=== PATIENT | female | born 1965 | race Caucasian/White ===

== ENCOUNTER → 2017-03-13 | Outpatient (CLI) | payer MEDICARE, OTHER ==
--- NOTE | 2017-03-13 11:08 | MR ---
EXAMINATION TYPE: MR lumbar spine wo/w con DATE OF EXAM: 03/13/2017 COMPARISON: CT 05/11/2014 HISTORY: Low back pain TECHNIQUE: Multiplanar, multisequence images of the lumbar spine were acquired utilizing 10 mL intravenous Gadav ist gadolinium contrast. Suspect there are only 4 nonrib-bearing lumbar vertebral bodies. Minimal anterolisthesis grade 1 lumb osacral junction. L1-L2: Normal disc appearance without desiccation. No herniation, protrusion or disc bulging. No ca nal stenosis is present. Foramina are patent bilaterally. L2-L3: Small posterior broad-based disc bulge causes slight anterior mass effect on the thecal sac. F acet arthropathy with hypertrophy of the ligamentum flavum encroaches upon the lateral recesses. Late ral extension of disc material encroaches mildly on the neural foramina bilaterally. L3-L4: Somewhat eccentric disc bulge towards the left causes minimal anterolateral mass effect on the thecal sac. There is some facet arthropathy with hypertrophy ligamentum flavum greater on the right. L4-S1: Normal disc appearance without desiccation. No herniation, protrusion or disc bulging. No ca nal stenosis is present. There is some facet arthropathy change. Foramina are patent bilaterally. Lumbar segments are intact. No paraspinal masses are identified. Conus medullaris has a normal appe arance. Question some dilation of the common bile duct. IMPRESSION: Mild degenerative disc disease, facet arthropathy. Correlate with plain film prior to any interventio n. Findings suggest biliary dilation possibly due to postcholecystectomy change.
== END | disposition home or self-care (01) ==
LOC: RADMRIMAIN 08:25
PROVIDERS: ATTEND Internal Medicine
DX: M51.36 Other intervertebral disc degeneration, lumbar region (principal); M46.96 Unspecified inflammatory spondylopathy, lumbar region
CPT/HCPCS: 72158; A9581

== ENCOUNTER 2017-04-07 06:09 | Observation (INO) | payer MEDICARE, OTHER ==
[2017-04-07] MEDS ORDERED: NITROGLYCERIN SL TABS 0.4 MG TAB SUBLINGUAL STA ×3 (06:26)
[2017-04-07] MEDS ORDERED: ASPIRIN 81 MG PO STA (06:26)
--- NOTE | 2017-04-07 06:30 | ED ---
General Adult HPI - General Source: patient, RN notes reviewed Mode of arrival: ambulatory Limitations: no limitations <Mendel Ennis - Last Filed: 04/07/17 06:27> <Juan Purcell - Last Filed: 04/07/17 07:40> - General Chief complaint: Chest Pain Stated complaint: Chest Pain/Back Pain/ Trouble Urinating Time Seen by Provider: 04/07/17 06:18 - History of Present Illness Initial comments: Patient is a pleasant 51-year-old female presenting to the emergency Department with chest discomfort. Onset of symptoms was a week ago. Discomfort is described as sharp. Discomfort is currently 8/10. There is radiation towards the back. Patient has been coughing for the past week or more. Cough is been dry. Patient does have some associated nausea and shortness of breath. No diaphoresis. Patient states she feels like she needs to urinate however has not been able to urinate in the past 3 hours. No fevers. Patient was at [facility] yesterday however they were unable to get blood on her and patient was given the option if she wanted to leave and decided to leave at that time. ( Mendel Ennis) - Related Data Home Medications Medication Instructions Recorded Confirmed ALPRAZolam [Xanax] 1 mg PO Q8H PRN 03/20/14 04/07/17 Hydrocodone/Acetaminophen [[place] 1 tab PO Q8HR PRN 03/20/14 04/07/17 7.5-325] Albuterol Inhaler [Ventolin Hfa 1 puff INHALATION RT-TID PRN 12/31/15 04/07/17 Inhaler] Albuterol Nebulized [Ventolin 2.5 mg INHALATION RT-TID PRN 12/31/15 04/07/17 Nebulized] Aspirin 325 mg PO DAILY 12/31/15 04/07/17 Butalb/APAP/Caff 50-325-40Mg 1 - 2 tab PO Q4H PRN 12/31/15 04/07/17 [Fioricet 50-325-40] Cyclobenzaprine [Flexeril] 5 mg PO Q8H 12/31/15 04/07/17 Levothyroxine Sodium [Synthroid] 50 mcg PO MOTUWETHFRSA 12/31/15 04/07/17 Pantoprazole [Protonix] 40 - 80 mg PO DAILY PRN 12/31/15 04/07/17 Zolpidem [Ambien] 10 mg PO HS 12/31/15 04/07/17 buPROPion XL [Wellbutrin Xl] 450 mg PO DAILY 12/31/15 04/07/17 FLUoxetine HCL [Sarafem] 60 mg PO HS 02/07/16 04/07/17 valACYclovir HCL [Valacyclovir] 500 mg PO DAILY 02/07/16 04/07/17 Allergies Allergy/AdvReac Type Severity Reaction Status Date / Time ketorolac tromethamine Allergy Unknown Verified 04/07/17 06:15 [From Toradol] prochlorperazine edisylate Allergy Unknown Verified 04/07/17 06:15 [From Compazine] prochlorperazine maleate Allergy Unknown Verified 04/07/17 06:15 [From Compazine] Sulfa (Sulfonamide Allergy Rash/Hives Verified 04/07/17 06:15 Antibiotics) Review of Systems ROS Other: All systems not noted in ROS Statement are negative. Constitutional: Denies: fever Eyes: Denies: eye pain ENT: Denies: ear pain Respiratory: Reports: cough, dyspnea Cardiovascular: Reports: chest pain Endocrine: Denies: fatigue Gastrointestinal: Denies: abdominal pain Genitourinary: Reports: urgency Musculoskeletal: Reports: back pain Skin: Denies: rash Neurological: Denies: weakness <Mendel Ennis - Last Filed: 04/07/17 06:27> ROS Other: All systems not noted in ROS Statement are negative. <Juan Purcell - Last Filed: 04/07/17 07:40> ROS Statement: Those systems with pertinent positive or pertinent negative responses have been documented in the HPI. Past Medical History Past Medical History: Asthma, Deep Vein Thrombosis (DVT) History of Any Multi-Drug Resistant Organisms: None Reported Past Surgical History: Appendectomy, Section, Hysterectomy, Orthopedic Surgery, Tonsillectomy Additional Past Surgical History / Comment(s): LEG SURGERY, KNEE SURGERY LEFT Past Psychological History: Anxiety, Depression, Panic Disorder Smoking Status: Never smoker Past Alcohol Use History: None Reported Past Drug Use History: None Reported <Mendel Ennis - Last Filed: 04/07/17 06:27> General Exam Limitations: no limitations General appearance: alert, in no apparent distress Head exam: Present: atraumatic Eye exam: Present: normal appearance, PERRL ENT exam: Present: normal oropharynx Neck exam: Present: normal inspection Respiratory exam: Present: normal lung sounds bilaterally. Absent: chest wall tenderness Cardiovascular Exam: Present: regular rate, normal rhythm Expanded Peripheral pulses: 2+: Radial (R), Radial (L), Dorsalis Pedis (R), Dorsalis Pedis (L) GI/Abdominal exam: Present: soft. Absent: tenderness Extremities exam: Present: normal inspection. Absent: pedal edema, calf tenderness Back exam: Present: normal inspection Neurological exam: Present: alert Psychiatric exam: Present: normal affect, normal mood Skin exam: Present: normal color <Mendel Ennis - Last Filed: 04/07/17 06:27> Vital Signs 04/07/17 04/07/17 04/07/17 06:10 06:55 07:05 Temperature 97 F L Pulse Rate 96 88 95 Respiratory 18 16 18 Rate Blood Pressure 120/78 113/78 121/67 O2 Sat by Pulse 100 100 95 Oximetry 04/07/17 07:15 Temperature Pulse Rate 90 Respiratory 18 Rate Blood Pressure 103/63 O2 Sat by Pulse 97 Oximetry EKG Findings - EKG Comments: EKG Findings:: Normal sinus rhythm 100. NC 140. QRS 72. QT 320. QTc 412. Normal axis. Normal QRS. Inverted T waves leads V2 through V5. <Mendel Ennis - Last Filed: 04/07/17 06:27> Medical Decision Making - Lab Data Result diagrams: 04/07/17 06:53 04/07/17 06:53 <Juan Purcell - Last Filed: 04/07/17 07:40> - Lab Data Lab Results 04/07/17 04/07/17 04/07/17 Range/Units 06:53 06:53 06:53 WBC 5.9 (3.8-10.6) k/uL RBC 4.40 (3.80-5.40) m/uL Hgb 14.0 (11.4-16.0) gm/dL Hct 42.7 (34.0-46.0) % MCV 97.1 (80.0-100.0) fL MCH 31.8 (25.0-35.0) pg MCHC 32.8 (31.0-37.0) g/dL RDW 13.3 (11.5-15.5) % Plt Count 292 (150-450) k/uL Neutrophils % 40 % Lymphocytes % 46 % Monocytes % 7 % Eosinophils % 4 % Basophils % 0 % Neutrophils # 2.4 (1.3-7.7) k/uL Lymphocytes # 2.7 (1.0-4.8) k/uL Monocytes # 0.4 (0-1.0) k/uL Eosinophils # 0.2 (0-0.7) k/uL Basophils # 0.0 (0-0.2) k/uL PT (9.0-12.0) sec INR (<1.2) APTT (22.0-30.0) sec D-Dimer (<0.60) mg/L FEU Sodium 144 (137-145) mmol/L Potassium 4.2 (3.5-5.1) mmol/L Chloride 108 H (98-107) mmol/L Carbon Dioxide 24 (22-30) mmol/L Anion Gap 12 mmol/L BUN 12 (7-17) mg/dL Creatinine 1.01 (0.52-1.04) mg/dL Est GFR (MDRD) Af Amer >60 (>60 ml/min/1.73 sqM) Est GFR (MDRD) Non-Af 58 (>60 ml/min/1.73 sqM) Glucose 63 L (74-99) mg/dL Calcium 10.1 (8.4-10.2) mg/dL Magnesium 2.0 (1.6-2.3) mg/dL Total Bilirubin 0.3 (0.2-1.3) mg/dL AST 19 (14-36) U/L ALT 21 (9-52) U/L Alkaline Phosphatase 59 (38-126) U/L Total Creatine Kinase 136 H (30-135) U/L CK-MB (CK-2) 1.3 (0.0-2.4) ng/mL CK-MB (CK-2) Rel Index 1.0 Troponin I <0.012 (0.000-0.034) ng/mL Total Protein 8.3 H (6.3-8.2) g/dL Albumin 4.9 (3.5-5.0) g/dL 10/28/17 Range/Units 06:53 WBC (3.8-10.6) k/uL RBC (3.80-5.40) m/uL Hgb (11.4-16.0) gm/dL Hct (34.0-46.0) % MCV (80.0-100.0) fL MCH (25.0-35.0) pg MCHC (31.0-37.0) g/dL RDW (11.5-15.5) % Plt Count (150-450) k/uL Neutrophils % % Lymphocytes % % Monocytes % % Eosinophils % % Basophils % % Neutrophils # (1.3-7.7) k/uL Lymphocytes # (1.0-4.8) k/uL Monocytes # (0-1.0) k/uL Eosinophils # (0-0.7) k/uL Basophils # (0-0.2) k/uL PT 10.4 (9.0-12.0) sec INR 1.0 (<1.2) APTT 23.9 (22.0-30.0) sec D-Dimer 0.34 (<0.60) mg/L FEU Sodium (137-145) mmol/L Potassium (3.5-5.1) mmol/L Chloride (98-107) mmol/L Carbon Dioxide (22-30) mmol/L Anion Gap mmol/L BUN (7-17) mg/dL Creatinine (0.52-1.04) mg/dL Est GFR (MDRD) Af Amer (>60 ml/min/1.73 sqM) Est GFR (MDRD) Non-Af (>60 ml/min/1.73 sqM) Glucose (74-99) mg/dL Calcium (8.4-10.2) mg/dL Magnesium (1.6-2.3) mg/dL Total Bilirubin (0.2-1.3) mg/dL AST (14-36) U/L ALT (9-52) U/L Alkaline Phosphatase (38-126) U/L Total Creatine Kinase (30-135) U/L CK-MB (CK-2) (0.0-2.4) ng/mL CK-MB (CK-2) Rel Index Troponin I (0.000-0.034) ng/mL Total Protein (6.3-8.2) g/dL Albumin (3.5-5.0) g/dL Critical Care Time Critical Care Time: Yes Total Critical Care Time: 31 <Juan Purcell - Last Filed: 04/07/17 07:40> Disposition <Mendel Ennis - Last Filed: 04/07/17 06:27> <Juan Purcell - Last Filed: 04/07/17 07:40> Clinical Impression: Chest pain Disposition: ADMITTED IP TO THIS HOSP Condition: Serious Instructions: Chest Pain (ED) Referrals: Genia Avalos MD [Primary Care Provider] - 1-2 days
--- NOTE | 2017-04-07 06:52 | XR ---
EXAM: XR Chest, 2 Views CLINICAL HISTORY: Reason: Chest Pain TECHNIQUE: Frontal and lateral views of the chest. COMPARISON: No relevant prior studies available. FINDINGS: Lungs: Unremarkable. No consolidation. Pleural space: Unremarkable. No pneumothorax. Heart: Unremarkable. No cardiomegaly. Mediastinum: Unremarkable. Bones/joints: Unremarkable. IMPRESSION: Normal chest x-rays.
[2017-04-07 07:03] LABS: Basophils % (A) 0 %; CH 31.6; CHCM 32.7; Eosinophils # (A) 0.2 k/uL (0-0.7); Eosinophils % (A) 4 %; HCT 42.7 % (34.0-46.0); HDW 2.61; Luc # (Auto) 0.12; Luc % (Auto) 2; Lymphocytes # (A) 2.7 k/uL (1.0-4.8); Lymphocytes % (A) 46 %; MCH 31.8 pg (25.0-35.0); MCHC 32.8 g/dL (31.0-37.0); MCV 97.1 fL (80.0-100.0); Mean Platelet Volume 8.5; Monocytes # (A) 0.4 k/uL (0-1.0); Monocytes % (A) 7 %; Neutrophils # (A) 2.4 k/uL (1.3-7.7); Neutrophils % (A) 40 %; RDW 13.3 % (11.5-15.5); WBC 5.9 k/uL (3.8-10.6)
[2017-04-07] MEDS ORDERED: MORPHINE SULFATE 10 MG/ML SYRINGE IVP STA (07:07)
[2017-04-07] MEDS ORDERED: ONDANSETRON 4 MG/2 ML VIAL IVP STA (07:09)
[2017-04-07 07:15] LABS: ALT 21 U/L (9-52); AST 19 U/L (14-36); Alkaline Phosphatase 59 U/L (38-126); Anion Gap 12 mmol/L; Blood Urea Nitrogen 12 mg/dL (7-17); Calcium 10.1 mg/dL (8.4-10.2); Carbon Dioxide 24 mmol/L (22-30); Chloride 108 mmol/L (98-107); Glucose 63 mg/dL (74-99); Non-African American GFR(MDRD) 58 (>60 ml/min/1.73 sqM); Sodium 144 mmol/L (137-145); Total Bilirubin 0.3 mg/dL (0.2-1.3); Total Protein 8.3 g/dL (6.3-8.2)
[2017-04-07 07:17] LABS: Potassium 4.2 mmol/L (3.5-5.1)
[2017-04-07 07:22] LABS: Partial Thromboplastin Time 23.9 sec (22.0-30.0); Prothrombin Time 10.4 sec (9.0-12.0)
[2017-04-07 07:23] LABS: Creatine Kinase 136 U/L (30-135)
[2017-04-07 07:36] LABS: Creatine Kinase MB 1.3 ng/mL (0.0-2.4); Troponin I <0.012 ng/mL (0.000-0.034)
[2017-04-07] MEDS ORDERED: NITROGLYCERIN SL TABS 0.4 MG TAB SUBLINGUAL PRN (07:38)
[2017-04-07] MEDS ORDERED: HEPARIN SODIUM,PORCINE 5,000 UNIT/ML 1 ML VIAL IV PRN (07:38)
[2017-04-07] MEDS ORDERED: IPRATROPIUM-ALBUTEROL 3 ML NEB INHALATION PRN (07:38)
[2017-04-07] MEDS ORDERED: MORPHINE SULFATE 4 MG/ML SYRINGE IV PRN (07:38)
[2017-04-07] MEDS ORDERED: HEPARIN SODIUM,PORCINE 5,000 UNIT/ML 1 ML VIAL IV ONE ×2 (07:38→18:46)
[2017-04-07] MEDS ORDERED: SODIUM CHLORIDE 0.9% 1,000 ML IV SCH (07:45)
[2017-04-07] MEDS: HEPARIN SODIUM,PORCINE/D5W PMX 25,000 UNIT in DEXTROSE/WATER 1 500ML.BAG IV SCH (08:18)
[2017-04-07] MEDS ORDERED: RX INFO: IV CONTRAST WAS GIVEN 1 EACH MISC MISCELLANE PRN (09:30)
[2017-04-07 10:13] LABS: Appearance,Urine Clear (Clear); Bilirubin,Urine Negative (Negative); Glucose,Urine (UA) Negative (Negative); Ketones,Urine Negative (Negative); Leukocyte Esterase,Urine Negative (Negative); Nitrite,Urine Negative (Negative); PH, Urine 5.5 (5.0-8.0); Protein,Urine Negative (Negative); Specific Gravity,Urine 1.005 (1.001-1.035); UA Billing (MACRO vs. MICRO) CHEM; Urobilinogen,Urine <2.0 mg/dL (<2.0)
[2017-04-07] MEDS ORDERED: ALBUTEROL NEBULIZED 2.5 MG/3 ML INHALATION PRN (10:28)
--- NOTE | 2017-04-07 10:31 | P.HPIM ---
History of Present Illness Chief Complaint: Chest pain This is a 51-year-old female with past medical history noted below who presented to the hospital with chest and back pain. Patient said that her symptoms started a week ago. She said that the pain is mostly in the center of her chest and to the right side. She described the pain as sharp. It is not associated with exertion. She said she's been having a lot of nonproductive cough that is making her chest discomfort worse. She rates her pain as 8 out of 10 in severity. She denies fevers or chills. No nausea or vomiting. She reports some shortness of breath. She is currently admitted to the observation unit for further evaluation. Review of Systems Review of system: 14 points review of systems were obtained and were negative except to what were mentioned in the HPI. Past Medical History Past Medical History: Asthma, Deep Vein Thrombosis (DVT) History of Any Multi-Drug Resistant Organisms: None Reported Past Surgical History: Appendectomy, Section, Hysterectomy, Orthopedic Surgery, Tonsillectomy Additional Past Surgical History / Comment(s): LEG SURGERY, KNEE SURGERY LEFT Past Psychological History: Anxiety, Depression, Panic Disorder Smoking Status: Never smoker Past Alcohol Use History: None Reported Past Drug Use History: None Reported Medications and Allergies Home Medications Medication Instructions Recorded Confirmed Type ALPRAZolam [Xanax] 1 mg PO Q8H PRN 03/20/14 04/07/17 History Hydrocodone/Acetaminophen [[place] 1 tab PO Q8HR PRN 03/20/14 04/07/17 History 7.5-325] Albuterol Inhaler [Ventolin Hfa 1 puff INHALATION RT-TID PRN 12/31/15 04/07/17 History Inhaler] Albuterol Nebulized [Ventolin 2.5 mg INHALATION RT-TID PRN 12/31/15 04/07/17 History Nebulized] Aspirin 325 mg PO DAILY 12/31/15 04/07/17 History Butalb/APAP/Caff 50-325-40Mg 1 - 2 tab PO Q4H PRN 12/31/15 04/07/17 History [Fioricet 50-325-40] Cyclobenzaprine [Flexeril] 5 mg PO Q8H 12/31/15 04/07/17 History Levothyroxine Sodium [Synthroid] 50 mcg PO MOTUWETHFRSA 12/31/15 04/07/17 History Pantoprazole [Protonix] 40 - 80 mg PO DAILY PRN 12/31/15 04/07/17 History Zolpidem [Ambien] 10 mg PO HS 12/31/15 04/07/17 History buPROPion XL [Wellbutrin Xl] 450 mg PO DAILY 12/31/15 04/07/17 History FLUoxetine HCL [Sarafem] 60 mg PO HS 02/07/16 04/07/17 History valACYclovir HCL [Valacyclovir] 500 mg PO DAILY 02/07/16 04/07/17 History Allergies Allergy/AdvReac Type Severity Reaction Status Date / Time ketorolac tromethamine Allergy Unknown Verified 04/07/17 06:15 [From Toradol] prochlorperazine edisylate Allergy Unknown Verified 04/07/17 06:15 [From Compazine] prochlorperazine maleate Allergy Unknown Verified 04/07/17 06:15 [From Compazine] Sulfa (Sulfonamide Allergy Rash/Hives Verified 04/07/17 06:15 Antibiotics) Physical Exam Vitals: Vital Signs Temp Pulse Pulse Resp BP BP Pulse Ox 04/07/17 08:43 97.7 F 78 18 104/79 100 04/07/17 08:24 97 F L 84 20 127/66 100 04/07/17 08:20 84 20 127/66 100 04/07/17 07:15 90 18 103/63 97 04/07/17 07:05 95 18 121/67 95 04/07/17 06:55 88 16 113/78 100 04/07/17 06:10 97 F L 96 18 120/78 100 Intake and Output 04/06/17 04/07/17 04/07/17 22:59 06:59 14:59 Output Total 414 Balance -414 Output: Post Void Residual 414 Other: Weight 104.326 kg 106.9 kg Patient Weight 04/08/17 06:59 Weight 106.9 kg General: The patient is awake and alert, in no distress Eye: there is normal conjunctiva bilaterally. Neck: The neck is supple, there is no JVD. Cardiovascular: Normal S1-S2, no S3-S4, no murmurs. Respiratory: Lungs clear to auscultation bilaterally Gastrointestinal: Abdomen is soft, nontender Musculoskeletal: There is no pedal edema. Neurological:. Speech is normal. Skin: Skin is warm and dry Results CBC & Chem 7: 04/07/17 06:53 04/07/17 06:53 Labs: Abnormal Lab Results - Last 24 Hours (Table) 04/07/17 04/07/17 Range/Units 06:53 06:53 Chloride 108 H (98-107) mmol/L Glucose 63 L (74-99) mg/dL Total Creatine Kinase 136 H (30-135) U/L Total Protein 8.3 H (6.3-8.2) g/dL Assessment and Plan Assessment: 1. Chest pain, with typical and atypical features. 12-lead EKG with no acute ischemic changes. First troponin is negative. Awaiting cardiology evaluation. Chest x-ray is unremarkable. 2. Major depressive disorder 3. Chronic arthritis pain 4. Orbital obesity
--- NOTE | 2017-04-07 11:17 | CT ---
EXAMINATION TYPE: CT angio chest DATE OF EXAM: 04/07/2017 10:48 AM COMPARISON: NONE HISTORY: SOB, pain CT DLP: 568.9 mGycm Automated exposure control for dose reduction was used. CONTRAST: CTA scan of the thorax is performed with IV Contrast, patient injected with 80 mL of Visipaque 320, p ulmonary embolism protocol. . FINDINGS: There is minimal dependent atelectasis in the dependent portions of the lungs. The lungs ar e otherwise clear. There is no significant retroperitoneal, internal mammary, mediastinal or hilar adenopathy. There is no evidence of pulmonary embolus. The aorta is normal in size without evidence of dissection . There is no pleural or pericardial fluid. The heart is upper limits of normal in size. Within the abdomen, the gallbladder is been removed. No other acute abnormality is seen. There is a s mall hiatal hernia. IMPRESSION: 1. THIS EXAMINATION IS NEGATIVE FOR PULMONARY EMBOLUS. 2. BORDERLINE CARDIOMEGALY. 3. SMALL HIATAL HERNIA.
[2017-04-07 13:20] LABS: Creatine Kinase 113 U/L (30-135)
[2017-04-07 13:32] LABS: Creatine Kinase MB 1.2 ng/mL (0.0-2.4); Troponin I <0.012 ng/mL (0.000-0.034)
[2017-04-07 14:09] VITALS: BMI 38.0
[2017-04-07] MEDS: METOPROLOL TARTRATE 50 MG TAB PO SCH ×2 (14:09→20:33)
[2017-04-07] MEDS: SODIUM CHLORIDE 0.9% 1,000 ML IV SCH ×2 (14:11→20:33)
[2017-04-07] MEDS: LEVOTHYROXINE 50 MCG TAB PO SCH (14:13)
[2017-04-07] MEDS: CYCLOBENZAPRINE 5 MG TAB PO SCH ×2 (14:13→20:32)
[2017-04-07] MEDS: ALPRAZolam 0.5 MG TAB PO PRN (14:16)
--- NOTE | 2017-04-07 15:41 | CONS ---
CONSULTATION Kim Jordan is a 51-year-old obese lady with a history of bronchial asthma, previous DVT, appendectomy section. Hysterectomy. She comes into the hospital with complaints of one week worth of chest discomfort. Her discomfort is sharp in nature. Sometimes a sensation of pressure located to the right of her sternum and she has been coughing for the past week and seems sometimes pain seemed to be associated with coughing. She also complained of some pressure in the chest, some radiation to the back as well. With these symptoms, she came into the hospital. Apparently, she went to [facility], but they could not get any blood drawn her and therefore she came here today. The quality of the pain seems musculoskeletal, but interestingly the EKG shows some precordial and anterior ST depression which was not there on the EKG from March 20. At the time of my evaluation, she is resting comfortably. Pain is musculoskeletal, almost reproducible. PAST MEDICAL HISTORY: 1. Remarkable for history of bronchial asthma. 2. DVT by history. 3. She status post appendectomy. 4. section. 5. Tonsillectomy. 6. Hysterectomy. MEDICATIONS: At home include albuterol inhaler, Flexeril, levothyroxine, Protonix, Wellbutrin and also Ambien. ALLERGIES: SHE IS ALLERGIC TO TORADOL, COMPAZINE, AND SULFA. PHYSICAL EXAMINATION: Blood pressure is 110/70, pulse rate is 70 per minute, regular. HEENT: Unremarkable. Fundus was not examined by me. Neck is supple. No JVD. I do not hear a carotid bruit. There is no thyromegaly. Heart exam reveals S1, S2 with somewhat distant heart sounds. Lungs reveal bilateral decent air entry. There is no significant rub, murmur or gallop. Abdomen is soft, nontender. Lower extremities reveal palpable pulses. No edema. Central nervous system is grossly within normal limits. EKG revealed a sinus mechanism with a precordial ST depression, which is a new finding. EKG from March 20 did not reveal similar changes. IMPRESSION: 1. Atypical chest pain. 2. Abnormal EKG. 3. History of bronchial asthma. 4. Underlying depression. 5. RECOMMENDATIONS: The patient's laboratory data suggested that initial troponin is negative. Her D-dimer is normal. I am recommending CT angiography to rule out any aortic dissection or any pulmonary embolism. If these studies are negative, given her EKG changes and atypical chest pain, I will consider cardiac cath. I would also discontinue heparin, check additional troponin levels and see how she does. I will perform coronary angiography if the CT angiography is negative and patient continues to have chest pain. EKG changes are of a concern. I discussed this with the patient at length, explained to her the rationale, risks, benefits, and options related to coronary angiography. She understands and wishes to proceed and this will be scheduled for tomorrow after I review the CT angiogram. Thank you very much for the consult. ROBERTA / ROSION: [id number] /
[2017-04-07] MEDS: MORPHINE SULFATE 10 MG/ML SYRINGE IV PRN ×2 (16:35→20:31)
[2017-04-07 19:38] LABS: Creatine Kinase 110 U/L (30-135)
[2017-04-07 19:52] LABS: Creatine Kinase MB 1.1 ng/mL (0.0-2.4); Troponin I <0.012 ng/mL (0.000-0.034)
[2017-04-07] MEDS: FLUoxetine HCL 20 MG CAP PO SCH (20:32)
[2017-04-07] MEDS: ZOLPIDEM 10 MG TAB PO SCH (20:32)
[2017-04-08 01:25] LABS: CH 30.8; CHCM 31.8; HCT 38.2 % (34.0-46.0); HDW 2.43; HGB 12.2 gm/dL (11.4-16.0); MCH 31.1 pg (25.0-35.0); MCV 97.3 fL (80.0-100.0); Mean Platelet Volume 8.7; RBC 3.92 m/uL (3.80-5.40); RDW 14.2 % (11.5-15.5); WBC 7.6 k/uL (3.8-10.6)
[2017-04-08] MEDS: CYCLOBENZAPRINE 5 MG TAB PO SCH ×3 (01:47→18:12)
[2017-04-08 01:59] LABS: Anion Gap 11 mmol/L; Blood Urea Nitrogen 12 mg/dL (7-17); Calcium 9.2 mg/dL (8.4-10.2); Carbon Dioxide 19 mmol/L (22-30); Chloride 109 mmol/L (98-107); Cholesterol 198 mg/dL (<200); Glucose 100 mg/dL (74-99); HDL Cholesterol 59 mg/dL (40-60); Non-African American GFR(MDRD) 53 (>60 ml/min/1.73 sqM); Potassium 4.4 mmol/L (3.5-5.1); Sodium 139 mmol/L (137-145)
[2017-04-08] MEDS ORDERED: ACETAMINOPHEN TAB 325 MG TAB PO PRN (07:01)
--- NOTE | 2017-04-08 08:42 | ECHOF ---
Referral Reason:LV FUNCTION MEASUREMENTS -------- HEIGHT: 167.6 cm WEIGHT: 106.6 kg BP: 81/55 RVIDd: 2.4 cm (< 3.3) IVSd: 1.0 cm (0.6 - 1.1) LVIDd: 4.4 cm (3.9 - 5.3) LVPWd: 1.0 cm (0.6 - 1.1) IVSs: 1.4 cm LVIDs: 2.7 cm LVPWs: 1.9 cm LA Diam: 3.2 cm (2.7 - 3.8) LAESV Index (A-L): 19.33 ml/m Ao Diam: 3.6 cm (2.0 - 3.7) AV Cusp: 2.4 cm (1.5 - 2.6) MV EXCURSION: 13.970 mm (> 18.000) MV EF SLOPE: 57 mm/s (70 - 150) EPSS: 1.0 cm MV E Pedro: 0.66 m/s MV DecT: 203 ms MV A Pedro: 0.64 m/s MV E/A Ratio: 1.04 RAP: 5.00 mmHg RVSP: 27.98 mmHg FINDINGS -------- Sinus rhythm. This was a technically good study. The left ventricular size is normal. Left ventricular wall thickness is normal. Overall left vent ricular systolic function is normal with, an EF between 60 - 65 %. The right ventricle is normal in size and function. Normal LA size by volume 22+/-6 ml/m2. The right atrium is normal in size. The aortic valve is trileaflet and appears structurally normal. The mitral valve is normal. Mild tricuspid regurgitation present. Right ventricular systolic pressure is normal at < 35 mmHg. Trace/mild (physiologic) pulmonic regurgitation. The aortic root size is normal. Normal inferior vena cava with normal inspiratory collapse consistent with estimated right atrial pre ssure of 5 mmHg. Echo free space may represent effusion or a pericardial fat pad. CONCLUSIONS -------- 1. Sinus rhythm. 2. This was a technically good study. 3. The left ventricular size is normal. 4. Left ventricular wall thickness is normal. 5. Overall left ventricular systolic function is normal with, an EF between 60 - 65 %. 6. The right ventricle is normal in size and function. 7. Normal LA size by volume 22+/-6 ml/m2. 8. The right atrium is normal in size. 9. The aortic valve is trileaflet and appears structurally normal. 10. The mitral valve is normal. 11. Mild tricuspid regurgitation present. 12. Right ventricular systolic pressure is normal at < 35 mmHg. 13. Trace/mild (physiologic) pulmonic regurgitation. 14. The aortic root size is normal. 15. Normal inferior vena cava with normal inspiratory collapse consistent with estimated right atrial pressure of 5 mmHg. OBSTETRICIAN AND GYNAECOLOGIST: Fatemeh Weeks RDCS
[2017-04-08] MEDS ORDERED: ASPIRIN 325 MG TAB PO SCH ×2 (09:00)
[2017-04-08] MEDS ORDERED: SODIUM CHLORIDE 0.9% 250 ML IV ONE (09:14)
[2017-04-08] MEDS ORDERED: BUTALB/APAP/CAFF 50-325-40MG TAB PO PRN (09:19)
[2017-04-08] MEDS ORDERED: NITROGLYCERIN SL TABS 0.4 MG TAB SUBLINGUAL PRN (09:20)
[2017-04-08] MEDS ORDERED: SODIUM CHLORIDE 0.9% 1,000 ML in EMPTY BAG 1 BAG IV ONE (09:20)
[2017-04-08] MEDS ORDERED: ALPRAZolam 0.25 MG TAB PO PRN (09:20)
[2017-04-08] MEDS ORDERED: ALPRAZolam 0.5 MG TAB PO PRN (09:20)
[2017-04-08] MEDS ORDERED: ASPIRIN 325 MG TAB PO STA (09:20)
[2017-04-08] MEDS ORDERED: ATORVASTATIN 80 MG TAB PO STA (09:20)
[2017-04-08] MEDS: buPROPion XL 150 MG TAB.ER.24H PO SCH (09:56)
[2017-04-08] MEDS: valACYclovir 500 MG TAB PO SCH (09:56)
[2017-04-08] MEDS: METOPROLOL TARTRATE 12.5 MG TAB PO SCH ×2 (09:57→20:41)
[2017-04-08] MEDS: PANTOPRAZOLE 40 MG TABLET PO SCH (09:57)
[2017-04-08] MEDS: ALPRAZolam 0.5 MG TAB PO PRN ×2 (10:04→20:39)
[2017-04-08] MEDS ORDERED: LIDOCAINE 2% INJ 20 MG/ML (20 ML MDV) ONE (10:59)
--- NOTE | 2017-04-08 11:06 | PN ---
PROGRESS NOTE Mrs Jordan is a lady with chest pain. Quality of which seemed atypical. Had abnormal EKG changes. I performed a CT angio yesterday which was negative for pulmonary embolism or for any aortic pathology. EKG changes persist. Her chest pain persists, but seems atypical. Echo revealed preserved systolic function with a echo-free space anteriorly suggestive of fat pad. Given her ongoing pain and EKG changes, I am recommending coronary angiography. Rationale, risks, benefits, options were explained to the patient and . I am recommending coronary angiography. The patient understands the risks, benefits, and options. Creatinine is 1.1. We will continue aggressive hydration. Proceed with cardiac cath today and based on findings, make further determination. If her coronary angiography is negative, then I would have to resume that her pain is purely musculoskeletal and EKG changes are incidental and nonspecific. Her previous EKG from 2013 did not reveal similar changes. The patient and her understand the rationale, risks, benefits, options and wished to proceed with cardiac catheterization. Vital signs are stable. Blood pressure is somewhat on the lower side. S1-S2 heard normally. No rub, murmur or gallop. No JVD. Lungs are clear. Abdomen and lower extremities exam is unchanged. MMODL / IJN: [id number] /
[2017-04-08] MEDS ORDERED: IV FLUID CONTINUATION 1,000 ML IV ONE (11:12)
[2017-04-08] MEDS ORDERED: diphenhydrAMINE 50 MG/ML 1 ML VIAL ONE (11:22)
[2017-04-08] MEDS ORDERED: MIDAZOLAM 2 MG/2 ML VIAL ONE (11:22)
[2017-04-08] MEDS: MIDAZOLAM 2 MG/2 ML VIAL IV ONE ×2 (11:52→12:00)
[2017-04-08] MEDS ORDERED: diphenhydrAMINE 50 MG/ML 1 ML VIAL IVP ONE (11:52)
[2017-04-08] MEDS ORDERED: fentaNYL (PF) 50 MCG/ML 2 ML AMP ONE (12:00)
[2017-04-08] MEDS ORDERED: LIDOCAINE 2% INJ 20 MG/ML SQ ONE ×2 (12:01)
[2017-04-08] MEDS ORDERED: fentaNYL (PF) 50 MCG/ML 2 ML AMP IV ONE (12:02)
[2017-04-08] MEDS ORDERED: HYDROmorphone 2 MG/ML 1 ML SYRINGE IV ONE (12:14)
[2017-04-08] MEDS ORDERED: HYDROmorphone 2 MG/ML 1 ML SYRINGE ONE (12:14)
[2017-04-08] MEDS ORDERED: IOHEXOL 350 MG/ML (PER ML) 100ML BTL INJ ONE (12:15)
[2017-04-08] MEDS: SODIUM CHLORIDE 0.9% 1,000 ML IV SCH (12:53)
--- NOTE | 2017-04-08 13:24 | CC ---
CARDIAC CATHETERIZATION REPORT DATE OF SERVICE: 04/08/2017 PROCEDURE: Left heart catheterization and coronary angiography. PERFORMED BY: Dr. Jessy Friedman. CLINICAL INFORMATION: Kim Jordan is a 51-year-old lady admitted to the hospital with chest pain and precordial ST-segment depression, raising the possibility of ischemia. She had continued pain, negative troponins, and also had some shoulder discomfort and underwent a CT angio that was negative for pulmonary embolism or for aortic pathology. Because of ongoing pain and EKG changes she was advised coronary angiography. Risks, benefits, options, rationale explained to the patient and her . PROCEDURE NOTE: Under local anesthesia and strict aseptic precautions, a 6-Irish introducer was placed in the right femoral artery. Using standard Nicko catheters I performed coronary angiography and a pigtail catheter was used to check LV pressures. LV gram was not performed. Patient's creatinine was 1.10. She was hydrated adequately before and during the procedure. Hemostasis was secured using a Perclose device. Because of some oozing, I applied a FemoStop. Excellent hemostasis was noted. The patient tolerated the procedure well without complications. CARDIAC CATHETERIZATION FINDINGS: The left end-diastolic pressure was 12 mmHg and there was no gradient across aortic valve. CORONARY ANGIOGRAPHY FINDINGS: Right coronary artery: Technically dominant vessel. No significant disease. Distally bifurcates into a larger PLV, smaller PDA both of which supply a fair amount of myocardium. No significant disease in the dominant RCA. Left main coronary artery: A long patent disease-free vessel that bifurcates into LAD and circumflex. Left anterior descending coronary artery: Good caliber vessel extends along the antral wall gives off septal and diagonal branches. Most of these branches are smaller distally but it curves over the apex supplying the inferoapical portion of left ventricle. There is no significant disease in the LAD system. Left posterior circumflex coronary artery: Nondominant vessel that gives off a single obtuse marginal, runs in the AV groove. No significant disease. Minor irregularities. Left ventriculogram this was not performed. FINAL IMPRESSION: This patient has no significant obstructive coronary artery disease. She has a right dominant system, normal filling pressures. Her chest pain is probably musculoskeletal in origin. RECOMMENDATIONS: I am recommending risk factor modification and continued medical therapy. She will be on Lipitor 20 mg daily. No other intervention necessary fine. Findings were discussed with the patient and her and I expect that she will be discharged home tomorrow morning if she remains stable. Moderate conscious sedation was provided with a combination of Versed, fentanyl and also Benadryl. Moderate conscious sedation time was about 30 minutes. ROBERTA / ROSION: [id number] /
[2017-04-08] MEDS: HYDROcodone/APAP 10-325MG 1 EACH TAB PO PRN ×2 (13:29→20:40)
--- NOTE | 2017-04-08 14:33 | P.PN ---
Subjective Patient underwent left heart catheterization today. No significant obstructive coronary artery disease reported. Patient continued to describe chest pain and back pain. She is requesting [place] 10 mg Objective - Vital Signs Vital signs: Vital Signs Temp 98.0 F 04/08/17 12:40 Pulse 75 04/08/17 12:40 Resp 16 04/08/17 12:40 BP 109/74 04/08/17 12:40 Pulse Ox 93 L 04/08/17 12:40 Intake & Output 04/07/17 04/08/17 04/08/17 18:59 06:59 18:59 Intake Total 225 200 Balance 225 200 Weight 106.9 kg Intake: IV 200 Intake, IV Titration 225 Amount Heparin Sodium,Porcine/ 225 D5w Pmx 25,000 unit In Dextrose/Water 1 500ml. bag @ 9.59 UNITS/KG/HR 20 mls/hr IV .Q24H [facility] Rx#: [id number] Other: Voiding Method Toilet Toilet Toilet # Voids 1 2 - Exam General: The patient is awake and alert, in no distress Eye: there is normal conjunctiva bilaterally. Neck: The neck is supple, there is no JVD. Cardiovascular: Normal S1-S2, no S3-S4, no murmurs. Respiratory: Lungs clear to auscultation bilaterally Gastrointestinal: Abdomen is soft, nontender Musculoskeletal: There is no pedal edema. Neurological:. Speech is normal. Skin: Skin is warm and dry - Labs CBC & Chem 7: 04/08/17 00:57 04/08/17 00:57 Labs: Abnormal Lab Results - Last 24 Hours (Table) 04/07/17 04/08/17 04/08/17 Range/Units 14:23 00:57 00:57 APTT 32.9 H 47.8 H (22.0-30.0) sec Chloride 109 H (98-107) mmol/L Carbon Dioxide 19 L (22-30) mmol/L Creatinine 1.10 H (0.52-1.04) mg/dL Glucose 100 H (74-99) mg/dL LDL Cholesterol, Calc 113 H (0-99) mg/dL 04/08/17 Range/Units 07:40 APTT 61.5 H (22.0-30.0) sec Chloride (98-107) mmol/L Carbon Dioxide (22-30) mmol/L Creatinine (0.52-1.04) mg/dL Glucose (74-99) mg/dL LDL Cholesterol, Calc (0-99) mg/dL Assessment and Plan Assessment: 1. Chest pain, with typical and atypical features. 12-lead EKG with no acute ischemic changes. troponin is negative. Chest x-ray is unremarkable. 2. Major depressive disorder 3. Chronic arthritis pain 4. Orbital obesity Patient was seen and evaluated by cardiology. Given nonspecific changes on 12- lead EKG and persistent chest pain she underwent a left heart catheterization showing no significant obstructive coronary artery disease. Plan to continue telemetry monitoring as directed by cardiology for the rest of the day. Anticipate discharge home tomorrow. May use [place] as needed for pain.
[2017-04-08] MEDS: ZOLPIDEM 10 MG TAB PO SCH (20:39)
[2017-04-08] MEDS: FLUoxetine HCL 20 MG CAP PO SCH (20:39)
[2017-04-09] MEDS: SODIUM CHLORIDE 0.9% 1,000 ML IV SCH ×2 (02:54→11:12)
[2017-04-09] MEDS: CYCLOBENZAPRINE 5 MG TAB PO SCH ×2 (02:55→11:12)
[2017-04-09] MEDS: LEVOTHYROXINE 50 MCG TAB PO SCH (06:07)
[2017-04-09] MEDS: HYDROcodone/APAP 10-325MG 1 EACH TAB PO PRN (06:11)
[2017-04-09 07:50] VITALS: BP 117/65; PULSE 84; RESP 18; TEMP 97.6
[2017-04-09] MEDS: METOPROLOL TARTRATE 12.5 MG TAB PO SCH (08:16)
[2017-04-09] MEDS: buPROPion XL 150 MG TAB.ER.24H PO SCH (08:17)
[2017-04-09] MEDS: PANTOPRAZOLE 40 MG TABLET PO SCH (08:17)
[2017-04-09] MEDS: HEPARIN SODIUM,PORCINE/D5W PMX 25,000 UNIT in DEXTROSE/WATER 1 500ML.BAG IV SCH (08:23)
[2017-04-09] MEDS: METOPROLOL TARTRATE 50 MG TAB PO SCH (08:23)
[2017-04-09] MEDS ORDERED: ASPIRIN 81 MG PO SCH (09:00)
[2017-04-09] MEDS ORDERED: ATORVASTATIN 20 MG TAB PO SCH (09:00)
[2017-04-09 09:15] LABS: Basophils % (A) 0 %; CH 31.1; CHCM 31.5; Eosinophils # (A) 0.2 k/uL (0-0.7); Eosinophils % (A) 3 %; HCT 36.4 % (34.0-46.0); HDW 2.43; HGB 11.5 gm/dL (11.4-16.0); Luc # (Auto) 0.09; Luc % (Auto) 1; Lymphocytes # (A) 2.6 k/uL (1.0-4.8); Lymphocytes % (A) 39 %; MCH 31.2 pg (25.0-35.0); MCHC 31.5 g/dL (31.0-37.0); MCV 99.2 fL (80.0-100.0); Mean Platelet Volume 9.3; Monocytes # (A) 0.5 k/uL (0-1.0); Monocytes % (A) 8 %; Neutrophils # (A) 3.3 k/uL (1.3-7.7); Neutrophils % (A) 49 %; RBC 3.67 m/uL (3.80-5.40); RDW 14.6 % (11.5-15.5); WBC 6.7 k/uL (3.8-10.6); WBC (Perox) 6.98
[2017-04-09 09:20] LABS: Anion Gap 7 mmol/L; Blood Urea Nitrogen 11 mg/dL (7-17); Calcium 8.9 mg/dL (8.4-10.2); Carbon Dioxide 23 mmol/L (22-30); Chloride 109 mmol/L (98-107); Glucose 100 mg/dL (74-99); Non-African American GFR(MDRD) >60 (>60 ml/min/1.73 sqM); Potassium 4.3 mmol/L (3.5-5.1); Sodium 139 mmol/L (137-145)
[2017-04-09] MEDS: valACYclovir 500 MG TAB PO SCH (09:33)
--- NOTE | 2017-04-09 09:34 | PN ---
PROGRESS NOTE Mrs. Jordan is a 51-year-old female who presented with symptoms of chest discomfort. She was evaluated by Dr. Lillie Friedman yesterday and underwent cardiac catheterization because of her persistent symptoms, was found to have no evidence of significant obstructive disease. She is doing well this morning. Denying any chest pain. Her breathing is stable. She denies any dizziness. She continues to be on aspirin 81 mg daily, atorvastatin 20 mg daily and metoprolol tartrate 12.5 mg twice a day. PHYSICAL EXAMINATION: Blood pressure 117/60 with the heart rate in the 80s. LUNGS: Clear. HEART: Regular rate and rhythm S1, S2. No S3. No rub. ABDOMEN: Soft, nontender. EXTREMITIES: No edema. Right groin, no hematoma. LAB DATA: Lab data revealed BUN and creatinine 12 and 1.1. Potassium 4.4. IMPRESSION: 1. Chest discomfort with no evidence of obstructive coronary artery disease. 2. History of chronic arthritis pain. RECOMMENDATION: Patient will be discharged home today and followed as an outpatient with Dr. Lillie Friedman. MMODL / ROSION: [id number] /
[2017-04-09] MEDS ORDERED: AMOXIC-POT CLAV 500-125 MG 1 EACH TAB PO SCH (10:00)
--- NOTE | 2017-04-09 11:01 | P.DS ---
Providers Date of admission: 04/07/17 07:38 Expected date of discharge: 04/09/17 Attending physician: Genia Avalos Consults: 04/07/17 07:38 Consult Physician Urgent Consulting Provider: Selvin Keith Consult Reason/Comments: cp Do you want consulting provider notified?: Yes Primary care physician: Genia Avalos [facility] Hospital Course: discharge diagnosis 1. Chest pain, with typical and atypical features. chest pain likely secondary to musculoskeletal from patient's cough. CTA was negative for PE. Troponins were negative 3 sets.12-lead EKG with no acute ischemic changes. troponin is negative. Chest x-ray is unremarkable. patient underwent heart catheterization head no significant obstructive coronary artery disease. 2. Major depressive disorder 3. Chronic arthritis pain 4. obesity 5. Acute tracheobronchitis: Continue Augmentin Hospital course This is a 51-year-old female with past medical history noted below who presented to the hospital with chest and back pain. Patient said that her symptoms started a week ago. She said that the pain is mostly in the center of her chest and to the right side. She described the pain as sharp. It is not associated with exertion. She said she's been having a lot of nonproductive cough that is making her chest discomfort worse. She rates her pain as 8 out of 10 in severity. She denies fevers or chills. No nausea or vomiting. She reports some shortness of breath. She is currently admitted to the observation unit for further evaluation. Troponins were negative 3 sets. EKG showed no acute changes. Chest x-ray was unremarkable. She had a CTA of the chest was negative for PE. Patient continued to have chest discomfort and therefore underwent heart catheterization with Dr. hali ramírez which showed no significant coronary artery disease. He recommended patient to be on Lipitor 20 mg daily. Patient was having some hypotension episodes and could not tolerate the metoprolol that was discontinued. Patient's symptoms have improved. Her chest pain is reproducible with palpation of the chest wall. Patient does admit to having a cough and just started Augmentin outpatient she took one dose for bronchitis. Augmentin will be restarted and continued home. Again cardiology is cleared her for discharge. She is medically stable for discharge. Please refer to chart for any further details. She'll follow-up with cardiology in [address] Avalos in 1 week. I performed an examination of the patient and discussed their management with the physician Bucket Pusher. I have reviewed the Physician Bucket Pusher's notes and agree with the documented findings and plan of care Patient Condition at Discharge: Stable Plan - Discharge Summary Discharge Rx Participant: No New Discharge Prescriptions: New Atorvastatin [Lipitor] 20 mg PO DAILY #30 tab buPROPion XL [Wellbutrin XL] 450 mg PO DAILY tab.er.24h Continue ALPRAZolam [Xanax] 1 mg PO TID PRN PRN Reason: Anxiety Albuterol Nebulized [Ventolin Nebulized] 2.5 mg INHALATION RT-QID PRN PRN Reason: Shortness Of Breath Albuterol Inhaler [Ventolin Hfa Inhaler] 1 puff INHALATION RT-QID PRN PRN Reason: Shortness Of Breath Levothyroxine Sodium [Synthroid] 50 mcg PO MOTUWETHFRSA valACYclovir HCL [Valacyclovir] 500 mg PO DAILY Temazepam [Restoril] 30 mg PO HS Omeprazole 20 mg PO BID HYDROcodone/APAP 10-325MG [[place] 10-325] 1 tab PO TID PRN PRN Reason: Pain FLUoxetine HCL [PROzac] 20 mg PO BID Dicyclomine [Bentyl] 10 mg PO TID PRN PRN Reason: "Stomach attack" Amoxic-Pot Clav 500-125 mg [Augmentin 500-125 mg] 1 tab PO Q12HR Fluconazole 200 mg PO DAILY Discharge Medication List ALPRAZolam [Xanax] 1 mg PO TID PRN 03/20/14 [History] Albuterol Inhaler [Ventolin Hfa Inhaler] 1 puff INHALATION RT-QID PRN 12/31/15 [ History] Albuterol Nebulized [Ventolin Nebulized] 2.5 mg INHALATION RT-QID PRN 12/31/15 [ History] Levothyroxine Sodium [Synthroid] 50 mcg PO MOTUWETHFRSA 12/31/15 [History] valACYclovir HCL [Valacyclovir] 500 mg PO DAILY 02/07/16 [History] Amoxic-Pot Clav 500-125 mg [Augmentin 500-125 mg] 1 tab PO Q12HR 04/07/17 [ History] Dicyclomine [Bentyl] 10 mg PO TID PRN 04/07/17 [History] FLUoxetine HCL [PROzac] 20 mg PO BID 04/07/17 [History] Fluconazole 200 mg PO DAILY 04/07/17 [History] HYDROcodone/APAP 10-325MG [[place] 10-325] 1 tab PO TID PRN 04/07/17 [History] Omeprazole 20 mg PO BID 04/07/17 [History] Temazepam [Restoril] 30 mg PO HS 04/07/17 [History] Atorvastatin [Lipitor] 20 mg PO DAILY #30 tab 04/09/17 [Rx] buPROPion XL [Wellbutrin XL] 450 mg PO DAILY tab.er.24h 04/09/17 [Rx] Follow up Appointment(s)/Referral(s): Jose L Friedman MD [STAFF PHYSICIAN] - 1 Week (Office to call with appointment. ) Genia Avalos MD [Primary Care Provider] - 1 Week Patient Instructions/Handouts: Chest Pain (ED) Activity/Diet/Wound Care/Special Instructions: Diet: low cholesterol Activity: as tolerated Discharge Disposition: HOME SELF-CARE
== END 2017-04-09 12:05 | disposition home or self-care (01) ==
LOC: EC 06:09 → 3OBS 07:38
PROVIDERS: ADMIT Internal Medicine; ATTEND Internal Medicine
DX: R07.89 Other chest pain (principal); J20.9 Acute bronchitis, unspecified; G89.29 Other chronic pain; M19.90 Unspecified osteoarthritis, unspecified site; E66.9 Obesity, unspecified; F32.9 Major depressive disorder, single episode, unspecified; Z68.38 Body mass index [BMI] 38.0-38.9, adult; Z79.899 Other long term (current) drug therapy; Z79.82 Long term (current) use of aspirin; Z88.5 Allergy status to narcotic agent; Z88.2 Allergy status to sulfonamides; Z88.8 Allergy status to other drugs, medicaments and biological substances; F41.0 Panic disorder [episodic paroxysmal anxiety]; J45.909 Unspecified asthma, uncomplicated; Z86.718 Personal history of other venous thrombosis and embolism; R94.31 Abnormal electrocardiogram [ECG] [EKG]; M54.9 Dorsalgia, unspecified
CPT/HCPCS: 99152; 99153; 96361 ×2; 96366; 96376 ×2; 96365; 96375; 99291; 51798; 36415; 94760 ×2; 93005; 93306; 93458; 85379; 80061; 80053; 80048 ×2; 82550; 82553; 83735; 84484; 85025 ×2; 85027; 85610; 85730 ×2; 81003; 71020; 71275; G0378 ×3; C1894; C1769 ×2; C1760; J2001; J2250; J1170; J1200; J1644 ×2; Q9967 ×2; J2270; J2405; J3010

== ENCOUNTER → 2017-10-23 | Outpatient (CLI) | payer MEDICARE, OTHER ==
--- NOTE | 2017-10-23 14:51 | MM ---
Reason for exam: clinical finding. Last mammogram was performed 1 year and 9 months ago. History: Patient is postmenopausal. Benign excisional biopsy of the left breast, August 2006. Indicated problem(s): lump or thickening in the right breast. Physical Findings: Nurse Summary: 1 x 1cm nodule in the right breast at 1 o'clock (nurse ts). MG Diagnostic Mammo w CAD REX Bilateral CC and MLO view(s) were taken. Prior study comparison: January 11, 2016, bilateral MG 3d screening mammo w/cad. November 09, 2014, bilateral MG diagnostic mammo w CAD REX. The breast tissue is heterogeneously dense. This may lower the sensitivity of mammography. There is a new left upper outer quadrant mass 10cm from nipple. The palpable abnormality appears as a focal asymmetry similar to prior exams. These results were verbally communicated with the patient and result sheet given to the patient on 10/23/17. ASSESSMENT: Incomplete: need additional imaging evaluation, BI-RAD 0 RECOMMENDATION: Ultrasound of both breasts. (right palpable, left upper outer quadrant)
--- NOTE | 2017-10-23 14:54 | USB ---
Reason for exam: additional evaluation requested from abnormal screening. History: Patient is postmenopausal. Benign excisional biopsy of the left breast, August 2006. US Breast Limited BILAT Right limited breast ultrasound including focal area of concern, retroareolar and axilla demonstrates a 0.5 x 0.3 x 0.4cm solid, probably benign lesion at 2 o'clock, 6 month follow up ultrasound, likely fat necrosis. Left limited breast ultrasound including focal area of concern, retroareolar and axilla demonstrates a 0.7 x 0.4 x 0.5cm mixed lesion at 1:30 for which a biopsy is recommended. These results were verbally communicated with the patient and result sheet given to the patient on 10/23/17. ASSESSMENT: Suspicious, BI-RAD 4 RECOMMENDATION: Ultrasound core biopsy of the left breast. Called Dr. Avalos with mammographic findings and has scheduled an appointment for the patient for 11/15/17 at 9:[address] Espino. Biopsy scheduled for 10/31/17 at 1:00. PRELIMINARY REPORT CALLED AND FAXED TO DR. ESPINO ON 10/23/17.
== END | disposition home or self-care (01) ==
LOC: RADMAMWWP 10:29
PROVIDERS: ATTEND Internal Medicine
DX: N63.10 Unspecified lump in the right breast, unspecified quadrant (principal); N63.20 Unspecified lump in the left breast, unspecified quadrant; R92.8 Other abnormal and inconclusive findings on diagnostic imaging of breast
CPT/HCPCS: 77066

== ENCOUNTER → 2017-10-31 | Day surgery (SDC) | payer MEDICARE, OTHER ==
[2017-10-31 12:21] VITALS: RESP 16; TEMP 98.2; BMI 39.9
[2017-10-31 13:44] VITALS: BP 107/77; PULSE 103
--- NOTE | 2017-10-31 13:45 | USB ---
EXAMINATION TYPE: US biopsy breast VAD LT, MG diagnostic mammo LT wo CAD DATE OF EXAM: 10/31/2017 CLINICAL HISTORY: R92.8 Prev Abnormal Mammo. TECHNIQUE: Ultrasound guided core biopsy of left 1:30 breast. COMPARISON: NONE FINDINGS: The procedure of ultrasound guided core biopsy was explained to the patient. Benefits, alternatives, and risks were discussed. An informed consent was then obtained. The patient was placed in supine positioning for imaging and for the procedure. The overlying skin was prepped and draped in usual sterile fashion. Lidocaine buffered with bicarbonate was used as anesthetic into the skin and subcutaneous tissue up to area of concern in the left 1:30 breast. A kristal was made with surgical scalpel. Under ultrasound guidance, a 12-gauge vacuum assisted biopsy gun device was used to obtain 2 core samples. The lesion was no longer visible likely reflecting a cluster of cysts. Following this, a biopsy clip was left in lesion. Postprocedural mammogram demonstrates appropriate deployment of clip marker. The patient tolerated the procedure well without any immediate complication. The patient was kept in the radiology department for short stay after the procedure and then discharged home in stable condition. IMPRESSION: Successful, uncomplicated ultrasound guided core biopsy of area of concern in the left 1:30 breast, full pathology results to follow. Pathology Results: Benign BREAST, LEFT, CORE BIOPSY: FIBROCYSTIC CHANGES INCLUDING CYSTS, FIBROSIS, ADENOSIS, APOCRINE METAPLASIA AND MILD USUAL TYPE DUCTAL HYPERPLASIA. Recommendation Follow up ultrasound of the left breast in 6 months. DOT
== END | disposition home or self-care (01) ==
LOC: RADUSWWP 11:56
PROVIDERS: ATTEND Surgery
DX: N60.02 Solitary cyst of left breast (principal); N60.32 Fibrosclerosis of left breast; N60.22 Fibroadenosis of left breast; N60.82 Other benign mammary dysplasias of left breast; Z88.6 Allergy status to analgesic agent; Z88.2 Allergy status to sulfonamides; Z88.8 Allergy status to other drugs, medicaments and biological substances
CPT/HCPCS: 88305; 77065; 19083; A4648; J2001

== ENCOUNTER → 2018-02-05 | Outpatient (CLI) | payer MEDICARE, OTHER ==
--- NOTE | 2018-02-05 23:25 | MR ---
EXAMINATION TYPE: MR brain wo con DATE OF EXAM: 02/05/2018 COMPARISON: NONE HISTORY: 52-year-old female Migraine W/O aura TECHNIQUE: Multiplanar, multisequence images of the brain and brainstem were acquired without IV con trast. Diffusion weighted imaging is performed. FINDINGS: No evidence for acute infarction, hemorrhage, mass, mass effect, midline shift, herniation, effacemen t of basal cisterns, or extra-axial fluid collection. The ventricles and sulci are age appropriate. There is moderate bifrontal cortical atrophy. Major intracranial flow voids are intact. T2/FLAIR weighted sequences show solitary bright signal focus in the anterior right frontal lobe with in the subcortical region measuring 3 mm. A few punctate foci present in the subcortical region of th e anterior left frontal lobe. Empty sella noted. Otherwise, midline structures demonstrate normal morphology. Minimal 2 mm of cereb ellar tonsillar ectopia. Findings compatible with benign cerebellar tonsillar ectopia. Otherwise, the craniocervical junction is normal. Moderate mucosal thickening ethmoid air cells. Globes are intact. IMPRESSION: 1. Moderate bifrontal atrophy. No acute intracranial abnormality seen. 2. A few punctate foci of bright white matter change in the anterior subcortical frontal lobes with m inimal overall burden. Findings are nonspecific but can be seen in the setting of chronic migraines. 3. Mild chronic ethmoid sinus disease.
== END | disposition home or self-care (01) ==
LOC: RADMRIMAIN 11:57
PROVIDERS: ATTEND Psychiatry & Neurology Neurology
DX: G31.9 Degenerative disease of nervous system, unspecified (principal); R90.89 Other abnormal findings on diagnostic imaging of central nervous system
CPT/HCPCS: 70551

== ENCOUNTER → 2018-07-16 | Outpatient (CLI) | payer MEDICARE, OTHER ==
--- NOTE | 2018-07-16 16:38 | MR ---
EXAMINATION TYPE: MR cervical spine wo con DATE OF EXAM: 07/16/2018 COMPARISON: None HISTORY: Cervicalgia / Cerebellar ectopia CONTRAST: Performed utilizing 0 mL intravenous Gadavist gadolinium contrast. TECHNIQUE: Multiplanar multiecho imaging on a 3.0 Abi magnet is performed through the cervical spin e. FINDINGS: The craniovertebral junction is normal. Vertebral body alignment is normal. Spinal cord maintains normal signal through its visualized course. C7-T1: No focal disc herniation or significant disc bulge is evident. No spinal canal stenosis or n eural foraminal stenosis is present. C6-7: Broad-based disc bulge has mild anterior thecal sac compression. No cord contact is evident. No spinal canal stenosis present. Neural foramen are patent. Some mild left and right paracentral endpl ate spurring is present C6 mild disc space narrowing is present. C5-6: Posterior endplate spurring is present. There is narrowing of disc height. This has moderate an terior thecal sac compression. Cord contact and mild cord flattening is present. There is borderline spinal canal stenosis present. Uncovertebral joint hypertrophy is moderate bilateral foraminal narrow ing. C4-5: No focal disc herniation or significant disc bulge is evident. No spinal canal stenosis or rubi ral foraminal stenosis is present. C3-4: No focal disc herniation or significant disc bulge is evident. No spinal canal stenosis or rubi ral foraminal stenosis is present. C2-3: No focal disc herniation or significant disc bulge is evident. No spinal canal stenosis or rubi ral foraminal stenosis is present. IMPRESSIONS: 1. Posterior endplate spurring C5-6 with moderate anterior thecal sac compression and some cord pati ening. AP spinal canal stenosis is present. 2. Mild degenerative changes with disc bulging C6-7 with mild anterior thecal sac flattening. No spin al canal stenosis is present.
== END | disposition home or self-care (01) ==
LOC: RADMRIMAIN 10:33
PROVIDERS: ATTEND Psychiatry & Neurology Neurology
DX: M48.02 Spinal stenosis, cervical region (principal); M50.223 Other cervical disc displacement at C6-C7 level; M47.812 Spondylosis without myelopathy or radiculopathy, cervical region; Q04.8 Other specified congenital malformations of brain
CPT/HCPCS: 72141

== ENCOUNTER 2018-09-04 22:42 | Emergency (ER) | payer MEDICARE, OTHER ==
[2018-09-04 23:02] VITALS: RESP 20
[2018-09-04] MEDS ORDERED: SODIUM CHLORIDE 0.9% 1,000 ML IV STA ×2 (23:24)
--- NOTE | 2018-09-04 23:24 | ED ---
Syncope HPI - General Chief Complaint: Syncope Stated Complaint: Nausea, Syncope Time Seen by Provider: 09/04/18 23:22 Source: patient, family Mode of arrival: wheelchair Limitations: no limitations - History of Present Illness Initial Comments: Kim is a 53-year-old morbidly obese female who presents to the emergency department today for near-syncope. Patient reports that this evening she began to feel somewhat nauseated, she was able to ambulate to the restroom after using the restroom she reports that she attempted to stand and felt very lightheaded and she then lowered herself to the ground and laid down. She thinks that after laying down she may have passed out but she did not fall to the ground she did not strike her head. Patient reports she then felt very weak and tired she contacted her and advised him to come home from work. He came home and found her resting comfortably but decided to bring her to the emergency departm ent for further evaluation. Upon arrival patient reports she has mild epigastric discomfort, mild nausea and generalized malaise. denies any cardiac history, she denies any history of hypertension, she does have a history of hyperlipidemia, she has no history of diabetes. Does report a tree of acid reflux with occasional nausea. - Related Data Home Medications Medication Instructions Recorded Confirmed ALPRAZolam [Xanax] 1 mg PO TID PRN 03/20/14 10/31/17 Albuterol Inhaler [Ventolin Hfa 1 puff INHALATION RT-QID PRN 12/31/15 10/31/17 Inhaler] Albuterol Nebulized [Ventolin 2.5 mg INHALATION RT-QID PRN 12/31/15 10/31/17 Nebulized] Levothyroxine Sodium [Synthroid] 50 mcg PO MOTUWETHFRSA 12/31/15 10/31/17 valACYclovir HCL [Valacyclovir] 500 mg PO DAILY 02/07/16 10/31/17 Dicyclomine [Bentyl] 10 mg PO TID PRN 04/07/17 10/31/17 HYDROcodone/APAP 10-325MG [[place] 1 tab PO TID PRN 04/07/17 10/31/17 10-325] Omeprazole 20 mg PO BID 04/07/17 10/31/17 ARIPiprazole [Abilify] 10 mg PO HS 06/02/17 10/31/17 Escitalopram [Lexapro] 10 mg PO HS 06/02/17 10/31/17 rOPINIRole HCL [Requip] 0.5 mg PO HS 06/02/17 10/31/17 Baclofen 1 tab PO HS 10/24/17 10/31/17 Cetirizine HCl 1 tab PO HS 10/24/17 10/31/17 Montelukast Sodium [Singulair] 1 tab PO AC-SUPPER 10/24/17 10/31/17 SUMAtriptan [Imitrex] 20 mg EA NOSTRIL Q2HR PRN 10/31/17 10/31/17 Zolpidem [Ambien] 10 mg PO HS 10/31/17 10/31/17 acetaZOLAMIDE [Diamox] 250 mg PO Q6H PRN 10/31/17 10/31/17 Previous Rx's Medication Instructions Recorded Atorvastatin [Lipitor] 20 mg PO DAILY #30 tab 04/09/17 Allergies Allergy/AdvReac Type Severity Reaction Status Date / Time Sulfa (Sulfonamide Allergy Severe Rash/Hives Verified 09/04/18 23:02 Antibiotics) ketorolac tromethamine Allergy Tardive Verified 09/04/18 23:02 [From Toradol] Dyskinesia prochlorperazine maleate Allergy Tardive Verified 09/04/18 23:02 [From Compazine] Dyskinesia prochlorperazine edisylate AdvReac Severe Tardive Verified 09/04/18 23:02 [From Compazine] dyskinesia Review of Systems ROS Statement: Those systems with pertinent positive or pertinent negative responses have been documented in the HPI. ROS Other: All systems not noted in ROS Statement are negative. Past Medical History Past Medical History: Asthma, Deep Vein Thrombosis (DVT), Fibromyalgia, Thyroid Disorder Additional Past Medical History / Comment(s): DVT in each leg, hypothyroidism History of Any Multi-Drug Resistant Organisms: None Reported Past Surgical History: Appendectomy, Section, Cholecystectomy, Hysterectomy, Orthopedic Surgery, Tonsillectomy Additional Past Surgical History / Comment(s): Right KNEE SURGERY, left elbow surgery 2yrs ago, sinus surgery may 2017 Past Anesthesia/Blood Transfusion Reactions: No Reported Reaction Past Psychological History: Anxiety, Depression, Panic Disorder Smoking Status: Never smoker Past Alcohol Use History: None Reported Past Drug Use History: None Reported - Past Family History Mother Family Medical History: Respiratory Disorder Additional Family Medical History / Comment(s): from lung problems Father Family Medical History: Cancer Additional Family Medical History / Comment(s): from Colon CA General Exam - General Exam Comments Initial Comments: Physical Exam GENERAL: Patient is well-developed and well-nourished. Patient is nontoxic and well- hydrated and is in no distress. HENT: Normocephalic, Atraumatic. EYES: PERRL, EOMI PULMONARY: Unlabored respirations. No audible rales rhonchi or wheezing was noted. CARDIOVASCULAR: There is a regular rate and rhythm without any murmurs gallops or rubs. Warm and well perfused extremities ABDOMEN: Soft and nontender with normal bowel sounds. Pulsatile masses SKIN: Skin is clear with no lesions or rashes and otherwise unremarkable. : Deferred NEUROLOGIC: Patient is alert and oriented x3. Moving all extremities spontaneously MUSCULOSKELETAL: Normal extremities with adequate strength and full range of motion. No lower extremity swelling or edema. No calf tenderness. PSYCHIATRIC: Normal psychiatric evaluation. Limitations: no limitations Limitations: no limitations Course Vital Signs 09/04/18 22:55 Temperature 97.7 F Pulse Rate 103 H Respiratory 20 Rate Blood Pressure 123/86 O2 Sat by Pulse 98 Oximetry EKG Findings - EKG Comments: EKG Findings:: KG was obtained at 2312, rate is 99, there is P-wave before each QRS, rhythm is sinus there is a normal axis there are normal intervals, [place] 138, QRS 72, QTc 420, there are T-wave inversions in leads V2 and V3 no acute ST elevations or depressions no evidence of acute infarction. Medical Decision Making - Medical Decision Making Patient was seen and evaluated, history was obtained from the patient, and review of medical record Labs and imaging ordered EKG is nonacute As her unremarkable patient received 1 L IV fluid she is been able to ambulate to the restroom she states she still felt somewhat lightheaded and additional 1 L fluid was ordered Patient states she still having some crampy abdominal pain but no nausea vomiting or means hemodynamically stable, I advised patient we'll obtain an abdominal CT to evaluate for this discomfort however at this time she states that it's not that bad she would like to be discharged home so she could sleep. She states that her needs to go to work and that she can follow up with her primary care physician outpatient if she is not feeling better tomorrow. All questions pertaining care were answered return parameters were discussed patient remains hemodynamically stable and stable for discharge home - Lab Data Result diagrams: 09/05/18 00:35 09/05/18 00:35 Lab Results 09/05/18 09/05/18 09/05/18 Range/Units 00:00 00:35 00:35 WBC 9.3 (3.8-10.6) k/uL RBC 4.30 (3.80-5.40) m/uL Hgb 12.9 (11.4-16.0) gm/dL Hct 39.9 (34.0-46.0) % MCV 92.9 (80.0-100.0) fL MCH 30.1 (25.0-35.0) pg MCHC 32.4 (31.0-37.0) g/dL RDW 13.7 (11.5-15.5) % Plt Count 287 (150-450) k/uL Neutrophils % 75 % Lymphocytes % 19 % Monocytes % 5 % Eosinophils % 1 % Basophils % 0 % Neutrophils # 6.9 (1.3-7.7) k/uL Lymphocytes # 1.7 (1.0-4.8) k/uL Monocytes # 0.5 (0-1.0) k/uL Eosinophils # 0.1 (0-0.7) k/uL Basophils # 0.0 (0-0.2) k/uL PT 10.3 (9.0-12.0) sec INR 1.0 (<1.2) APTT 21.9 L (22.0-30.0) sec D-Dimer 0.59 (<0.60) mg/L FEU Sodium (137-145) mmol/L Potassium (3.5-5.1) mmol/L Chloride (98-107) mmol/L Carbon Dioxide (22-30) mmol/L Anion Gap mmol/L BUN (7-17) mg/dL Creatinine (0.52-1.04) mg/dL Est GFR (CKD-EPI)AfAm (>60 ml/min/1.73 sqM) Est GFR (CKD-EPI)NonAf (>60 ml/min/1.73 sqM) Glucose (74-99) mg/dL Calcium (8.4-10.2) mg/dL Magnesium (1.6-2.3) mg/dL Total Bilirubin (0.2-1.3) mg/dL AST (14-36) U/L ALT (9-52) U/L Alkaline Phosphatase (38-126) U/L Troponin I (0.000-0.034) ng/mL Total Protein (6.3-8.2) g/dL Albumin (3.5-5.0) g/dL Urine Color Yellow Urine Appearance Cloudy H (Clear) Urine pH 5.5 (5.0-8.0) Ur Specific [place] 1.014 (1.001-1.035) Urine Protein Negative (Negative) Urine Glucose (UA) Negative (Negative) Urine Ketones Negative (Negative) Urine Blood Negative (Negative) Urine Nitrite Negative (Negative) Urine Bilirubin Negative (Negative) Urine Urobilinogen <2.0 (<2.0) mg/dL Ur Leukocyte Esterase Negative (Negative) Urine RBC 1 (0-5) /hpf Urine WBC 6 H (0-5) /hpf Ur Squamous Epith Cells 3 (0-4) /hpf Urine Bacteria Occasional H (None) /hpf Hyaline Casts 2 (0-2) /lpf Urine Mucus Few H (None) /hpf 09/05/18 09/05/18 Range/Units 00:35 00:35 WBC (3.8-10.6) k/uL RBC (3.80-5.40) m/uL Hgb (11.4-16.0) gm/dL Hct (34.0-46.0) % MCV (80.0-100.0) fL MCH (25.0-35.0) pg MCHC (31.0-37.0) g/dL RDW (11.5-15.5) % Plt Count (150-450) k/uL Neutrophils % % Lymphocytes % % Monocytes % % Eosinophils % % Basophils % % Neutrophils # (1.3-7.7) k/uL Lymphocytes # (1.0-4.8) k/uL Monocytes # (0-1.0) k/uL Eosinophils # (0-0.7) k/uL Basophils # (0-0.2) k/uL PT (9.0-12.0) sec INR (<1.2) APTT (22.0-30.0) sec D-Dimer (<0.60) mg/L FEU Sodium 137 (137-145) mmol/L Potassium 4.9 (3.5-5.1) mmol/L Chloride 108 H (98-107) mmol/L Carbon Dioxide 20 L (22-30) mmol/L Anion Gap 9 mmol/L BUN 17 (7-17) mg/dL Creatinine 0.67 (0.52-1.04) mg/dL Est GFR (CKD-EPI)AfAm >90 (>60 ml/min/1.73 sqM) Est GFR (CKD-EPI)NonAf >90 (>60 ml/min/1.73 sqM) Glucose 127 H (74-99) mg/dL Calcium 9.3 (8.4-10.2) mg/dL Magnesium 1.9 (1.6-2.3) mg/dL Total Bilirubin 0.4 (0.2-1.3) mg/dL AST 18 (14-36) U/L ALT 26 (9-52) U/L Alkaline Phosphatase 66 (38-126) U/L Troponin I <0.012 (0.000-0.034) ng/mL Total Protein 7.3 (6.3-8.2) g/dL Albumin 4.2 (3.5-5.0) g/dL Urine Color Urine Appearance (Clear) Urine pH (5.0-8.0) Ur Specific [place] (1.001-1.035) Urine Protein (Negative) Urine Glucose (UA) (Negative) Urine Ketones (Negative) Urine Blood (Negative) Urine Nitrite (Negative) Urine Bilirubin (Negative) Urine Urobilinogen (<2.0) mg/dL Ur Leukocyte Esterase (Negative) Urine RBC (0-5) /hpf Urine WBC (0-5) /hpf Ur Squamous Epith Cells (0-4) /hpf Urine Bacteria (None) /hpf Hyaline Casts (0-2) /lpf Urine Mucus (None) /hpf Disposition Clinical Impression: Near syncope Disposition: HOME SELF-CARE Condition: Stable Instructions (If sedation given, give patient instructions): Near Syncope (ED) Is patient prescribed a controlled substance at d/c from ED?: No Referrals: Genia Avalos MD [Primary Care Provider] - 1-2 days
[2018-09-05 00:06] LABS: Appearance,Urine Cloudy (Clear); Bacteria,Urine Occasional /hpf; Bilirubin,Urine Negative (Negative); Blood,Urine Negative (Negative); Color,Urine Yellow; Glucose,Urine (UA) Negative (Negative); Hyaline Casts,Urine 2 /lpf (0-2); Ketones,Urine Negative (Negative); Leukocyte Esterase,Urine Negative (Negative); Mucus,Urine Few /hpf; Nitrite,Urine Negative (Negative); PH, Urine 5.5 (5.0-8.0); Protein,Urine Negative (Negative); RBC,Urine 1 /hpf (0-5); Specific Gravity,Urine 1.014 (1.001-1.035); Squamous Epithelial Cell,Urine 3 /hpf (0-4); Urobilinogen,Urine <2.0 mg/dL (<2.0); WBC,Urine 6 /hpf (0-5)
[2018-09-05 00:46] LABS: Basophils % (A) 0 %; Eosinophils # (A) 0.1 k/uL (0-0.7); Eosinophils % (A) 1 %; HCT 39.9 % (34.0-46.0); HGB 12.9 gm/dL (11.4-16.0); Lymphocytes # (A) 1.7 k/uL (1.0-4.8); Lymphocytes % (A) 19 %; MCH 30.1 pg (25.0-35.0); MCHC 32.4 g/dL (31.0-37.0); MCV 92.9 fL (80.0-100.0); Monocytes # (A) 0.5 k/uL (0-1.0); Monocytes % (A) 5 %; Neutrophils # (A) 6.9 k/uL (1.3-7.7); Neutrophils % (A) 75 %; Platelet Count 287 k/uL (150-450); RDW 13.7 % (11.5-15.5); WBC 9.3 k/uL (3.8-10.6)
[2018-09-05 00:56] LABS: ALT 26 U/L (9-52); AST 18 U/L (14-36); Albumin 4.2 g/dL (3.5-5.0); Alkaline Phosphatase 66 U/L (38-126); Anion Gap 9 mmol/L; Blood Urea Nitrogen 17 mg/dL (7-17); Calcium 9.3 mg/dL (8.4-10.2); Carbon Dioxide 20 mmol/L (22-30); Chloride 108 mmol/L (98-107); Glucose 127 mg/dL (74-99); Magnesium 1.9 mg/dL (1.6-2.3); Potassium 4.9 mmol/L (3.5-5.1); Sodium 137 mmol/L (137-145); Total Bilirubin 0.4 mg/dL (0.2-1.3); Total Protein 7.3 g/dL (6.3-8.2)
[2018-09-05 01:18] LABS: D-Dimer 0.59 mg/L FEU (<0.60); Prothrombin Time 10.3 sec (9.0-12.0)
[2018-09-05 01:19] LABS: Partial Thromboplastin Time 21.9 sec (22.0-30.0)
--- NOTE | 2018-09-05 01:31 | XR ---
EXAM: XR Chest, 2 Views CLINICAL HISTORY: ITS.REASON XR Reason: syncope TECHNIQUE: Frontal and lateral views of the chest. COMPARISON: 06/05/17 chest x-ray IMPRESSION: Unchanged heart size. No consolidation or pleural effusion.
--- NOTE | 2018-09-05 01:46 | XR ---
EXAM: XR Abdomen, 1 View CLINICAL HISTORY: ITS.REASON XR Reason: pain TECHNIQUE: Frontal supine view of the abdomen/pelvis. COMPARISON: No relevant prior studies available. FINDINGS: Gastrointestinal tract: Unremarkable. No dilation. Bones/joints: No acute fracture. No dislocation. IMPRESSION: No acute findings.
[2018-09-05] MEDS ORDERED: SODIUM CHLORIDE 0.9% 1,000 ML IV ONE (02:53)
[2018-09-05 03:31] VITALS: BP 135/87; PULSE 83; TEMP 98.7
== END 2018-09-05 03:32 | disposition home or self-care (01) ==
LOC: EC 22:42
DX: R55 Syncope and collapse (principal); R11.0 Nausea; R10.13 Epigastric pain; J45.909 Unspecified asthma, uncomplicated; E03.9 Hypothyroidism, unspecified; F41.0 Panic disorder [episodic paroxysmal anxiety]; F32.9 Major depressive disorder, single episode, unspecified; Z86.718 Personal history of other venous thrombosis and embolism; K21.9 Gastro-esophageal reflux disease without esophagitis; Z79.890 Hormone replacement therapy; Z79.899 Other long term (current) drug therapy; Z88.2 Allergy status to sulfonamides; Z88.6 Allergy status to analgesic agent; Z88.8 Allergy status to other drugs, medicaments and biological substances; Z90.49 Acquired absence of other specified parts of digestive tract; E66.01 Morbid (severe) obesity due to excess calories; Z68.41 Body mass index [BMI] 40.0-44.9, adult
CPT/HCPCS: 36415; 71046; 74018; 80053; 81001; 83735; 84484; 85025; 85379; 85610; 85730; 93005; 96360; 96361; 99284

== ENCOUNTER → 2018-09-12 | Outpatient (CLI) | payer MEDICARE, OTHER ==
[2018-09-12 10:48] VITALS: BP 124/86; PULSE 109; RESP 16
--- NOTE | 2018-09-12 11:24 | P.PAINCN ---
History of Present Illness - Reason for Consult Consult date: 09/12/18 - History of Present Illness Kim is a pleasant 53-year-old female who presents today with chief complaint of neck pain and low back pain. She reports she's had this pain for many years on and off. She reports her neck pain is over the center of her neck and into bilateral shoulders. She denies any radicular symptoms into her arms. She reports the pain is associated with stiffness, dull aching pain and sometimes sh nicolasa pains. She reports that sometimes she wakes up is unable to move her neck for a couple days secondary to the pain and it eventually eases up. As for her back pain she reports low back pain over the lumbar spine causes aching across the low back which is worse with standing or sitting for long periods of time. Also worse with bending over. She reports that the pain sometimes goes into both legs and into her thighs. She feels that her lower extremities are weak when she tries to walk for long periods time. She denies any bowel or bladder incontinence. She denies any overt falls secondary to weakness in her lower extremities. She reports at home she uses [place] 3 times a day for the past 4 years. She reports that really does not help very much. She had an MRI of her cervical spine which showed significant disc bulge with some thecal sac effacement. She has normal MRI of the lumbar spine. She did have x-rays of the lumbar spine. Past Medical History Past Medical History: Asthma, Deep Vein Thrombosis (DVT), Fibromyalgia, Thyroid Disorder Additional Past Medical History / Comment(s): DVT in each leg, hypothyroidism History of Any Multi-Drug Resistant Organisms: None Reported Past Surgical History: Appendectomy, Section, Cholecystectomy, Hysterectomy, Orthopedic Surgery, Tonsillectomy Additional Past Surgical History / Comment(s): Right KNEE SURGERY, left elbow surgery 2yrs ago, sinus surgery may 2017 Past Anesthesia/Blood Transfusion Reactions: No Reported Reaction Smoking Status: Never smoker - Past Family History Mother Family Medical History: Respiratory Disorder Additional Family Medical History / Comment(s): from lung problems Father Family Medical History: Cancer Additional Family Medical History / Comment(s): from Colon CA Medications and Allergies Home Medications Medication Instructions Recorded Confirmed Type ALPRAZolam [Xanax] 1 mg PO TID PRN 03/20/14 10/31/17 History Albuterol Inhaler [Ventolin Hfa 1 puff INHALATION RT-QID PRN 12/31/15 10/31/17 History Inhaler] Albuterol Nebulized [Ventolin 2.5 mg INHALATION RT-QID PRN 12/31/15 10/31/17 History Nebulized] Levothyroxine Sodium [Synthroid] 50 mcg PO MOTUWETHFRSA 12/31/15 10/31/17 History Dicyclomine [Bentyl] 10 mg PO TID PRN 04/07/17 10/31/17 History HYDROcodone/APAP 10-325MG [[place] 1 tab PO TID PRN 04/07/17 10/31/17 History 10-325] Omeprazole 20 mg PO BID 04/07/17 10/31/17 History Atorvastatin [Lipitor] 20 mg PO DAILY #30 tab 04/09/17 10/31/17 Rx ARIPiprazole [Abilify] 10 mg PO HS 06/02/17 10/31/17 History rOPINIRole HCL [Requip] 0.5 mg PO HS 06/02/17 10/31/17 History Cetirizine HCl 1 tab PO HS 10/24/17 10/31/17 History Montelukast Sodium [Singulair] 1 tab PO AC-SUPPER 10/24/17 10/31/17 History Zolpidem [Ambien] 10 mg PO HS 10/31/17 10/31/17 History Citalopram Hydrobromide [CeleXA] 1 tab PO DAILY 09/12/18 09/12/18 History Allergies Allergy/AdvReac Type Severity Reaction Status Date / Time Sulfa (Sulfonamide Allergy Severe Rash/Hives Verified 09/12/18 10:34 Antibiotics) ketorolac tromethamine Allergy Tardive Verified 09/12/18 10:34 [From Toradol] Dyskinesia prochlorperazine maleate Allergy Tardive Verified 09/12/18 10:34 [From Compazine] Dyskinesia prochlorperazine edisylate AdvReac Severe Tardive Verified 09/12/18 10:34 [From Compazine] dyskinesia Physical Exam Vitals: Vital Signs Pulse Resp BP Pulse Ox 09/12/18 10:39 109 H 16 124/86 100 Intake and Output 09/11/18 09/12/18 09/12/18 22:59 06:59 14:59 Other: Weight 117.934 kg General: Awake and alert oriented 3 no distress, obese Respiratory exam: No audible wheezing no accessory muscle usage Cardiovascular exam: regular rate, palpable bilateral pulses, no lower extremity edema Abdominal exam: No distention nontender to palpation, obese Cervical spine: Normal alignment, Spurling's negative, facet loading positive bilateral, limited range of motion with side bending on both sides. Limited extension of the cervical spine. Flexion is normal. 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 Biceps and triceps strength is 5 out of 5 Lumbar spine: Loss of lumbar lordosis, normal alignment, tender to palpation over bilateral paraspinal muscles, facet loading is positive bilaterally. Straight leg raise is negative bilateral. Sacroiliac joints: Nontender to palpation, TRISTAN is negative, [place] negative Neuro exam: Normal sensation in bilateral upper extremities, deep tendon reflexes are 2+ bilateral upper extremities. Normal sensation in bilateral lower extremities. Deep tendon reflexes are 1 + in lower extremities Psych exam: Cooperative, appropriate mood Assessment and Plan Assessment: #1 lumbar radiculopathy #2 lumbar degenerative disc disease #3 cervical degenerative disc disease #4 obesity Plan: After review of the patient's medical record and imaging as well as physical examination the patient discussed the following plan with the patient. Given the lack of myelopathy or physical exam findings secondary to her cervical MRI imaging as well as her consultation with Dr. Soto I am not as concerned with the cervical spine at this time. I did discuss with her that her cervical spine can become worse at any time and she needs to look out for red flag symptoms as discussed with her. At this time she reports her back pain is worse than her neck pain and is more interested in working on that. I did discuss with her that we would perform a lumbar epidural steroid injection at the L4-L5 level. I did discuss with her the risks, benefits, alternatives. I did discuss with her that the epidural steroid injection will not be a cure for her but should help with her pain and allow her to be more mobile in order for her to work on significantly losing weight. We'll schedule the patient for the epidural steroid injection at this time and see how she does after that. If there is no improvement I think he may need to get some imaging of the lumbar spine after that. Time with Patient: Greater than 30 PQRS Measure Charge Sheet Measure #130: Documentation of Current Meds in Medical Chart: Patient's medications documented in chart Measure #226: Tobacco Use: Screen & Cessation Intervention: Pt not a tobacco user Measure #111: Pneumonia Vaccination: Pneumococcal vaccine administered or previously received Measure #47: Advance Care Plan: Advance care planning discussed & documented, pt chose/unable to give Measure #412: Opioid Treatment Agreement: Documented signed opioid trtmnt agreemnt min once during opioid trtmnt Measure #408: Opioid Therapy Follow-up Evaluation: Patient had NO f/u eval minimum every 3 months during opioid therapy Measure #317: Preventitive Care & Scrn High Bld Press & F/U: Normal blood pressure, f/u not required Measure #128: Body Mass Index (BMI) Screening & Follow-up: BMI documented ABOVE normal parameters - f/u documented Measure #131: Pain Assessment & Follow-up: Pain positive & plan documented, Follow-up scheduled Measure #431: Unhealthy Alcohol Use Preventative Care & Scrn: Patient not identified as an unhealthy alcohol user PQRS Narrative: Smoking Status Never smoker Do You Want the Pneumonia No Vaccine AT THIS TIME? Blood Pressure 124/86 Pain Intensity [Bilateral 6 Lower Back] Scale Used Numeric (1 - 10) Home Medications: Ambulatory Orders ALPRAZolam [Xanax] 1 mg PO TID PRN 03/20/14 Albuterol Inhaler [Ventolin Hfa Inhaler] 1 puff INHALATION RT-QID PRN 12/31/15 Albuterol Nebulized [Ventolin Nebulized] 2.5 mg INHALATION RT-QID PRN 12/31/15 Levothyroxine Sodium [Synthroid] 50 mcg PO MOTUWETHFRSA 12/31/15 Dicyclomine [Bentyl] 10 mg PO TID PRN 04/07/17 HYDROcodone/APAP 10-325MG [[place] 10-325] 1 tab PO TID PRN 04/07/17 Omeprazole 20 mg PO BID 04/07/17 Atorvastatin [Lipitor] 20 mg PO DAILY #30 tab 04/09/17 ARIPiprazole [Abilify] 10 mg PO HS 06/02/17 rOPINIRole HCL [Requip] 0.5 mg PO HS 06/02/17 Cetirizine HCl 1 tab PO HS 10/24/17 Montelukast Sodium [Singulair] 1 tab PO AC-SUPPER 10/24/17 Zolpidem [Ambien] 10 mg PO HS 10/31/17 Citalopram Hydrobromide [CeleXA] 1 tab PO DAILY 09/12/18
== END | disposition home or self-care (01) ==
LOC: PNWHC3 10:25
PROVIDERS: ATTEND Hospitalist
DX: M47.26 Other spondylosis with radiculopathy, lumbar region (principal); M47.812 Spondylosis without myelopathy or radiculopathy, cervical region; E66.9 Obesity, unspecified; J45.909 Unspecified asthma, uncomplicated; M79.7 Fibromyalgia; E03.9 Hypothyroidism, unspecified; Z90.89 Acquired absence of other organs; Z90.49 Acquired absence of other specified parts of digestive tract; Z90.710 Acquired absence of both cervix and uterus; Z98.890 Other specified postprocedural states; Z79.51 Long term (current) use of inhaled steroids; Z88.1 Allergy status to other antibiotic agents; Z79.891 Long term (current) use of opiate analgesic; Z88.6 Allergy status to analgesic agent; Z88.8 Allergy status to other drugs, medicaments and biological substances; Z68.41 Body mass index [BMI] 40.0-44.9, adult
CPT/HCPCS: 99211

== ENCOUNTER 2018-09-24 06:05 | Day surgery (SDC) | payer MEDICARE, OTHER ==
[2018-09-19 11:23] VITALS: BMI 41.9
[2018-09-24] MEDS ORDERED: LACTATED RINGERS 1,000 ML IV SCH (06:33)
[2018-09-24] MEDS ORDERED: LIDOCAINE 1% 20 ML VIAL (10MG/ML) FOR IV START INTRADERMA ONE (06:39)
[2018-09-24 06:45] VITALS: RESP 16; TEMP 97.8
--- NOTE | 2018-09-24 07:15 | P.PCN ---
Date of Procedure: 09/24/18 Procedure(s) Performed: PREOPERATIVE DIAGNOSIS: 1- Lumbar Degenerative Disc Diseases 2-Lumbar radiculopathy POSTOPERATIVE DIAGNOSIS: 1-Lumber Degenerative Disc Diseases 2-Lumbar radiculopathy PROCEDURE 1. Lumbar epidural steroid injection under fluoroscopic guidance at the L4-5 level. 2. Lumbar epidurogram. ANESTHESIA: Local with 1% lidocaine 3 ml and , moderate sedation with intravenous Versed 4 mg ,and fentanyle 100 Mcg EBL: Minimal PROCEDURE INDICATION: The patient with low back pain and radiculitis symptoms unresponsive to conservative treatment. Fluoroscopy was used to optimize visualization of the needle placement and to maximize safety. PROCEDURE DESCRIPTION / TECHNIQUE: The patient was seen and identified in the preoperative area. Risks, benefits, complications including but not limited to infections ,bleeding ,allergic reaction to the medications ,nerve damage and not complete pain releife , and alternatives were discussed with the patient. The patient agreed to proceed with the procedure and signed the consent. IV was started, and vital signs were stable. Patient was taken to the OR and time out was completed. The patient was placed in the prone position on procedure table and a pillow was placed under the abdomen to reduce lumbar lordosis. The lumbosacral area was prepped and draped in the usual sterile fashion.ere closely monitored during the procedure. Conscious sedation was used during the procedure to decrease patients anxiety. Vital signs was monitered during the entire procedure. Using anterior-posterior fluoroscopy, the L4-5 interlaminar space was identified and the skin over this site was marked and then infiltrated with 1% lidocaine subcutaneously. Subsequently, a 20-gauge Tuohy epidural needle was inserted and advanced toward the epidural space using the ``Loss of resistance technique and guided by AP and lateral fluoroscopy. The correct needle position in the epidural space was verified with the injection of 2 mL of the water soluble contrast dye Isovue 200 contrast and observing an excellent epidurogram with the epidural spread of the dye, after negative aspiration for blood and CSF and in the absence of paresthesias. Again after negative aspiration, a 6 ml mixture containing 80 mg of Depo-medrol , and 2 ml of preservative free Normal Saline, and 2 ml of preservative free lidocaine 1% solution was injected and a washout of epidurogram was seen. Needle was withdrawn intact, skin was cleansed, and bandages were applied. COMPLICATIONS: None DISPOSITION / PLANS: The patient was placed in a supine position and transferred to the recovery area in a stable condition for observation. There was no evidence of lower extremity motor or sensory deficit after the procedure. Patient was discharged from the recovery room after meeting discharge criteria. Home discharge instructions were given to the patient by the staff. The patient was reexamined prior to discharge. The patient will schedule a follow up in the clinic in 2-4 weeks.
[2018-09-24] MEDS ORDERED: IV FLUID CONTINUATION 1,000 ML IV ONE (07:32)
[2018-09-24 07:35] VITALS: BP 152/73; PULSE 89
--- NOTE | 2018-09-24 09:05 | FL ---
EXAMINATION TYPE: FL guided pain mgmt statistic DATE OF EXAM: 09/24/2018 HISTORY: Flouroscopy time 4 seconds of fluoroscopy provided. IMPRESSION: 1. Fluoroscopy time.
== END 2018-09-24 07:47 | disposition home or self-care (01) ==
LOC: ORPAIN 06:05
PROVIDERS: ATTEND Specialist
DX: M51.16 Intervertebral disc disorders with radiculopathy, lumbar region (principal); M47.26 Other spondylosis with radiculopathy, lumbar region; M50.30 Other cervical disc degeneration, unspecified cervical region; Z88.5 Allergy status to narcotic agent; J45.909 Unspecified asthma, uncomplicated; Z88.2 Allergy status to sulfonamides; Z88.8 Allergy status to other drugs, medicaments and biological substances
CPT/HCPCS: 62323; J2250; J1030; J3010; Q9966; 99152

== ENCOUNTER 2018-10-08 09:12 | Day surgery (SDC) | payer MEDICARE, OTHER ==
[2018-10-04 11:17] VITALS: BMI 41.9
[~2018-10-08 09:12] MED LIST: LACTATED RINGERS 1,000 ML IV SCH
[2018-10-08] MEDS ORDERED: LIDOCAINE 1% 20 ML VIAL (10MG/ML) FOR IV START INTRADERMA ONE (10:05)
[2018-10-08 10:19] VITALS: RESP 16; TEMP 98.2
--- NOTE | 2018-10-08 11:12 | P.PCN ---
Date of Procedure: 10/08/18 Procedure(s) Performed: PREOPERATIVE DIAGNOSIS: 1- Lumbar Degenerative Disc Diseases 2-Lumbar radiculopathy POSTOPERATIVE DIAGNOSIS: 1-Lumber Degenerative Disc Diseases 2-Lumbar radiculopathy PROCEDURE 1. Lumbar epidural steroid injection under fluoroscopic guidance at the L4-5 level. 2. Lumbar epidurogram. ANESTHESIA: Local with 1% lidocaine 3 ml and , moderate sedation with intravenous Versed 4 mg ,and fentanyle 100 Mcg EBL: Minimal PROCEDURE INDICATION: The patient with low back pain and radiculitis symptoms unresponsive to conservative treatment. Fluoroscopy was used to optimize visualization of the needle placement and to maximize safety. PROCEDURE DESCRIPTION / TECHNIQUE: The patient was seen and identified in the preoperative area. Risks, benefits, complications including but not limited to infections ,bleeding ,allergic reaction to the medications ,nerve damage and not complete pain releife , and alternatives were discussed with the patient. The patient agreed to proceed with the procedure and signed the consent. IV was started, and vital signs were stable. Patient was taken to the OR and time out was completed. The patient was placed in the prone position on procedure table and a pillow was placed under the abdomen to reduce lumbar lordosis. The lumbosacral area was prepped and draped in the usual sterile fashion.ere closely monitored during the procedure. Conscious sedation was used during the procedure to decrease patients anxiety. Vital signs was monitered during the entire procedure. Using anterior-posterior fluoroscopy, the L4-5 interlaminar space was identified and the skin over this site was marked and then infiltrated with 1% lidocaine subcutaneously. Subsequently, a 18 -gauge 6 inches long Tuohy epidural needle was inserted and advanced toward the epidural space using the ``Loss of resistance technique and guided by AP and lateral fluoroscopy. The correct needle position in the epidural space was verified with the injection of 2 mL of the water soluble contrast dye Isovue 200 contrast and observing an excellent epidurogram with the epidural spread of the dye, after negative aspiration for blood and CSF and in the absence of paresthesias. Again after negative aspiration, a 6 ml mixture containing 80 mg of Depo-medrol , and 2 ml of preservative free Normal Saline, and 2 ml of preservative free lidocaine 1% solution was injected and a washout of epidurogram was seen. Needle was withdrawn intact, skin was cleansed, and bandages were applied. COMPLICATIONS: None DISPOSITION / PLANS: The patient was placed in a supine position and transferred to the recovery area in a stable condition for observation. There was no evidence of lower extremity motor or sensory deficit after the procedure. Patient was discharged from the recovery room after meeting discharge criteria. Home discharge instructions were given to the patient by the staff. The patient was reexamined prior to discharge. The patient will schedule a follow up in the clinic in 2-4 weeks.
--- NOTE | 2018-10-08 11:27 | FL ---
EXAMINATION TYPE: FL guided pain mgmt statistic DATE OF EXAM: 10/08/2018 HISTORY: Flouroscopy time 4 seconds of fluoroscopy provided. IMPRESSION: 1. Fluoroscopy time.
[2018-10-08] MEDS ORDERED: IV FLUID CONTINUATION 1,000 ML IV ONE (11:28)
[2018-10-08 11:34] VITALS: BP 119/82; PULSE 96
== END 2018-10-08 11:41 | disposition home or self-care (01) ==
LOC: ORPAIN 09:12
PROVIDERS: ATTEND Specialist
DX: M51.16 Intervertebral disc disorders with radiculopathy, lumbar region (principal)
CPT/HCPCS: 62323; J2250; J1030; J3010; Q9966

== ENCOUNTER → 2018-10-24 | Outpatient (CLI) | payer MEDICARE, OTHER ==
[2018-10-24 11:23] VITALS: BP 137/84; PULSE 107; RESP 18
--- NOTE | 2018-10-24 11:59 | P.PN ---
Progress Note - Text Progress Note Date: 10/24/18 53-year-old female presents for follow-up visit after 2 lumbar epidural steroid injections at L4-L5. She has a chief complaint of neck pain as well as low back. pain. Epidural injections have helped to medicine with her low back pain. Decreasing by greater than 60%. She still has some axial low back pain mostly at L4 and L5. Her chief complaint today is her neck pain mostly radiating into her left shoulder. She denies any numbness and tingling into her bicep, tricep or into her extremities bilateral. She notes stiffness in her neck in the morning that improves slightly during the day. Denies any bowel or bladder incontinence, gait disturbances, visual impairment. In addition to above, 13-point review of systems is also negative for chest pain, shortness of breath, changes in vision, changes in hearing, new onset weakness, abdominal pain, diarrhea, extreme fatigue, malaise, fever, skin changes, homicidal or suicidal ideation, or bowel or bladder incontinence. Vital Signs: Reviewed in EMR, obese. Gen: WDWN, AAOx3, NAD HEENT: NCAT, EOMI, hearing grossly normal Pulm: resp unlabored Abd: soft, NT, ND Neck: supple, trachea midline ROM in flexion lumbar spine: Appropriate ROM in extension lumbar spine: Appropriate Lumbar paravertebral tenderness: + Facet loading: + bilateral SI joint tenderness: Negative Bilateral Aquilino's test: Negative bilateral Straight leg raise: Negative bilateral Lower extremity: Equal strength bilateral 5 out of 5 in quadriceps, hamstring, plantar flexion, dorsiflexion. Cervical spine exam: Positive facet loading on left with reproducible pain and shoulder, positive compression test. Pain with lateral rotation of the left at 30. Deep tendon reflexes symmetrical 1+, hand foundation assistant strength 5 out of 5, bicep flexion and tricep extension normal. Negative Yepez, negative Lhermitte sign. Left shoulder exam: Tenderness to palpation over chronic clavicular joint, negative for impingement, negative Neer's, negative Hill Neuro: CN II-XII grossly intact, muscle strength lower extremities PRESERVED Imaging: Reviewed in EMR Assessment: 1. Lumbar radiculopathy 2. Lumbar spondylosis without myelopathy 3. Cervical spinal stenosis C5-C6 4. Cervical spondylosis without myelopathy 5. Left subacromial bursitis Plan: 1. Explanation: Opioid and psychological risk scores were reviewed. Diagnoses, prognoses, and multiple treatment options including but not limited to physical therapy, interventional therapies, adjuvant medical therapies, narcotic medication therapies, and surgery were discussed with the patient and all questions were answered to the patient's satisfaction. 2. Opioid agreement: None required 3. Counseling: The patient was counseled extensively on BODY MASS INDEX and EXERCISE. Specifically, the patient was instructed regarding the importance of obesity, and exercise in the context of both chronic pain and overall health. 4. Procedures: Left C7-T1 epidural steroid injection 5. Consultations: None 6. Investigations: None 7. Medications: Being prescribed by her PCP. 8. Disposition: Discussed procedure in detail including the risks and benefits. Which include bleeding, infection, nerve injury. Patient understands these r isks and wishes to proceed. She is not on any blood thinners, no fish oils, no NSAIDs. We'll schedule her for next available appointment. PQRS measures: 1-Patient's medications are documented in the chart. 2-Tobacco use is negative 3-Patient has not had a pneumococcal vaccine. 4-Advanced care planning discussed, patient unable to give. 5-No opioids prescribed no contract patient. 6-Pain positive, follow-up visit or procedure scheduled 7-Patient's blood pressure measured and documented, and WNL. 8-Patient's weight was measured, and body mass index ABOVE the normal limits, and counseling was done. Patient instructed to follow up with PCP. 9-Patient WAS NOT identified as an unhealthy alcohol user.
== END ==
LOC: PNWHC3 11:03
PROVIDERS: ATTEND Anesthesiology
DX: M48.02 Spinal stenosis, cervical region (principal); M47.812 Spondylosis without myelopathy or radiculopathy, cervical region; M47.26 Other spondylosis with radiculopathy, lumbar region; M75.52 Bursitis of left shoulder
CPT/HCPCS: 99211

== ENCOUNTER 2018-11-05 06:00 | Day surgery (SDC) | payer MEDICARE, OTHER ==
[2018-10-30 10:37] VITALS: BMI 41.9
[2018-11-05 06:23] VITALS: RESP 18; TEMP 97.8
[2018-11-05] MEDS ORDERED: LIDOCAINE 1% 20 ML VIAL (10MG/ML) FOR IV START INTRADERMA ONE (06:30)
--- NOTE | 2018-11-05 07:28 | P.PCN ---
Date of Procedure: 11/05/18 Surgeon: Italo Sanderson Pathology: none sent Condition: stable Disposition: PACU Description of Procedure: PROCEDURE 1. Cervical epidural steroid injection under fluoroscopic guidance, C7-T1 Left paramedian approach. 2. Cervical epidurogram. : PREOPERATIVE DIAGNOSIS: Cervical stenosis POSTOPERATIVE DIAGNOSIS: : Same as above ANESTHESIA: Local anesthesia with 1% lidocaine and IV moderate conscious sedation with Versed and Fentanyl . EBL 0 PROCEDURE INDICATION: The patient with neck pain and radiculopathy unresponsive to conservative treatment consents for procedure. PROCEDURE DESCRIPTION / TECHNIQUE: The patient was seen and identified in the preoperative area. Risks, benefits, complications, including but not limited to infections ,bleeding , allergic reactions to the medications ,and not complete pain relief, and alternatives were discussed with the patient, the patient agreed to proceed with the procedure and signed the consent. Patient was taken to the OR and time out was completed. The patient was placed in the prone position on the procedure table. A pillow was placed under the patients chest to increase the flexion of the cervical spine . The cervical area was prepped and draped in the usual sterile fashion. Vital signs were closely monitored during the procedure. Conscious sedation was used during the procedure to decrease patients anxiety. Using anterior-posterior fluoroscopy, the C7-T1 interlaminar space was identified and the skin over this site was marked and then infiltrated with 1% lidocaine subcutaneously. Subsequently, a 20-gauge 3-1/2-inch Tuohy epidural needle was inserted and advanced toward the epidural space by means of loss of resistance to air technique and guided by AP and lateral fluoroscopy. The needle tip contacted the lamina of T1 vertebra first, then it was walked off bone and into the epidural space using the loss of to air and fluoroscopic guidance to identify the epidural space. The correct needle position in the epidural space was verified with the injection of 1 mL of the water soluble contrast dye Isovue and observing an excellent epidurogram with the epidural spread of the dye, after negative aspiration for blood and CSF and in the absence of paresthesias. Again after negative aspiration, a 5 ml mixture containing 20 mg of Decadron and 3 ml of preservative free Normal Saline solution was injected and a washout of epidurogram was seen. Needle was withdrawn intact, skin was cleansed, and bandages were applied.
[2018-11-05 07:56] VITALS: BP 110/71; PULSE 87
[2018-11-05] MEDS ORDERED: IV FLUID CONTINUATION 550 ML IV ONE (07:56)
--- NOTE | 2018-11-05 08:42 | FL ---
Fluoroscopy HISTORY: Pain 13 seconds fluoroscopy time supplied to the referring clinician. 1 intraoperative C-arm images docum ent the procedure. See dictated report from anesthesia.
== END 2018-11-05 07:59 | disposition home or self-care (01) ==
LOC: ORPAIN 06:00
PROVIDERS: ATTEND Anesthesiology
DX: M48.02 Spinal stenosis, cervical region (principal); M47.812 Spondylosis without myelopathy or radiculopathy, cervical region; E66.9 Obesity, unspecified; Z68.41 Body mass index [BMI] 40.0-44.9, adult; Z71.3 Dietary counseling and surveillance; M54.16 Radiculopathy, lumbar region; M47.816 Spondylosis without myelopathy or radiculopathy, lumbar region; M75.52 Bursitis of left shoulder
CPT/HCPCS: 62321; J2250; J1100; J3010; Q9966; 99152

== ENCOUNTER 2018-11-25 05:59 | Day surgery (SDC) | payer MEDICARE, OTHER ==
[2018-11-25] MEDS ORDERED: LACTATED RINGERS 1,000 ML IV ONE (06:27)
[2018-11-25] MEDS ORDERED: LIDOCAINE 1% 20 ML VIAL (10MG/ML) FOR IV START INTRADERMA ONE (06:27)
[2018-11-25 06:29] VITALS: RESP 16; TEMP 97.5
[2018-11-25] MEDS ORDERED: LACTATED RINGERS 1,000 ML IV SCH (07:15)
--- NOTE | 2018-11-25 07:28 | P.PCN ---
Date of Procedure: 11/25/18 Description of Procedure: Surgeon: Italo Sanderson Pathology: none sent Condition: stable Disposition: PACU Description of Procedure: PROCEDURE 1. Cervical epidural steroid injection under fluoroscopic guidance, C7-T1 Left paramedian approach. 2. Cervical epidurogram. : PREOPERATIVE DIAGNOSIS: Cervical stenosis POSTOPERATIVE DIAGNOSIS: : Same as above ANESTHESIA: Local anesthesia with 1% lidocaine and IV moderate conscious sedation with Versed and Fentanyl . EBL 0 PROCEDURE INDICATION: The patient with neck pain and radiculopathy unresponsive to conservative treatment consents for procedure. PROCEDURE DESCRIPTION / TECHNIQUE: The patient was seen and identified in the preoperative area. Risks, benefits, complications, including but not limited to infections ,bleeding , allergic reactions to the medications ,and not complete pain relief, and alternatives were discussed with the patient, the patient agreed to proceed with the procedure and signed the consent. Patient was taken to the OR and time out was completed. The patient was placed in the prone position on the procedure table. A pillow was placed under the patients chest to increase the flexion of the cervical spi ne . The cervical area was prepped and draped in the usual sterile fashion. Vital signs were closely monitored during the procedure. Conscious sedation was used during the procedure to decrease patients anxiety. Using anterior-posterior fluoroscopy, the C7-T1 interlaminar space was identified and the skin over this site was marked and then infiltrated with 1% lidocaine subcutaneously. Subsequently, a 20-gauge 3-1/2-inch Tuohy epidural needle was inserted and advanced toward the epidural space by means of loss of resistance to air technique and guided by AP and lateral fluoroscopy. The nee dle tip contacted the lamina of T1 vertebra first, then it was walked off bone and into the epidural space using the loss of to air and fluoroscopic guidance to identify the epidural space. The correct needle position in the epidural space was verified with the injection of 1 mL of the water soluble contrast dye Isovue and observing an excellent epidurogram with the epidural spread of the dye, after negative aspiration for blood and CSF and in the absence of paresthesias. Again after negative aspiration, a 4 ml mixture containing 10 mg of Decadron and 3 ml of preservative free Normal Saline solution was injected and a washout of epidurogram was seen. Needle was withdrawn intact, skin was cleansed, and bandages were applied.
[2018-11-25] MEDS ORDERED: IV FLUID CONTINUATION 850 ML IV ONE (07:31)
[2018-11-25 07:46] VITALS: BP 115/79; PULSE 92
--- NOTE | 2018-11-25 08:35 | FL ---
Fluoroscopy HISTORY: Pain 5 seconds fluoroscopy time supplied to the referring clinician. 1 intraoperative C-arm images docume nt the procedure. See dictated report from anesthesia.
== END 2018-11-25 07:59 | disposition home or self-care (01) ==
LOC: ORPAIN 05:59
PROVIDERS: ATTEND Anesthesiology
DX: M48.02 Spinal stenosis, cervical region (principal); M54.12 Radiculopathy, cervical region; Z88.6 Allergy status to analgesic agent; Z88.2 Allergy status to sulfonamides; Z88.8 Allergy status to other drugs, medicaments and biological substances; E66.01 Morbid (severe) obesity due to excess calories; Z68.41 Body mass index [BMI] 40.0-44.9, adult
CPT/HCPCS: 62321; J2250; J1100; J3010; Q9966

== ENCOUNTER 2018-12-23 06:18 | Day surgery (SDC) | payer MEDICARE, OTHER ==
[2018-12-23 06:55] VITALS: TEMP 97.8
[2018-12-23] MEDS ORDERED: LACTATED RINGERS 1,000 ML IV ONE (06:55)
[2018-12-23] MEDS ORDERED: LIDOCAINE 1% 20 ML VIAL (10MG/ML) FOR IV START INTRADERMA ONE (07:03)
[2018-12-23] MEDS ORDERED: IV FLUID CONTINUATION 1,000 ML IV ONE (08:15)
[2018-12-23] MEDS ORDERED: CYCLOBENZAPRINE 5 MG TAB PO STA (08:19)
[2018-12-23 08:23] VITALS: RESP 16
--- NOTE | 2018-12-23 08:39 | P.PCN ---
Date of Procedure: 12/23/18 Procedure(s) Performed: PREOPERATIVE DIAGNOSIS: Cervical Spondylosis with Facet Arthropathy.without myelopathy POSTOPERATIVE DIAGNOSIS: Cervical Spondylosis, Facet Arthropathy. Without myelopathy PROCEDURES: Diagnostic bilateral TON, C3, C4 medial branch blocks, with fluoroscopic guidance ANESTHESIA: Local with 1% lidocaine; IV sedation with Versed 6 mg. EBL: Minimal PROCEDURE INDICATION: The patient with neck pain secondary to cervical art hropathy unresponsive to more conservative treatments. PROCEDURE DESCRIPTION / TECHNIQUE: The patient was seen and identified in the preoperative area. Risks, benefits, complications, and alternatives were discussed with the patient, the patient agreed to proceed with the procedure and signed the consent. IV was started. Vital signs remained stable throughout the procedure. Patient was taken to the OR and time out was completed. The patient was placed in the supine position on the procedure table. A pillow was placed under the patients chest to increase the cervical interlaminar space. The cervical area was prepped and draped in the usual sterile fashion. A timeout was performed. Vital signs were closely monitored during the procedure. Conscious sedation was used during the procedure to decrease patients anxiety. Using cross-table lateral fluoroscopy, the centroid of the trapezoid of the TON, C3, C4 was identified, marked, and localized with 1% lidocaine 0.2 ml at each level for skin and subcutaneous infiltration . Subsequently, a 25 G 3.5" Quinke spinal needle was advanced guided by fluoroscopy to the centroid of the trapezoid at above-mentioned levels . Froid tip position was confirmed using lateral fluoroscopy. 0.2 mL of Isovue-200 was injected at each level, revealing no intravascular uptake. Subsequently, 0.5 mL of 0.5% bupivacaine was injected at each level, except for TON when 1 mL was injected. COMPLICATIONS: No acute complications. COMMENTS: Of note, I explained to the patient that we do not provide IV narcotics for this procedure as it would confound with the results of this block. I have given her a prescription for Valium 5 mg one tablet to take prior to the next procedure. We will see her in clinic in 2 weeks to assess the benefit of this block. The patient says that the 6 mg of Versed that she received was not sufficient for this procedure. I explained that this is the maximum that we typically use. The procedure was done in supine position as she was unable to tolerate being prone with a ramp due to the ramp causing her pain between her breasts. For prone procedures, would recommend pillow in place of the ramp. I explained that the second diagnostic block can be done supine, however for the radiofrequency ablation she would have to be prone. DISPOSITION / PLANS: The patient was placed in a supine position and transferred to the recovery area in a stable condition for observation and was discharged from the recovery room after meeting discharge criteria. Home discharge instructions given to the patient by the staff. The patient will follow up in clinic in 2 weeks.
[2018-12-23 08:45] VITALS: BP 130/80; PULSE 85
--- NOTE | 2018-12-23 10:54 | FL ---
Fluoroscopy HISTORY: Pain 1 minute 14 seconds fluoroscopy time supplied to the referring clinician. 4 intraoperative C-arm tayla ges document the procedure. See dictated report from anesthesia.
== END 2018-12-23 09:12 | disposition home or self-care (01) ==
LOC: ORPAIN 06:18
PROVIDERS: ATTEND Anesthesiology
DX: G89.29 Other chronic pain (principal); M47.812 Spondylosis without myelopathy or radiculopathy, cervical region; M48.02 Spinal stenosis, cervical region; M50.30 Other cervical disc degeneration, unspecified cervical region; M47.26 Other spondylosis with radiculopathy, lumbar region; Z79.891 Long term (current) use of opiate analgesic; Z79.890 Hormone replacement therapy; Z79.899 Other long term (current) drug therapy; Z90.710 Acquired absence of both cervix and uterus
CPT/HCPCS: 64490; 64491; J2250; Q9966; 99152; 99153

== ENCOUNTER → 2019-01-02 | Outpatient (CLI) | payer MEDICARE, OTHER ==
--- NOTE | 2019-01-02 08:15 | MM ---
Reason for exam: additional evaluation requested from prior study. Last mammogram was performed 1 year and 2 months ago. History: Patient is postmenopausal. Benign US biopsy breast VAD LT of the left breast, October 31, 2017. Benign excisional biopsy of the left breast, August 2006. Physical Findings: Nurse did not find any significant physical abnormalities on exam. MG 3D Diag Mammo W/Cad REX Bilateral CC and MLO view(s) were taken. Prior study comparison: October 31, 2017, left breast MG diagnostic mammo LT wo CAD. October 23, 2017, bilateral MG diagnostic mammo w CAD REX. The breast tissue is heterogeneously dense. This may lower the sensitivity of mammography. Benign appearing bilateral calcifications. No suspicious abnormality. These results were verbally communicated with the patient and result sheet given to the patient on 01/02/19. ASSESSMENT: Incomplete: need additional imaging evaluation, BI-RAD 0 RECOMMENDATION: Ultrasound of both breasts. (left per order, right follow up from prior upper inner quadrant)
--- NOTE | 2019-01-02 08:23 | USB ---
Reason for exam: additional evaluation requested from abnormal screening. History: Patient is postmenopausal. Benign US biopsy breast VAD LT of the left breast, October 31, 2017. Benign excisional biopsy of the left breast, August 2006. US Breast Limited BILAT Right limited breast ultrasound including focal area of concern, retroareolar and axilla demonstrates no cystic or solid lesion seen. Left complete breast ultrasound includes all four quadrants, the retroareolar region and axilla. Finding demonstrates a 0.4 x 0.3 x 0.4cm oval, cystic, mixed, complicated cyst at 3 o'clock. These results were verbally communicated with the patient and result sheet given to the patient on 01/02/19. ASSESSMENT: Benign, BI-RAD 2 RECOMMENDATION: Routine screening mammogram of both breasts in 1 year.
== END | disposition home or self-care (01) ==
LOC: RADMAMWWP 06:55
PROVIDERS: ATTEND Internal Medicine
DX: R92.8 Other abnormal and inconclusive findings on diagnostic imaging of breast (principal)
CPT/HCPCS: 77066; 76642; G0279; 77062

== ENCOUNTER → 2019-01-06 | Outpatient (CLI) | payer MEDICARE, OTHER ==
[2019-01-06 13:56] VITALS: BP 135/91; PULSE 105; RESP 16
--- NOTE | 2019-01-06 15:25 | P.PAINPG ---
Subjective Progress Note Date: 01/06/19 This is a follow-up visit for this 53 year old female with a chronic history of severe low back pain, and severe neck pain, patient diagnosed with lumbar radiculopathy lumbar spondylosis previously we have done lumbar epidural steroid injection which helped her back pain is significantly, and patient had also severe neck pain she is diagnosed with cervical spinal stenosis, cervical degenerative disc disease, and cervical spondylosis with cervical facet arthropathy, a few weeks ago we performed diagnostic medial branch blocks at TON, C3, C4 for facets C2-3 and C3-4. She reports greater than 50% relief from this procedure, and has ongoing pain relief. She would like to schedule the second diagnostic block, however is very anxious as she required a significant amount of anxiolytic for the prior procedure. For medications, she currently takes [place] 10/325 every twice a day when necessary, she is getting prescriptions from her primary care physician. Review of systems is negative for chest pain, shortness of breath, new onset weakness, numbness/tingling, abdominal pain, malaise, fever, night sweats, chills, homicidal or suicidal ideation, or bowel or bladder incontinence. Objective Physical exam: Vitals: Reviewed in EMR GENERAL: Well appearing, in no acute distress, obese PSYCH: Mood and affect is appropriate. Awake, alert, and oriented SKIN: Skin color, texture, turgor normal, no rashes or lesions HEENT: Normocephalic, atraumatic. EOM intact CV: No pedal edema RESP: Respirations are unlabored, no audible wheezing GI: Abdomen non-distended MUSCULOSKELETAL: Bilateral upper and lower extremity strength is normal and symmetric. No atrophy or tone abnormalities are noted. Neck: Tenderness to palpation over the cervical paraspinous muscles bilaterally, left greater than right. Spurling negative, Axial Loading Test negative, Yepez's sign negative. No pain with neck flexion, extension, or lateral flexion. No obvious deformity or signs of trauma. Normal cervical lordotic curve and normal cervical spine range of motion Extremities: Peripheral joint ROM is full and pain free without obvious instability or laxity in all four extremities. No edema or skin discolorations noted. Gait: Gait is normal NEUR: Bilateral upper extremity coordination and muscle stretch reflexes are physiologic and symmetric. No loss of sensation is noted. Assessment and Plan Plan: Assessment and plan= Chronic neck pain secondary to cervical spinal stenosis, cervical degenerative disc disease, cervical spondylosis with cervical facet arthropathy, patient reports almost 100% pain relief from bilateral diagnostic medial branch block at TON, C3, C4 for facets C2-3 and C3-4. We will schedule diagnostic medial branch block #2. Of note, she is very anxious about this procedure, she is been given a prescription for Valium by mouth to take prior to procedure. She has been informed that we will provide anxiolytic medication for the procedure, however will avoid the use of opioids, to avoid confounding with the benefit of the block. Chronic low back pain secondary to lumbar degenerative disc disease , lumbar spondylosis with lumbar facet arthropathy . Low back pain improved after lumbar epidural steroid injections Patient will continue to use [place] 10/325 when necessary and she is getting prescription refilled from her primary care. She was counseled on attempting to self wean this medication. Patient was also counseled on the importance of weight management and weight loss. Objective - Vital Signs Vital signs: Vital Signs Temp Pulse 105 H 01/06/19 13:50 Resp 16 01/06/19 13:50 BP 135/91 01/06/19 13:50 Pulse Ox 96 01/06/19 13:50 Intake & Output 01/05/19 01/06/19 01/06/19 18:59 06:59 18:59 Weight 117.934 kg PQRS Measure Charge Sheet Measure #130: Documentation of Current Meds in Medical Chart: Patient's medications documented in chart Measure #47: Advance Care Plan: Advance care planning discussed & documented, pt chose/unable to give Measure #412: Opioid Treatment Agreement: No documentation of signed opioid treatment agreement Measure #317: Preventitive Care & Scrn High Bld Press & F/U: Normal blood pressure, f/u not required Measure #128: Body Mass Index (BMI) Screening & Follow-up: BMI documented ABOVE normal parameters - f/u documented Measure #131: Pain Assessment & Follow-up: Pain positive & plan documented, Follow-up scheduled Measure #431: Unhealthy Alcohol Use Preventative Care & Scrn: Patient not identified as an unhealthy alcohol user PQRS Narrative: Smoking Status Never smoker Blood Pressure 135/91 Pain Intensity [Posterior Neck 0 ] Scale Used Numeric (1 - 10) Home Medications: Ambulatory Orders ALPRAZolam [Xanax] 1 mg PO TID PRN 03/20/14 Albuterol Inhaler [Ventolin Hfa Inhaler] 1 puff INHALATION RT-QID PRN 12/31/15 Albuterol Nebulized [Ventolin Nebulized] 2.5 mg INHALATION RT-QID PRN 12/31/15 Levothyroxine Sodium [Synthroid] 50 mcg PO MOTUWETHFRSA 12/31/15 Dicyclomine [Bentyl] 10 mg PO TID PRN 04/07/17 HYDROcodone/APAP 10-325MG [[place] 10-325] 1 tab PO TID PRN 04/07/17 Omeprazole 20 mg PO BID 04/07/17 ARIPiprazole [Abilify] 10 mg PO HS 06/02/17 rOPINIRole HCL [Requip] 0.5 mg PO HS 06/02/17 Zolpidem [Ambien] 10 mg PO HS 10/31/17 Citalopram Hydrobromide [CeleXA] 20 mg PO HS 09/12/18 Atorvastatin [Lipitor] 20 mg PO QAM 11/21/18 Amoxic-Pot Clav 500-125 mg [Augmentin 500-125 mg] 1 tab PO BID 12/20/18 Controlled Substance Measures - Controlled Substance Measures Is patient prescribed a controlled substance at discharge?: No
== END | disposition home or self-care (01) ==
LOC: PNWHC3 13:20
PROVIDERS: ATTEND Anesthesiology
DX: G89.29 Other chronic pain (principal); M48.02 Spinal stenosis, cervical region; M50.30 Other cervical disc degeneration, unspecified cervical region; M47.812 Spondylosis without myelopathy or radiculopathy, cervical region; M46.92 Unspecified inflammatory spondylopathy, cervical region; M51.36 Other intervertebral disc degeneration, lumbar region; M47.816 Spondylosis without myelopathy or radiculopathy, lumbar region; M46.96 Unspecified inflammatory spondylopathy, lumbar region; Z79.891 Long term (current) use of opiate analgesic; Z79.899 Other long term (current) drug therapy
CPT/HCPCS: 99211

== ENCOUNTER → 2019-01-13 | Day surgery (SDC) | payer MEDICARE, OTHER ==
[2019-01-07 15:31] VITALS: BMI 41.9
[~2019-01-13] MED LIST changes: +IV FLUID CONTINUATION 1,000 ML IV ONE; +LIDOCAINE 1% 20 ML VIAL (10MG/ML) FOR IV START INTRADERMA ONE
[2019-01-13 07:35] VITALS: RESP 18; TEMP 98.8
--- NOTE | 2019-01-13 09:03 | P.PCN ---
Date of Procedure: 01/13/19 Procedure(s) Performed: PREOPERATIVE DIAGNOSIS: Cervical Spondylosis with Facet Arthropathy.without myelopathy POSTOPERATIVE DIAGNOSIS: Cervical Spondylosis, Facet Arthropathy. Without myelopathy PROCEDURES: Diagnostic bilateral TON, C3, C4 medial branch blocks, with fluoroscopic guidance ANESTHESIA: Local with 1% lidocaine; IV sedation with Versed 4 mg. EBL: Minimal PROCEDURE INDICATION: The patient with neck pain secondary to cervical arthropathy unresponsive to more conservative treatments. PROCEDURE DESCRIPTION / TECHNIQUE: The patient was seen and identified in the preoperative area. Risks, benefits, complications, and alternatives were discussed with the patient, the patient agreed to proceed with the procedure and signed the consent. IV was started. Vital signs remained stable throughout the procedure. Patient was taken to the OR and time out was completed. The patient was placed in the supine position on the procedure table. The cervical area was prepped and draped in the usual sterile fashion. A timeout was performed. Vital signs were closely monitored during the procedure. Conscious sedation was used during the procedure to decrease patients anxiety. Using cross-table lateral fluoroscopy, the centroid of the trapezoid of the TON, C3, C4 was identified, marked, and localized with 1% lidocaine 0.2 ml at each level for skin and subcutaneous infiltration . Subsequently, a 25 G 3.5" Quinke spinal needle was advanced guided by fluoroscopy to the centroid of the trapezoid at above-mentioned levels . [place] tip position was confirmed using lateral fluoroscopy. 0.2 mL of Isovue-200 was injected at each level, revealing no intravascular uptake. Subsequently, 0.5 mL of 2% lidocaine was injected at each level, except for TON when 1 mL was injected. COMPLICATIONS: No acute complications. DISPOSITION / PLANS: The patient was placed in a supine position and transferred to the recovery area in a stable condition for observation and was discharged from the recovery room after meeting discharge criteria. Home discharge instructions given to the patient by the staff. The patient will follow up in clinic in 2 weeks.
[2019-01-13 09:12] VITALS: BP 105/71; PULSE 83
--- NOTE | 2019-01-13 09:55 | FL ---
EXAMINATION TYPE: FL guided pain mgmt statistic DATE OF EXAM: 01/13/2019 HISTORY: Flouroscopy time 12 seconds of fluoroscopy provided. IMPRESSION: 1. Fluoroscopy time.
== END ==
LOC: ORPAIN 06:52
PROVIDERS: ATTEND Anesthesiology
DX: G89.29 Other chronic pain (principal); M47.812 Spondylosis without myelopathy or radiculopathy, cervical region; M48.02 Spinal stenosis, cervical region; M51.36 Other intervertebral disc degeneration, lumbar region; M47.26 Other spondylosis with radiculopathy, lumbar region; Z71.3 Dietary counseling and surveillance; Z79.890 Hormone replacement therapy; Z79.899 Other long term (current) drug therapy
CPT/HCPCS: 64490; J2250; Q9966; 99152; 99153

== ENCOUNTER → 2019-01-28 | Outpatient (CLI) | payer MEDICARE, OTHER ==
[2019-01-28 10:45] VITALS: BP 122/86; PULSE 116; RESP 18
--- NOTE | 2019-01-29 08:45 | P.PAINPG ---
Subjective Progress Note Date: 01/28/19 This is a follow-up visit for this 53 year old female with a chronic history of severe low back pain, and severe neck pain, patient diagnosed with lumbar radiculopathy lumbar spondylosis previously we have done lumbar epidural steroid injection which helped her back pain is significantly, and patient had also severe neck pain she is diagnosed with cervical spinal stenosis, cervical degenerative disc disease, and cervical spondylosis with cervical facet arthropathy, a few weeks ago we performed diagnostic medial branch blocks at TON, C3, C4 for facets C2-3 and C3-4. On the block was done on 2 different occasions She reports greater than 50% relief from each procedure, however is very anxious as she required a significant amount of anxiolytic for the prior procedure. For medications, she currently takes [place] 10/325 every twice a day when necessary, she is getting prescriptions from her primary care physician. Review of systems is negative for chest pain, shortness of breath, new onset weakness, numbness/tingling, abdominal pain, malaise, fever, night sweats, chills, homicidal or suicidal ideation, or bowel or bladder incontinence. Objective Physical exam: Vitals: Reviewed in EMR GENERAL: Well appearing, in no acute distress, obese PSYCH: Mood and affect is appropriate. Awake, alert, and oriented SKIN: Skin color, texture, turgor normal, no rashes or lesions HEENT: Normocephalic, atraumatic. EOM intact CV: No pedal edema RESP: Respirations are unlabored, no audible wheezing GI: Abdomen non-distended MUSCULOSKELETAL: Bilateral upper and lower extremity strength is normal and symmetric. No atrophy or tone abnormalities are noted. Neck: Positive facet loading test cervical area . Extremities: Peripheral joint ROM is full and pain free without obvious instability or laxity in all four extremities. No edema or skin discolorations noted. Gait: Gait is normal NEUR: Bilateral upper extremity coordination and muscle stretch reflexes are physiologic and symmetric. No loss of sensation is noted. Assessment and plan= 1- Chronic neck pain secondary to cervical spinal stenosis, cervical degenerative disc disease, cervical spondylosis with cervical facet arthropathy, patient reports more than 50% pain relief from bilateral diagnostic medial branch block at TON, C3, C4 for facets C2-3 and C3-4. Done twice , And she will be good candidate to have radiofrequency ablation of the medial branch cervical area at the levels mentioned above. Of note, she is very anxious about this procedure, she is been given a prescription for Valium by mouth to take prior to procedure. She has been informed ,that we will provide anxiolytic medication for the procedure, however will avoid the use of opioids, to avoid confounding with the benefit of the block. 2- Chronic low back pain secondary to lumbar degenerative disc disease , lumbar spondylosis with lumbar facet arthropathy . Low back pain improved after lumbar epidural steroid injections Patient will continue to use [place] 10/325 when necessary and she is getting prescription refilled from her primary care. She was counseled on attempting to self wean this medication.Patient was also counseled on the importance of weight management and weight loss. Objective - Vital Signs Vital signs: Vital Signs Temp Pulse 116 H 01/28/19 10:38 Resp 18 01/28/19 10:38 BP 122/86 01/28/19 10:38 Pulse Ox 96 01/28/19 10:38 Intake & Output 01/28/19 01/29/19 01/29/19 18:59 06:59 18:59 Weight 117.934 kg PQRS Measure Charge Sheet Measure #130: Documentation of Current Meds in Medical Chart: Patient's medications documented in chart Measure #226: Tobacco Use: Screen & Cessation Intervention: Pt not a tobacco user Measure #111: Pneumonia Vaccination: Pneumococcal vaccine NOT administered or previously given Measure #47: Advance Care Plan: Advance care planning discussed & documented, pt chose/unable to give Measure #412: Opioid Treatment Agreement: No documentation of signed opioid treatment agreement Measure #408: Opioid Therapy Follow-up Evaluation: Patient had NO f/u eval minimum every 3 months during opioid therapy Measure #317: Preventitive Care & Scrn High Bld Press & F/U: Normal blood pressure, f/u not required Measure #128: Body Mass Index (BMI) Screening & Follow-up: BMI documented ABOVE normal parameters - f/u documented Measure #131: Pain Assessment & Follow-up: Pain positive & plan documented Measure #431: Unhealthy Alcohol Use Preventative Care & Scrn: Patient not identified as an unhealthy alcohol user PQRS Narrative: Smoking Status Never smoker Blood Pressure 122/86 Pain Intensity [Neck] 3 Scale Used Numeric (1 - 10) Home Medications: Ambulatory Orders ALPRAZolam [Xanax] 1 mg PO TID PRN 03/20/14 Albuterol Inhaler [Ventolin Hfa Inhaler] 1 puff INHALATION QID PRN 12/31/15 Albuterol Nebulized [Ventolin Nebulized] 2.5 mg INHALATION QID PRN 12/31/15 Levothyroxine Sodium [Synthroid] 50 mcg PO MOTUWETHFRSA 12/31/15 Dicyclomine [Bentyl] 10 mg PO TID PRN 04/07/17 HYDROcodone/APAP 10-325MG [[place] 10-325] 1 tab PO TID PRN 04/07/17 Omeprazole 20 mg PO BID 04/07/17 ARIPiprazole [Abilify] 10 mg PO HS 06/02/17 rOPINIRole HCL [Requip] 0.5 mg PO HS 06/02/17 Zolpidem [Ambien] 10 mg PO HS 10/31/17 Citalopram Hydrobromide [CeleXA] 20 mg PO HS 09/12/18 Atorvastatin [Lipitor] 20 mg PO QAM 11/21/18 Controlled Substance Measures - Controlled Substance Measures Is patient prescribed a controlled substance at discharge?: No
== END | disposition home or self-care (01) ==
LOC: PNWHC3 10:27
PROVIDERS: ATTEND Specialist
DX: G89.29 Other chronic pain (principal); M48.02 Spinal stenosis, cervical region; M50.30 Other cervical disc degeneration, unspecified cervical region; M51.36 Other intervertebral disc degeneration, lumbar region; M47.812 Spondylosis without myelopathy or radiculopathy, cervical region; M47.816 Spondylosis without myelopathy or radiculopathy, lumbar region; M46.92 Unspecified inflammatory spondylopathy, cervical region; M46.96 Unspecified inflammatory spondylopathy, lumbar region; Z79.899 Other long term (current) drug therapy
CPT/HCPCS: 99211

== ENCOUNTER 2019-02-03 07:49 | Day surgery (SDC) | payer MEDICARE, OTHER ==
[2019-01-28 15:30] VITALS: BMI 41.9
[~2019-02-03 07:49] MED LIST changes: -IV FLUID CONTINUATION 1,000 ML IV ONE; -LIDOCAINE 1% 20 ML VIAL (10MG/ML) FOR IV START INTRADERMA ONE
[2019-02-03 08:19] VITALS: RESP 16; TEMP 97.8
[2019-02-03] MEDS ORDERED: LIDOCAINE 1% 20 ML VIAL (10MG/ML) FOR IV START INTRADERMA ONE (08:23)
[2019-02-03] MEDS ORDERED: IV FLUID CONTINUATION 700 ML IV ONE (09:13)
--- NOTE | 2019-02-03 09:20 | P.PCN ---
Date of Procedure: 02/03/19 Procedure(s) Performed: PREOPERATIVE DIAGNOSIS: Cervical spondylosis with Facet Arthropathy without myelopathy. POSTOPERATIVE DIAGNOSIS: Cervical spondylosis with Facet Arthropathy without myelopathy. PROCEDURES: Radiofrequency thermocoagulation,Right C2-3, C3-4, Facet Joint with Fluroscopy [place](fluoroscopy was available in etiology department ) ANESTHESIA: Local with Ropivacaine 0.5 % , moderate sedation with fentanyl 100 micrograms and Versed.4 mg EBL: Minimal PROCEDURE INDICATION: The patient with neck pain secondary to cervical arthropathy who had more than 50% relief of her pain with previous diagnostic cervical medial branch block. PROCEDURE DESCRIPTION / TECHNIQUE: The patient was seen and identified in the preoperative area. Risks, benefits, complications, and alternatives were discussed with the patient, the patient agreed to proceed with the procedure and signed the consent. IV was started. Vital signs remained stable throughout the procedure. Patient was taken to the OR and time out was completed. The patient was placed in the prone position on the procedure table. A pillow was placed under the patients chest to increase the cervical interlaminar space. The cervical area was prepped and draped in the usual sterile fashion. Critical pause was taken. Vital signs were closely monitored during the procedure. Conscious sedation was used during the procedure to decrease patients anxiety. Using cross-table lateral fluoroscopy, the centroid of the trapezoid of C2 , C3, were identified, marked, and localized with 1% lidocaine. Subsequently, a 20 [id number] radiofrequency cannula with a 10-mm active tip was advanced guided by fluoroscopy to the centroid of the trapezoid of Right C2 , C3, and another needle placed at the center of the facet joint between the C2 and C3 vertebral ,Needle tip position was confirmed at the centroid of the trapezoids of C2 , C3, with anteroposterior fluoroscopy. Each site then underwent sensory testing at 50 Hz and 0 to 1 volt and motor testing at 2 Hz and 0 to 3 volt with local stimulation, but no radicular symptoms down the arm. Thereafter each sites underwent radiofrequency thermocoagulation at 80 degrees celsius for 90 seconds after injecting 0.5 ml of PF Ropivacaine 0.5 %. After thermocoagulation, 1 ml of the block solution containing Depo-Medrol 40 mg and 2 mL of preservative-free normal saline was injected at the each levels after negative aspiration of CSF and blood and with no paresthesias. Cannulas were retracted while injecting lidocaine 1% until the needle is out. Skin was cleansed and bandages were applied. COMPLICATIONS: No acute complications. DISPOSITION / PLANS: The patient was placed in a supine position and transferred to the recovery area in a stable condition for observation and was discharged from the recovery room after meeting discharge criteria. Home discharge instructions given to the patient by the staff. The patient was reexamined prior to discharge. The patient will schedule a follow up in the clinic in 2-4 weeks.
[2019-02-03 09:28] VITALS: BP 108/75; PULSE 90
--- NOTE | 2019-02-03 10:02 | FL ---
EXAMINATION TYPE: FL guided pain mgmt statistic DATE OF EXAM: 02/03/2019 HISTORY: Flouroscopy time 27 seconds of fluoroscopy provided. IMPRESSION: 1. Fluoroscopy time.
== END 2019-02-03 09:45 | disposition home or self-care (01) ==
LOC: ORPAIN 07:49
PROVIDERS: ATTEND Specialist
DX: M47.812 Spondylosis without myelopathy or radiculopathy, cervical region (principal); Z88.2 Allergy status to sulfonamides; Z88.6 Allergy status to analgesic agent; Z88.8 Allergy status to other drugs, medicaments and biological substances; Z90.710 Acquired absence of both cervix and uterus
CPT/HCPCS: 64633; 64634; J2250; J1030; J2405; J3010; 99152; 99153

== ENCOUNTER 2019-02-17 07:15 | Day surgery (SDC) | payer MEDICARE, OTHER ==
[2019-02-12 14:04] VITALS: BMI 41.9
[2019-02-17 08:00] VITALS: RESP 16; TEMP 97
[2019-02-17] MEDS ORDERED: LIDOCAINE 1% 20 ML VIAL (10MG/ML) FOR IV START INTRADERMA ONE (08:02)
--- NOTE | 2019-02-17 09:07 | P.PCN ---
Date of Procedure: 02/17/19 Procedure(s) Performed: PREOPERATIVE DIAGNOSIS: Cervical spondylosis with Facet Arthropathy without myelopathy. POSTOPERATIVE DIAGNOSIS: Cervical spondylosis with Facet Arthropathy without myelopathy. PROCEDURES: Radiofrequency thermocoagulation, Left C2-3, C3-4, Facet Joint with Fluroscopy [place]idence(fluoroscopy was available in etiology department ) ANESTHESIA: Local with Ropivacaine 0.5 % , moderate sedation with fentanyl 150 micrograms and Versed 2 mg EBL: Minimal PROCEDURE INDICATION: The patient with neck pain secondary to cervical arthropathy who had more than 50% relief of her pain with previous diagnostic cervical medial branch block. PROCEDURE DESCRIPTION / TECHNIQUE: The patient was seen and identified in the preoperative area. Risks, benefits, complications, and alternatives were discussed with the patient, the patient agreed to proceed with the procedure and signed the consent. IV was started. Vital signs remained stable throughout the procedure. Patient was taken to the OR and time out was completed. The patient was placed in the prone position on the procedure table. A pillow was placed under the patients chest to increase the cervical interlaminar space. The cervical area was prepped and draped in the usual sterile fashion. Critical pause was taken. Vital signs were closely monitored during the procedure. Conscious sedation was used during the procedure to decrease patients anxiety. Using cross-table lateral fluoroscopy, the centroid of the trapezoid of C2 , C3, were identified, marked, and localized with 1% lidocaine. Subsequently, a 20 [id number] radiofrequency cannula with a 10-mm active tip was advanced guided by fluoroscopy to the centroid of the trapezoid of Left C2 , C3, and another needle placed at the center of the facet joint between the C2 and C3 vertebral ,Needle tip position was confirmed at the centroid of the trapezoids of C2 , C3, with anteroposterior fluoroscopy. Each site then underwent sensory testing at 50 Hz and 0 to 1 volt and motor testing at 2 Hz and 0 to 3 volt with local stimulation, but no radicular symptoms down the arm. Thereafter each sites underwent radiofrequency thermocoagulation at 80 degrees celsius for 90 seconds after injecting 0.5 ml of PF Ropivacaine 0.5 %. After thermocoagulation, 1 ml of the block solution containing Depo-Medrol 40 mg and 2 mL of preservative-free normal saline was injected at the each levels after negative aspiration of CSF and blood and with no paresthesias. Cannulas were retracted while injecting lidocaine 1% until the needle is out. Skin was cleansed and bandages were applied. COMPLICATIONS: No acute complications. DISPOSITION / PLANS: The patient was placed in a supine position and transferred to the recovery area in a stable condition for observation and was discharged from the recovery room after meeting discharge criteria. Home discharge instructions given to the patient by the staff. The patient was reexamined prior to discharge. The patient will schedule a follow up in the clinic in 2-4 weeks.
[2019-02-17] MEDS ORDERED: LACTATED RINGERS 1,000 ML IV ONE (09:16)
[2019-02-17 09:39] VITALS: BP 111/76; PULSE 87
--- NOTE | 2019-02-17 09:40 | FL ---
EXAMINATION TYPE: FL guided pain mgmt statistic DATE OF EXAM: 02/17/2019 HISTORY: Flouroscopy time 6 seconds of fluoroscopy provided. IMPRESSION: 1. Fluoroscopy time.
== END 2019-02-17 09:48 | disposition home or self-care (01) ==
LOC: ORPAIN 07:15
PROVIDERS: ATTEND Specialist
DX: M47.812 Spondylosis without myelopathy or radiculopathy, cervical region (principal); Z88.6 Allergy status to analgesic agent; Z88.2 Allergy status to sulfonamides
CPT/HCPCS: 64633; 64634; J2250; J1200; J1030; J3010; 99152

== ENCOUNTER → 2019-03-05 | Outpatient (CLI) | payer MEDICARE, OTHER ==
[2019-03-05 12:14] VITALS: BP 123/78; PULSE 94; RESP 18
--- NOTE | 2019-03-07 12:23 | P.PAINPG ---
Subjective Progress Note Date: 03/05/19 This is a follow-up visit for this 53 year old female with a chronic history of severe low back pain, and severe neck pain, patient diagnosed with lumbar radiculopathy lumbar spondylosis previously we have done lumbar epidural steroid injection which helped her back pain is significantly, and patient had also severe neck pain she is diagnosed with cervical spinal stenosis, cervical degenerative disc disease, and cervical spondylosis with cervical facet arthropathy, a few weeks ago we performed radiofrequency ablation at bilateral TON, C3, C4 for facets C2-3 and C3-4. She returns today for follow-up. She reports excellent relief of her neck pain following radiofrequency ablation. Today her primary complaint is right low back pain radiating to right posterior thigh, which has been present for about 1 week. The patient states this occurred acutely, when she was walking and performing a twisting motion. Pain is worse with walking, better with laying down. She denies new onset numbness, weakness, tingling. For medications, she currently takes [place] 10/325 every twice to 3 times a day when necessary, she is getting prescriptions from her primary care physician. Review of systems is negative for chest pain, shortness of breath, new onset weakness, numbness/tingling, abdominal pain, malaise, fever, night sweats, chills, homicidal or suicidal ideation, or bowel or bladder incontinence. Objective Physical exam: Vitals: Reviewed in EMR GENERAL: Well appearing, in no acute distress, obese PSYCH: Mood and affect is appropriate. Awake, alert, and oriented SKIN: Skin color, texture, turgor normal, no rashes or lesions HEENT: Normocephalic, atraumatic. EOM intact CV: No pedal edema RESP: Respirations are unlabored, no audible wheezing GI: Abdomen non-distended MUSCULOSKELETAL: Bilateral upper and lower extremity strength is normal and symmetric. No atrophy or tone abnormalities are noted. Lumbar spine: Tenderness to palpation of right paraspinal musculature. SI joint: Tenderness to palpation over right PSIS, Arlet's test positive on right, Gaenslen's test positive on right, sacral thrust positive on right Extremities: Peripheral joint ROM is full and pain free without obvious instability or laxity in all four extremities. No edema or skin discolorations noted. Gait: Gait is slow NEUR: Bilateral lower extremity coordination and muscle stretch reflexes are physiologic and symmetric. No loss of sensation is noted. Assessment and plan= 1- Chronic neck pain secondary to cervical spinal stenosis, cervical degenerative disc disease, cervical spondylosis with cervical facet arthropathy, patient reports more than 50% pain relief from bilateral diagnostic medial branch block at TON, C3, C4 for facets C2-3 and C3-4. Done twice , And she will be good candidate to have radiofrequency ablation of the medial branch cervical area at the levels mentioned above. Of note, she is very anxious about this procedure, she is been given a prescription for Valium by mouth to take prior to procedure. She has been informed ,that we will provide anxiolytic medication for the procedure, however will avoid the use of opioids, to avoid confounding with the benefit of the block. 2- Chronic low back pain secondary to lumbar degenerative disc disease , lumbar spondylosis with lumbar facet arthropathy, right sacroiliitis . Current episode of back pain is likely due to right sacroiliitis. We will schedule the patient for a right SI joint injection under fluoroscopy In the past, she has undergone epidural steroid injections with good benefit injections Patient will continue to use [place] 10/325 when necessary and she is getting prescription refilled from her primary care. She was counseled on attempting to self wean this medication. Patient was also counseled on the importance of weight management and weight loss as well as exercise as it pertains to chronic pain states. PQRS Measure Charge Sheet Measure #130: Documentation of Current Meds in Medical Chart: Patient's medications documented in chart Measure #226: Tobacco Use: Screen & Cessation Intervention: Pt not a tobacco user Measure #111: Pneumonia Vaccination: Pneumococcal vaccine NOT administered or previously given Measure #47: Advance Care Plan: Advance care planning discussed & documented, pt chose/unable to give Measure #412: Opioid Treatment Agreement: No documentation of signed opioid treatment agreement Measure #317: Preventitive Care & Scrn High Bld Press & F/U: Normal blood pressure, f/u not required Measure #128: Body Mass Index (BMI) Screening & Follow-up: BMI documented ABOVE normal parameters - f/u documented Measure #131: Pain Assessment & Follow-up: Pain positive & plan documented, Follow-up scheduled Measure #431: Unhealthy Alcohol Use Preventative Care & Scrn: Patient not identified as an unhealthy alcohol user PQRS Narrative: Smoking Status Never smoker Pain Intensity [Neck] 1 Scale Used Numeric (1 - 10) Hx Alcohol Use (MH) No Home Medications: Ambulatory Orders ALPRAZolam [Xanax] 1 mg PO TID PRN 03/20/14 Albuterol Inhaler [Ventolin Hfa Inhaler] 1 puff INHALATION QID PRN 12/31/15 Albuterol Nebulized [Ventolin Nebulized] 2.5 mg INHALATION QID PRN 12/31/15 Levothyroxine Sodium [Synthroid] 50 mcg PO MOTUWETHFRSA 12/31/15 Dicyclomine [Bentyl] 10 mg PO TID PRN 04/07/17 HYDROcodone/APAP 10-325MG [[place] 10-325] 1 tab PO TID PRN 04/07/17 Omeprazole 20 mg PO BID 04/07/17 ARIPiprazole [Abilify] 10 mg PO DAILY 06/02/17 rOPINIRole HCL [Requip] 0.5 mg PO HS 06/02/17 Zolpidem [Ambien] 10 mg PO HS 10/31/17 Citalopram Hydrobromide [CeleXA] 20 mg PO HS 09/12/18 Atorvastatin [Lipitor] 20 mg PO QAM 11/21/18 Controlled Substance Measures - Controlled Substance Measures Is patient prescribed a controlled substance at discharge?: No
== END | disposition home or self-care (01) ==
LOC: PNWHC3 11:52
PROVIDERS: ATTEND Anesthesiology
DX: G89.29 Other chronic pain (principal); M47.26 Other spondylosis with radiculopathy, lumbar region; M51.16 Intervertebral disc disorders with radiculopathy, lumbar region; M46.96 Unspecified inflammatory spondylopathy, lumbar region; M48.02 Spinal stenosis, cervical region; M50.30 Other cervical disc degeneration, unspecified cervical region; M47.812 Spondylosis without myelopathy or radiculopathy, cervical region; M46.92 Unspecified inflammatory spondylopathy, cervical region; M46.1 Sacroiliitis, not elsewhere classified; Z98.890 Other specified postprocedural states; Z79.891 Long term (current) use of opiate analgesic; Z79.899 Other long term (current) drug therapy
CPT/HCPCS: 99211

== ENCOUNTER 2019-03-17 07:05 | Day surgery (SDC) | payer MEDICARE, OTHER ==
[2019-03-12 15:09] VITALS: BMI 42.7
[2019-03-17 07:29] VITALS: TEMP 97.8
[2019-03-17] MEDS ORDERED: LIDOCAINE 1% 20 ML VIAL (10MG/ML) FOR IV START SQ ONE (07:36)
--- NOTE | 2019-03-17 07:50 | P.PCN ---
Date of Procedure: 03/17/19 Surgeon: Italo Sanderson Pathology: none sent Condition: stable Disposition: PACU Description of Procedure: Preoperative diagnoses= sacroiliac joint dysfunction and sacroiliitis on the r ight side Postoperative diagnoses= same as preoperative diagnosis. Procedure= Right sacroiliac joint steroid injection under fluoroscopic guidance. Anesthesia= local anesthesia with lidocaine 1% and IV moderate conscious sedation with fentanyl and Versed Estimated blood loss=minimal. Procedure indication= the patient had a history of severe chronic low back pain, diagnosed with sacroiliitis and lumbar sacral facet arthropathy unresponsive to conservative treatment. Procedure description= the patient was seen and identified in the preoperative holding area, risks and benefits and alternative of the procedure and possible complications discussed with the patient, patient signed the consent. an IV was started, and vital signs were monitored and were stable throughout the procedure, patient was placed in the prone position or table and the lumbosacral area was prepped and draped with a sterile fashion, vital signs were closely monitored during the procedure.The sacroiliac joint was identified on the AP view of fluoroscopy then the C-arm was tilted to the contralateral oblique position to superimpose the anterior and posterior joint lines on each other and to have a unified joint line with the target point at the inferior one third of this line. I used 22-gauge 3-1/2 inch Quincke spinal needle for this procedure and after getting into the sacroiliac joint I injected 40 mg of Kenalog +2 MLS of Ropivacaine 0.5%. Patient tolerated the procedure well without any complication, The patient returned to supine position after the back was cleaned and a Band- Aid applied, the patient transported to recovery room in stable condition and he was monitored for 30 minutes before he was discharged home and then patient was reexamined before going home and patient was discharged in stable condition and patient will follow up with the pain clinic in a few weeks
[2019-03-17] MEDS ORDERED: IV FLUID CONTINUATION 1,000 ML IV ONE (07:52)
[2019-03-17 07:59] VITALS: RESP 18
[2019-03-17 08:19] VITALS: BP 138/79; PULSE 90
--- NOTE | 2019-03-17 08:53 | FL ---
Fluoroscopy HISTORY: Pain 6 seconds fluoroscopy time supplied to the referring clinician. 1 intraoperative C-arm images docume nt the procedure. See dictated report from anesthesia.
== END 2019-03-17 08:32 | disposition home or self-care (01) ==
LOC: ORPAIN 07:05
PROVIDERS: ATTEND Anesthesiology
DX: M46.1 Sacroiliitis, not elsewhere classified (principal); M53.3 Sacrococcygeal disorders, not elsewhere classified; M47.26 Other spondylosis with radiculopathy, lumbar region; M51.16 Intervertebral disc disorders with radiculopathy, lumbar region; M48.02 Spinal stenosis, cervical region; M50.30 Other cervical disc degeneration, unspecified cervical region; M47.812 Spondylosis without myelopathy or radiculopathy, cervical region; E03.9 Hypothyroidism, unspecified; E66.9 Obesity, unspecified; Z68.41 Body mass index [BMI] 40.0-44.9, adult; Z88.2 Allergy status to sulfonamides; Z88.6 Allergy status to analgesic agent; Z88.8 Allergy status to other drugs, medicaments and biological substances; Z79.890 Hormone replacement therapy; Z79.891 Long term (current) use of opiate analgesic; Z79.899 Other long term (current) drug therapy
CPT/HCPCS: G0260; J2250; J3301; J3010; 27096

== ENCOUNTER 2019-03-31 07:12 | Day surgery (SDC) | payer MEDICARE, OTHER ==
[2019-03-27 12:13] VITALS: BMI 43.5
[2019-03-31] MEDS ORDERED: LACTATED RINGERS 1,000 ML IV ONE (07:45)
[2019-03-31] MEDS ORDERED: LIDOCAINE 1% 20 ML VIAL (10MG/ML) FOR IV START INTRADERMA ONE (07:46)
[2019-03-31 07:53] VITALS: TEMP 97.3
[2019-03-31] MEDS ORDERED: IV FLUID CONTINUATION 1,000 ML IV ONE (09:00)
--- NOTE | 2019-03-31 09:05 | P.PCN ---
Date of Procedure: 03/31/19 Description of Procedure: Date of Procedure: 03/31/19 Surgeon: Bryan Manzano Condition: stable Disposition: PACU Description of Procedure: Preoperative diagnoses: sacroiliac joint dysfunction and sacroiliitis on the right side Postoperative diagnoses: same as preoperative diagnosis. Procedure: Right sacroiliac joint steroid injection under fluoroscopic guidance. Anesthesia: local anesthesia with lidocaine 1% and IV moderate conscious sedation with fentanyl and Versed Estimated blood loss: minimal. Procedure indication: the patient had a history of severe chronic low back pain, diagnosed with sacroiliitis and lumbar sacral facet arthropathy unresponsive to conservative treatment. Procedure description: the patient was seen and identified in the preoperative holding area, risks and benefits and alternative of the procedure and possible complications discussed with the patient, patient signed the consent. an IV was started, and vital signs were monitored and were stable throughout the procedure, patient was placed in the prone position or table and the lumbosacral area was prepped and draped with a sterile fashion, vital signs were closely m onitored during the procedure.The sacroiliac joint was identified on the AP view of fluoroscopy then the C-arm was tilted to the contralateral oblique position to superimpose the anterior and posterior joint lines on each other and to have a unified joint line with the target point at the inferior one third of this line. I used 25-gauge 3-1/2 inch Quincke spinal needle for this procedure and after getting into the sacroiliac joint I injected 40 mg of Kenalog +2 MLS of Ropivacaine 0.5%. Patient tolerated the procedure well without any complication, The patient returned to supine position after the back was cleaned and a Band- Aid applied, the patient transported to recovery room in stable condition and he was monitored for 30 minutes before he was discharged home and then patient was reexamined before going home and patient was discharged in stable condition and patient will follow up with the pain clinic in a few weeks
[2019-03-31 09:06] VITALS: RESP 18
[2019-03-31] MEDS ORDERED: LACTATED RINGERS 1,000 ML IV SCH (09:15)
[2019-03-31 09:18] VITALS: BP 127/84; PULSE 75
--- NOTE | 2019-03-31 16:26 | FL ---
Fluoroscopy HISTORY: Pain 9 seconds fluoroscopy time supplied to the referring clinician. 1 intraoperative C-arm images docume nt the procedure. See dictated report from anesthesia.
== END 2019-03-31 09:40 | disposition home or self-care (01) ==
LOC: ORPAIN 07:12
PROVIDERS: ATTEND Anesthesiology
DX: G89.29 Other chronic pain (principal); M53.3 Sacrococcygeal disorders, not elsewhere classified; M46.1 Sacroiliitis, not elsewhere classified; M47.26 Other spondylosis with radiculopathy, lumbar region; M51.16 Intervertebral disc disorders with radiculopathy, lumbar region; M48.02 Spinal stenosis, cervical region; M47.812 Spondylosis without myelopathy or radiculopathy, cervical region; M50.30 Other cervical disc degeneration, unspecified cervical region; Z98.890 Other specified postprocedural states; Z79.891 Long term (current) use of opiate analgesic; Z79.890 Hormone replacement therapy; Z79.899 Other long term (current) drug therapy; Z88.2 Allergy status to sulfonamides; Z88.8 Allergy status to other drugs, medicaments and biological substances
CPT/HCPCS: J2250; J3301; Q9966; G0260; 27096

== ENCOUNTER → 2019-04-28 | Outpatient (CLI) | payer MEDICARE, OTHER ==
[2019-04-28 12:31] VITALS: BP 115/81; PULSE 108; RESP 16
--- NOTE | 2019-04-28 13:18 | P.PAINPG ---
Subjective Progress Note Date: 04/28/19 This is a follow-up for 53-year-old female female after 2 SI joint injections with significant relief greater than 80%. She has had cervical RFA's in the past, complete resolution of her neck pain. She states that since her last procedure she has had excellent pain relief until about yesterday. She denies any new symptoms. Her pain is in her right low back radiating to her right hip. Activity bending, lifting, standing, walking make it worse. Lying on her left side makes it better medication he denies also make it better. She is receiving Jbphh from her PCP, she denies any side effects from this medication Objective - Vital Signs Vital signs: Vital Signs Temp Pulse 108 H 04/28/19 12:23 Resp 16 04/28/19 12:23 BP 115/81 04/28/19 12:23 Pulse Ox 95 04/28/19 12:23 - Exam Vital Signs: Reviewed in EMR GENERAL: Well appearing, in no acute distress, PSYCH: Mood and affect is appropriate. Awake, alert, and oriented SKIN: Skin color, texture, turgor normal, no rashes or lesions HEENT: Normocephalic, atraumatic. EOM intact CV: No pedal edema RESP: Respirations are unlabored, no audible wheezing GI: Abdomen non-distended MUSCULOSKELETAL: Bilateral upper and lower extremity strength is normal and symmetric. No atrophy or tone abnormalities are noted. Buttocks: Pain to palpation to the right PSIS, Arlet test is positive, Columbia's test is positive, SI joint compression is positive. Extremities: Peripheral joint ROM is full and pain free without obvious instability or laxity in all four extremities. No edema or skin discolorations noted. Gait: Gait is anantalgic NEUR: Negative clonus. No loss of sensation is noted. Cranial nerves are grossly intact. Assessment and Plan Assessment: Assessment: 1. Right SI joint dysfunction 2. Cervical spondylosis 3. Chronic opiate use 4. Obesity Plan: 1. Explanation: She has a good understanding of the RFA procedure, because she has received RFA of her neck 2. Opioid agreement: None, written by PCP 3. Counseling: Patient should stay active and try to lose weight 4. Procedures: Right SI RFA 5. Consultations: None 6. Investigations: Reviewed 7. Medications: Encouraged patient to have discussions with primary care physician 8. Disposition: For her procedure , PQRS Measure Charge Sheet Measure #226: Tobacco Use: Screen & Cessation Intervention: Pt not a tobacco user Measure #111: Pneumonia Vaccination: Pneumococcal vaccine NOT administered or previously given Measure #412: Opioid Treatment Agreement: No documentation of signed opioid treatment agreement Measure #131: Pain Assessment & Follow-up: Pain positive & plan documented, Follow-up scheduled PQRS Narrative: Smoking Status Never smoker Blood Pressure 115/81 Pain Intensity [Lower Back] 6 Scale Used Numeric (1 - 10) Hx Alcohol Use (MH) No Home Medications: Ambulatory Orders ALPRAZolam [Xanax] 1 mg PO TID PRN 03/20/14 Albuterol Inhaler [Ventolin Hfa Inhaler] 1 puff INHALATION QID PRN 12/31/15 Albuterol Nebulized [Ventolin Nebulized] 2.5 mg INHALATION QID PRN 12/31/15 Levothyroxine Sodium [Synthroid] 75 mcg PO MOTUWETHFRSA 12/31/15 Dicyclomine [Bentyl] 10 mg PO TID PRN 04/07/17 HYDROcodone/APAP 10-325MG [Jbphh 10-325] 1 tab PO TID PRN 04/07/17 Omeprazole 20 mg PO BID 04/07/17 rOPINIRole HCL [Requip] 0.5 mg PO HS 06/02/17 Zolpidem [Ambien] 10 mg PO HS 10/31/17 Citalopram Hydrobromide [CeleXA] 20 mg PO HS 09/12/18 Atorvastatin [Lipitor] 20 mg PO QAM 11/21/18 ARIPiprazole [Abilify] 2 mg PO DAILY 04/28/19 Controlled Substance Measures - Controlled Substance Measures Is patient prescribed a controlled substance at discharge?: No
== END | disposition home or self-care (01) ==
LOC: PNWHC3 12:00
PROVIDERS: ATTEND Student in an Organized Health Care Education/Training Program
DX: M53.3 Sacrococcygeal disorders, not elsewhere classified (principal); M51.36 Other intervertebral disc degeneration, lumbar region; M47.812 Spondylosis without myelopathy or radiculopathy, cervical region; F11.90 Opioid use, unspecified, uncomplicated; E66.9 Obesity, unspecified; Z79.899 Other long term (current) drug therapy; Z98.890 Other specified postprocedural states
CPT/HCPCS: 99211

== ENCOUNTER 2019-05-05 07:04 | Day surgery (SDC) | payer MEDICARE, OTHER ==
[2019-05-01 12:09] VITALS: BMI 41.9
[2019-05-05 07:47] VITALS: RESP 16; TEMP 98.4
[2019-05-05] MEDS ORDERED: LIDOCAINE 1% 20 ML VIAL (10MG/ML) FOR IV START INTRADERMA ONE (07:55)
--- NOTE | 2019-05-05 09:14 | P.PCN ---
Date of Procedure: 05/05/19 Procedure(s) Performed: PREOPERATIVE DIAGNOSIS: 1-sacroiliac joint dysfunction 2- sacroiliit. post operative Diagnosis: . 1-sacroiliac joint dysfunction 2- sacroiliit. PROCEDURES: 1-Right radiofrequency thermocoagulation/ablation of the L5 dorsal ramus. 2- Right multi-site radiofrequency thermocoagulation/ablation of the S1, S2, and S3 lateral branchs. The procedure was performed using fluoroscopic guidance during needle placement to assure proper position (fluoroscopy images available in radiology department) ANESTHESIA = moderate sedation with intravenous versed 4 mg and Fentanyle 100 mcg EBL: NONE INDICATION/MEDICAL NECESSITY: History of low back pain secondary to left right bilateral sacroiliitis and lumbosacral arthropathy unresponsive to more conservative treatments. The patient reported more than 50% relief of pain symptoms following 2 previous diagnostic blocks with Bupivacaine. PROCEDURE DESCRIPTION: The patient was seen and identified in the preoperative area. Risks, benefits, complications, and alternatives were discussed with the patient. The patient agreed to proceed with the procedure and signed the consent. Vital signs were checked before and after the procedure and they remained stable. Patient ambulated to the procedure room and time out was completed. The patient was placed in the prone position on the procedure table and a pillow was placed under the abdomen to reduce lumbar lordosis. The lumbosacral area was prepped and draped in the usual sterile fashion. Critical pause was taken. L5 Dorsal Ramus RF: Using right oblique fluoroscopy, the junction of the transverse process and the superior articular process of the right S1 vertebra, which correspond to the fluoroscopic image of the "eye of the Kevin dog" was identified. Subsequently, a 10-cm 20 -gauge radiofrequency cannula with a 10-mm active tip was advanced under fluoroscopic guidance until contact was made with periosteum. At this level, the Sensory testing of the L5 dorsal ramus was performed at 50 Hz and 0 to 1 volt with production of concordant pain starting at 0.5 volt. Motor stimulation was done at 2.5 Hz with stimulation of mulitifidus muscle contration . No radicular symptoms or paresthesias were produced during the testing. Subsequently, the L5 dorsal ramus was subjected to a radiofrequency ablation at 80 degree celsius for 90 seconds . after 0.5% Bupivacaine 1 ml injected at each level after negative aspirations . The needle was withdrawn intact. S1, S3, and S3 Lateral Branch RF: The lateral margins of the Right S1, S2, and S3 foramina not identified using AP fluoroscopy. Under fluoroscopic guidance, then six 10-cm 20 -gauge radiofrequency cannula with a 10-mm active tip were inserted at 8-10 mm medial to the medial edge of the right sacroiliac joints starting from the inferior border of the joint going superiorly, then the needle placement confirmed with AP and lateral view and after appropriate needle placement confirmed. At this level, the sensory testing of the S1 lateral branch was performed at 50 Hz and 0 to 1 volt at the three levels with production of concordant pain starting at 0.5 volt. Motor stimulation was done at 2.5 Hz. No radicular symptoms or paresthesias were produced during the testing. Subsequently, the S1, S2 , S3 lateral branch was subjected to a radiofrequency ablation at a mode of 90 seconds at 80 degrees Celsius at the all the 6 needles after negative motor and sensory testing and after injecting 0.5 ml of preservative free Bupivacaine 0.5 %. The needle was withdrawn intact after each injection. A total of 3 ML of ropivacaine mixed with 40 mg of Depo-Medrol mixed together and a half mL injected at each level before the needle was withdrawn COMPLICATIONS: The patient tolerated the procedure well without any acute complications. DISPOSTION/PLAN: The patient ambulated to the recovery area after the procedure in a stable condition for observation. Patient was reexamined prior to discharge. Patient was observed for 30 minutes in the recovery area and was discharged home, accompanied by an adult, after meeting discharged criteria. Discharge instructions were give to the patient by the staff. Patient was specifically instructed not to drive today and to rest for the rest of the day. The patient will schedule a follow up visit in the clinic in weeks or earlier if needed.
[2019-05-05] MEDS ORDERED: IV FLUID CONTINUATION 900 ML IV ONE (09:15)
[2019-05-05 09:22] VITALS: PULSE 83
[2019-05-05 09:38] VITALS: BP 111/64
--- NOTE | 2019-05-05 11:07 | FL ---
Fluoroscopy HISTORY: Pain 18 seconds fluoroscopy time supplied to the referring clinician. 6 intraoperative C-arm images docum ent the procedure. See dictated report from anesthesia.
== END 2019-05-05 09:44 | disposition home or self-care (01) ==
LOC: ORPAIN 07:04
PROVIDERS: ATTEND Specialist
DX: M46.1 Sacroiliitis, not elsewhere classified (principal); M53.3 Sacrococcygeal disorders, not elsewhere classified; M47.817 Spondylosis without myelopathy or radiculopathy, lumbosacral region; Z88.2 Allergy status to sulfonamides; Z88.6 Allergy status to analgesic agent; Z88.8 Allergy status to other drugs, medicaments and biological substances
CPT/HCPCS: 64640 ×3; 64635; J2250; J1030; J2405; J3010; 99152; 99153

== ENCOUNTER → 2019-05-22 | Outpatient (CLI) | payer MEDICARE, OTHER ==
--- NOTE | 2019-05-22 11:04 | XR ---
EXAMINATION TYPE: XR chest 2V DATE OF EXAM: 05/22/2019 COMPARISON: 09/05/2018 TECHNIQUE: PA and lateral views submitted. HISTORY: Cough FINDINGS: The lungs are clear and there is no pneumothorax, pleural effusion, or focal pneumonia. Biapical pl eural thickening. Hypertrophic and degenerative changes spine. Hyperinflation of the lungs. Heart siz e stable. IMPRESSION: 1. No acute process.
== END | disposition home or self-care (01) ==
LOC: RADXRMAIN 10:49
PROVIDERS: ATTEND Internal Medicine
DX: R05 Cough (principal)
CPT/HCPCS: 71046

== ENCOUNTER → 2019-06-12 | Outpatient (CLI) | payer MEDICARE, OTHER ==
[2019-06-12 14:28] VITALS: BP 123/84; PULSE 116; RESP 18
--- NOTE | 2019-06-13 10:10 | P.PAINPG ---
Subjective Progress Note Date: 06/12/19 This is a follow-up for 53-year-old female who recently underwent right sided sacroiliac radiofrequency ablation on 05/05/2019. She returns today for follow- up. She reports excellent relief from this procedure, however currently has right-sided back pain, above the area of SI joint ablation. Pain is described as dull, aching, rated as 7/10, she denies radiation to lower extremities. Pain has been particularly worse over the holidays as she has been doing more housework. She last did physical therapy in 2010, she does not usually do home exercises. She has had cervical RFA's in the past, with complete resolution of her neck pain. She is receiving [place] from her PCP, she denies any side effects from this medication Review of systems is negative for chest pain, new onset weakness, numbness/tingling, abdominal pain, malaise, fever, night sweats, chills, homicidal or suicidal ideation, or bowel or bladder incontinence. She had a recent episode of bronchitis, and is currently recovering from this. Objective - Exam Vital Signs: Reviewed in EMR GENERAL: Well appearing, in no acute distress, morbidly obese PSYCH: Mood and affect is appropriate. Awake, alert, and oriented SKIN: Skin color, texture, turgor normal, no rashes or lesions HEENT: Normocephalic, atraumatic. EOM intact CV: No pedal edema RESP: Respirations are unlabored, no audible wheezing GI: Abdomen non-distended MUSCULOSKELETAL: Bilateral lower extremity strength is normal and symmetric. No atrophy or tone abnormalities are noted. Lumbar spine: Tenderness to palpation of right paraspinal musculature, facet loading is positive on the right side. Buttocks: No tenderness to palpation over PSIS Extremities: Peripheral joint ROM is full and pain free without obvious instability or laxity in all four extremities. No edema or skin discolorations noted. Gait: Gait is anantalgic NEUR: Negative clonus. No loss of sensation is noted. Cranial nerves are grossly intact. Imaging: MRI lumbar spine from 03/13/2017 done at [facility] was reviewed which shows mild degenerative disc disease and facet arthropathy from L2 to S1 . Assessment and Plan Assessment: Assessment: 1. Right SI joint dysfunction 2. Lumbar spondylosis 3. Cervical spondylosis 4. Chronic opiate use 5. Obesity Plan: 1. Explanation: We discussed performing right-sided lumbar medial branch blocks and proceeding with radio frequency ablation if she obtains good benefit from this. I also discussed the importance of continued exercises and would like to send her to physical therapy. Patient reports that she does not like driving in winter time, we will plan on sending her to physical therapy in summertime for low back strengthening and stretching exercises. 2. Opioid agreement: None, written by PCP 3. Counseling: Patient should stay active and try to lose weight. She reports that she has lost approximately 10 pounds by walking and watching what she eats. 4. Procedures: We will schedule right sided needle branch block 2 at L3, L4, L5 for facets L45 and L5-S1. If good benefit from this, we'll schedule radiofrequency ablation 5. Consultations: None currently, we'll plan on physical therapy referral in summertime. 6. Investigations: MRI lumbar spine Reviewed 7. Medications: Managed by primary care physician 8. Disposition: For above-mentioned procedure PQRS Measure Charge Sheet Measure #130: Documentation of Current Meds in Medical Chart: Patient's medications documented in chart Measure #226: Tobacco Use: Screen & Cessation Intervention: Pt not a tobacco user Measure #111: Pneumonia Vaccination: Pneumococcal vaccine NOT administered or previously given Measure #47: Advance Care Plan: Advance care planning discussed & documented, pt chose/unable to give Measure #412: Opioid Treatment Agreement: No documentation of signed opioid treatment agreement Measure #408: Opioid Therapy Follow-up Evaluation: Patient had NO f/u eval minimum every 3 months during opioid therapy Measure #317: Preventitive Care & Scrn High Bld Press & F/U: Normal blood pressure, f/u not required Measure #128: Body Mass Index (BMI) Screening & Follow-up: BMI documented ABOVE normal parameters - f/u documented Measure #131: Pain Assessment & Follow-up: Pain positive & plan documented, Follow-up scheduled Measure #431: Unhealthy Alcohol Use Preventative Care & Scrn: Patient not identified as an unhealthy alcohol user PQRS Narrative: Smoking Status Never smoker Pain Intensity [Lower Back] 3 Scale Used Numeric (1 - 10) Hx Alcohol Use (MH) No Home Medications: Ambulatory Orders ALPRAZolam [Xanax] 1 mg PO TID PRN 03/20/14 Albuterol Inhaler [Ventolin Hfa Inhaler] 1 puff INHALATION QID PRN 12/31/15 Albuterol Nebulized [Ventolin Nebulized] 2.5 mg INHALATION QID PRN 12/31/15 Levothyroxine Sodium [Synthroid] 75 mcg PO MOTUWETHFRSA 12/31/15 Dicyclomine [Bentyl] 10 mg PO TID PRN 04/07/17 HYDROcodone/APAP 10-325MG [[place] 10-325] 1 tab PO TID PRN 04/07/17 Omeprazole 20 mg PO BID 04/07/17 rOPINIRole HCL [Requip] 0.5 mg PO HS 06/02/17 Zolpidem [Ambien] 10 mg PO HS 10/31/17 Citalopram Hydrobromide [CeleXA] 20 mg PO HS 09/12/18 Atorvastatin [Lipitor] 20 mg PO QAM 11/21/18 ARIPiprazole [Abilify] 2 mg PO DAILY 04/28/19 Doxycycline [Vibramycin] 100 mg PO BID 06/06/19 Controlled Substance Measures - Controlled Substance Measures Is patient prescribed a controlled substance at discharge?: No
== END | disposition home or self-care (01) ==
LOC: PNWHC3 13:33
PROVIDERS: ATTEND Anesthesiology
DX: M53.3 Sacrococcygeal disorders, not elsewhere classified (principal); M47.816 Spondylosis without myelopathy or radiculopathy, lumbar region; M47.812 Spondylosis without myelopathy or radiculopathy, cervical region; E66.9 Obesity, unspecified; Z79.891 Long term (current) use of opiate analgesic
CPT/HCPCS: 99211

== ENCOUNTER 2019-06-30 09:19 | Day surgery (SDC) | payer MEDICARE, OTHER ==
[2019-06-26 15:33] VITALS: BMI 41.9
[~2019-06-30 09:19] MED LIST changes: +IOPAMIDOL M200 10 ML VIAL ONE; +LIDOCAINE 4% (PF) 5 ML AMP ONE; +MIDAZOLAM 2 MG/2 ML VIAL ONE
[2019-06-30 10:16] VITALS: TEMP 98.1
[2019-06-30] MEDS ORDERED: LIDOCAINE 1% 20 ML VIAL (10MG/ML) FOR IV START SQ ONE (10:28)
[2019-06-30] MEDS ORDERED: IV FLUID CONTINUATION 1,000 ML IV ONE (11:33)
[2019-06-30] MEDS ORDERED: LACTATED RINGERS 1,000 ML IV ONE (11:33)
[2019-06-30 11:37] VITALS: RESP 16
--- NOTE | 2019-06-30 11:42 | P.PCN ---
Date of Procedure: 06/30/19 Procedure(s) Performed: PREOPERATIVE DIAGNOSIS : Lumbar spondylosis with Facet Arthropathy without myelopathy POSTOPERATIVE DIAGNOSIS: same PROCEDURE: First Diagnostic lumbar medial branch block with fluoroscopy at L3, L4, L5 right side which covers facets L4-5 and L5-S1 ANESTHESIA: Local anesthetic; moderate IV sedation with Versed 3 mg, sedation time 8 minutes Fluoroscopy was used for the procedure and images were saved in the radiology portion of the chart. Surgeon: Doroteo Sood MD PROCEDURE INDICATION: Lumbar back pain without radiculopathy, not responsive to conservative management. PROCEDURE DESCRIPTION: the patient was seen and identified in the preop holding area , risks and benefits and possible complications of the procedure and alternatives were discussed with the patient, and the patient agreed to proceed with the procedure and signed the consent . IV was started , vital signs were monitored during the procedure and fluoroscopy was used to maximize the benefit and accuracy of the needle placement, and sedation was given to decrease patient anxiety. Patient was taken to the procedure room and placed in prone position. The lumbar region was prepped using chlorhexidineX-2. Under strict sterile technique using AP fluoroscopy the bilateral sacral ala were identified and using ipsilateral oblique fluoroscopy ,the junction of the transverse process and the superior articulating process of the L4, L5 vertebra which corresponds to the fluoroscopy image of the eye of the Kevin dog for the medial branches were identified. Subsequently, after local infiltration of skin with lidocaine 1% 0.2 mL at each level , a 22-gauge 5 inch Quincke-type needle was placed at the junction of the base of the transverse process and the superior articular process at the appropriate level as well as the sacral ala, and the needle was advanced until the periosteum contacted, needle placement confirmed with AP and oblique fluoroscopy, 0.2 mL of Isovue 200 per level was injected which revealed no vascular uptake and after negative aspiration, 0.5 mL of [lidocaine 4%] was injected at each level and the needle subsequently removed . At the end of the procedure and the needles were removed and a bandage applied after the skin was cleaned. The patient was taken to recovery room in stable condition and monitors in the recovery room for 20-30 minutes and discharged home in stable condition after discharge criteria met and patient will follow up for repeat procedure in 2 weeks EBL: Minimal COMPLICATION: None.
[2019-06-30 11:50] VITALS: BP 121/81; PULSE 73
--- NOTE | 2019-06-30 16:15 | FL ---
Fluoroscopy HISTORY: Pain 4 seconds fluoroscopy time supplied to the referring clinician. 2 intraoperative C-arm images docume nt the procedure. See dictated report from anesthesia.
== END 2019-06-30 12:14 | disposition home or self-care (01) ==
LOC: ORPAIN 09:19
PROVIDERS: ATTEND Anesthesiology
DX: M47.816 Spondylosis without myelopathy or radiculopathy, lumbar region (principal); M53.3 Sacrococcygeal disorders, not elsewhere classified; M47.892 Other spondylosis, cervical region; E66.9 Obesity, unspecified; Z68.42 Body mass index [BMI] 45.0-49.9, adult; Z90.710 Acquired absence of both cervix and uterus; Z79.891 Long term (current) use of opiate analgesic; Z79.899 Other long term (current) drug therapy; Z79.890 Hormone replacement therapy
CPT/HCPCS: 64493; 64494; J2001; J2250; Q9966

== ENCOUNTER 2019-07-14 06:15 | Day surgery (SDC) | payer MEDICARE, OTHER ==
[2019-07-10 16:10] VITALS: BMI 45.1
[~2019-07-14 06:15] MED LIST changes: +BUPIVACAINE (PF) 0.5% 30 ML VIAL ONE; -IOPAMIDOL M200 10 ML VIAL ONE; -LIDOCAINE 4% (PF) 5 ML AMP ONE; +fentaNYL (PF) 50 MCG/ML 2 ML AMP ONE; +methylPREDNISolone ACETATE 40 MG/ML 1 ML VIAL ONE
[2019-07-14 06:45] VITALS: TEMP 96.8
[2019-07-14] MEDS ORDERED: LIDOCAINE 1% 20 ML VIAL (10MG/ML) FOR IV START INTRADERMA ONE (06:48)
--- NOTE | 2019-07-14 07:43 | P.PCN ---
Date of Procedure: 07/14/19 Procedure(s) Performed: PREOPERATIVE DIAGNOSIS : 1- Lumbar spondylosis with Facet Arthropathy without myelopathy . 2- Lumber degenerative disc disease POSTOPERATIVE DIAGNOSIS: 1- Lumbar spondylosis with Facet Arthropathy without myelopathy . 2- Lumber degenerative disc disease PROCEDURE: Diagnostic Right L3 , L4 , and L5 medial branch block under fluoroscopy guidance(fluoroscopy images available in the radiology Department ) ( To target the facet joint between L4-5 , and L5-S1 ) ANESTHESIA: moderate sedation with intravenous Versed 4 mg and Fentanyl 100 mcg. EBL: Minimal COMPLICATION: None. IV FLUIDS: 100 mL of normal saline. PROCEDURE INDICATION: Chronic low back pain secondary to Facet arthropathy unresponsive to conservative treatment. PROCEDURE DESCRIPTION: the patient was seen and identified in the preop holding area , risks and benefits and possible complications of the procedure and alternative were discussed with the patient, and the patient agreed to proceed with the procedure and signed the consent IV was started and vital signs monitored during the procedure and fluoroscopy was used to maximize the benefit and accuracy of the needle placement, and sedation was given to decrease patient anxiety, patient was taken to the procedure room and placed in prone position vital signs monitored in the back prepped with chlorhexidine X3 then under strict sterile technique using a right oblique fluoroscopy ,the junction of the transverse process and the superior articulating process of the right L3 , L4 , and L5 vertebra which corresponding to the fluoroscopy image of the eye of the Kevin dog on the block side for the medial branches and subsequently , after local infiltration of skin and subcu tissuies with Ropivacaine 0.5 % , one mL at each level ,then 22-gauge 5 inches long ,Quincke-type needles , 3 needle was used , each one of them placed at the junction of the base of the transverse process and the superior articular process at the appropriate level, and the needle was advanced until the periosteum contacted, needle placement confirmed with AP oblique and lateral view and after appropriate needle placement confirmed, and after negative aspiration for heme and CSF and there was no paresthesia 1-1/2 mL of Ropivacaine 0.5% mixed with 40 mg Depo-Medrol , then half mL injected at each level after negative aspiration the needle subsequently removed . At the end of the procedure and the needles removed and a bandage applied after the skin was cleaned the cleaning solution patient taken to recovery room in stable condition and monitors in the recovery room for 20-30 minutes and discharged home in stable condition after discharge criteria met and patient will follow up with the pain clinic in 2-4 weeks
[2019-07-14 08:07] VITALS: BP 90/62; PULSE 70; RESP 20
--- NOTE | 2019-07-14 13:56 | FL ---
EXAMINATION TYPE: FL guided pain mgmt statistic DATE OF EXAM: 07/14/2019 HISTORY: Pain 18sec fluoro time,6 images scanned
== END 2019-07-14 08:12 | disposition home or self-care (01) ==
LOC: ORPAIN 06:15
PROVIDERS: ATTEND Specialist
DX: G89.29 Other chronic pain (principal); M47.816 Spondylosis without myelopathy or radiculopathy, lumbar region; M51.36 Other intervertebral disc degeneration, lumbar region; Z88.2 Allergy status to sulfonamides
CPT/HCPCS: 64493; 64494; J2250; J1030; J3010

== ENCOUNTER → 2019-07-29 | Outpatient (CLI) | payer MEDICARE, OTHER ==
[2019-07-29 12:33] VITALS: BP 126/85; PULSE 70; RESP 16
--- NOTE | 2019-07-29 13:23 | P.PAINPG ---
Subjective Progress Note Date: 07/29/19 Can presents today for follow-up after having 2 right-sided lumbar medial branch blocks and she reports that should excellent relief during the day. She reports about 70% relief throughout most that day her pain came back after them. She denies any new radicular symptoms. She continues to have pain across her low back with a VAS of 8 out of 10 today. Fine pain with bending and walking and better with rest. She is also pain over left side of her back which began about a week ago. She finds that the pain began after bending over to poultry picker the dishes and has not resolved. She feels pain predominantly in her low back without radicular symptoms. She denies any bowel or bladder incontinence. She denies any lower extremity weakness. She is here today to explore the radiofrequency ablation the right side. The procedure is discussed in detail with the patient and she like to move forward. 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 Straight leg raise is negative. Limited range of motion due to pain with flexion, extension and side bending. Sacroiliac joints: Nontender to palpation, TRISTAN is negative, Ga[place]elon negative Neuro exam: Normal sensation in bilateral upper extremities, deep tendon reflexes are 2+ bilateral upper extremities. Normal sensation in bilateral lower extremities. Deep tendon reflexes are 2+ in lower extremities Psych exam: Cooperative, appropriate mood Assessment and Plan Assessment: #1 lumbar spondylosis without myelopathy #2 obesity. Plan: After review of the records, examination the patient. Patient is a good candidate for lumbar rate of frequency ablation in the right side since she had excellent relief from the diagnostic testing. I discussed that I would hold off on doing any testing left-sided this point see if it resolves on its own. We discussed continued daily exercises as well as daily stretching to improve her overall health. We also discussed slight dietary changes that can improve her overall health. Patient will scheduled for right-sided lumbar radiofrequency ablation with PQRS Measure Charge Sheet Measure #130: Documentation of Current Meds in Medical Chart: Patient's medications documented in chart Measure #226: Tobacco Use: Screen & Cessation Intervention: Pt not a tobacco user Measure #111: Pneumonia Vaccination: Pneumococcal vaccine administered or previously received Measure #47: Advance Care Plan: Advance care planning discussed & documented, plan or surrogate given Measure #412: Opioid Treatment Agreement: No documentation of signed opioid treatment agreement Measure #408: Opioid Therapy Follow-up Evaluation: Patient had f/u eval minimum every 3 months during opioid therapy Measure #317: Preventitive Care & Scrn High Bld Press & F/U: Normal blood pressure, f/u not required Measure #128: Body Mass Index (BMI) Screening & Follow-up: BMI documented ABOVE normal parameters - f/u documented Measure #131: Pain Assessment & Follow-up: Pain positive & plan documented PQRS Narrative: Smoking Status Never smoker Blood Pressure 126/85 Pain Intensity [Lower Back] 7 Scale Used Numeric (1 - 10) Hx Alcohol Use (MH) No Home Medications: Ambulatory Orders ALPRAZolam [Xanax] 1 mg PO TID PRN 03/20/14 Albuterol Inhaler [Ventolin Hfa Inhaler] 1 puff INHALATION QID PRN 12/31/15 Albuterol Nebulized [Ventolin Nebulized] 2.5 mg INHALATION QID PRN 12/31/15 Levothyroxine Sodium [Synthroid] 75 mcg PO MOTUWETHFRSA 12/31/15 Dicyclomine [Bentyl] 10 mg PO TID PRN 04/07/17 HYDROcodone/APAP 10-325MG [[place] 10-325] 1 tab PO TID PRN 04/07/17 Omeprazole 20 mg PO BID 04/07/17 rOPINIRole HCL [Requip] 0.5 mg PO HS 06/02/17 Zolpidem [Ambien] 10 mg PO HS 10/31/17 Citalopram Hydrobromide [CeleXA] 20 mg PO HS 09/12/18 Atorvastatin [Lipitor] 20 mg PO QAM 11/21/18 ARIPiprazole [Abilify] 2 mg PO DAILY 04/28/19 Atenolol [Tenormin] 25 mg PO DAILY 06/26/19 Controlled Substance Measures - Controlled Substance Measures Is patient prescribed a controlled substance at discharge?: No
== END | disposition home or self-care (01) ==
LOC: PNWHC3 12:18
PROVIDERS: ATTEND Hospitalist
DX: M47.816 Spondylosis without myelopathy or radiculopathy, lumbar region (principal); E66.9 Obesity, unspecified; Z68.41 Body mass index [BMI] 40.0-44.9, adult; Z79.899 Other long term (current) drug therapy
CPT/HCPCS: 99211

== ENCOUNTER 2019-08-07 05:59 | Day surgery (SDC) | payer MEDICARE, OTHER ==
[2019-08-06 08:57] VITALS: BMI 45.8
[~2019-08-07 05:59] MED LIST changes: -BUPIVACAINE (PF) 0.5% 30 ML VIAL ONE; -MIDAZOLAM 2 MG/2 ML VIAL ONE; -fentaNYL (PF) 50 MCG/ML 2 ML AMP ONE; -methylPREDNISolone ACETATE 40 MG/ML 1 ML VIAL ONE
[2019-08-07 06:23] VITALS: RESP 16; TEMP 97.6
[2019-08-07] MEDS ORDERED: LIDOCAINE 1% 20 ML VIAL (10MG/ML) FOR IV START INTRADERMA ONE (06:32)
[2019-08-07] MEDS ORDERED: methylPREDNISolone ACETATE 40 MG/ML 1 ML VIAL ONE (07:05)
[2019-08-07] MEDS ORDERED: MIDAZOLAM 2 MG/2 ML VIAL ONE (07:05)
[2019-08-07] MEDS ORDERED: fentaNYL (PF) 50 MCG/ML 2 ML AMP ONE (07:05)
[2019-08-07] MEDS ORDERED: ROPIVACAINE 5MG/ML 20ML VIAL ONE (07:05)
--- NOTE | 2019-08-07 07:32 | P.PCN ---
Date of Procedure: 08/07/19 Procedure(s) Performed: PREOPERATIVE DIAGNOSIS: 1-Lumbar Spondylosis with Facet Arthropathy without myelopathy. POSTOPERATIVE DIAGNOSIS: 1- Lumbar Spondylosis with Facet Arthropathy without myelopath. PROCEDURES : Right Radiofrequency thermocoagulation, L3 , L4 , and L5 medial branch, with fluoroscopic guidance (fluoroscopy images available in the radiology department) ( to denervate the Right facet joint at L4-5 ,and L5-S1 levels ) ANESTHESIA: Moderate sedation with intravenous versed 3 mg and fentaneyl 100 mcg, and local infiltration with Ropivacaine 0.5 % . EBL: Minimal PROCEDURE INDICATION: The patient with low back pain secondary to lumbar facet arthropathy who had more than 50% relief of her pain with previous diagnostic lumbar medial branch block with bupivacaine. PROCEDURE DESCRIPTION / TECHNIQUE: The patient was seen and identified in the preoperative area. Risks, benefits, complications, including but not limited to risk of infection ,bleeding , allergic reactions to the medications and no complete pain releife , and alternatives were discussed with the patient, the patient agreed to proceed with the procedure and signed the consent. IV was started. Vital signs remained stable throughout the procedure. Patient was taken to the OR and time out was completed. The patient was placed in the prone position on the procedure table. The lumber area was prepped and draped in the usual sterile fashion. . Vital signs were closely monitored during the procedure .IV sedation was used during the procedure to decrease patients anxiety. Using AP and then oblique fluoroscopy, the ``eye of the Kevin dog corresponding to the connection between the superior and transverse articular processes of right L3, L4, and L5 were identified, marked, and localized with 1% lidocaine. Subsequently, a 18 [id number] radiofrequency cannula with a 10- mm active tip was advanced guided by fluoroscopy to each of the``eyes of the Kevin dog at right L3, L4, and L5. Each site then underwent sensory testing at 50 Hz and 0 to 1 volt and motor testing at 2.5 Hz and 0 to 3 volt with local stimulation, but no radicular symptoms down the legs. Thereafter the right L3, L4 , and L5 sites underwent radiofrequency thermocoagulation at 80 degrees celsius for 90 seconds after injecting 0.5 ml of PF Ropivacaine 1ml, then after the thermocoagulation done , 1 ml of the block solution containing Depo-Medrol 40 mg and 3 ml of Ropivacaine 0.5% was injected at the right L3 , L4 , and L5 , levels after negative aspiration of CSF and blood and with no paresthesias. Cannulas were retracted while injecting lidocaine 1% until the needle is out. At the end of the procedure, the skin was cleansed and bandages were applied. COMPLICATIONS: No acute complications. DISPOSITION / PLANS: The patient was placed in a supine position and transfer red to the recovery area in a stable condition for observation and was discharged from the recovery room after meeting discharge criteria. Home discharge instructions given to the patient by the staff. The patient was reexamined prior to discharge. The patient will schedule a follow up in the clinic in 2-4 weeks.
[2019-08-07] MEDS ORDERED: IV FLUID CONTINUATION 1,000 ML IV ONE (07:36)
[2019-08-07 08:06] VITALS: BP 110/77; PULSE 71
--- NOTE | 2019-08-07 08:20 | FL ---
Fluoroscopy HISTORY: Pain 11 seconds fluoroscopy time supplied to the referring clinician. 3 intraoperative C-arm images docum ent the procedure. See dictated report from anesthesia.
== END 2019-08-07 08:21 | disposition home or self-care (01) ==
LOC: ORPAIN 05:59
PROVIDERS: ATTEND Specialist
DX: M47.816 Spondylosis without myelopathy or radiculopathy, lumbar region (principal); M51.36 Other intervertebral disc degeneration, lumbar region; I10 Essential (primary) hypertension; Z88.5 Allergy status to narcotic agent; Z88.2 Allergy status to sulfonamides; Z88.8 Allergy status to other drugs, medicaments and biological substances; Z90.710 Acquired absence of both cervix and uterus
CPT/HCPCS: 64635; 64636; J2250; J1030; J3010; J2795; 99152; 99153

== ENCOUNTER → 2019-08-20 | Outpatient (CLI) | payer MEDICARE, OTHER ==
[2019-08-20 14:13] VITALS: BP 112/70; PULSE 77; RESP 18
--- NOTE | 2019-08-20 15:08 | P.PAINPG ---
Subjective Progress Note Date: 08/20/19 This is a follow-up visit for this 54 years old female with a chronic and severe low back pain secondary to lumbar spondylosis and lumbar facet arthropathy and sacroiliac joint dysfunction, most recently we have done a right sided RFA of the medial branch lumbar area, she reported that her low back pain improved significantly on the right side, but currently she is complaining of severe low back pain on the left side, she had no pain on the right side,, the pain on the left side interfere with her activity, she had no motor or sensory deficits, and also she had some right foot pain after she twisted her right ankle, she denies any motor or sensory deficit she denies any fever or night sweats and there is no change in the bowel movement or urination Objective - Vital Signs Vital signs: Vital Signs Temp Pulse 77 08/20/19 14:00 Resp 18 08/20/19 14:00 BP 112/70 08/20/19 14:00 Pulse Ox 96 08/20/19 14:00 Intake & Output 08/19/19 08/20/19 08/20/19 18:59 06:59 18:59 Weight 122.47 kg - Exam Physical Examinations : -Constitutiona : Cooperative , not in acute distress . -HEENT : nech : supple , no Lymphadenopathy , normal thyroid size . : eyes : no ptosis , no icterus, no photophobia . - neurologic : Cranial nerve II to XII intact , no focal neurological deffecit . -psychatric : alert , oriented X 3 , appropriate affect , intact judgment and insight . -Lymphatic : no Lymphadenopathy . - musculoskeltal : Lumber spine moter stegnth lower extremities ,thigh and legs 5/5 Right side , 5/5 Left side deep tendon reflexes : normal Knee Jerk , normal ankle Jerk lumber facet Loading Test =negative Right , positive Left Range of motion of the lumbar spine Flexion 30 degrees, extension 10 degrees strait leg raising test = positive at 60 degree Fabere test= positive Right , and positive LT . tenderness over the Sacroiliac joint on the Right , and Left sides Right foot , full range of motion at the ankle joint, minimal pain at the dorsum of the foot, no discoloration, no swelling . Assessment and Plan Plan: Assessment and plan=1-lumbar spondylosis with lumbar facet arthropathy. 2-sacroiliitis/sacroiliac joint dysfunction. 3-right ankle sprain Pain improved on her right side after the RFA of the right-sided medial branch lumbar area, currently patient complaining of severe low back pain on the left side, patient will be good candidate diagnostic medial branch block at left-sided L3, L4, L5 x2 and if it is positive proceed with RFA. Patient could benefit from Mobic 15 mg 1 tablet by mouth daily Time with Patient: Less than 30 PQRS Measure Charge Sheet Measure #130: Documentation of Current Meds in Medical Chart: Patient's medications documented in chart Measure #226: Tobacco Use: Screen & Cessation Intervention: Pt not a tobacco user Measure #111: Pneumonia Vaccination: Pneumococcal vaccine NOT administered or previously given Measure #47: Advance Care Plan: Advance care planning discussed & documented, pt chose/unable to give Measure #412: Opioid Treatment Agreement: No documentation of signed opioid treatment agreement Measure #408: Opioid Therapy Follow-up Evaluation: Patient had NO f/u eval minimum every 3 months during opioid therapy Measure #317: Preventitive Care & Scrn High Bld Press & F/U: Normal blood pressure, f/u not required Measure #128: Body Mass Index (BMI) Screening & Follow-up: BMI documented ABOVE normal parameters - f/u documented Measure #131: Pain Assessment & Follow-up: Pain positive & plan documented, Follow-up scheduled Measure #431: Unhealthy Alcohol Use Preventative Care & Scrn: Patient not identified as an unhealthy alcohol user PQRS Narrative: Smoking Status Never smoker Blood Pressure 112/70 Pain Intensity [Left Lower 4 Back] Scale Used Numeric (1 - 10) Hx Alcohol Use (MH) No Home Medications: Ambulatory Orders ALPRAZolam [Xanax] 1 mg PO TID PRN 03/20/14 Albuterol Inhaler [Ventolin Hfa Inhaler] 1 puff INHALATION QID PRN 12/31/15 Albuterol Nebulized [Ventolin Nebulized] 2.5 mg INHALATION QID PRN 12/31/15 Levothyroxine Sodium [Synthroid] 75 mcg PO MOTUWETHFRSA 12/31/15 Dicyclomine [Bentyl] 10 mg PO TID PRN 04/07/17 HYDROcodone/APAP 10-325MG [[place] 10-325] 1 tab PO TID PRN 04/07/17 Omeprazole 20 mg PO BID 04/07/17 rOPINIRole HCL [Requip] 0.5 mg PO HS 06/02/17 Zolpidem [Ambien] 10 mg PO HS 10/31/17 Citalopram Hydrobromide [CeleXA] 20 mg PO HS 09/12/18 Atorvastatin [Lipitor] 20 mg PO QAM 11/21/18 ARIPiprazole [Abilify] 2 mg PO DAILY 04/28/19 Atenolol [Tenormin] 25 mg PO DAILY 06/26/19 Controlled Substance Measures - Controlled Substance Measures Is patient prescribed a controlled substance at discharge?: No
== END | disposition home or self-care (01) ==
LOC: PNWHC3 13:20
PROVIDERS: ATTEND Specialist
DX: G89.29 Other chronic pain (principal); M47.816 Spondylosis without myelopathy or radiculopathy, lumbar region; M46.1 Sacroiliitis, not elsewhere classified; S93.401A Sprain of unspecified ligament of right ankle, initial encounter; Z98.890 Other specified postprocedural states; Z79.899 Other long term (current) drug therapy
CPT/HCPCS: 99211

== ENCOUNTER 2019-08-25 06:11 | Day surgery (SDC) | payer MEDICARE, OTHER ==
[2019-08-21 15:31] VITALS: BMI 43.5
[~2019-08-25 06:11] MED LIST changes: +LIDOCAINE 1% (10MG/ML) FOR IV START INTRADERMA PRN
[2019-08-25 06:44] VITALS: TEMP 97.6
[2019-08-25] MEDS ORDERED: fentaNYL (PF) 50 MCG/ML 2 ML AMP ONE (07:13)
[2019-08-25] MEDS ORDERED: MIDAZOLAM 2 MG/2 ML VIAL ONE (07:13)
[2019-08-25] MEDS ORDERED: TRIAMCINOLONE ACETONIDE 40 MG/ML 1 ML VIAL ONE (07:13)
[2019-08-25] MEDS ORDERED: BUPIVACAINE (PF) 0.5% 30 ML VIAL ONE (07:13)
--- NOTE | 2019-08-25 07:32 | P.PCN ---
Date of Procedure: 08/25/19 Surgeon: Italo Sanderson Description of Procedure: PREOPERATIVE DIAGNOSIS : 1- Lumbar spondylosis with Facet Arthropathy without myelopathy . 2- Lumber degenerative disc disease3-morbid obesity POSTOPERATIVE DIAGNOSIS: 1- Lumbar spondylosis with Facet Arthropathy without myelopathy . 2- Lumber degenerative disc disease3-morbid obesity PROCEDURE: Diagnostic left L3 -4 , L4 -5 , and L5-S1 medial branch block under fluoroscopy ANESTHESIA: Local with 1% lidocaine; IV moderate conscious sedation with Versed 2 mg and fentanyl 100 g . EBL: Negligible COMPLICATION: None. PROCEDURE INDICATION: Chronic low back pain secondary to Facet arthropathy unresponsive to conservative treatment. PROCEDURE DESCRIPTION: the patient was seen and identified in the preop holding area , risks and benefits and possible complications of the procedure and alternatives were discussed with the patient, and the patient agreed to proceed with the procedure and signed the consent. IV was started and vital signs monitored during the procedure and fluoroscopy was used to maximize the benefit and accuracy of the needle placement, sedation was given to decrease patient anxiety, patient was taken to the procedure room and placed in prone position vital signs monitored. The patient was brought into the procedure room and placed in prone position. Skin was prepped with Chloraprep and draped in a sterile manner. Lidocaine 1% was used to numb the skin up at the target points that were chosen as follows: at the L5-S1 level which corresponds to the dorsal ramus of L5 the target points were at the superior medial aspect of the sacral ala on the left side of the spine on the AP view of fluoroscopy, and for the L3 and L4 medial branches the target points were the connection between the transverse process and the superior to go process of L4 and L5 respectively on the left oblique views of fluoroscopy. I used 22-gauge 5 inch Quincke spinal needles for this procedure and after contacting bone at the target points mentioned above I injected 1 mL of a mixture of Kenalog 40 mg +5 MLS of Marcaine 0.5% PF . Patient tolerated procedure well. At the end of the procedure the needles removed and a bandage applied after the skin was cleaned the cleaning solution. patient was then taken to the recovery room in stable condition and monitored in the recovery room for 20-30 minutes and discharged home in stable condition after discharge criteria met .
[2019-08-25] MEDS ORDERED: IV FLUID CONTINUATION 1,000 ML IV ONE (07:36)
[2019-08-25] MEDS ORDERED: diphenhydrAMINE 50 MG/ML 1 ML VIAL IVP ONE (07:49)
[2019-08-25 07:51] VITALS: PULSE 75; RESP 14
[2019-08-25 07:53] VITALS: BP 119/75
--- NOTE | 2019-08-25 08:11 | FL ---
EXAMINATION TYPE: FL guided pain mgmt statistic DATE OF EXAM: 08/25/2019 HISTORY: Fluoroscopy time 6 seconds of fluoroscopy provided. IMPRESSION: 1. Fluoroscopy time.
== END 2019-08-25 08:06 ==
LOC: ORPAIN 06:11
PROVIDERS: ATTEND Anesthesiology
DX: G89.29 Other chronic pain (principal); M47.816 Spondylosis without myelopathy or radiculopathy, lumbar region; M51.36 Other intervertebral disc degeneration, lumbar region; I10 Essential (primary) hypertension; E66.01 Morbid (severe) obesity due to excess calories; Z88.2 Allergy status to sulfonamides; Z88.6 Allergy status to analgesic agent; Z68.42 Body mass index [BMI] 45.0-49.9, adult
CPT/HCPCS: 64493; 64494; 64495; J2250; J1200; J3301; J3010; 99152

== ENCOUNTER → 2019-11-07 | Outpatient (CLI) | payer MEDICARE, OTHER | END | disposition home or self-care (01) | LOC: LABWHC1 09:51 | PROVIDERS: ATTEND Internal Medicine | DX: Z11.59 Encounter for screening for other viral diseases (principal) ==

== ENCOUNTER → 2019-11-11 | Day surgery (SDC) | payer MEDICARE, OTHER ==
[2019-11-10 13:13] VITALS: BMI 43.5
[~2019-11-11] MED LIST changes: +ACETAMINOPHEN TAB 325 MG TAB PO ONE; +BUPIVACAINE (PF) 0.5% 30 ML VIAL ONE; +IV FLUID CONTINUATION 1,000 ML IV ONE; -LIDOCAINE 1% (10MG/ML) FOR IV START INTRADERMA PRN; +MIDAZOLAM 2 MG/2 ML VIAL ONE
[2019-11-11 06:39] VITALS: TEMP 97.4
--- NOTE | 2019-11-11 07:13 | P.PCN ---
Date of Procedure: 11/11/19 Description of Procedure: Procedure: Left L3-4, L4-5, L5-S1 Diagnosis: Lumbar spondylosis without myelopathy Anesthesia: Local and 4mg versed Imaging: Fluoroscopy was used, images where saved to the medical record The patient was seen and examined in the [facility]. Procedure risks and benefits were fully reviewed with the patient. The patient understands this is a diagnostic if local only is used, as will be the case today. The goal of the procedure is to inject medication onto the medial branch or small nerves that innervate the facet joints. In this way, we can hopefully identify which of these joints, if any, may be contributing to their pain. Informed consent for procedure was obtained. The patient was taken into the office fluoroscopy procedure room and placed prone on the table. A pillow was placed under the abdomen to reduce lumbar lordosis. Vital signs were closely monitored during the procedure. The skin over the area was prepped with Betadine X 3 and draped in usual sterile manner. Sterile technique was observed throughout procedure. Under biplanar fluoroscopic guidance, the target injection area of the L4, L5, Sacral Ala were targeted. A 25 gauge 5 inch spinal needle was then placed at the most medial and superior aspect of the transverse process near the "eye of the Kevin dog". Aspiration for blood was negative. 1 cc of 0.5% Ropivacaine was injected into the targeted areas separately. Fabius were withdrawn intact. No complications were noted during the procedure. The patient tolerated the procedure well. The patient was placed in supine position and transferred to the recovery area for observation and remained stable until discharged home. Home discharge instructions were given to the patient by the staff. The patient will schedule a follow up as directed.
[2019-11-11 07:21] VITALS: RESP 16
[2019-11-11 07:29] VITALS: BP 123/89; PULSE 79
--- NOTE | 2019-11-11 08:51 | FL ---
EXAMINATION TYPE: FL guided pain mgmt statistic DATE OF EXAM: 11/11/2019 HISTORY: Fluoroscopy time 16 seconds of fluoroscopy provided. IMPRESSION: 1. Fluoroscopy time.
== END ==
LOC: ORPAIN 06:11
PROVIDERS: ATTEND Hospitalist
DX: M47.896 Other spondylosis, lumbar region (principal); Z90.710 Acquired absence of both cervix and uterus; Z88.2 Allergy status to sulfonamides; Z88.8 Allergy status to other drugs, medicaments and biological substances; Z88.6 Allergy status to analgesic agent
CPT/HCPCS: 64493; 64494; 64495; J2250; 99152

== ENCOUNTER → 2019-11-26 | Outpatient (CLI) | payer MEDICARE, OTHER ==
[2019-11-26 10:16] VITALS: BP 155/91; PULSE 80; RESP 20; TEMP 97.8
--- NOTE | 2019-11-26 10:38 | P.PAINPG ---
Subjective Progress Note Date: 11/26/19 This is a follow-up visit for this 54 year old female with a chronic and severe low back pain secondary to lumbar spondylosis and lumbar facet arthropathy and sacroiliac joint dysfunction, most recently we have done a left sided lumbar medial branch blocks 2. She reports excellent relief from this procedure, lasting 2 days, pain went from 9/10-0/10. She would like to proceed with radiofrequency ablation of the left side. In the past, she has undergone right sided RFA of the medial branch lumbar area, she reported that her low back pain improved significantly on the right side. She denies any motor or sensory deficit she denies any fever or night sweats and there is no change in the bowel movement or urination She is obtaining Odem from her primary care physician, we prescribe her meloxicam, medications helped significantly with pain, she denies side effects. Review of systems is negative for chest pain, shortness of breath, new onset weakness, numbness/tingling, abdominal pain, malaise, fever, night sweats, chills, homicidal or suicidal ideation, or bowel or bladder incontinence. Objective Physical exam: Vitals: Reviewed in EMR GENERAL: Well appearing, in no acute distress, obese PSYCH: Mood and affect is appropriate. Awake, alert, and oriented SKIN: Skin color, texture, turgor normal, no rashes or lesions HEENT: Normocephalic, atraumatic. EOM intact CV: No pedal edema RESP: Respirations are unlabored, no audible wheezing GI: Abdomen non-distended MUSCULOSKELETAL: Bilateral lower extremity strength is normal and symmetric. No atrophy or tone abnormalities are noted. Lumbar spine: Tenderness to palpation over the lumbar spine and paraspinous muscles on the left side. Extremities: Peripheral joint ROM is full and pain free without obvious instability or laxity in all four extremities. No edema or skin discolorations noted. Gait: Gait is normal NEUR: Bilateral lower extremity coordination and muscle stretch reflexes are physiologic and symmetric. Negative clonus bilaterally. No loss of sensation is noted. Assessment and Plan Plan: Assessment and plan=1-lumbar spondylosis with lumbar facet arthropathy. 2-sacroiliitis/sacroiliac joint dysfunction. 3-right ankle sprain Pain improved on her right side after the RFA of the right-sided medial branch lumbar area, she underwent diagnostic medial branch block at left-sided L3, L4, L5 x2 with excellent benefit, we will schedule lumbar RFA on the left side at L3, L4, L5 for facets L 45 and L5-S1. Refilled Mobic 15 mg 1 tablet by mouth daily with 2 refills Time with Patient: Less than 30 PQRS Measure Charge Sheet Measure #130: Documentation of Current Meds in Medical Chart: Patient's medications documented in chart Measure #226: Tobacco Use: Screen & Cessation Intervention: Pt not a tobacco user Measure #111: Pneumonia Vaccination: Pneumococcal vaccine NOT administered or previously given Measure #47: Advance Care Plan: Advance care planning discussed & documented, pt chose/unable to give Measure #412: Opioid Treatment Agreement: No documentation of signed opioid treatment agreement Measure #408: Opioid Therapy Follow-up Evaluation: Patient had NO f/u eval minimum every 3 months during opioid therapy Measure #317: Preventitive Care & Scrn High Bld Press & F/U: Patient pre- hypertensive or hypertensive, follow-up with primary care physician Measure #128: Body Mass Index (BMI) Screening & Follow-up: BMI documented ABOVE normal parameters - f/u documented Measure #131: Pain Assessment & Follow-up: Pain positive & plan documented, Follow-up scheduled Measure #431: Unhealthy Alcohol Use Preventative Care & Scrn: Patient not identified as an unhealthy alcohol user PQRS Measure Charge Sheet PQRS Narrative: Smoking Status Never smoker Pain Intensity [Back] 8 Scale Used Numeric (1 - 10) Hx Alcohol Use (MH) No Home Medications: Ambulatory Orders ALPRAZolam [Xanax] 1 mg PO TID PRN 03/20/14 Albuterol Inhaler (Mhu) [Ventolin Hfa Inhaler (Mhu)] 1 puff INHALATION QID PRN 12/31/15 Albuterol Nebulized [Ventolin Nebulized] 2.5 mg INHALATION QID PRN 12/31/15 Levothyroxine Sodium [Synthroid] 75 mcg PO MOTUWETHFRSA 12/31/15 Dicyclomine [Bentyl] 10 mg PO TID PRN 04/07/17 HYDROcodone/APAP 10-325MG [[place] 10-325] 1 tab PO TID PRN 04/07/17 Omeprazole 20 mg PO BID 04/07/17 rOPINIRole HCL [Requip] 0.5 mg PO HS 06/02/17 Zolpidem [Ambien] 10 mg PO HS 10/31/17 Citalopram Hydrobromide [CeleXA] 20 mg PO HS 09/12/18 Atorvastatin [Lipitor] 20 mg PO QAM 11/21/18 ARIPiprazole [Abilify] 2 mg PO DAILY 04/28/19 Atenolol [Tenormin] 25 mg PO DAILY 06/26/19 Meloxicam [Mobic] 15 mg PO DAILY #30 tab 11/26/19 Controlled Substance Measures - Controlled Substance Measures Is patient prescribed a controlled substance at discharge?: No
== END | disposition home or self-care (01) ==
LOC: PNWHC3 09:48
PROVIDERS: ATTEND Anesthesiology
DX: M47.816 Spondylosis without myelopathy or radiculopathy, lumbar region (principal); M46.96 Unspecified inflammatory spondylopathy, lumbar region; M46.1 Sacroiliitis, not elsewhere classified; S93.401A Sprain of unspecified ligament of right ankle, initial encounter; Z79.891 Long term (current) use of opiate analgesic; Z79.899 Other long term (current) drug therapy; Z79.890 Hormone replacement therapy
CPT/HCPCS: 99211

== ENCOUNTER 2019-12-04 10:35 | Day surgery (SDC) | payer MEDICARE, OTHER ==
[2019-12-03 09:44] VITALS: BMI 44.2
[~2019-12-04 10:35] MED LIST changes: -ACETAMINOPHEN TAB 325 MG TAB PO ONE; -BUPIVACAINE (PF) 0.5% 30 ML VIAL ONE; -IV FLUID CONTINUATION 1,000 ML IV ONE; -MIDAZOLAM 2 MG/2 ML VIAL ONE
[2019-12-04 11:14] VITALS: TEMP 96.8
[2019-12-04] MEDS ORDERED: MIDAZOLAM 2 MG/2 ML VIAL ONE (11:59)
[2019-12-04] MEDS ORDERED: ROPIVACAINE 5MG/ML 20ML VIAL ONE (11:59)
[2019-12-04] MEDS ORDERED: methylPREDNISolone ACETATE 40 MG/ML 1 ML VIAL ONE (11:59)
[2019-12-04] MEDS ORDERED: fentaNYL (PF) 50 MCG/ML 2 ML AMP ONE (11:59)
[2019-12-04] MEDS ORDERED: IV FLUID CONTINUATION 1,000 ML IV ONE (12:31)
[2019-12-04 12:45] VITALS: BP 120/87; PULSE 73; RESP 20
--- NOTE | 2019-12-04 13:08 | FL ---
EXAMINATION TYPE: FL guided pain mgmt statistic DATE OF EXAM: 12/04/2019 HISTORY: Fluoroscopy time 23 seconds of fluoroscopy provided. IMPRESSION: 1. Fluoroscopy time.
--- NOTE | 2019-12-04 13:16 | P.PCN ---
Date of Procedure: 12/04/19 Procedure(s) Performed: PREOPERATIVE DIAGNOSIS: 1-Lumbar Spondylosis with Facet Arthropathy without myelopathy. POSTOPERATIVE DIAGNOSIS: 1- Lumbar Spondylosis with Facet Arthropathy without myelopath. PROCEDURES : Radiofrequency thermocoagulation, Left L3 , L4 , and L5 medial branch, with fluoroscopic guidance (fluoroscopy images available in the radiology department) ( to denervate the Right facet joint at Left L4-5 ,and L5-S1 levels ) ANESTHESIA: Moderate sedation with intravenous versed 4 mg and fentaneyl 100 mcg, and local infiltration with Ropivacaine 0.5 % . EBL: Minimal PROCEDURE INDICATION: The patient with low back pain secondary to lumbar facet arthropathy who had more than 50% relief of her pain with previous diagnostic lumbar medial branch block with bupivacaine. PROCEDURE DESCRIPTION / TECHNIQUE: The patient was seen and identified in the preoperative area. Risks, benefits, complications, including but not limited to risk of infection ,bleeding , allergic reactions to the medications and no complete pain releife , and alternatives were discussed with the patient, the patient agreed to proceed with the procedure and signed the consent. IV was started. Vital signs remained stable throughout the procedure. Patient was taken to the OR and time out was completed. The patient was placed in the prone position on the procedure table. The lumber area was prepped and draped in the usual sterile fashion. . Vital signs were closely monitored during the procedure .IV sedation was used during the procedure to decrease patients anxiety. Using AP and then oblique fluoroscopy, the ``eye of the Kevin dog corresponding to the connection between the superior and transverse articular processes of Left L3, L4, and L5 were identified, marked, and localized with 1% lidocaine. Subsequently, a 18 [id number] VENOM radiofrequency cannula with a 10-mm active tip was advanced guided by fluoroscopy to each of the``eyes of the Kevin dog at Left L3, L4, and L5. Each site then underwent sensory testing at 50 Hz and 0 to 1 volt and motor testing at 2.5 Hz and 0 to 3 volt with local stimulation, but no radicular symptoms down the legs. Thereafter the Left L3, L4 , and L5 sites underwent radiofrequency thermocoagulation at 80 degrees celsius for 90 seconds after injecting 0.5 ml of PF Ropivacaine 1ml, then after the thermocoagulation done , 1 ml of the block solution containing Depo-Medrol 40 mg and 3 ml of Ropivacaine 0.5% was injected at the Left L3 , L4 , and L5 , levels after negative aspiration of CSF and blood and with no paresthesias. Cannulas were retracted while injecting lidocaine 1% until the needle is out. At the end of the procedure, the skin was cleansed and bandages were applied. COMPLICATIONS: No acute complications. DISPOSITION / PLANS: The patient was placed in a supine position and transferred to the recovery area in a stable condition for observation and was discharged from the recovery room after meeting discharge criteria. Home discharge instructions given to the patient by the staff. The patient was reexamined prior to discharge. The patient will schedule a follow up in the clinic in 2-4 weeks.
== END 2019-12-04 12:57 | disposition home or self-care (01) ==
LOC: ORPAIN 10:35
PROVIDERS: ATTEND Specialist
DX: M47.816 Spondylosis without myelopathy or radiculopathy, lumbar region (principal); I10 Essential (primary) hypertension; J45.909 Unspecified asthma, uncomplicated; E03.9 Hypothyroidism, unspecified; Z86.718 Personal history of other venous thrombosis and embolism; Z88.6 Allergy status to analgesic agent; Z88.2 Allergy status to sulfonamides; Z88.8 Allergy status to other drugs, medicaments and biological substances
CPT/HCPCS: 64635; 64636; J2250; J1030; J3010; J2795; 99152

== ENCOUNTER 2019-12-08 08:48 | Emergency (ER) | payer MEDICARE, OTHER ==
[2019-12-08] MEDS ORDERED: ACETAMINOPHEN TAB 500 MG TAB PO STA (09:08)
[2019-12-08] MEDS ORDERED: SODIUM CHLORIDE 0.9% 1,000 ML IV STA (09:08)
--- NOTE | 2019-12-08 09:10 | ED ---
General Adult HPI - General Chief complaint: Chest Pain Stated complaint: Chest pain Time Seen by Provider: 12/08/19 08:59 Source: patient Mode of arrival: ambulatory Limitations: no limitations - History of Present Illness Initial comments: Dictation was produced using freshbag dictation software. please excuse any grammatical, word or spelling errors. This patient was cared for during a federal and state declared state of emergency secondary to Covid 19 Chief Complaint: 54-year-old female presents with cough and not feeling right History of Present Illness: This 54-year-old female she has past medical history of lower extremity DVT, asthma, dyslipidemia hypertension. Over the last several days patient has been having feelings of cough and not feeling right. Patient states that she denies any fever. She denies any constitutional symptoms. She reports that her cough is productive of sputum. She reports that her sputum is white and clear. Sore throat. Denies any recent travel. No lower extremity symptoms. No exposure to anyone with Covid 19 or URI-type symptoms. The ROS documented in this emergency department record has been reviewed and confirmed by me. Those systems with pertinent positive or negative responses have been documented in the HPI. All other systems are other negative and/or noncontributory. PHYSICAL EXAM: General Impression: Alert and oriented x3, not in acute distress HEENT: Normocephalic atraumatic, extra-ocular movements intact, pupils equal and reactive to light bilaterally, mucous membranes moist. Cardiovascular: Heart regular rate and rhythm Chest: Able to complete full sentences, no retractions, no tachypnea, lungs clear to auscultation bilaterally Abdomen: abdomen soft, non-tender, non-distended, no organomegaly Musculoskeletal: Pulses present and equal in all extremities, no peripheral edema, no asymmetrical leg swelling Motor: no focal deficits noted Neurological: CN II-XII grossly intact, no focal motor or sensory deficits noted Skin: Intact with no visualized rashes Psych: Normal affect and mood ED course: 54-year-old female presents with cough, generalized weakness vital signs upon arrival are within acceptable limits. Patient also has some mild atypical chest pain. Laboratory evaluation obtained. CBC, metabolic panel is unremarkable. There is slight elevation in BUn concerning for mild dehydration. Chest x-ray is nonacute. At this point there is concern that patient is having viral URI. Patient given intravenous fluids, Zofran and Benadryl and Tylenol for headache cocktail. She is observed in emergency department for couple hours here patient reevaluated and feels well. Patient was concerned that she would having aspiration pneumonia because last week she thinks she aspirated some cauliflower. Reassurance provided. Patient advised to follow-up with her PCP. EKG interpretation: Ventricular rate 77, normal sinus rhythm, GA interval 1:30, QRS 72, QTc 445. No GA prolongation, no QTC prolongation, no ST or T-wave changes noted. EKG compared to 09/04/2018 showing no changes. Overall, this EKG is unremarkable - Related Data Home Medications Medication Instructions Recorded Confirmed ALPRAZolam [Xanax] 1 mg PO TID PRN 03/20/14 12/04/19 Albuterol Inhaler (Mhu) [Ventolin 1 puff INHALATION QID PRN 12/31/15 12/03/19 Hfa Inhaler (Mhu)] Albuterol Nebulized [Ventolin 2.5 mg INHALATION QID PRN 12/31/15 12/03/19 Nebulized] Levothyroxine Sodium [Synthroid] 75 mcg PO MOTUWETHFRSA 12/31/15 12/03/19 Dicyclomine [Bentyl] 10 mg PO TID PRN 04/07/17 12/04/19 HYDROcodone/APAP 10-325MG [[place] 1 tab PO TID PRN 04/07/17 12/04/19 10-325] Omeprazole 20 mg PO BID 04/07/17 12/03/19 rOPINIRole HCL [Requip] 0.5 mg PO HS 06/02/17 12/03/19 Zolpidem [Ambien] 10 mg PO HS 10/31/17 12/03/19 Citalopram Hydrobromide [CeleXA] 20 mg PO HS 09/12/18 12/03/19 Atorvastatin [Lipitor] 20 mg PO QA 11/21/18 12/03/19 ARIPiprazole [Abilify] 2 mg PO DAILY 04/28/19 12/03/19 Atenolol [Tenormin] 25 mg PO DAILY 06/26/19 12/03/19 Meloxicam [Mobic] 15 mg PO DAILY PRN 12/03/19 12/03/19 Allergies Allergy/AdvReac Type Severity Reaction Status Date / Time Sulfa (Sulfonamide Allergy Severe Rash/Hives Verified 12/08/19 08:56 Antibiotics) ketorolac tromethamine Allergy Tardive Verified 12/08/19 08:56 [From Toradol] Dyskinesia prochlorperazine maleate Allergy Tardive Verified 12/08/19 08:56 [From Compazine] Dyskinesia prochlorperazine edisylate AdvReac Severe Tardive Verified 12/08/19 08:56 [From Compazine] dyskinesia Review of Systems ROS Statement: Those systems with pertinent positive or pertinent negative responses have been documented in the HPI. ROS Other: All systems not noted in ROS Statement are negative. Past Medical History Past Medical History: Asthma, Deep Vein Thrombosis (DVT), Fibromyalgia, GERD/Reflux, Hyperlipidemia, Hypertension, Musculoskeletal Disorder, Osteoarthritis (OA), Thyroid Disorder Additional Past Medical History / Comment(s): hx DVT in each leg. Lumbar DDD, chronic back pain. Planning sleep study. Recent bronchitis, resolved now. recent sprained rt foot History of Any Multi-Drug Resistant Organisms: None Reported Past Surgical History: Appendectomy, Section, Cholecystectomy, Hysterectomy, Orthopedic Surgery, Tonsillectomy Additional Past Surgical History / Comment(s): Rt KNEE arthroscopy, lt elbow surgery for torn tendon, sinus surgery, PAIN CLINIC PROCEDURE. back procedures Past Anesthesia/Blood Transfusion Reactions: No Reported Reaction Past Psychological History: Anxiety, Depression, Panic Disorder Smoking Status: Never smoker - Past Family History Father Family Medical History: Cancer Additional Family Medical History / Comment(s): Colon CA. General Exam Limitations: no limitations Course Vital Signs 12/08/19 12/08/19 08:53 10:00 Temperature 98.2 F Pulse Rate 82 77 Respiratory 18 20 Rate Blood Pressure 131/94 122/73 O2 Sat by Pulse 99 96 Oximetry Medical Decision Making - Lab Data Result diagrams: 12/08/19 09:15 12/08/19 09:15 Lab Results 12/08/19 12/08/19 Range/Units 09:15 09:15 WBC 10.1 (3.8-10.6) k/uL RBC 4.53 (3.80-5.40) m/uL Hgb 13.9 (11.4-16.0) gm/dL Hct 43.4 (34.0-46.0) % MCV 96.0 (80.0-100.0) fL MCH 30.7 (25.0-35.0) pg MCHC 32.0 (31.0-37.0) g/dL RDW 13.4 (11.5-15.5) % Plt Count 287 (150-450) k/uL Neutrophils % 60 % Lymphocytes % 32 % Monocytes % 5 % Eosinophils % 1 % Basophils % 0 % Neutrophils # 6.0 (1.3-7.7) k/uL Lymphocytes # 3.2 (1.0-4.8) k/uL Monocytes # 0.5 (0-1.0) k/uL Eosinophils # 0.1 (0-0.7) k/uL Basophils # 0.0 (0-0.2) k/uL Sodium 139 (137-145) mmol/L Potassium 4.7 (3.5-5.1) mmol/L Chloride 105 (98-107) mmol/L Carbon Dioxide 22 (22-30) mmol/L Anion Gap 12 mmol/L BUN 19 H (7-17) mg/dL Creatinine 0.96 (0.52-1.04) mg/dL Est GFR (CKD-EPI)AfAm 78 (>60 ml/min/1.73 sqM) Est GFR (CKD-EPI)NonAf 68 (>60 ml/min/1.73 sqM) Glucose 97 (74-99) mg/dL Calcium 9.4 (8.4-10.2) mg/dL Magnesium 2.0 (1.6-2.3) mg/dL Disposition Clinical Impression: Cough Disposition: HOME SELF-CARE Instructions (If sedation given, give patient instructions): Chest Pain (ED) Is patient prescribed a controlled substance at d/c from ED?: No Referrals: Genia Avalos MD [Primary Care Provider] - 1-2 days Time of Disposition: 11:21
--- NOTE | 2019-12-08 10:00 | XR ---
EXAMINATION TYPE: XR chest 2V DATE OF EXAM: 12/08/2019 COMPARISON: 05/22/2019 TECHNIQUE: PA and lateral views submitted. HISTORY: Cough FINDINGS: The lungs are clear and there is no pneumothorax, pleural effusion, or focal pneumonia. Heart size is stable. No overt failure. Biapical pleural thickening. Hypertrophic and degenerative change of the spine. Surgical clips in the gallbladder fossa. IMPRESSION: 1. No acute process.
[2019-12-08 10:05] LABS: Basophils % (A) 0 %; Eosinophils # (A) 0.1 k/uL (0-0.7); Eosinophils % (A) 1 %; HCT 43.4 % (34.0-46.0); HGB 13.9 gm/dL (11.4-16.0); Lymphocytes # (A) 3.2 k/uL (1.0-4.8); Lymphocytes % (A) 32 %; MCH 30.7 pg (25.0-35.0); Mean Platelet Volume 9.2; Monocytes # (A) 0.5 k/uL (0-1.0); Monocytes % (A) 5 %; Neutrophils % (A) 60 %; Platelet Count 287 k/uL (150-450); RBC 4.53 m/uL (3.80-5.40); RDW 13.4 % (11.5-15.5); WBC 10.1 k/uL (3.8-10.6)
[2019-12-08 10:08] LABS: Calcium 9.4 mg/dL (8.4-10.2); Potassium 4.7 mmol/L (3.5-5.1)
[2019-12-08] MEDS ORDERED: diphenhydrAMINE 50 MG/ML 1 ML VIAL IVP STA (10:19)
[2019-12-08] MEDS ORDERED: ONDANSETRON 4 MG/2 ML VIAL IVP STA (10:19)
[2019-12-08 11:37] VITALS: BP 145/78; PULSE 78; RESP 16; TEMP 97.9
== END 2019-12-08 11:35 | disposition home or self-care (01) ==
LOC: EC 08:48
DX: R05 Cough (principal); R53.1 Weakness; R07.89 Other chest pain; R79.89 Other specified abnormal findings of blood chemistry; R51 Headache; E78.5 Hyperlipidemia, unspecified; J45.909 Unspecified asthma, uncomplicated; E07.9 Disorder of thyroid, unspecified; K21.9 Gastro-esophageal reflux disease without esophagitis; F41.9 Anxiety disorder, unspecified; F32.9 Major depressive disorder, single episode, unspecified; F41.0 Panic disorder [episodic paroxysmal anxiety]; I10 Essential (primary) hypertension; M19.90 Unspecified osteoarthritis, unspecified site; Z79.51 Long term (current) use of inhaled steroids; Z79.899 Other long term (current) drug therapy; Z88.2 Allergy status to sulfonamides; Z88.6 Allergy status to analgesic agent; Z88.8 Allergy status to other drugs, medicaments and biological substances; Z90.49 Acquired absence of other specified parts of digestive tract; Z86.718 Personal history of other venous thrombosis and embolism
CPT/HCPCS: 36415; 93005; 80048; 83735; 85025; 71046; 99285; 96374; 96375; 96361 ×2; J1200; J2405

== ENCOUNTER → 2019-12-30 | Outpatient (CLI) | payer MEDICARE, OTHER ==
--- NOTE | 2019-12-30 16:42 | XR ---
EXAMINATION TYPE: XR chest 2V DATE OF EXAM: 12/30/2019 COMPARISON: Chest radiograph 12/08/2019 HISTORY: Cough and shortness of breath. History of asthma. COVID19 negative. TECHNIQUE: Frontal and lateral views of the chest are obtained. FINDINGS: There is no focal air space opacity, pleural effusion, or pneumothorax seen. The cardiac silhouette size is within normal limits. The osseous structures are intact. IMPRESSION: No acute cardiopulmonary process.
== END | disposition home or self-care (01) ==
LOC: RADXRMAIN 09:05
PROVIDERS: ATTEND Internal Medicine
DX: R05 Cough (principal)
CPT/HCPCS: 71046

== ENCOUNTER 2020-01-01 15:04 | Inpatient (IN) | payer MEDICARE, OTHER ==
[2020-01-01] MEDS ORDERED: LORazepam 2 MG/ML INJ IV STA ×2 (16:15→19:31)
[2020-01-01 16:22] LABS: Basophils % (A) 1 %; Eosinophils % (A) 0 %; HCT 40.2 % (34.0-46.0); Lymphocytes # (A) 1.1 k/uL (1.0-4.8); Lymphocytes % (A) 13 %; MCH 31.2 pg (25.0-35.0); MCHC 32.3 g/dL (31.0-37.0); MCV 96.8 fL (80.0-100.0); Mean Platelet Volume 8.7; Monocytes # (A) 0.3 k/uL (0-1.0); Monocytes % (A) 4 %; Neutrophils # (A) 6.8 k/uL (1.3-7.7); Neutrophils % (A) 82 %; Platelet Count 300 k/uL (150-450); RBC 4.15 m/uL (3.80-5.40); RDW 13.5 % (11.5-15.5); WBC 8.3 k/uL (3.8-10.6)
[2020-01-01 16:38] LABS: ALT 18 U/L (4-34); AST 20 U/L (14-36); African American GFR (CKD) >90 (>60 ml/min/1.73 sqM); Albumin 4.5 g/dL (3.5-5.0); Alkaline Phosphatase 74 U/L (38-126); Anion Gap 12 mmol/L; Blood Urea Nitrogen 11 mg/dL (7-17); Calcium 9.4 mg/dL (8.4-10.2); Carbon Dioxide 19 mmol/L (22-30); Chloride 108 mmol/L (98-107); Creatine Kinase 68 U/L (30-135); Glucose 142 mg/dL (74-99); Non-African American GFR(CKD) >90 (>60 ml/min/1.73 sqM); Potassium 4.3 mmol/L (3.5-5.1); Sodium 139 mmol/L (137-145); Total Bilirubin 0.3 mg/dL (0.2-1.3); Total Protein 7.6 g/dL (6.3-8.2)
--- NOTE | 2020-01-01 16:40 | XR ---
EXAMINATION TYPE: XR chest 2V DATE OF EXAM: 01/01/2020 COMPARISON: Chest x-ray 2 days ago. HISTORY: Cough and shortness of breath. TECHNIQUE: Frontal and lateral views of the chest are obtained. FINDINGS: There is chronic parenchymal change without suspicious new focal air space opacity, pleura l effusion, or pneumothorax seen. The cardiac silhouette size remains within normal limits. The os seous structures are intact. Cholecystectomy clips noted . IMPRESSION: Chronic changes without new acute pulmonary process.
[2020-01-01 16:51] LABS: INR 0.9 (<1.2); Partial Thromboplastin Time 21.4 sec (22.0-30.0); Prothrombin Time 9.8 sec (9.0-12.0)
[2020-01-01 17:02] LABS: D-Dimer 0.81 mg/L FEU (<0.60)
--- NOTE | 2020-01-01 17:55 | ED ---
SOB HPI - General Chief Complaint: Shortness of Breath Stated Complaint: Cough,SOB Time Seen by Provider: 01/01/20 15:23 Source: patient, RN notes reviewed Mode of arrival: ambulatory Limitations: no limitations - History of Present Illness Initial Comments: This is a 54-year-old female who states she's been feeling sick for about 3 weeks cough shortness of breath dyspnea on exertion today she was found have a temperature 100.1. No overt phlegm production no overt chest pain. She was seen by her private medical doctor 3 days ago and diagnosed with pneumonia. She is on steroids and antibiotics. She states she is acting better but in fact getting worse. MD Complaint: shortness of breath - Related Data Home Medications Medication Instructions Recorded Confirmed ALPRAZolam [Xanax] 1 mg PO Q8H PRN 03/20/14 01/01/20 Dicyclomine [Bentyl] 10 mg PO Q8H PRN 04/07/17 01/01/20 HYDROcodone/APAP 10-325MG [[place] 1 tab PO Q8H PRN 04/07/17 01/01/20 10-325] Omeprazole 20 mg PO BID 04/07/17 01/01/20 rOPINIRole HCL [Requip] 0.5 mg PO HS 06/02/17 01/01/20 Zolpidem [Ambien] 10 mg PO HS 10/31/17 01/01/20 Citalopram Hydrobromide [CeleXA] 20 mg PO DAILY 09/12/18 01/01/20 Atorvastatin [Lipitor] 20 mg PO QAM 11/21/18 01/01/20 ARIPiprazole [Abilify] 2 mg PO DAILY 04/28/19 01/01/20 atenoloL [Tenormin] 25 mg PO DAILY 06/26/19 01/01/20 Meloxicam [Mobic] 15 mg PO DAILY PRN 12/03/19 01/01/20 Albuterol Sulfate [Ventolin HFA] 1 - 2 puff INHALATION RT-Q6H PRN 01/01/20 01/01/20 Cetirizine HCl [Zyrtec] 10 mg PO HS 01/01/20 01/01/20 Levofloxacin [Levaquin] 500 mg PO DAILY 01/01/20 01/01/20 Levothyroxine Sodium [Synthroid] 75 mcg PO DAILY 01/01/20 01/01/20 OLANZapine [ZyPREXA] 2.5 mg PO HS 01/01/20 01/01/20 predniSONE See Taper PO DAILY 01/01/20 01/01/20 valACYclovir [Valtrex] 500 mg PO DAILY 01/01/20 01/01/20 Allergies Allergy/AdvReac Type Severity Reaction Status Date / Time Sulfa (Sulfonamide Allergy Severe Rash/Hives Verified 01/01/20 16:34 Antibiotics) ketorolac tromethamine Allergy Tardive Verified 01/01/20 16:34 [From Toradol] Dyskinesia prochlorperazine maleate Allergy Tardive Verified 01/01/20 16:34 [From Compazine] Dyskinesia prochlorperazine edisylate AdvReac Severe Tardive Verified 01/01/20 16:34 [From Compazine] dyskinesia Review of Systems ROS Statement: Those systems with pertinent positive or pertinent negative responses have been documented in the HPI. ROS Other: All systems not noted in ROS Statement are negative. Past Medical History Past Medical History: Asthma, Deep Vein Thrombosis (DVT), Fibromyalgia, GERD/Reflux, Hyperlipidemia, Hypertension, Musculoskeletal Disorder, Osteoarthritis (OA), Thyroid Disorder Additional Past Medical History / Comment(s): hx DVT in each leg. Lumbar DDD, chronic back pain. History of Any Multi-Drug Resistant Organisms: MRSA Date of last positivie culture/infection: 2008 MDRO Source:: abd Past Surgical History: Section, Cholecystectomy, Hysterectomy, Orthopedic Surgery Additional Past Surgical History / Comment(s): Rt KNEE arthroscopy, lt elbow surgery for torn tendon, sinus surgery, PAIN CLINIC PROCEDURE. back procedures Past Anesthesia/Blood Transfusion Reactions: No Reported Reaction Past Psychological History: Anxiety, Depression, Panic Disorder Smoking Status: Never smoker Past Alcohol Use History: None Reported Past Drug Use History: None Reported - Past Family History Father Family Medical History: Cancer Additional Family Medical History / Comment(s): Colon CA. General Exam - General Exam Comments Initial Comments: This is a well-developed well-nourished awake alert oriented 3 female Limitations: no limitations General appearance: alert, in no apparent distress Head exam: Present: atraumatic, normocephalic, normal inspection Eye exam: Present: normal appearance, PERRL, EOMI. Absent: scleral icterus, conjunctival injection, periorbital swelling ENT exam: Present: normal exam, mucous membranes moist Neck exam: Present: normal inspection. Absent: tenderness, meningismus, lymphadenopathy Respiratory exam: Present: decreased breath sounds. Absent: respiratory distress, wheezes, rales, rhonchi, stridor Cardiovascular Exam: Present: regular rate, normal rhythm, normal heart sounds. Absent: systolic murmur, diastolic murmur, rubs, gallop, clicks GI/Abdominal exam: Present: soft, normal bowel sounds. Absent: distended, tenderness, guarding, rebound, rigid Extremities exam: Present: normal inspection, full ROM, normal capillary refill. Absent: tenderness, pedal edema, joint swelling, calf tenderness Back exam: Present: normal inspection Neurological exam: Present: alert, oriented X3, CN II-XII intact Psychiatric exam: Present: normal affect, normal mood Skin exam: Present: warm, dry, intact, normal color. Absent: rash Course Vital Signs 01/01/20 01/01/20 01/01/20 15:13 15:51 15:57 Temperature 98.7 F 100.1 F H Pulse Rate 85 63 Respiratory 18 20 20 Rate Blood Pressure 128/81 127/88 O2 Sat by Pulse 96 94 L Oximetry 01/01/20 17:27 Temperature Pulse Rate 70 Respiratory 18 Rate Blood Pressure 133/90 O2 Sat by Pulse 94 L Oximetry Medical Decision Making - Medical Decision Making I did discuss [employer] the patient and family as well as Dr. Hobson. Patient be admitted place an IV antibiotics IV steroids into [facility]. The presentation consistent with bronchitis and bronchospasm. Also failed outpatient treatment - Lab Data Result diagrams: 01/01/20 15:53 01/01/20 15:53 Lab Results 01/01/20 01/01/20 01/01/20 Range/Units 15:53 15:53 15:53 WBC 8.3 (3.8-10.6) k/uL RBC 4.15 (3.80-5.40) m/uL Hgb 13.0 (11.4-16.0) gm/dL Hct 40.2 (34.0-46.0) % MCV 96.8 (80.0-100.0) fL MCH 31.2 (25.0-35.0) pg MCHC 32.3 (31.0-37.0) g/dL RDW 13.5 (11.5-15.5) % Plt Count 300 (150-450) k/uL Neutrophils % 82 % Lymphocytes % 13 % Monocytes % 4 % Eosinophils % 0 % Basophils % 1 % Neutrophils # 6.8 (1.3-7.7) k/uL Lymphocytes # 1.1 (1.0-4.8) k/uL Monocytes # 0.3 (0-1.0) k/uL Eosinophils # 0.0 (0-0.7) k/uL Basophils # 0.0 (0-0.2) k/uL PT 9.8 (9.0-12.0) sec INR 0.9 (<1.2) APTT 21.4 L (22.0-30.0) sec D-Dimer 0.81 H (<0.60) mg/L FEU Sodium 139 (137-145) mmol/L Potassium 4.3 (3.5-5.1) mmol/L Chloride 108 H (98-107) mmol/L Carbon Dioxide 19 L (22-30) mmol/L Anion Gap 12 mmol/L BUN 11 (7-17) mg/dL Creatinine 0.70 (0.52-1.04) mg/dL Est GFR (CKD-EPI)AfAm >90 (>60 ml/min/1.73 sqM) Est GFR (CKD-EPI)NonAf >90 (>60 ml/min/1.73 sqM) Glucose 142 H (74-99) mg/dL Plasma Lactic Acid Caleb (0.7-2.0) mmol/L Calcium 9.4 (8.4-10.2) mg/dL Magnesium 2.0 (1.6-2.3) mg/dL Total Bilirubin 0.3 (0.2-1.3) mg/dL AST 20 (14-36) U/L ALT 18 (4-34) U/L Alkaline Phosphatase 74 (38-126) U/L Creatine Kinase 68 (30-135) U/L Troponin I (0.000-0.034) ng/mL Total Protein 7.6 (6.3-8.2) g/dL Albumin 4.5 (3.5-5.0) g/dL 01/01/20 01/01/20 Range/Units 15:53 15:53 WBC (3.8-10.6) k/uL RBC (3.80-5.40) m/uL Hgb (11.4-16.0) gm/dL Hct (34.0-46.0) % MCV (80.0-100.0) fL MCH (25.0-35.0) pg MCHC (31.0-37.0) g/dL RDW (11.5-15.5) % Plt Count (150-450) k/uL Neutrophils % % Lymphocytes % % Monocytes % % Eosinophils % % Basophils % % Neutrophils # (1.3-7.7) k/uL Lymphocytes # (1.0-4.8) k/uL Monocytes # (0-1.0) k/uL Eosinophils # (0-0.7) k/uL Basophils # (0-0.2) k/uL PT (9.0-12.0) sec INR (<1.2) APTT (22.0-30.0) sec D-Dimer (<0.60) mg/L FEU Sodium (137-145) mmol/L Potassium (3.5-5.1) mmol/L Chloride (98-107) mmol/L Carbon Dioxide (22-30) mmol/L Anion Gap mmol/L BUN (7-17) mg/dL Creatinine (0.52-1.04) mg/dL Est GFR (CKD-EPI)AfAm (>60 ml/min/1.73 sqM) Est GFR (CKD-EPI)NonAf (>60 ml/min/1.73 sqM) Glucose (74-99) mg/dL Plasma Lactic Acid Caleb 2.0 (0.7-2.0) mmol/L Calcium (8.4-10.2) mg/dL Magnesium (1.6-2.3) mg/dL Total Bilirubin (0.2-1.3) mg/dL AST (14-36) U/L ALT (4-34) U/L Alkaline Phosphatase (38-126) U/L Creatine Kinase (30-135) U/L Troponin I <0.012 (0.000-0.034) ng/mL Total Protein (6.3-8.2) g/dL Albumin (3.5-5.0) g/dL - EKG Data -: EKG Interpreted by Me EKG shows normal: sinus rhythm EKG Comments: Sinus rhythm with a AK interval 136 QRS duration 72 QT since QTC 380/438 minimal voltage criteria for LVH nonspecific ST-T wave configuration. - Radiology Data Radiology results: report reviewed (I did review the imaging and report no evidence of PE no evidence of focal infiltrate.), image reviewed Disposition Clinical Impression: Asthmatic bronchitis, Febrile illness, acute, Bronchospasm, acute, Failure of outpatient treatment Disposition: ADMITTED IP TO THIS HOSP Condition: Fair Referrals: Genia Avalos MD [Primary Care Provider] - 1-2 days
--- NOTE | 2020-01-01 20:40 | CT ---
EXAMINATION TYPE: CT angio chest contrast and with 3-D renderings DATE OF EXAM: 01/01/2020 7:42 PM COMPARISON: 04/07/2017 HISTORY: Cough x 3 weeks. Elevated d-dimer. CT DLP: 769.1 mGycm Automated exposure control for dose reduction was used. CONTRAST: CTA scan of the thorax is performed with IV Contrast, patient injected with 68ml mL of Isov ue 370, pulmonary embolism protocol. Three-D reconstructions. FINDINGS: LUNGS: The lungs are grossly clear, there is no concerning parenchymal mass or nodule identified. The re is no pleural effusion or pneumothorax seen.The tracheobronchial tree is patent. MEDIASTINUM: There is only moderate enhancement of the pulmonary artery and its branches, but there i s no CT evidence for pulmonary embolism. The aorta is unremarkable. There is no cardiomegaly, but the re is a small pericardial effusion. Mild coronary calcifications are appreciated. No adenopathy. OTHER: No additional significant abnormality is seen. IMPRESSION: NO ACUTE PROCESS.
[2020-01-01] MEDS ORDERED: NALOXONE 0.4 MG/ML 1 ML VIAL IV PRN (21:14)
[2020-01-01] MEDS ORDERED: ACETAMINOPHEN TAB 325 MG TAB PO PRN (21:14)
[2020-01-01] MEDS ORDERED: ALPRAZolam 0.25 MG TAB PO PRN (21:14)
[2020-01-01] MEDS ORDERED: cefTRIAXone IN SWFI 1,000 MG/10 ML SYRINGE IVP STA (21:17)
[2020-01-01] MEDS ORDERED: methylPREDNISolone SOD SUCCI 125 MG/2 ML VIAL IV STA (21:17)
[2020-01-01] MEDS ORDERED: MELOXICAM 7.5 MG TAB PO PRN (21:19)
[2020-01-01] MEDS ORDERED: HYDROcodone/APAP 10-325MG 1 EACH TAB PO PRN (21:19)
[2020-01-01] MEDS ORDERED: ALPRAZolam 1 MG TAB PO PRN (21:19)
[2020-01-01] MEDS ORDERED: IPRATROPIUM-ALBUTEROL 3 ML NEB INHALATION SCH (22:00)
[2020-01-01] MEDS: SODIUM CHLORIDE 0.9% 1,000 ML IV SCH (22:17)
[2020-01-01] MEDS: HYDROmorphone 0.5 MG/0.5 ML SYRINGE IVP PRN (22:22)
[2020-01-02] MEDS ORDERED: IPRATROPIUM-ALBUTEROL 3 ML NEB INHALATION SCH
[2020-01-02] MEDS ORDERED: ZOLPIDEM 10 MG TAB PO SCH (01:00)
[2020-01-02] MEDS: DICYCLOMINE 10 MG CAP PO PRN ×2 (02:48→09:03)
[2020-01-02] MEDS: ALBUTEROL HFA INHALER INHALATION SCH ×2 (08:58→12:09)
[2020-01-02] MEDS: TIOTROPIUM 18 MCG/PUFF INHALER INHALATION SCH (08:58)
[2020-01-02] MEDS ORDERED: cefTRIAXone IN SWFI 1,000 MG/10 ML SYRINGE IVP SCH (09:00)
[2020-01-02] MEDS: LEVOTHYROXINE 75 MCG TAB PO SCH (09:00)
[2020-01-02] MEDS: ARIPiprazole 2 MG TAB PO SCH (09:00)
[2020-01-02] MEDS: CITALOPRAM HYDROBROMIDE 20 MG TAB PO SCH (09:01)
[2020-01-02] MEDS: atenoloL 25 MG TAB PO SCH (09:01)
[2020-01-02] MEDS: ATORVASTATIN 20 MG TAB PO SCH (09:02)
[2020-01-02] MEDS: PANTOPRAZOLE 40 MG TABLET PO SCH ×2 (09:03→20:46)
[2020-01-02] MEDS: valACYclovir 500 MG TAB PO SCH (09:04)
[2020-01-02] MEDS: HYDROmorphone 0.5 MG/0.5 ML SYRINGE IVP PRN ×3 (10:20→20:58)
[2020-01-02] MEDS: SODIUM CHLORIDE 0.9% 1,000 ML IV SCH (10:22)
[2020-01-02] MEDS: ONDANSETRON 4 MG/2 ML VIAL IVP PRN ×2 (11:18→17:47)
--- NOTE | 2020-01-02 11:36 | US ---
EXAMINATION TYPE: US abdomen complete DATE OF EXAM: 01/02/2020 COMPARISON: NONE CLINICAL HISTORY: nausea. EXAM MEASUREMENTS: Liver Length: 17.9 cm Gallbladder Wall: Surgically absent CBD: 0.6 cm Spleen: 9.9 cm Right Kidney: 10.9 x 5.6 x 5.5 cm Left Kidney: 10.9 x 5.5 x 6.1 cm Technically difficult study due to patient body habitus and extensive midline bowel gas. Pancreas: Obscured by bowel gas Liver: limited visualization due to extensive bowel gas, visualized portions wnl Gallbladder: Surgically absent CBD: wnl Spleen: wnl Right Kidney: No hydronephrosis or masses seen Left Kidney: No hydronephrosis or masses seen Upper IVC: wnl Abd Aorta: limited visualization IMPRESSION: 1. Limited exam demonstrates no definite acute process.
--- NOTE | 2020-01-02 12:55 | P.HPIM ---
History of Present Illness H&P Date: 01/02/20 Kim Jordan is a 54-year-old female who presented to [facility] emergency room with a chief complaint of cough, shortness of breath and nausea she was evaluated in the emergency room chest x-ray did not reveal any acute infiltrate d-dimer was slightly elevated she underwent computed tomography scan angiogram of the chest that was negative for pulmonary embolism patient had evidence of acute bronchitis without any evidence of pneumonia, she was very uncomfortable was cough and shortness of breath, and was admitted to the hospital for further treatment, she was started on IV Rocephin in the emergency room, ultrasound of the abdomen was ordered due to nausea. Past medical history is significant for hypertension, hyperlipidemia, hypothyroidism, depression with bipolar disorder, anxiety disorder, morbid obesity, fibromyalgia and restless leg syndrome. On review of systems patient is alert and oriented 3 there is no fever or chills no headache or dizziness no chest pain she has shortness of breath with any activity she has cough and she has nausea no vomiting no abdominal pain no diarrhea no blood in the stools no burning with urination no frequency or urgency and no hematuria. There is no weakness or numbness in any of her extremities no change in her vision speech or gait. Past Medical History Past Medical History: Asthma, Deep Vein Thrombosis (DVT), Fibromyalgia, GERD/Reflux, Hyperlipidemia, Hypertension, Musculoskeletal Disorder, Osteoarthritis (OA), Thyroid Disorder Additional Past Medical History / Comment(s): hx DVT in each leg. Lumbar DDD, chronic back pain. History of Any Multi-Drug Resistant Organisms: MRSA Date of last positivie culture/infection: 2008 MDRO Source:: abd Past Surgical History: Section, Cholecystectomy, Hysterectomy, Orthopedic Surgery Additional Past Surgical History / Comment(s): Rt KNEE arthroscopy, lt elbow surgery for torn tendon, sinus surgery, PAIN CLINIC PROCEDURE. back procedures Past Anesthesia/Blood Transfusion Reactions: No Reported Reaction Past Psychological History: Anxiety, Depression, Panic Disorder Smoking Status: Never smoker Past Alcohol Use History: None Reported Past Drug Use History: None Reported - Past Family History Father Family Medical History: Cancer Additional Family Medical History / Comment(s): Colon CA. Medications and Allergies Home Medications Medication Instructions Recorded Confirmed Type ALPRAZolam [Xanax] 1 mg PO Q8H PRN 03/20/14 01/01/20 History Dicyclomine [Bentyl] 10 mg PO Q8H PRN 04/07/17 01/01/20 History HYDROcodone/APAP 10-325MG [[place] 1 tab PO Q8H PRN 04/07/17 01/01/20 History 10-325] Omeprazole 20 mg PO BID 04/07/17 01/01/20 History rOPINIRole HCL [Requip] 0.5 mg PO HS 06/02/17 01/01/20 History Zolpidem [Ambien] 10 mg PO HS 10/31/17 01/01/20 History Citalopram Hydrobromide [CeleXA] 20 mg PO DAILY 09/12/18 01/01/20 History Atorvastatin [Lipitor] 20 mg PO QAM 11/21/18 01/01/20 History ARIPiprazole [Abilify] 2 mg PO DAILY 04/28/19 01/01/20 History atenoloL [Tenormin] 25 mg PO DAILY 06/26/19 01/01/20 History Meloxicam [Mobic] 15 mg PO DAILY PRN 12/03/19 01/01/20 History Albuterol Sulfate [Ventolin HFA] 1 - 2 puff INHALATION RT-Q6H PRN 01/01/20 01/01/20 History Cetirizine HCl [Zyrtec] 10 mg PO HS 01/01/20 01/01/20 History Levofloxacin [Levaquin] 500 mg PO DAILY 01/01/20 01/01/20 History Levothyroxine Sodium [Synthroid] 75 mcg PO DAILY 01/01/20 01/01/20 History OLANZapine [ZyPREXA] 2.5 mg PO HS 01/01/20 01/01/20 History predniSONE See Taper PO DAILY 01/01/20 01/01/20 History valACYclovir [Valtrex] 500 mg PO DAILY 01/01/20 01/01/20 History Allergies Allergy/AdvReac Type Severity Reaction Status Date / Time Sulfa (Sulfonamide Allergy Severe Rash/Hives Verified 01/01/20 16:34 Antibiotics) ketorolac tromethamine Allergy Tardive Verified 01/01/20 16:34 [From Toradol] Dyskinesia prochlorperazine maleate Allergy Tardive Verified 01/01/20 16:34 [From Compazine] Dyskinesia prochlorperazine edisylate AdvReac Severe Tardive Verified 01/01/20 16:34 [From Compazine] dyskinesia Physical Exam Vitals: Vital Signs Temp Pulse Pulse Resp BP BP Pulse Ox 01/02/20 09:21 97.8 F 79 16 127/71 92 L 01/02/20 09:06 97.2 F L 81 20 151/79 96 01/02/20 06:47 80 16 151/105 98 01/02/20 01:09 97.7 F 01/02/20 00:40 68 18 124/68 97 01/01/20 22:33 70 18 140/90 99 01/01/20 17:27 70 18 133/90 94 L 01/01/20 15:57 100.1 F H 63 20 127/88 94 L 01/01/20 15:51 20 01/01/20 15:13 98.7 F 85 18 128/81 96 Intake and Output 01/01/20 01/02/20 01/02/20 22:59 06:59 14:59 Other: Weight 124.738 kg In general patient is alert and oriented 3 in no apparent distress HEENT head normocephalic and atraumatic Neck is supple no JVD no goiter no lymphadenopathy no carotid bruit Chest exam reveals a few scattered crackles bilaterally no wheezing Cardiac exam reveals regular heart sounds S1 and S2 no gallops no murmurs Abdomen is soft nontender no organomegaly with normal bowel sounds Extremity exam reveals no edema no cyanosis or clubbing Neurological examination reveals no gross focal deficit Results CBC & Chem 7: 01/01/20 15:53 01/01/20 15:53 Labs: Abnormal Lab Results - Last 24 Hours (Table) 01/01/20 01/01/20 Range/Units 15:53 15:53 APTT 21.4 L (22.0-30.0) sec D-Dimer 0.81 H (<0.60) mg/L FEU Chloride 108 H (98-107) mmol/L Carbon Dioxide 19 L (22-30) mmol/L Glucose 142 H (74-99) mg/dL Assessment and Plan Plan: 1. Acute bronchitis no evidence of pneumonia on chest x-ray and computed tomography scan of the chest, continue with IV Rocephin at this time, Covid 19 testing is still pending. 2. Shortness of breath, likely related to acute bronchitis and morbid obesity, no history of smoking no history of COPD in the past, will check echocardiogram 3. Underlying history of depression, bipolar disorder, and anxiety disorder 4. Underlying history of hypertension home medication resume 5. Underlying history of hyperlipidemia maintained on Lipitor 6. Underlying history of hypothyroidism maintained on levothyroxine resumed. Will follow during this admission for medical management if stable possible discharge to home tomorrow
[2020-01-02] MEDS ORDERED: LORATADINE 10 MG TAB PO SCH (21:00)
[2020-01-02] MEDS ORDERED: ZOLPIDEM 5 MG TAB PO SCH (21:00)
[2020-01-02] MEDS ORDERED: OLANZapine 2.5 MG TAB PO SCH (21:00)
[2020-01-02] MEDS ORDERED: ALPRAZolam 0.5 MG TAB PO PRN (21:25)
[2020-01-03] MEDS: SODIUM CHLORIDE 0.9% 1,000 ML IV SCH ×2 (02:04→09:33)
[2020-01-03] MEDS: HYDROmorphone 0.5 MG/0.5 ML SYRINGE IVP PRN ×3 (05:09→13:01)
[2020-01-03] MEDS: ONDANSETRON 4 MG/2 ML VIAL IVP PRN ×2 (06:18→13:32)
[2020-01-03] MEDS: LEVOTHYROXINE 75 MCG TAB PO SCH (06:18)
[2020-01-03 06:40] LABS: Basophils % (A) 0 %; Eosinophils # (A) 0.1 k/uL (0-0.7); Eosinophils % (A) 1 %; HCT 37.6 % (34.0-46.0); HGB 12.7 gm/dL (11.4-16.0); Lymphocytes # (A) 4.9 k/uL (1.0-4.8); Lymphocytes % (A) 43 %; MCH 32.8 pg (25.0-35.0); MCHC 33.9 g/dL (31.0-37.0); MCV 96.9 fL (80.0-100.0); Monocytes # (A) 0.9 k/uL (0-1.0); Monocytes % (A) 8 %; Neutrophils # (A) 5.3 k/uL (1.3-7.7); Neutrophils % (A) 47 %; Platelet Count 267 k/uL (150-450); RBC 3.88 m/uL (3.80-5.40); RDW 13.4 % (11.5-15.5); WBC 11.4 k/uL (3.8-10.6)
[2020-01-03 06:59] LABS: ALT 16 U/L (4-34); African American GFR (CKD) >90 (>60 ml/min/1.73 sqM); Anion Gap 8 mmol/L; Blood Urea Nitrogen 18 mg/dL (7-17); Calcium 8.2 mg/dL (8.4-10.2); Carbon Dioxide 19 mmol/L (22-30); Chloride 111 mmol/L (98-107); Glucose 120 mg/dL (74-99); Non-African American GFR(CKD) 81 (>60 ml/min/1.73 sqM); Sodium 138 mmol/L (137-145)
[2020-01-03 07:04] LABS: AST 28 U/L (14-36); Albumin 3.6 g/dL (3.5-5.0); Alkaline Phosphatase 48 U/L (38-126); Potassium 4.7 mmol/L (3.5-5.1); Total Bilirubin 0.6 mg/dL (0.2-1.3); Total Protein 6.6 g/dL (6.3-8.2)
[2020-01-03] MEDS: ARIPiprazole 2 MG TAB PO SCH (09:21)
[2020-01-03] MEDS: ATORVASTATIN 20 MG TAB PO SCH (09:21)
[2020-01-03] MEDS: atenoloL 25 MG TAB PO SCH (09:22)
[2020-01-03] MEDS: CITALOPRAM HYDROBROMIDE 20 MG TAB PO SCH (09:22)
[2020-01-03] MEDS: valACYclovir 500 MG TAB PO SCH (09:22)
[2020-01-03] MEDS: PANTOPRAZOLE 40 MG TABLET PO SCH (09:22)
[2020-01-03 12:13] VITALS: RESP 20
[2020-01-03 12:14] VITALS: BP 118/63; PULSE 64
[2020-01-03] MEDS: TIOTROPIUM 18 MCG/PUFF INHALER INHALATION SCH (13:14)
--- NOTE | 2020-01-03 14:05 | P.DS ---
Providers Date of admission: 01/01/20 21:17 Expected date of discharge: 01/03/20 Attending physician: Genia Avalos Primary care physician: Genia Avalos [facility] Course: Diagnosis on discharge: 1. Acute bronchitis no evidence of pneumonia on chest x-ray and computed tomography scan of the chest, continue with IV Rocephin at this time, Covid 19 testing is negative. 2. Shortness of breath, likely related to acute bronchitis and morbid obesity, no history of smoking no history of COPD in the past, will check echocardiogram 3. Underlying history of depression, bipolar disorder, and anxiety disorder 4. Underlying history of hypertension home medication resume 5. Underlying history of hyperlipidemia maintained on Lipitor 6. Underlying history of hypothyroidism maintained on levothyroxine resumed. Hospital course: Kim Jordan is a 54-year-old female who presented to [facility] emergency room with a chief complaint of cough, shortness of breath and nausea she was evaluated in the emergency room chest x-ray did not reveal any acute infiltrate d-dimer was slightly elevated she underwent computed tomography scan angiogram of the chest that was negative for pulmonary embolism patient had evidence of acute bronchitis without any evidence of pneumonia, she was very uncomfortable was cough and shortness of breath, and was admitted to the hospital for further treatment, she was started on IV Rocephin in the emergency room, ultrasound of the abdomen was ordered due to nausea. Past medical history is significant for hypertension, hyperlipidemia, hypothyroidism, depression with bipolar disorder, anxiety disorder, morbid obesity, fibromyalgia and restless leg syndrome. On review of systems patient is alert and oriented 3 there is no fever or chills no headache or dizziness no chest pain she has shortness of breath with any activity she has cough and she has nausea no vomiting no abdominal pain no diarrhea no blood in the stools no burning with urination no frequency or urgency and no hematuria. There is no weakness or numbness in any of her extremities no change in her vision speech or gait. On 01/03/2020 patient was seen and examined on the medical floor she is alert and oriented 3 in no apparent distress she is complaining of occasional cough and occasional headache otherwise no complaints there is no fever or chills no headache or dizziness no chest pain no shortness of breath no cough no nausea or vomiting no abdominal pain no diarrhea no burning was urination no frequency or urgency and no hematuria. Results of blood test and x-ray reviewed with patient Covid 19 testing is negative diagnosis is acute bronchitis, patient does not need to be hospitalized for that she will be discharged home today she was given a course of Ceftin 500 mg twice a day for 10 days she would be followed in our office in the next few days. Patient Condition at Discharge: Fair Plan - Discharge Summary Discharge Rx Participant: No New Discharge Prescriptions: New Cefuroxime Axetil [Ceftin] 500 mg PO BID 10 Days #20 tab Continue ALPRAZolam [Xanax] 1 mg PO Q8H PRN PRN Reason: Anxiety Omeprazole 20 mg PO BID HYDROcodone/APAP 10-325MG [[place] 10-325] 1 tab PO Q8H PRN PRN Reason: Pain Dicyclomine [Bentyl] 10 mg PO Q8H PRN PRN Reason: "Stomach attack" rOPINIRole HCL [Requip] 0.5 mg PO HS Zolpidem [Ambien] 10 mg PO HS Citalopram Hydrobromide [CeleXA] 20 mg PO DAILY Atorvastatin [Lipitor] 20 mg PO QAM ARIPiprazole [Abilify] 2 mg PO DAILY atenoloL [Tenormin] 25 mg PO DAILY Meloxicam [Mobic] 15 mg PO DAILY PRN PRN Reason: Pain Levothyroxine Sodium [Synthroid] 75 mcg PO DAILY Cetirizine HCl [Zyrtec] 10 mg PO HS Albuterol Sulfate [Ventolin HFA] 1 - 2 puff INHALATION RT-Q6H PRN PRN Reason: Shortness Of Breath valACYclovir [Valtrex] 500 mg PO DAILY predniSONE See Taper PO DAILY OLANZapine [ZyPREXA] 2.5 mg PO HS Discontinued Levofloxacin [Levaquin] 500 mg PO DAILY Discharge Medication List ALPRAZolam [Xanax] 1 mg PO Q8H PRN 03/20/14 [History] Dicyclomine [Bentyl] 10 mg PO Q8H PRN 04/07/17 [History] HYDROcodone/APAP 10-325MG [[place] 10-325] 1 tab PO Q8H PRN 04/07/17 [History] Omeprazole 20 mg PO BID 04/07/17 [History] rOPINIRole HCL [Requip] 0.5 mg PO HS 06/02/17 [History] Zolpidem [Ambien] 10 mg PO HS 10/31/17 [History] Citalopram Hydrobromide [CeleXA] 20 mg PO DAILY 09/12/18 [History] Atorvastatin [Lipitor] 20 mg PO QAM 11/21/18 [History] ARIPiprazole [Abilify] 2 mg PO DAILY 04/28/19 [History] atenoloL [Tenormin] 25 mg PO DAILY 06/26/19 [History] Meloxicam [Mobic] 15 mg PO DAILY PRN 12/03/19 [History] Albuterol Sulfate [Ventolin HFA] 1 - 2 puff INHALATION RT-Q6H PRN 01/01/20 [History] Cetirizine HCl [Zyrtec] 10 mg PO HS 01/01/20 [History] Levothyroxine Sodium [Synthroid] 75 mcg PO DAILY 01/01/20 [History] OLANZapine [ZyPREXA] 2.5 mg PO HS 01/01/20 [History] predniSONE See Taper PO DAILY 01/01/20 [History] valACYclovir [Valtrex] 500 mg PO DAILY 01/01/20 [History] Cefuroxime Axetil [Ceftin] 500 mg PO BID 10 Days #20 tab 01/03/20 [Rx] Follow up Appointment(s)/Referral(s): Genia Avalos MD [Primary Care Provider] - 1-2 days
[2020-01-03 14:11] VITALS: TEMP 97.5
== END 2020-01-03 14:16 | disposition home or self-care (01) | DRG 202 ==
LOC: EC 15:04 → 4SSUR 21:17 → 6PED 01-02 12:48
PROVIDERS: ADMIT Internal Medicine; ATTEND Internal Medicine
DX: J20.9 Acute bronchitis, unspecified (principal); Z68.42 Body mass index [BMI] 45.0-49.9, adult; Z20.828 Contact with and (suspected) exposure to other viral communicable diseases; E66.01 Morbid (severe) obesity due to excess calories; F31.9 Bipolar disorder, unspecified; I10 Essential (primary) hypertension; E78.5 Hyperlipidemia, unspecified; F41.0 Panic disorder [episodic paroxysmal anxiety]; E03.9 Hypothyroidism, unspecified; M79.7 Fibromyalgia; J45.909 Unspecified asthma, uncomplicated; M19.90 Unspecified osteoarthritis, unspecified site; K21.9 Gastro-esophageal reflux disease without esophagitis; M51.36 Other intervertebral disc degeneration, lumbar region; G89.29 Other chronic pain; G25.81 Restless legs syndrome; R11.0 Nausea; Z79.899 Other long term (current) drug therapy; Z79.1 Long term (current) use of non-steroidal anti-inflammatories (NSAID); Z79.890 Hormone replacement therapy; Z86.718 Personal history of other venous thrombosis and embolism; Z86.14 Personal history of Methicillin resistant Staphylococcus aureus infection; Z90.710 Acquired absence of both cervix and uterus; Z90.49 Acquired absence of other specified parts of digestive tract; Z98.890 Other specified postprocedural states; Z88.2 Allergy status to sulfonamides; Z88.8 Allergy status to other drugs, medicaments and biological substances; Z80.0 Family history of malignant neoplasm of digestive organs
CPT/HCPCS: 36415; 71046; 71275; 76700; 80053; 82550; 83605; 83735; 84484; 85025; 85379; 85610; 85730; 93005; 94640; 96361; 96374; 96375; 96376; 99285

== ENCOUNTER 2020-04-22 16:50 | Emergency (ER) | payer MEDICARE, OTHER ==
[2020-04-22 16:56] VITALS: TEMP 98.9
[2020-04-22] MEDS ORDERED: LORazepam 1 MG TAB PO STA (17:45)
--- NOTE | 2020-04-22 17:53 | ED ---
Fever HPI - General Chief Complaint: Fever Stated Complaint: Sore throat, Fever Time Seen by Provider: 04/22/20 17:24 Source: patient, RN notes reviewed Mode of arrival: ambulatory Limitations: no limitations - History of Present Illness Initial Comments: this is a 54-year-old female presents emergency Department with chief complaint of cough congestion shortness of breath. Patient states that she presents sick for last couple days states he woke up some nasal congestion, sinus pressure and sore throat. Patient states it mainly as sinus pressure and a cough. She has no resting shortness of breath. Patient saw passenger flagman today stated that she would receive a phone call for coronavirus and flu testing. Patient states that she has not given any other medications was advised to continue treatments. Patient has no chest pain no neck pain or neck stiffness no severe headache no body aches. - Related Data Home Medications Medication Instructions Recorded Confirmed ALPRAZolam [Xanax] 1 mg PO Q8H PRN 03/20/14 01/01/20 Dicyclomine [Bentyl] 10 mg PO Q8H PRN 04/07/17 01/01/20 HYDROcodone/APAP 10-325MG [[place] 1 tab PO Q8H PRN 04/07/17 01/01/20 10-325] Omeprazole 20 mg PO BID 04/07/17 01/01/20 rOPINIRole HCL [Requip] 0.5 mg PO HS 06/02/17 01/01/20 Zolpidem [Ambien] 10 mg PO HS 10/31/17 01/01/20 Citalopram Hydrobromide [CeleXA] 20 mg PO DAILY 09/12/18 01/01/20 Atorvastatin [Lipitor] 20 mg PO QAM 11/21/18 01/01/20 ARIPiprazole [Abilify] 2 mg PO DAILY 04/28/19 01/01/20 atenoloL [Tenormin] 25 mg PO DAILY 06/26/19 01/01/20 Meloxicam [Mobic] 15 mg PO DAILY PRN 12/03/19 01/01/20 Albuterol Sulfate [Ventolin HFA] 1 - 2 puff INHALATION RT-Q6H PRN 01/01/20 01/01/20 Cetirizine HCl [Zyrtec] 10 mg PO HS 01/01/20 01/01/20 Levothyroxine Sodium [Synthroid] 75 mcg PO DAILY 01/01/20 01/01/20 OLANZapine [ZyPREXA] 2.5 mg PO HS 01/01/20 01/01/20 predniSONE See Taper PO DAILY 01/01/20 01/01/20 valACYclovir [Valtrex] 500 mg PO DAILY 01/01/20 01/01/20 Previous Rx's Medication Instructions Recorded Cefuroxime Axetil [Ceftin] 500 mg PO BID 10 Days #20 tab 01/03/20 Allergies Allergy/AdvReac Type Severity Reaction Status Date / Time Sulfa (Sulfonamide Allergy Severe Rash/Hives Verified 04/22/20 16:56 Antibiotics) ketorolac tromethamine Allergy Tardive Verified 04/22/20 16:56 [From Toradol] Dyskinesia prochlorperazine maleate Allergy Tardive Verified 04/22/20 16:56 [From Compazine] Dyskinesia prochlorperazine edisylate AdvReac Severe Tardive Verified 04/22/20 16:56 [From Compazine] dyskinesia Review of Systems ROS Statement: Those systems with pertinent positive or pertinent negative responses have been documented in the HPI. ROS Other: All systems not noted in ROS Statement are negative. Past Medical History Past Medical History: Asthma, Deep Vein Thrombosis (DVT), Fibromyalgia, GERD/Reflux, Hyperlipidemia, Hypertension, Musculoskeletal Disorder, Osteoarth ritis (OA), Thyroid Disorder Additional Past Medical History / Comment(s): hx DVT in each leg. Lumbar DDD, chronic back pain. History of Any Multi-Drug Resistant Organisms: MRSA Date of last positivie culture/infection: 2008 MDRO Source:: abd Past Surgical History: Section, Cholecystectomy, Hysterectomy, Orthopedic Surgery Additional Past Surgical History / Comment(s): Rt KNEE arthroscopy, lt elbow surgery for torn tendon, sinus surgery, PAIN CLINIC PROCEDURE. back procedures Past Anesthesia/Blood Transfusion Reactions: No Reported Reaction Past Psychological History: Anxiety, Depression, Panic Disorder Smoking Status: Never smoker Past Alcohol Use History: None Reported Past Drug Use History: None Reported - Past Family History Father Family Medical History: Cancer Additional Family Medical History / Comment(s): Colon CA. General Exam Limitations: no limitations General appearance: alert, in no apparent distress Head exam: Present: atraumatic, normocephalic, normal inspection Eye exam: Present: normal appearance, PERRL, EOMI. Absent: scleral icterus, conjunctival injection, periorbital swelling ENT exam: Present: normal exam, mucous membranes moist Neck exam: Present: normal inspection. Absent: tenderness, meningismus, lymphadenopathy Respiratory exam: Present: normal lung sounds bilaterally. Absent: respiratory distress, wheezes, rales, rhonchi, stridor Cardiovascular Exam: Present: normal rhythm, tachycardia (heart rate was 107 on triage 94 on exam patient was very anxious), normal heart sounds. Absent: systolic murmur, diastolic murmur, rubs, gallop, clicks Neurological exam: Present: alert, oriented X3 Psychiatric exam: Present: anxious Skin exam: Present: warm, dry, intact, normal color. Absent: rash Course Vital Signs 04/22/20 16:53 Temperature 98.9 F Pulse Rate 107 H Respiratory 18 Rate Blood Pressure 112/87 O2 Sat by Pulse 100 Oximetry Medical Decision Making - Medical Decision Making 54-year-old female presented for cough and cold like symptoms. Chest x-ray unremarkable. Patient is a pending coronavirus testing. Patient vitals are stable. Patient we discharged in stable condition return parameters were discussed. Disposition Clinical Impression: URI (upper respiratory infection) Disposition: HOME SELF-CARE Condition: Stable Instructions (If sedation given, give patient instructions): Upper Respiratory Infection (ED) Additional Instructions: Please return to the Emergency Department if symptoms worsen or any other con cerns. Is patient prescribed a controlled substance at d/c from ED?: No Referrals: Genia Avalos MD [Primary Care Provider] - 1-2 days Time of Disposition: 18:25
--- NOTE | 2020-04-22 18:15 | XR ---
EXAMINATION TYPE: XR chest 2V DATE OF EXAM: 04/22/2020 COMPARISON: 01/01/2020 HISTORY: Cough TECHNIQUE: FINDINGS: Heart and mediastinum are normal. Lungs are clear. Diaphragm is normal. Bony thorax appears normal. IMPRESSION: Normal chest. No change.
[2020-04-22] MEDS ORDERED: dexAMETHasone 4 MG TAB PO STA (18:24)
[2020-04-22 18:52] VITALS: BP 114/77; PULSE 92; RESP 16
== END 2020-04-22 18:47 | disposition home or self-care (01) ==
LOC: EC 16:50
DX: J06.9 Acute upper respiratory infection, unspecified (principal); R00.0 Tachycardia, unspecified; F41.9 Anxiety disorder, unspecified; F32.9 Major depressive disorder, single episode, unspecified; F41.0 Panic disorder [episodic paroxysmal anxiety]; J45.909 Unspecified asthma, uncomplicated; K21.9 Gastro-esophageal reflux disease without esophagitis; E78.5 Hyperlipidemia, unspecified; I10 Essential (primary) hypertension; M19.90 Unspecified osteoarthritis, unspecified site; E07.9 Disorder of thyroid, unspecified; Z79.52 Long term (current) use of systemic steroids; Z79.899 Other long term (current) drug therapy; Z79.890 Hormone replacement therapy; Z88.2 Allergy status to sulfonamides; Z88.6 Allergy status to analgesic agent; Z88.8 Allergy status to other drugs, medicaments and biological substances; Z20.828 Contact with and (suspected) exposure to other viral communicable diseases; Z86.14 Personal history of Methicillin resistant Staphylococcus aureus infection
CPT/HCPCS: 87502; 71046; 99283; U0003; J8540

== ENCOUNTER → 2020-05-26 | Outpatient (CLI) | payer MEDICARE, OTHER ==
--- NOTE | 2020-05-27 11:08 | MM ---
Reason for exam: screening (asymptomatic). Last mammogram was performed 1 year and 5 months ago. History: Patient is postmenopausal. Benign US biopsy breast VAD LT of the left breast, October 31, 2017. Benign excisional biopsy of the left breast, August 2006. Physical Findings: A clinical breast exam by your physician is recommended on an annual basis and results should be correlated with mammographic findings. MG 3D Screening Mammo W/Cad Bilateral CC and MLO view(s) were taken. Prior study comparison: January 02, 2019, bilateral MG 3d diag mammo w/cad REX. October 31, 2017, left breast MG diagnostic mammo LT wo CAD. There are scattered fibroglandular densities. Previous mammotome biopsy in the left breast. No significant changes when compared with prior studies. ASSESSMENT: Benign, BI-RAD 2 RECOMMENDATION: Routine screening mammogram of both breasts in 1 year.
== END | disposition home or self-care (01) ==
LOC: RADMAMWWP 13:12
PROVIDERS: ATTEND Internal Medicine
DX: Z12.31 Encounter for screening mammogram for malignant neoplasm of breast (principal)
CPT/HCPCS: 77063; 77067

== ENCOUNTER 2020-05-29 00:40 | Emergency (ER) | payer MEDICARE, OTHER ==
[2020-05-29 00:46] VITALS: PULSE 100; TEMP 98.4
[2020-05-29] MEDS ORDERED: MORPHINE SULFATE 4 MG/ML SYRINGE IV STA (01:14)
--- NOTE | 2020-05-29 01:14 | ED ---
Abdominal Pain HPI - General Chief Complaint: Abdominal Pain Stated Complaint: Side Pain Time Seen by Provider: 05/29/20 00:53 Source: patient, family Mode of arrival: ambulatory Limitations: no limitations - History of Present Illness MD Complaint: flank pain Onset/Timin -: week(s) Location: L flank Radiation: LLQ Severity: severe Quality: sharp Consistency: constant Improves With: nothing Worsens With: nothing Associated Symptoms: dysuria - Related Data Home Medications Medication Instructions Recorded Confirmed ALPRAZolam [Xanax] 1 mg PO Q8H PRN 03/20/14 04/22/20 Dicyclomine [Bentyl] 10 mg PO Q8H PRN 04/07/17 04/22/20 HYDROcodone/APAP 10-325MG [[place] 1 tab PO Q8H PRN 04/07/17 04/22/20 10-325] Omeprazole 20 mg PO BID 04/07/17 04/22/20 rOPINIRole HCL [Requip] 0.5 mg PO HS 06/02/17 04/22/20 Zolpidem [Ambien] 10 mg PO HS 10/31/17 04/22/20 Citalopram Hydrobromide [CeleXA] 20 mg PO DAILY 09/12/18 04/22/20 Atorvastatin [Lipitor] 20 mg PO DAILY 11/21/18 04/22/20 ARIPiprazole [Abilify] 2 mg PO DAILY 04/28/19 04/22/20 atenoloL [Tenormin] 25 mg PO DAILY 06/26/19 04/22/20 Albuterol Sulfate [Ventolin HFA] 1 - 2 puff INHALATION RT-Q6H PRN 01/01/20 04/22/20 Cetirizine HCl [Zyrtec] 10 mg PO HS 01/01/20 04/22/20 Levothyroxine Sodium [Synthroid] 75 mcg PO DAILY 01/01/20 04/22/20 valACYclovir [Valtrex] 500 mg PO DAILY 01/01/20 04/22/20 EPINEPHrine (Auto Inject) [Epipen] 0.3 mg IM ONCE PRN 04/22/20 04/22/20 Fluticasone Nasal [place] [Flonase 2 spray EA NOSTRIL HS 04/22/20 04/22/20 Nasal [place]] Montelukast [Singulair] 10 mg PO HS 04/22/20 04/22/20 Omalizumab [Xolair] 150 mg SQ Q30D 04/22/20 04/22/20 Previous Rx's Medication Instructions Recorded Methocarbamol [Robaxin-750] 750 mg PO TID PRN #30 tablet 05/29/20 Allergies Allergy/AdvReac Type Severity Reaction Status Date / Time Sulfa (Sulfonamide Allergy Severe Rash/Hives Verified 05/29/20 00:46 Antibiotics) ketorolac tromethamine Allergy Tardive Verified 05/29/20 00:46 [From Toradol] Dyskinesia prochlorperazine maleate Allergy Tardive Verified 05/29/20 00:46 [From Compazine] Dyskinesia prochlorperazine edisylate AdvReac Severe [place]ardive Verified 05/29/20 00:46 [From Compazine] dyskinesia Review of Systems ROS Statement: Those systems with pertinent positive or pertinent negative responses have been documented in the HPI. ROS Other: All systems not noted in ROS Statement are negative. Constitutional: Denies: fever, chills Respiratory: Denies: cough, dyspnea Cardiovascular: Denies: chest pain, palpitations, edema Gastrointestinal: Reports: as per HPI, abdominal pain, nausea. Denies: vomiting, diarrhea, constipation Genitourinary: Reports: dysuria. Denies: frequency, hematuria Musculoskeletal: Denies: back pain Skin: Denies: rash Neurological: Denies: headache Past Medical History Past Medical History: Asthma, Deep Vein Thrombosis (DVT), Fibromyalgia, GERD/Reflux, Hyperlipidemia, Hypertension, Musculoskeletal Disorder, Osteoarthritis (OA), Thyroid Disorder Additional Past Medical History / Comment(s): hx DVT in each leg. Lumbar DDD, chronic back pain. History of Any Multi-Drug Resistant Organisms: MRSA Date of last positivie culture/infection: 2008 MDRO Source:: abd Past Surgical History: Section, Cholecystectomy, Hysterectomy, Orthopedic Surgery Additional Past Surgical History / Comment(s): Rt KNEE arthroscopy, lt elbow surgery for torn tendon, sinus surgery, PAIN CLINIC PROCEDURE. back procedures Past Anesthesia/Blood Transfusion Reactions: No Reported Reaction Past Psychological History: Anxiety, Depression, Panic Disorder Smoking Status: Never smoker Past Alcohol Use History: None Reported Past Drug Use History: None Reported - Past Family History Father Family Medical History: Cancer Additional Family Medical History / Comment(s): Colon CA. General Exam Limitations: no limitations General appearance: alert, in no apparent distress Head exam: Present: atraumatic, normocephalic Eye exam: Present: normal appearance. Absent: scleral icterus, conjunctival injection ENT exam: Present: normal oropharynx Neck exam: Present: normal inspection Respiratory exam: Present: normal lung sounds bilaterally. Absent: respiratory distress, wheezes, rales, rhonchi, stridor Cardiovascular Exam: Present: regular rate, normal rhythm, normal heart sounds. Absent: systolic murmur, diastolic murmur, rubs, gallop GI/Abdominal exam: Present: soft. Absent: distended, tenderness, guarding, rebound, rigid, mass, pulsatile mass Extremities exam: Present: normal inspection, normal capillary refill. Absent: pedal edema, calf tenderness Back exam: Present: normal inspection. Absent: CVA tenderness (R), CVA tenderness (L) Neurological exam: Present: alert Skin exam: Present: warm, dry, intact, normal color. Absent: rash Course Vital Signs 05/29/20 00:41 Temperature 98.4 F Pulse Rate 100 Respiratory 20 Rate Blood Pressure 128/92 O2 Sat by Pulse 100 Oximetry Medical Decision Making - Lab Data Result diagrams: 05/29/20 01:17 05/29/20 01:17 Lab Results 05/29/20 05/29/20 05/29/20 Range/Units 01:08 01:08 01:17 WBC 7.8 (3.8-10.6) k/uL RBC 4.35 (3.80-5.40) m/uL Hgb 13.7 (11.4-16.0) gm/dL Hct 40.6 (34.0-46.0) % MCV 93.4 (80.0-100.0) fL MCH 31.5 (25.0-35.0) pg MCHC 33.8 (31.0-37.0) g/dL RDW 13.8 (11.5-15.5) % Plt Count 145 L (150-450) k/uL MPV 11.0 Neutrophils % 46 % Lymphocytes % 44 % Monocytes % 6 % Eosinophils % 2 % Basophils % 0 % Neutrophils # 3.5 (1.3-7.7) k/uL Lymphocytes # 3.4 (1.0-4.8) k/uL Monocytes # 0.5 (0-1.0) k/uL Eosinophils # 0.2 (0-0.7) k/uL Basophils # 0.0 (0-0.2) k/uL Sodium (137-145) mmol/L Potassium (3.5-5.1) mmol/L Chloride (98-107) mmol/L Carbon Dioxide (22-30) mmol/L Anion Gap mmol/L BUN (7-17) mg/dL Creatinine (0.52-1.04) mg/dL Est GFR (CKD-EPI)AfAm (>60 ml/min/1.73 sqM) Est GFR (CKD-EPI)NonAf (>60 ml/min/1.73 sqM) Glucose (74-99) mg/dL Calcium (8.4-10.2) mg/dL Total Bilirubin (0.2-1.3) mg/dL AST (14-36) U/L ALT (4-34) U/L Alkaline Phosphatase (38-126) U/L Total Protein (6.3-8.2) g/dL Albumin (3.5-5.0) g/dL Amylase (30-110) U/L Lipase (23-300) U/L Urine Color Light Yellow Urine Appearance Clear (Clear) Urine pH 6.0 (5.0-8.0) Ur Specific [place] 1.006 (1.001-1.035) Urine Protein Negative (Negative) Urine Glucose (UA) Negative (Negative) Urine Ketones Negative (Negative) Urine Blood Negative (Negative) Urine Nitrite Negative (Negative) Urine Bilirubin Negative (Negative) Urine Urobilinogen <2.0 (<2.0) mg/dL Ur Leukocyte Esterase Negative (Negative) Urine HCG, Qual Not Detected (Not Detectd) 05/29/20 Range/Units 01:17 WBC (3.8-10.6) k/uL RBC (3.80-5.40) m/uL Hgb (11.4-16.0) gm/dL Hct (34.0-46.0) % MCV (80.0-100.0) fL MCH (25.0-35.0) pg MCHC (31.0-37.0) g/dL RDW (11.5-15.5) % Plt Count (150-450) k/uL MPV Neutrophils % % Lymphocytes % % Monocytes % % Eosinophils % % Basophils % % Neutrophils # (1.3-7.7) k/uL Lymphocytes # (1.0-4.8) k/uL Monocytes # (0-1.0) k/uL Eosinophils # (0-0.7) k/uL Basophils # (0-0.2) k/uL Sodium 140 (137-145) mmol/L Potassium 4.4 (3.5-5.1) mmol/L Chloride 110 H (98-107) mmol/L Carbon Dioxide 24 (22-30) mmol/L Anion Gap 6 mmol/L BUN 13 (7-17) mg/dL Creatinine 0.71 (0.52-1.04) mg/dL Est GFR (CKD-EPI)AfAm >90 (>60 ml/min/1.73 sqM) Est GFR (CKD-EPI)NonAf >90 (>60 ml/min/1.73 sqM) Glucose 126 H (74-99) mg/dL Calcium 8.8 (8.4-10.2) mg/dL Total Bilirubin 0.6 (0.2-1.3) mg/dL AST 29 (14-36) U/L ALT 18 (4-34) U/L Alkaline Phosphatase 69 (38-126) U/L Total Protein 7.5 (6.3-8.2) g/dL Albumin 4.3 (3.5-5.0) g/dL Amylase <30 L (30-110) U/L Lipase 95 (23-300) U/L Urine Color Urine Appearance (Clear) Urine pH (5.0-8.0) Ur Specific [place] (1.001-1.035) Urine Protein (Negative) Urine Glucose (UA) (Negative) Urine Ketones (Negative) Urine Blood (Negative) Urine Nitrite (Negative) Urine Bilirubin (Negative) Urine Urobilinogen (<2.0) mg/dL Ur Leukocyte Esterase (Negative) Urine HCG, Qual (Not Detectd) Disposition Clinical Impression: Flank pain Disposition: HOME SELF-CARE Condition: Good Instructions (If sedation given, give patient instructions): Flank Pain (ED) Prescriptions: Methocarbamol [Robaxin-750] 750 mg PO TID PRN #30 tablet PRN Reason: pain Is patient prescribed a controlled substance at d/c from ED?: No Referrals: Genia Avalos MD [Primary Care Provider] - 1-2 days
[2020-05-29 01:24] LABS: Appearance,Urine Clear (Clear); Bilirubin,Urine Negative (Negative); Blood,Urine Negative (Negative); Color,Urine Light Yellow; Glucose,Urine (UA) Negative (Negative); Ketones,Urine Negative (Negative); Leukocyte Esterase,Urine Negative (Negative); Nitrite,Urine Negative (Negative); Protein,Urine Negative (Negative); Specific Gravity,Urine 1.006 (1.001-1.035); Urobilinogen,Urine <2.0 mg/dL (<2.0)
[2020-05-29 01:34] LABS: Basophils % (A) 0 %; Eosinophils # (A) 0.2 k/uL (0-0.7); Eosinophils % (A) 2 %; HCT 40.6 % (34.0-46.0); HGB 13.7 gm/dL (11.4-16.0); Lymphocytes # (A) 3.4 k/uL (1.0-4.8); Lymphocytes % (A) 44 %; MCH 31.5 pg (25.0-35.0); MCHC 33.8 g/dL (31.0-37.0); MCV 93.4 fL (80.0-100.0); Monocytes # (A) 0.5 k/uL (0-1.0); Monocytes % (A) 6 %; Neutrophils # (A) 3.5 k/uL (1.3-7.7); Neutrophils % (A) 46 %; Platelet Count 145 k/uL (150-450); RBC 4.35 m/uL (3.80-5.40); RDW 13.8 % (11.5-15.5); WBC 7.8 k/uL (3.8-10.6)
[2020-05-29] MEDS ORDERED: diphenhydrAMINE 50 MG/ML 1 ML VIAL IVP STA (01:35)
[2020-05-29 01:36] LABS: ALT 18 U/L (4-34); AST 29 U/L (14-36); African American GFR (CKD) >90 (>60 ml/min/1.73 sqM); Albumin 4.3 g/dL (3.5-5.0); Alkaline Phosphatase 69 U/L (38-126); Amylase <30 U/L (30-110); Anion Gap 6 mmol/L; Blood Urea Nitrogen 13 mg/dL (7-17); Calcium 8.8 mg/dL (8.4-10.2); Carbon Dioxide 24 mmol/L (22-30); Chloride 110 mmol/L (98-107); Glucose 126 mg/dL (74-99); Lipase 95 U/L (23-300); Non-African American GFR(CKD) >90 (>60 ml/min/1.73 sqM); Sodium 140 mmol/L (137-145); Total Bilirubin 0.6 mg/dL (0.2-1.3); Total Protein 7.5 g/dL (6.3-8.2)
--- NOTE | 2020-05-29 01:50 | CT ---
EXAM: CT Abdomen and Pelvis Without Intravenous Contrast CLINICAL HISTORY: L flank pain TECHNIQUE: Axial computed tomography images of the abdomen and pelvis without intravenous contrast. CTDI is 25.77 mGy and DLP is 1500.40 mGy-cm. This CT exam was performed using one or more of the following dose reduction techniques: automated exposure control, adjustment of the mA and/or kV according to patient size, and/or use of iterative reconstruction technique. COMPARISON: No relevant prior studies available. FINDINGS: Lung bases: No significant abnormality. Heart: Small pericardial effusion. ABDOMEN: Liver: Lobulated hepatic contour. Subcentimeter focus of hypoattenuation in the liver is too small to characterize. Gallbladder and bile ducts: The gallbladder is surgically absent. Pancreas: No significant abnormality. Spleen: Mild splenomegaly. Adrenals: No significant abnormality. Kidneys and ureters: A 2 mm nonobstructing calculus is present in a lower pole calyx of the right kidney. Punctate nonobstructing calculi are present in upper pole calyces of bilateral kidneys. No calcified ureteral calculi or hydronephrosis. Stomach and bowel: No significant abnormality. Bowel is nondilated. PELVIS: Appendix: Not identified. Bladder: No significant abnormality. No calcified stones. Reproductive: The uterus is absent. ABDOMEN and PELVIS: Intraperitoneal space: No significant abnormality. No free air. Bones/joints: No acute fracture or malalignment. Soft tissues: Tiny fat-containing periumbilical hernia. Vasculature: No significant abnormality. No abdominal aortic aneurysm. Lymph nodes: No significant abnormality. IMPRESSION: 1. No acute CT findings in the abdomen or pelvis. 2. Tiny nonobstructing bilateral renal calculi. No obstructing ureteral calculi or hydronephrosis. 3. Cholecystectomy and hysterectomy.
[2020-05-29 02:09] LABS: Potassium 4.4 mmol/L (3.5-5.1)
[2020-05-29] MEDS ORDERED: HYDROmorphone 0.5 MG/0.5 ML SYRINGE IVP STA (02:37)
[2020-05-29 03:56] VITALS: BP 140/103; RESP 17
== END 2020-05-29 03:46 | disposition home or self-care (01) ==
LOC: EC 00:40
DX: R10.32 Left lower quadrant pain (principal); R11.0 Nausea; J45.909 Unspecified asthma, uncomplicated; M79.7 Fibromyalgia; K21.9 Gastro-esophageal reflux disease without esophagitis; E78.5 Hyperlipidemia, unspecified; I10 Essential (primary) hypertension; M19.90 Unspecified osteoarthritis, unspecified site; E07.9 Disorder of thyroid, unspecified; F41.9 Anxiety disorder, unspecified; F32.9 Major depressive disorder, single episode, unspecified; G89.29 Other chronic pain; M54.9 Dorsalgia, unspecified; Z79.51 Long term (current) use of inhaled steroids; Z79.890 Hormone replacement therapy; Z79.899 Other long term (current) drug therapy; Z88.6 Allergy status to analgesic agent; Z88.2 Allergy status to sulfonamides; Z88.8 Allergy status to other drugs, medicaments and biological substances; Z90.49 Acquired absence of other specified parts of digestive tract; Z98.890 Other specified postprocedural states; Z90.710 Acquired absence of both cervix and uterus
CPT/HCPCS: 36415; 80053; 82150; 83690; 85025; 81003; 81025; 74176; 99284; 96374; 96375 ×2; J2270; J1200; J1170

== ENCOUNTER → 2020-06-23 | Outpatient (CLI) | payer MEDICARE, OTHER ==
--- NOTE | 2020-06-23 16:45 | MR ---
EXAMINATION TYPE: MR lumbar spine wo con DATE OF EXAM: 06/23/2020 COMPARISON: None HISTORY: Lower back pain TECHNIQUE: Multiplanar, multisequence images of the lumbar spine were acquired. L1-L2: Normal disc appearance without desiccation. No herniation, protrusion or disc bulging. No ca nal stenosis is present. Foramina are patent bilaterally. L2-L3: Normal disc appearance without desiccation. No herniation, protrusion or disc bulging. No ca nal stenosis is present. Foramina are patent bilaterally. L3-L4: Minimal posterior broad-based disc bulge. Facet arthropathy with hypertrophy of the ligamentum flavum causes posterior lateral mass effect on the thecal sac. L4-L5: Loss of disc height signal is present, there is no significant foraminal encroachment. Facet a rthropathy changes are present. L5-S1: Normal disc appearance without desiccation. No herniation, protrusion or disc bulging. No ca nal stenosis is present. Foramina are patent bilaterally. There is facet arthropathy change. Lumbar segments are intact. No paraspinal masses are identified. Conus medullaris has a normal appe arance. Minimal anterolisthesis L4-5, suspect a transitional vertebral body at L5. No evident spinal stenosis. IMPRESSION: Mild degenerative disc disease, facet arthropathy. Transitional vertebral body, correlate with plain film prior to any intervention.
== END | disposition home or self-care (01) ==
LOC: RADMRIMAIN 14:42
PROVIDERS: ATTEND Internal Medicine
DX: M51.36 Other intervertebral disc degeneration, lumbar region (principal); M47.816 Spondylosis without myelopathy or radiculopathy, lumbar region
CPT/HCPCS: 72148

== ENCOUNTER 2020-06-24 15:54 | Emergency (ER) | payer MEDICARE, OTHER ==
[2020-06-24 16:08] VITALS: TEMP 98.9
[2020-06-24] MEDS ORDERED: ONDANSETRON 4 MG/2 ML VIAL IVP STA (16:41)
[2020-06-24] MEDS ORDERED: SODIUM CHLORIDE 0.9% 1,000 ML IV STA (16:41)
--- NOTE | 2020-06-24 16:43 | ED ---
General Adult HPI - General Chief complaint: Dizziness Stated complaint: Dizziness Time Seen by Provider: 06/24/20 16:29 Source: patient, family Mode of arrival: ambulatory - History of Present Illness Initial comments: Dictation was produced using [employer] dictation software. please excuse any grammatical, word or spelling errors. This patient was cared for during a federal and state declared state of emergency secondary to Covid 19 Chief Complaint: 54-year-old female past medical history of thyroid disease, fibromyalgia presents to emergency Department chief complaint dizziness. History of Present Illness: 54-year-old female she presents today with dizz iness. Patient states that last time she had symptoms like this she was diagnosed with UTI sepsis. Patient states that she's been having some urinary frequency but no dysuria. Denies any fever or any other constitutional symptoms. She states that her symptoms are worse whenever she stands up berta ckly. She denies a sensation of the room spinning. No history of strokes. Denies abdominal pain. She does have some nausea but no vomiting. She reports feeling anxious about her symptoms. The ROS documented in this emergency department record has been reviewed and confirmed by me. Those systems with pertinent positive or negative responses have been documented in the HPI. All other systems are other negative and/or noncontributory. PHYSICAL EXAM: General Impression: Alert and oriented x3, not in acute distress HEENT: Normocephalic atraumatic, extra-ocular movements intact, pupils equal and reactive to light bilaterally, mucous membranes moist. Cardiovascular: Heart regular rate and rhythm Chest: Able to complete full sentences, no retractions, no tachypnea Abdomen: abdomen soft, non-tender, non-distended, no organomegaly Musculoskeletal: Pulses present and equal in all extremities, no peripheral edema Motor: no focal deficits noted Neurological: CN II-XII grossly intact, no focal motor or sensory deficits noted, no nystagmus, no extremity ataxia Skin: Intact with no visualized rashes Psych: Normal affect and mood ED course: 54-year-old female chief complaint of dizziness. Vital signs upon arrival are within acceptable limits. Patient does not describe her symptoms as vertiginous. Furthermore she does not have physical exam findings to suggest central or peripheral vertigo. Vertebrobasilar insufficiency or central cause of dizziness is unlikely. EKG interpretation: Ventricular rate 81, normal sinus rhythm,. 140, QRS 72, QTc 448. No [place] prolongation, no QTC prolongation, no ST or T-wave changes noted. EKG compared to 01/01/2020 showing no changes. Overall, this EKG is unremarkable Patient began complaining of headache. Toe. Laboratory evaluation obtained showing no acute processes. Patient observed in emergency department for proximal forearms stable medical condition. Patient agreeable for discharge. She is advised follow-up with her primary care physician. - Related Data Home Medications Medication Instructions Recorded Confirmed ALPRAZolam [Xanax] 1 mg PO Q8H PRN 03/20/14 06/24/20 Dicyclomine [Bentyl] 10 mg PO Q8H PRN 04/07/17 06/24/20 HYDROcodone/APAP 10-325MG [[place] 1 tab PO Q8H PRN 04/07/17 06/24/20 10-325] Omeprazole 20 mg PO BID 04/07/17 06/24/20 rOPINIRole HCL [Requip] 0.5 mg PO HS 06/02/17 06/24/20 Zolpidem [Ambien] 10 mg PO HS PRN 10/31/17 06/24/20 Citalopram Hydrobromide [CeleXA] 20 mg PO DAILY 09/12/18 06/24/20 Atorvastatin [Lipitor] 20 mg PO DAILY 11/21/18 06/24/20 ARIPiprazole [Abilify] 2 mg PO DAILY 04/28/19 06/24/20 atenoloL [Tenormin] 25 mg PO DAILY 06/26/19 06/24/20 Albuterol Sulfate [Ventolin HFA] 1 - 2 puff INHALATION RT-Q6H PRN 01/01/20 06/24/20 Cetirizine HCl [Zyrtec] 10 mg PO DAILY 01/01/20 06/24/20 Levothyroxine Sodium [Synthroid] 75 mcg PO DAILY 01/01/20 06/24/20 EPINEPHrine (Auto Inject) [Epipen] 0.3 mg IM ONCE PRN 04/22/20 06/24/20 Fluticasone Nasal [place] [Flonase 2 spray EA NOSTRIL HS PRN 04/22/20 06/24/20 Nasal [place]] Montelukast [Singulair] 10 mg PO DAILY 04/22/20 06/24/20 Omalizumab [Xolair] 150 mg SQ Q30D 04/22/20 06/24/20 Budesonide [Pulmicort] 0.5 mg INHALATION RT-BID PRN 06/24/20 06/24/20 Methocarbamol [Robaxin-750] 750 mg PO TID PRN 06/24/20 06/24/20 Ondansetron [Zofran] 4 mg PO BID PRN 06/24/20 06/24/20 valACYclovir HCL 1,000 mg PO TID PRN 06/24/20 06/24/20 Allergies Allergy/AdvReac Type Severity Reaction Status Date / Time Sulfa (Sulfonamide Allergy Severe Rash/Hives Verified 06/24/20 17:28 Antibiotics) ketorolac tromethamine Allergy Tardive Verified 06/24/20 17:28 [From Toradol] Dyskinesia prochlorperazine maleate Allergy Tardive Verified 06/24/20 17:28 [From Compazine] Dyskinesia prochlorperazine edisylate AdvReac Severe Tardive Verified 06/24/20 17:28 [From Compazine] dyskinesia Review of Systems ROS Statement: Those systems with pertinent positive or pertinent negative responses have been documented in the HPI. ROS Other: All systems not noted in ROS Statement are negative. Past Medical History Past Medical History: Asthma, Deep Vein Thrombosis (DVT), Fibromyalgia, GERD/Reflux, Hyperlipidemia, Hypertension, Musculoskeletal Disorder, Osteoarthritis (OA), Thyroid Disorder Additional Past Medical History / Comment(s): hx DVT in each leg. Lumbar DDD, chronic back pain. History of Any Multi-Drug Resistant Organisms: MRSA Date of last positivie culture/infection: 2008 MDRO Source:: abd Past Surgical History: Section, Cholecystectomy, Hysterectomy, Orth opedic Surgery Additional Past Surgical History / Comment(s): Rt KNEE arthroscopy, lt elbow surgery for torn tendon, sinus surgery, PAIN CLINIC PROCEDURE. back procedures Past Anesthesia/Blood Transfusion Reactions: No Reported Reaction Past Psychological History: Anxiety, Depression, Panic Disorder Smoking Status: Never smoker Past Alcohol Use History: None Reported Past Drug Use History: None Reported - Past Family History Father Family Medical History: Cancer Additional Family Medical History / Comment(s): Colon CA. Course Vital Signs 06/24/20 06/24/20 06/24/20 16:02 18:37 19:43 Temperature 98.9 F Pulse Rate 81 74 73 Respiratory 18 20 18 Rate Blood Pressure 122/84 132/74 122/78 O2 Sat by Pulse 97 99 97 Oximetry Medical Decision Making - Lab Data Result diagrams: 06/24/20 17:16 06/24/20 17:16 Lab Results 06/24/20 06/24/20 06/24/20 Range/Units 17:16 17:16 17:16 WBC 7.2 (3.8-10.6) k/uL RBC 4.18 (3.80-5.40) m/uL Hgb 13.4 (11.4-16.0) gm/dL Hct 39.2 (34.0-46.0) % MCV 93.8 (80.0-100.0) fL MCH 32.0 (25.0-35.0) pg MCHC 34.1 (31.0-37.0) g/dL RDW 13.3 (11.5-15.5) % Plt Count 264 (150-450) k/uL MPV 8.7 Neutrophils % 53 % Lymphocytes % 35 % Monocytes % 7 % Eosinophils % 2 % Basophils % 1 % Neutrophils # 3.9 (1.3-7.7) k/uL Lymphocytes # 2.5 (1.0-4.8) k/uL Monocytes # 0.5 (0-1.0) k/uL Eosinophils # 0.1 (0-0.7) k/uL Basophils # 0.0 (0-0.2) k/uL Sodium 140 (137-145) mmol/L Potassium 4.8 (3.5-5.1) mmol/L Chloride 110 H (98-107) mmol/L Carbon Dioxide 23 (22-30) mmol/L Anion Gap 7 mmol/L BUN 15 (7-17) mg/dL Creatinine 0.83 (0.52-1.04) mg/dL Est GFR (CKD-EPI)AfAm >90 (>60 ml/min/1.73 sqM) Est GFR (CKD-EPI)NonAf 81 (>60 ml/min/1.73 sqM) Glucose 108 H (74-99) mg/dL Calcium 9.5 (8.4-10.2) mg/dL Magnesium 2.1 (1.6-2.3) mg/dL Urine Color Colorless Urine Appearance Clear (Clear) Urine pH 6.5 (5.0-8.0) Ur Specific [place] 1.007 (1.001-1.035) Urine Protein Negative (Negative) Urine Glucose (UA) Negative (Negative) Urine Ketones Negative (Negative) Urine Blood Negative (Negative) Urine Nitrite Negative (Negative) Urine Bilirubin Negative (Negative) Urine Urobilinogen <2.0 (<2.0) mg/dL Ur Leukocyte Esterase Negative (Negative) Disposition Clinical Impression: Dizziness Disposition: HOME SELF-CARE Condition: Good Instructions (If sedation given, give patient instructions): Dizziness (ED) Is patient prescribed a controlled substance at d/c from ED?: No Referrals: Genia Avalos MD [Primary Care Provider] - 1-2 days Time of Disposition: 20:15
[2020-06-24 17:37] LABS: Basophils % (A) 1 %; Eosinophils # (A) 0.1 k/uL (0-0.7); Eosinophils % (A) 2 %; HCT 39.2 % (34.0-46.0); HGB 13.4 gm/dL (11.4-16.0); Lymphocytes # (A) 2.5 k/uL (1.0-4.8); Lymphocytes % (A) 35 %; MCHC 34.1 g/dL (31.0-37.0); MCV 93.8 fL (80.0-100.0); Mean Platelet Volume 8.7; Monocytes # (A) 0.5 k/uL (0-1.0); Monocytes % (A) 7 %; Neutrophils # (A) 3.9 k/uL (1.3-7.7); Neutrophils % (A) 53 %; Platelet Count 264 k/uL (150-450); RBC 4.18 m/uL (3.80-5.40); RDW 13.3 % (11.5-15.5); WBC 7.2 k/uL (3.8-10.6)
[2020-06-24 17:39] LABS: Appearance,Urine Clear (Clear); Bilirubin,Urine Negative (Negative); Blood,Urine Negative (Negative); Color,Urine Colorless; Glucose,Urine (UA) Negative (Negative); Ketones,Urine Negative (Negative); Leukocyte Esterase,Urine Negative (Negative); Nitrite,Urine Negative (Negative); PH, Urine 6.5 (5.0-8.0); Protein,Urine Negative (Negative); Specific Gravity,Urine 1.007 (1.001-1.035); Urobilinogen,Urine <2.0 mg/dL (<2.0)
[2020-06-24 17:55] LABS: African American GFR (CKD) >90 (>60 ml/min/1.73 sqM); Anion Gap 7 mmol/L; Blood Urea Nitrogen 15 mg/dL (7-17); Calcium 9.5 mg/dL (8.4-10.2); Carbon Dioxide 23 mmol/L (22-30); Chloride 110 mmol/L (98-107); Glucose 108 mg/dL (74-99); Magnesium 2.1 mg/dL (1.6-2.3); Non-African American GFR(CKD) 81 (>60 ml/min/1.73 sqM); Potassium 4.8 mmol/L (3.5-5.1); Sodium 140 mmol/L (137-145)
[2020-06-24] MEDS ORDERED: diphenhydrAMINE 50 MG/ML 1 ML VIAL IVP STA (18:18)
[2020-06-24] MEDS ORDERED: ACETAMINOPHEN TAB 500 MG TAB PO STA (18:18)
[2020-06-24] MEDS ORDERED: LORazepam 2 MG/ML INJ IV STA (18:18)
[2020-06-24] MEDS ORDERED: KETOROLAC 15 MG/ML 1 ML VIAL IVP STA (19:10)
[2020-06-24 19:44] VITALS: BP 122/78; PULSE 73; RESP 18
== END 2020-06-24 20:40 | disposition home or self-care (01) ==
LOC: EC 15:54
DX: R42 Dizziness and giddiness (principal); R35.0 Frequency of micturition; R51.9 Headache, unspecified; F41.9 Anxiety disorder, unspecified; F32.9 Major depressive disorder, single episode, unspecified; F41.0 Panic disorder [episodic paroxysmal anxiety]; J45.909 Unspecified asthma, uncomplicated; K21.9 Gastro-esophageal reflux disease without esophagitis; E78.5 Hyperlipidemia, unspecified; I10 Essential (primary) hypertension; M19.90 Unspecified osteoarthritis, unspecified site; E07.9 Disorder of thyroid, unspecified; Z79.01 Long term (current) use of anticoagulants; Z79.890 Hormone replacement therapy; Z79.899 Other long term (current) drug therapy; Z88.2 Allergy status to sulfonamides; Z88.6 Allergy status to analgesic agent; Z88.8 Allergy status to other drugs, medicaments and biological substances; Z86.14 Personal history of Methicillin resistant Staphylococcus aureus infection; Z86.718 Personal history of other venous thrombosis and embolism; Z90.49 Acquired absence of other specified parts of digestive tract; Z90.710 Acquired absence of both cervix and uterus
CPT/HCPCS: 36415; 93005; 80048; 83735; 85025; 81003; 99284; 96374; 96375 ×3; 96361; J2060; J1200; J2405; J1885

== ENCOUNTER → 2020-08-24 | Outpatient (CLI) | payer MEDICARE, OTHER ==
--- NOTE | 2020-08-24 14:15 | P.HPBAR ---
Bariatric H&P - History & Physicial H&P Date: 08/24/20 History & Physicial: Visit/CC: Patient initial contact: Initial weight: Initial weight in pounds: Height: 5 ft 6 in Initial BMI: Last weight: Current weight: 128.82 kg Current weight in pounds: Current BMI: [place] body weight (based on NIH guidelines): Excess body weight loss: The patient is a 55 year-old F who presents for Bariatric Assessment. Patient seen in the bariatric center today as a new evaluation for weight loss surgery. Patient has been investigating weight loss surgery's for many years she states. She is interested in sleeve gastrectomy at this time. Patient with history of hypercholesterolemia asthma hypertension GERD chronic back pain and hypothyroidism. No history of DVT or dysphagia. Has had some mild epigastric burning pain recently over the last 2-3 weeks. Takes antacids daily. Had an EGD done many years ago which was normal. No tobacco use. History of previous appendectomy laparoscopic cholecystectomy and hysterectomy. No known hernias. Has not been to a seminar. Patient is ALLERGIC to Toradol and says it makes her jittery. Review of Systems The patient denies any acute changes in vision or hearing, no dysphagia or odynophagia, no chest pain or shortness of breath, no dysuria or hematuria, no headache, no runny nose, no rectal bleeding or melena, no unexplained weight loss Past Medical History Past Medical History: Asthma, Deep Vein Thrombosis (DVT), Fibromyalgia, GERD/Reflux, Hyperlipidemia, Hypertension, Musculoskeletal Disorder, Osteoarthritis (OA), Thyroid Disorder Additional Past Medical History / Comment(s): hx DVT in each leg. Lumbar DDD, chronic back pain. History of Any Multi-Drug Resistant Organisms: MRSA Year Discovered:: 2008 MDRO Source:: abd Past Surgical History: Section, Cholecystectomy, Hysterectomy, Orthopedic Surgery Additional Past Surgical History / Comment(s): Rt KNEE arthroscopy, lt elbow surgery for torn tendon, sinus surgery, PAIN CLINIC PROCEDURE. back procedures Past Anesthesia/Blood Transfusion Reactions: No Reported Reaction Past Psychological History: Anxiety, Depression, Panic Disorder Smoking Status: Never smoker Past Alcohol Use History: None Reported Past Drug Use History: None Reported - Past Family History Father Family Medical History: Cancer Additional Family Medical History / Comment(s): Colon CA. Surgical - Exam Physical exam: General: Well-developed, well-nourished HEENT: Normocephalic, sclerae nonicteric Abdomen: Nontender, nondistended Extremities: No edema Neuro: Alert and oriented Bariatric Assessment & Plan (1) Morbid obesity Narrative/Plan: 55-year-old female with BMI of 45 interested in weight loss surgery. Risks benefits and technical aspects of weight loss surgery including sleeve gastrectomy and gastric bypass discussed in detail. Patient remains interested in sleeve gastrectomy at this time. Advise patient come to an upcoming bariatric seminar. We'll plan preoperative EGD and labs. Obtain appropriate preoperative clearance and psychiatric evaluation. Patient will follow up with us back in the bariatric clinic after upper endoscopy performed. Status: Acute Bariatric Checklist Checklist: Plan: Checklist: EGD: 1. Hiatal hernia: 2. H. Pylori: HgbA1c: Vitamin D: Smoking: Never smoker Primary care physician referral: Dr. Avalos Psychiatry clearance: Cardiology clearance: Sleep study: Diet journal: VTE risk score: VTE risk level: Rehab needs at discharge:
[2020-08-24 14:43] LABS: HCT 42.8 % (34.0-46.0); HGB 14.3 gm/dL (11.4-16.0); MCH 31.7 pg (25.0-35.0); MCHC 33.5 g/dL (31.0-37.0); MCV 94.8 fL (80.0-100.0); Mean Platelet Volume 8.3; Platelet Count 291 k/uL (150-450); RBC 4.51 m/uL (3.80-5.40); RDW 13.6 % (11.5-15.5); WBC 10.8 k/uL (3.8-10.6)
[2020-08-24 14:55] VITALS: BP 127/92; PULSE 84; TEMP 98.4; BMI 45.8
[2020-08-25 04:26] LABS: Hemoglobin A1C 5.7 % (4.0-6.0)
[2020-08-25 06:50] LABS: ALT 16 U/L (8-44); AST 17 U/L (13-35); African American GFR (CKD) 65.9 (60.0-200.0); Albumin/Globulin Ratio 1.96 (1.60-3.17); Alkaline Phosphatase 90 U/L (41-126); BUN/Creat Ratio 20.91 Ratio (12.00-20.00); Calcium 9.4 mg/dL (8.7-10.3); Carbon Dioxide 19.1 mmol/L (21.6-31.8); Chloride 107 mmol/L (96-109); Globulin 2.4 g/dL (1.6-3.3); Glucose 107 mg/dL (70-110); Iron 46 ug/dL (50-170); Non-African American GFR(CKD) 56.9 (60.0-200.0); Potassium 4.4 mmol/L (3.5-5.5); Sodium 139 mmol/L (135-145); Total Bilirubin 0.3 mg/dL (0.3-1.2); Total Protein 7.1 g/dL (6.2-8.2)
[2020-08-25 09:29] LABS: Folate, Serum >24.0 ng/mL
== END ==
LOC: BARWHC3 11:49
PROVIDERS: ATTEND Surgery
DX: E66.01 Morbid (severe) obesity due to excess calories (principal); Z68.42 Body mass index [BMI] 45.0-49.9, adult; I10 Essential (primary) hypertension; J45.909 Unspecified asthma, uncomplicated; K21.9 Gastro-esophageal reflux disease without esophagitis; E78.00 Pure hypercholesterolemia, unspecified; M54.9 Dorsalgia, unspecified; G89.29 Other chronic pain
CPT/HCPCS: 84425; 80053; 82607; 82746; 83540; 85027; 82306; 83036; 93005; G0463; 99211

== ENCOUNTER 2020-09-14 07:55 | Day surgery (SDC) | payer MEDICARE, OTHER ==
[2020-09-09 15:09] VITALS: BMI 45.8
[~2020-09-14 07:55] MED LIST changes: -LACTATED RINGERS 1,000 ML IV SCH; +LIDOCAINE 1% (10MG/ML) FOR IV START INTRADERMA PRN
[2020-09-14 08:20] VITALS: RESP 16; TEMP 96.8
[2020-09-14] MEDS: LACTATED RINGERS 1,000 ML IV SCH ×2 (08:25→09:17)
[2020-09-14] MEDS ORDERED: MIDAZOLAM 2 MG/2 ML VIAL IVP ONE (08:48)
[2020-09-14] MEDS ORDERED: LIDOCAINE 1% INJ 10MG/ML (20 ML MDV) ONE (09:20)
[2020-09-14] MEDS ORDERED: KETAMINE 10 MG/ML 20 ML VIAL ONE (09:20)
[2020-09-14] MEDS ORDERED: PROPOFOL 10 MG/ML 20 ML VIAL IV ONE (09:20)
[2020-09-14] MEDS ORDERED: MIDAZOLAM 2 MG/2 ML VIAL ONE (09:20)
--- NOTE | 2020-09-14 09:24 | P.GSHP ---
History of Present Illness H&P Date: 09/14/20 Chief Complaint: GERD, presurgical Patient here today for upper endoscopy. Patient is being evaluated for sleep gastrectomy. Patient with complaints of reflux. No dysphagia. Past Medical History Past Medical History: Asthma, Deep Vein Thrombosis (DVT), Fibromyalgia, GERD/Reflux, Hyperlipidemia, Hypertension, Musculoskeletal Disorder, Osteoarthritis (OA), Thyroid Disorder Additional Past Medical History / Comment(s): hx DVT in each leg. Lumbar DDD, chronic back pain. History of Any Multi-Drug Resistant Organisms: MRSA Date of last positivie culture/infection: 2008 MDRO Source:: abd Past Surgical History: Section, Cholecystectomy, Hysterectomy, Orthopedic Surgery Additional Past Surgical History / Comment(s): Rt KNEE arthroscopy, lt elbow surgery for torn tendon, sinus surgery, PAIN CLINIC PROCEDURE. back procedures Past Anesthesia/Blood Transfusion Reactions: No Reported Reaction Smoking Status: Never smoker - Past Family History Father Family Medical History: Cancer Additional Family Medical History / Comment(s): Colon CA. Medications and Allergies Home Medications Medication Instructions Recorded Confirmed Type ALPRAZolam [Xanax] 1 mg PO Q8H PRN 03/20/14 09/09/20 History Dicyclomine [Bentyl] 10 mg PO Q8H PRN 04/07/17 09/09/20 History HYDROcodone/APAP 10-325MG [[place] 1 tab PO Q8H PRN 04/07/17 09/09/20 History 10-325] Omeprazole 20 mg PO BID 04/07/17 09/09/20 History rOPINIRole HCL [Requip] 0.5 mg PO HS 06/02/17 09/09/20 History Zolpidem [Ambien] 10 mg PO HS PRN 10/31/17 09/09/20 History Citalopram Hydrobromide [CeleXA] 20 mg PO DAILY 09/12/18 09/09/20 History Atorvastatin [Lipitor] 20 mg PO DAILY 11/21/18 09/09/20 History ARIPiprazole [Abilify] 2 mg PO DAILY 04/28/19 09/09/20 History atenoloL [Tenormin] 25 mg PO DAILY 06/26/19 09/09/20 History Albuterol Sulfate [Ventolin HFA] 1 - 2 puff INHALATION RT-Q6H PRN 01/01/20 09/09/20 History Levothyroxine Sodium [Synthroid] 75 mcg PO DAILY 01/01/20 09/09/20 History EPINEPHrine (Auto Inject) [Epipen] 0.3 mg IM ONCE PRN 04/22/20 09/09/20 History Fluticasone Nasal [place] [Flonase 2 spray EA NOSTRIL HS PRN 04/22/20 09/09/20 History Nasal [place]] Montelukast [Singulair] 10 mg PO DAILY 04/22/20 09/09/20 History Methocarbamol [Robaxin-750] 750 mg PO TID PRN 06/24/20 09/09/20 History valACYclovir HCL 1,000 mg PO DAILY 06/24/20 09/09/20 History Ergocalciferol [Vitamin D2 (1250 50,000 unit PO ANG 08/25/20 09/09/20 History Mcg = 08035 Iu)] Iron 64 mg PO BID 08/25/20 09/09/20 History Omalizumab [Xolair] 1 dose SQ Q30M 09/09/20 09/09/20 History Allergies Allergy/AdvReac Type Severity Reaction Status Date / Time Sulfa (Sulfonamide Allergy Severe Rash/Hives Verified 09/14/20 08:14 Antibiotics) ketorolac tromethamine Allergy Tardive Verified 09/14/20 08:14 [From Toradol] Dyskinesia morphine Allergy Itching Verified 09/14/20 08:14 prochlorperazine maleate Allergy Tardive Verified 09/14/20 08:14 [From Compazine] Dyskinesia prochlorperazine edisylate AdvReac Severe Tardive Verified 09/14/20 08:14 [From Compazine] dyskinesia Surgical - Exam Vital Signs Temp Pulse Resp BP Pulse Ox 96.8 F L 83 16 114/66 97 09/14/20 08:18 09/14/20 08:18 09/14/20 08:18 09/14/20 08:18 09/14/20 08:18 Physical exam: General: Well-developed, well-nourished HEENT: Normocephalic, sclerae nonicteric Abdomen: Nontender, nondistended Extremities: No edema Neuro: Alert and oriented Assessment and Plan (1) GERD (gastroesophageal reflux disease) Narrative/Plan: Will proceed with upper endoscopy. Current Visit: Yes Status: Acute Code(s): K21.9 - GASTRO-ESOPHAGEAL REFLUX DISEASE WITHOUT ESOPHAGITIS SNOMED Code(s): 160643469
--- NOTE | 2020-09-14 09:36 | P.PCN ---
Date of Procedure: 09/14/20 Procedure(s) Performed: Preoperative Dx: GERD, presurgical Postoperative Dx: Mild gastritis Procedure: EGD with Bx Anesthesia: Sedation Endoscopist: Dr. Espino Specimens: Antrum Endoscopic Procedure: The patient was on the endoscopy table in the left decubitus position. The Olympus gastroscope was inserted into the oropharynx and passed under direct visualization to the region of the third portion of the duodenum. From that point the scope was slowly withdrawn inspecting all surfaces carefully. There were no neoplastic inflammatory or polypoid lesions throughout the duodenum. The pylorus was widely patent. The stomach was carefully inspected. There was mild gastritis present. A biopsy of the antrum took place to rule out H. pylori. Retroflexion revealed a normal hiatus. The esophagus was then carefully examined. There were no neoplastic inflammatory or polypoid lesions throughout the visualized esophagus. The patient was then taken to the recovery room in stable condition per anesthesia guidelines. Recommendations: Resume diet. Follow-up in bariatric center.
[2020-09-14 10:02] VITALS: BP 103/69; PULSE 71
== END 2020-09-14 10:11 | disposition home or self-care (01) ==
LOC: ORWHC2ENDO 07:55
PROVIDERS: ATTEND Surgery
DX: K29.70 Gastritis, unspecified, without bleeding (principal); K31.9 Disease of stomach and duodenum, unspecified; K21.9 Gastro-esophageal reflux disease without esophagitis; J45.909 Unspecified asthma, uncomplicated; M79.7 Fibromyalgia; E78.5 Hyperlipidemia, unspecified; I10 Essential (primary) hypertension; M19.90 Unspecified osteoarthritis, unspecified site; E07.9 Disorder of thyroid, unspecified; M51.36 Other intervertebral disc degeneration, lumbar region; G89.29 Other chronic pain; K08.89 Other specified disorders of teeth and supporting structures; F32.9 Major depressive disorder, single episode, unspecified; E66.01 Morbid (severe) obesity due to excess calories; Z88.2 Allergy status to sulfonamides; Z88.8 Allergy status to other drugs, medicaments and biological substances; Z88.5 Allergy status to narcotic agent; Z88.6 Allergy status to analgesic agent; Z86.718 Personal history of other venous thrombosis and embolism; Z86.14 Personal history of Methicillin resistant Staphylococcus aureus infection; Z98.890 Other specified postprocedural states; Z90.49 Acquired absence of other specified parts of digestive tract; Z90.710 Acquired absence of both cervix and uterus; Z79.891 Long term (current) use of opiate analgesic; Z79.899 Other long term (current) drug therapy; Z79.890 Hormone replacement therapy; Z68.42 Body mass index [BMI] 45.0-49.9, adult; Z80.0 Family history of malignant neoplasm of digestive organs
CPT/HCPCS: 88305; 43239; J2250; J2001; J2704

== ENCOUNTER → 2020-10-05 | Outpatient (CLI) | payer MEDICARE, OTHER ==
[2020-10-05 15:35] VITALS: BP 111/82; PULSE 97; TEMP 97.2; BMI 46.3
--- NOTE | 2020-10-05 16:09 | P.BASOAP ---
Subjective Progress Note Date: 10/05/20 Principal diagnosis: Morbid obesity Patient returns for reevaluation. Underwent upper endoscopy a few weeks ago and found have mild gastritis. No changes to her previous history and physical. Remains interested in sleeve gastrectomy. Objective - Vital Signs Vital signs: Vital Signs Temp 97.2 F L 10/05/20 15:33 Pulse 97 10/05/20 15:33 Resp BP 111/82 10/05/20 15:33 Pulse Ox Intake & Output 10/04/20 10/05/20 10/05/20 18:59 06:59 18:59 Weight 130.181 kg - Exam Abdomen: Soft, nontender, nondistended Assessment/Plan (1) Morbid obesity Narrative/Plan: Patient doing well at this time. Surgical consent form reviewed in detail. Risks of sleeve gastrectomy also discussed in detail. Patient is agreeable and would like to proceed. We'll schedule. Plan: Date: 10/05/20 Initial Weight: Initial BMI: Current Weight: 130.181 kg Current BMI: 46.3 Type of Surgery: Total Volume in Band: Previous Volume: Volume Removed: Volume Added: Band Size:
== END ==
LOC: BARWHC3 14:09
PROVIDERS: ATTEND Surgery
DX: E66.01 Morbid (severe) obesity due to excess calories (principal); Z68.42 Body mass index [BMI] 45.0-49.9, adult
CPT/HCPCS: 97803; G0463; 99211

== ENCOUNTER → 2020-10-18 | Outpatient (CLI) | payer MEDICARE, OTHER ==
[2020-10-18 09:36] VITALS: BMI 47.0
== END ==
LOC: BARWHC3 08:26
PROVIDERS: ATTEND Surgery
DX: E66.01 Morbid (severe) obesity due to excess calories (principal); Z71.3 Dietary counseling and surveillance; Z68.42 Body mass index [BMI] 45.0-49.9, adult
CPT/HCPCS: 97804

== ENCOUNTER → 2020-11-16 | Outpatient (CLI) | payer MEDICARE, OTHER ==
--- NOTE | 2020-11-16 14:53 | P.BASOAP ---
Subjective Progress Note Date: 11/16/20 Principal diagnosis: Morbid obesity Patient returns for reevaluation. She was last seen in September. We reviewed her surgical consent form at that time. No changes to her history and physical. Objective - Vital Signs Vital signs: Vital Signs Temp 98.4 F 11/16/20 14:45 Pulse 85 11/16/20 14:45 Resp BP 124/85 11/16/20 14:45 Pulse Ox Intake & Output 11/15/20 11/16/20 11/16/20 18:59 06:59 18:59 Weight 131.542 kg - Exam Abdomen: Soft, nontender, nondistended Assessment/Plan (1) Morbid obesity Narrative/Plan: Patient remains interested in sleeve gastrectomy. We reviewed her surgical consent form last visit. Today we reviewed the risk-benefit calculator in detail. All questions answered. Still waiting for medical clearance and writing from her primary care physician. We'll schedule for sleeve gastrectomy. The risks of bleeding, infection, stenosis, stricture, leak, abscess, fistula formation, peritonitis, poor weight loss, reflux, vomiting, conversion to an open procedure, aborting sleeve gastrectomy, IL, PE, DVT, and were discussed. The patient understands and wishes to proceed. Plan: Date: 11/16/20 Initial Weight: Initial BMI: Current Weight: 131.542 kg Current BMI: 46.7 Type of Surgery: Total Volume in Band: Previous Volume: Volume Removed: Volume Added: Band Size:
== END ==
CPT/HCPCS: 99211

== ENCOUNTER → 2020-11-30 | Outpatient (CLI) | payer MEDICARE, OTHER ==
[2020-11-30 08:03] LABS: Basophils % (A) 0 %; Eosinophils # (A) 0.2 k/uL (0-0.7); Eosinophils % (A) 2 %; HCT 42.2 % (34.0-46.0); Lymphocytes # (A) 3.8 k/uL (1.0-4.8); Lymphocytes % (A) 49 %; MCH 31.5 pg (25.0-35.0); MCHC 33.3 g/dL (31.0-37.0); MCV 94.5 fL (80.0-100.0); Mean Platelet Volume 8.5; Monocytes # (A) 0.5 k/uL (0-1.0); Monocytes % (A) 7 %; Neutrophils # (A) 3.1 k/uL (1.3-7.7); Neutrophils % (A) 40 %; Platelet Count 269 k/uL (150-450); RBC 4.46 m/uL (3.80-5.40); WBC 7.6 k/uL (3.8-10.6)
[2020-11-30 08:11] LABS: Albumin 4.4 g/dL (3.5-5.0); Calcium 9.4 mg/dL (8.4-10.2); Potassium 4.1 mmol/L (3.5-5.1); Total Bilirubin 0.4 mg/dL (0.2-1.3); Total Protein 7.3 g/dL (6.3-8.2)
== END | disposition home or self-care (01) ==
LOC: LABPAT 07:12
PROVIDERS: ATTEND Surgery
DX: Z01.818 Encounter for other preprocedural examination (principal)
CPT/HCPCS: 80053; 85025

== ENCOUNTER 2020-12-20 09:05 | Inpatient (IN) | payer MEDICARE, OTHER ==
[~2020-12-20 09:05] MED LIST changes: +DEXAMETHASONE SOD PHOSPHATE 4 MG/ML 1 ML VIAL IV ONE; +ENOXAPARIN 40 MG/0.4 ML SYRINGE SQ PRN; +HYDROmorphone 0.5 MG/0.5 ML SYRINGE IVP PRN; -LIDOCAINE 1% (10MG/ML) FOR IV START INTRADERMA PRN; +ONDANSETRON 4 MG/2 ML VIAL IVP ONE
--- NOTE | 2020-12-20 10:38 | P.GSHP ---
History of Present Illness H&P Date: 12/20/20 Chief Complaint: Morbid obesity 55-year-old female was first seen in August for evaluation of morbid obesity and possible surgical weight loss. Patient is interested in sleeve gastrectomy. She has history of hypercholesterolemia asthma hypertension and GERD chronic back pain. Denies DVT or dysphagia. Recent EGD showed mild gastritis. Denies tobacco use. BMI 42. Past Medical History Past Medical History: Asthma, Deep Vein Thrombosis (DVT), Fibromyalgia, GERD/Reflux, Hyperlipidemia, Hypertension, Musculoskeletal Disorder, Osteoarthritis (OA), Sleep Apnea/CPAP/BIPAP, Thyroid Disorder Additional Past Medical History / Comment(s): Hx DVT in each leg. IBS. Lumbar DDD, chronic back pain. Has not been using CPAP. History of Any Multi-Drug Resistant Organisms: MRSA Date of last positivie culture/infection: 2008 MDRO Source:: abd Past Surgical History: Section, Cholecystectomy, Hysterectomy, O rthopedic Surgery Additional Past Surgical History / Comment(s): Right knee arthroscopy, left elbow surgery for torn tendon, sinus surgery, PAIN CLINIC PROCEDURE, back procedures, varicose vein surgery. Past Anesthesia/Blood Transfusion Reactions: No Reported Reaction Past Psychological History: Anxiety, Depression, Panic Disorder Smoking Status: Never smoker Past Alcohol Use History: None Reported Past Drug Use History: None Reported - Past Family History Father Family Medical History: Cancer Additional Family Medical History / Comment(s): Colon Cancer. Brother(s) Family Medical History: Cancer Medications and Allergies Home Medications Medication Instructions Recorded Confirmed Type ALPRAZolam [Xanax] 1 mg PO Q8H PRN 03/20/14 12/16/20 History Dicyclomine [Bentyl] 10 mg PO Q8H PRN 04/07/17 12/16/20 History HYDROcodone/APAP 10-325MG [[place] 1 tab PO Q8H PRN 04/07/17 12/16/20 History 10-325] Omeprazole 20 mg PO BID 04/07/17 12/16/20 History rOPINIRole HCL [Requip] 0.5 mg PO HS 06/02/17 12/16/20 History Zolpidem [Ambien] 10 mg PO HS 10/31/17 12/16/20 History Citalopram Hydrobromide [CeleXA] 20 mg PO HS 09/12/18 12/16/20 History Atorvastatin [Lipitor] 20 mg PO QAM 11/21/18 12/16/20 History ARIPiprazole [Abilify] 2 mg PO QAM 04/28/19 12/16/20 History atenoloL [Tenormin] 25 mg PO HS 06/26/19 12/16/20 History Albuterol Sulfate [Ventolin HFA] 1 - 2 puff INHALATION RT-Q6H PRN 01/01/20 12/16/20 History Levothyroxine Sodium [Synthroid] 75 mcg PO QAM 01/01/20 12/16/20 History EPINEPHrine (Auto Inject) [Epipen] 0.3 mg IM ONCE PRN 04/22/20 12/16/20 History Fluticasone Nasal [place] [Flonase 2 spray EA NOSTRIL HS PRN 04/22/20 12/16/20 History Nasal [place]] Montelukast [Singulair] 10 mg PO HS 04/22/20 12/16/20 History Ergocalciferol [Vitamin D2 (1250 50,000 unit PO ANG 08/25/20 12/16/20 History Mcg = 84885 Iu)] Iron 64 mg PO BID 08/25/20 12/16/20 History Budesonide (Unknown Dose) 1 dose INHALATION BID 12/16/20 12/16/20 History valACYclovir HCL [Valtrex] 500 mg PO QAM 12/16/20 12/16/20 History Allergies Allergy/AdvReac Type Severity Reaction Status Date / Time Sulfa (Sulfonamide Allergy Severe Rash/Hives Verified 12/20/20 10:35 Antibiotics) ketorolac tromethamine Allergy Tardive Verified 12/20/20 10:35 [From Toradol] Dyskinesia prochlorperazine maleate Allergy Tardive Verified 12/20/20 10:35 [From Compazine] Dyskinesia prochlorperazine edisylate AdvReac Severe Tardive Verified 12/20/20 10:35 [From Compazine] dyskinesia Surgical - Exam Vital Signs Temp Pulse Resp BP Pulse Ox 97.3 F L 90 18 109/72 94 L 12/20/20 10:34 12/20/20 10:34 12/20/20 10:34 12/20/20 10:34 12/20/20 10:34 Physical exam: General: Well-developed, well-nourished HEENT: Normocephalic, sclerae nonicteric Abdomen: Nontender, nondistended Extremities: No edema Neuro: Alert and oriented Assessment and Plan (1) Morbid obesity Narrative/Plan: 55-year-old female with morbid obesity. Patient remains interested in sleeve gastrectomy. We'll proceed with laparoscopic, possible open sleeve gastrectomy at this time. The risks of bleeding, infection, stenosis, stricture, leak, abscess, fistula formation, peritonitis, poor weight loss, reflux, vomiting, conversion to an open procedure, aborting sleeve gastrectomy, HI, PE, DVT, and were discussed. The patient understands and wishes to proceed. Current Visit: No Status: Acute Code(s): E66.01 - MORBID (SEVERE) OBESITY DUE TO EXCESS CALORIES SNOMED Code(s): 648791649
[2020-12-20] MEDS ORDERED: LIDOCAINE 1% (10MG/ML) FOR IV START INTRADERMA ONE (10:52)
[2020-12-20] MEDS: LACTATED RINGERS 1,000 ML IV SCH (10:52)
[2020-12-20] MEDS ORDERED: MIDAZOLAM 2 MG/2 ML VIAL IV ONE (10:55)
[2020-12-20] MEDS ORDERED: ePHEDrine SULFATE/0.9% NACL/PF 50 MG/5 ML SYRINGE IV ONE (12:02)
[2020-12-20] MEDS ORDERED: LIDOCAINE 1% INJ 10MG/ML (20 ML MDV) ONE (12:02)
[2020-12-20] MEDS ORDERED: ATROPINE SULFATE 0.4 MG/ML 1 ML VIAL ONE (12:02)
[2020-12-20] MEDS ORDERED: ROCURONIUM 10 MG/ML (5 ML VIAL) IV ONE (12:02)
[2020-12-20] MEDS ORDERED: MIDAZOLAM 2 MG/2 ML VIAL ONE (12:02)
[2020-12-20] MEDS ORDERED: GLYCOPYRROLATE 0.2 MG/ML 2 ML VIAL ONE (12:02)
[2020-12-20] MEDS ORDERED: PHENYLEPHRINE-0.9% NACL SYG 1,000 MCG/10 ML SYRINGE ONE (12:02)
[2020-12-20] MEDS ORDERED: fentaNYL (PF) 50 MCG/ML 2 ML AMP ONE ×2 (12:02)
[2020-12-20] MEDS ORDERED: NEOSTIGMINE 1 MG/ML 10 ML VIAL ONE (12:02)
[2020-12-20] MEDS ORDERED: KETAMINE 10 MG/ML 20 ML VIAL ONE (12:02)
[2020-12-20] MEDS ORDERED: PROPOFOL 10 MG/ML 20 ML VIAL IV ONE (12:02)
[2020-12-20] MEDS ORDERED: METHYLENE BLUE 10 MG/ML (10 ML VIAL) ONE (12:02)
[2020-12-20] MEDS ORDERED: BUPIVACAINE (PF) 0.5% 30 ML VIAL SQ ONE (12:47)
[2020-12-20] MEDS ORDERED: LACTATED RINGERS 1,000 ML IV ONE ×2 (13:30→14:04)
[2020-12-20] MEDS ORDERED: NALOXONE 0.4 MG/ML 1 ML VIAL IV PRN (14:09)
[2020-12-20] MEDS ORDERED: diphenhydrAMINE 50 MG/ML 1 ML VIAL IVP PRN (14:09)
[2020-12-20] MEDS ORDERED: HYOSCYAMINE ORAL DROPS 1.875 MG/15 ML BOTTLE PO PRN (14:09)
--- NOTE | 2020-12-20 14:14 | P.OP ---
Date of Procedure: 12/20/20 Procedure(s) Performed: PREOPERATIVE DIAGNOSIS: Morbid obesity, hypertension, GERD, asthma, hypercholesterolemia, chronic back pain POSTOPERATIVE DIAGNOSIS: Same PROCEDURE: Laparoscopic sleeve gastrectomy SURGEON: Kenzie EBL: Minimal ANESTHESIA: General COMPLICATIONS: None OPERATIVE PROCEDURE: Patient was placed in the operating table in the supine position. She was placed under general anesthesia at that time. The abdomen was prepped and draped in sterile fashion after the patient was placed in litho laurie. A 5 mm optical trocar was used to enter the abdominal cavity in the left upper quadrant. Insufflation took place to 15 millimeters mercury. An additional right subxiphoid 5 mm trocar was then placed under direct visualization and then removed. 2 additional 5 mm trochars were placed in the right upper quadrant and left upper quadrant under direct visualization and a 15 mm trocar in the supraumbilical location. The liver was retracted using a medium Valorie liver retractor through the right subxiphoid trocar site. The hiatus was inspected. The patient had no visible hiatal hernia At that point I moved to the mid aspect of the greater curvature the stomach. The short gastric vasculature was divided using a LigaSure device proximally. I then switched and divided the short gastrics distally to a 3-4 cm from the pylorus. The dissection took place up to the left diaphragmatic crura at that point. The posterior short gastrics were likewise divided using the LigaSure device. Once the stomach was fully mobilized the blunt tipped 40-Burkinan bougie dilator was advanced into the stomach and advanced all the way to the prepyloric location. A black echelon 60 stapler with echelon Endopath staple line reinforcement was utilized and fired tangentially across the antrum taking care to avoid narrowing at the incisura angularis. Subsequent firings of the stapler took place. A total of 6 green echelon 60 staplers with echelon Endopath staple line reinforcement took place proximally staying on the outer edge of our dilator. Once we reached the most proximal portion of the stomach a single firing of the gold echelon [address] The oral gastric tube was reinserted. The stomach was insufflated with approximately 100 mL of methylene blue. No evidence of leak or obstruction was seen. During the course of the procedure there were a few small areas of bleeding along the staple line that were clipped using the 12 mm clipper. Tisseel fibrin glue was used along the length of the staple line. The stomach remnant was removed from the 15 mm trocar site without difficulty. The fascia at the 15 more site was closed using interrupted 0 Vicryl sutures with the laparoscopic suture passer and Melecio Marycruz technique. The insufflation was evacuated. The skin at all 5 incisions were closed using 4-0 Monocryl sutures. Skin glue was then applied. DISPOSITION: Stable to recovery room
[2020-12-20] MEDS: ONDANSETRON 4 MG/2 ML VIAL IVP PRN ×2 (14:51→21:21)
[2020-12-20] MEDS: ACETAMINOPHEN IV (For NPO) 1,000 MG in EMPTY BAG 1 BAG IVPB ONE ×2 (15:34→15:44)
[2020-12-20] MEDS: 0.9% NACL WITH KCL 20 MEQ/L 1,000 ML IV SCH ×2 (15:56→23:23)
[2020-12-20] MEDS: ALBUTEROL NEBULIZED 2.5 MG/3 ML INHALATION SCH ×2 (16:08→20:46)
[2020-12-20] MEDS: SIMETHICONE 40 MG/0.6 ML DROPS 2,000 MG/30 ML BOTTLE PO PRN ×2 (16:23→22:38)
[2020-12-20] MEDS: HYDROmorphone 1 MG/ML 1 ML SYRINGE IVP PRN ×3 (16:27→23:33)
[2020-12-20] MEDS ORDERED: ALBUTEROL HFA INHALER INHALATION PRN (17:45)
[2020-12-20] MEDS ORDERED: hydrALAZINE HCL 20 MG/ML 1 ML VIAL IVP PRN (17:48)
--- NOTE | 2020-12-20 19:03 | P.CONS ---
History of Present Illness - Reason for Consult Consult date: 12/20/20 - History of Present Illness Kim Jordan is a 55-year-old female with known history of morbid obesity who was admitted to [facility] by Dr. Espino and underwent laparoscopic sleeve gastrectomy today. Medical consultation was requested for management while hospitalized. Patient has a known history of asthma, hypertension, osteoarthritis, degenerative disc disease with chronic back pain, depression with anxiety disorder, and known history of morbid obesity. On review of systems Patient was seen and examined on the medical floor, she is alert and oriented x 3 in no distress, she denies any complaints there is no fever or chills no headache or dizziness no chest pain no shortness of breath no palpitation no cough no nausea or vomiting no abdominal pain no diarrhea no blood in the stools no burning with urination no frequency or urgency and no hematuria, there is no weakness or numbness in any of the extremities no change in vision speech or gait. Past Medical History Past Medical History: Asthma, Deep Vein Thrombosis (DVT), Fibromyalgia, GERD/Reflux, Hyperlipidemia, Hypertension, Musculoskeletal Disorder, Osteoarthritis (OA), Sleep Apnea/CPAP/BIPAP, Thyroid Disorder Additional Past Medical History / Comment(s): Hx DVT in each leg. IBS. Lumbar DDD, chronic back pain. Has not been using CPAP. History of Any Multi-Drug Resistant Organisms: MRSA Year Discovered:: 2008 MDRO Source:: abd Past Surgical History: Section, Cholecystectomy, Hysterectomy, Orthopedic Surgery Additional Past Surgical History / Comment(s): Right knee arthroscopy, left elbow surgery for torn tendon, sinus surgery, PAIN CLINIC PROCEDURE, back procedures, varicose vein surgery. Past Anesthesia/Blood Transfusion Reactions: No Reported Reaction Smoking Status: Never smoker - Past Family History Father Family Medical History: Cancer Additional Family Medical History / Comment(s): Colon Cancer. Brother(s) Family Medical History: Cancer Medications and Allergies Home Medications Medication Instructions Recorded Confirmed Type ALPRAZolam [Xanax] 1 mg PO Q8H PRN 03/20/14 12/20/20 History Dicyclomine [Bentyl] 10 mg PO Q8H PRN 04/07/17 12/20/20 History HYDROcodone/APAP 10-325MG [[place] 1 tab PO Q8H PRN 04/07/17 12/20/20 History 10-325] Omeprazole 20 mg PO BID 04/07/17 12/20/20 History rOPINIRole HCL [Requip] 0.5 mg PO HS 06/02/17 12/20/20 History Zolpidem [Ambien] 10 mg PO HS 10/31/17 12/20/20 History Citalopram Hydrobromide [CeleXA] 20 mg PO HS 09/12/18 12/20/20 History Atorvastatin [Lipitor] 20 mg PO QAM 11/21/18 12/20/20 History ARIPiprazole [Abilify] 2 mg PO QAM 04/28/19 12/20/20 History atenoloL [Tenormin] 25 mg PO HS 06/26/19 12/20/20 History Albuterol Sulfate [Ventolin HFA] 1 - 2 puff INHALATION RT-Q6H PRN 01/01/20 12/20/20 History Levothyroxine Sodium [Synthroid] 75 mcg PO QAM 01/01/20 12/20/20 History EPINEPHrine (Auto Inject) [Epipen] 0.3 mg IM ONCE PRN 04/22/20 12/20/20 History Fluticasone Nasal [place] [Flonase 2 spray EA NOSTRIL HS PRN 04/22/20 12/20/20 History Nasal [place]] Montelukast [Singulair] 10 mg PO HS 04/22/20 12/20/20 History Ergocalciferol [Vitamin D2 (1250 50,000 unit PO ANG 08/25/20 12/20/20 History Mcg = [id number] Iu)] Iron 64 mg PO BID 08/25/20 12/20/20 History Budesonide (Unknown Dose) 1 dose INHALATION BID 12/16/20 12/20/20 History valACYclovir HCL [Valtrex] 500 mg PO QAM 12/16/20 12/20/20 History Allergies Allergy/AdvReac Type Severity Reaction Status Date / Time Sulfa (Sulfonamide Allergy Severe Rash/Hives Verified 12/20/20 10:35 Antibiotics) ketorolac tromethamine Allergy Tardive Verified 12/20/20 10:35 [From Toradol] Dyskinesia prochlorperazine maleate Allergy Tardive Verified 12/20/20 10:35 [From Compazine] Dyskinesia prochlorperazine edisylate AdvReac Severe Tardive Verified 12/20/20 10:35 [From Compazine] dyskinesia Physical Exam Vitals: Vital Signs Temp Pulse Pulse Pulse Resp BP Pulse Ox 12/20/20 16:22 82 12/20/20 16:09 80 12/20/20 15:09 54 L 16 126/71 96 12/20/20 14:54 53 L 16 127/72 98 12/20/20 14:39 55 L 16 121/62 93 L 12/20/20 14:24 58 L 16 112/55 96 12/20/20 14:09 97.6 F 62 16 114/55 94 L 12/20/20 11:06 83 16 118/75 98 12/20/20 10:34 97.3 F L 90 18 109/72 94 L Intake and Output 12/20/20 12/20/20 12/20/20 06:59 14:59 22:59 Intake Total 2049 600 Output Total 10 Balance 2039 600 Intake: IV 2049 600 Output: Estimated Blood Loss 10 Other: Weight 120.1 kg 120.1 kg In general patient is alert and oriented x 3 in no distress HEENT head normocephalic and atraumatic Neck is supple no JVD no goiter no lymphadenopathy no carotid bruit Chest examination is clear to auscultation no crackles no wheezing Cardiac exam reveals regular heart sounds S1 and S2 no gallops no murmurs Abdomen is soft nontender no organomegaly with normal bowel sounds Extremity exam reveals no edema no cyanosis or clubbing Neurological examination reveals no gross focal deficits Assessment and Plan Plan: Status post laparoscopic sleeve gastrectomy Underlying history of asthma stable at this time no evidence of exacerbation Underlying history of hypertension Underlying history of hyperlipidemia Underlying history of degenerative disc disease with chronic back pain Underlying history of depression with anxiety disorder At this time patient is admitted to medical floor she was seen and examined Home medications are on hold patient is nothing by mouth at this time Will give IV medication for pain, anxiety, and hypertension Will follow during this admission
[2020-12-20] MEDS: ENOXAPARIN 40 MG/0.4 ML SYRINGE SQ SCH (23:23)
[2020-12-21] MEDS: LACTATED RINGERS 1,000 ML IV SCH ×2 (01:24→16:48)
[2020-12-21] MEDS: 0.9% NACL WITH KCL 20 MEQ/L 1,000 ML IV SCH (01:26)
[2020-12-21] MEDS: HYDROmorphone 1 MG/ML 1 ML SYRINGE IVP PRN ×6 (02:45→20:04)
[2020-12-21] MEDS: ONDANSETRON 4 MG/2 ML VIAL IVP PRN (06:01)
[2020-12-21] MEDS: ALBUTEROL NEBULIZED 2.5 MG/3 ML INHALATION SCH ×4 (07:36→19:38)
[2020-12-21] MEDS: PANTOPRAZOLE 40 MG/10 ML VIAL IV SCH (08:57)
[2020-12-21] MEDS: 1: MVI, ADULT NO.4 WITH VIT K 10 ML, THIAMINE 100 MG, FOLIC ACID 1 MG, POTASSIUM CHLORID IV SCH ×12 (09:05→20:06)
[2020-12-21 09:12] LABS: Basophils # (A) 0.01 X 10*3/uL (0.00-0.10); Basophils % (A) 0.1 %; Eosinophils # (A) 0 X 10*3/uL (0.04-0.35); Eosinophils % (A) 0 %; HGB 12.2 g/dL (12.0-15.0); Lymphocytes % (A) 26.7 %; MCH 30.7 pg (27.0-32.0); MCHC 31.3 g/dL (32.0-37.0); MCV 98.2 fL (80.0-97.0); Mean Platelet Volume 12.1 fL (9.5-12.2); Monocytes # (A) 0.85 X 10*3/uL (0.20-1.00); Monocytes % (A) 9.1 %; Neutrophils # (A) 5.98 X 10*3/uL (1.80-7.70); Neutrophils % (A) 63.9 %; Platelet Count 196 X 10*3/uL (140-440); RBC 3.97 X 10*6/uL (4.10-5.20); RDW 13.8 % (11.5-14.5); WBC 9.36 X 10*3/uL (4.50-10.00)
[2020-12-21 09:45] LABS: African American GFR (CKD) 113.8 (60.0-200.0); Anion Gap 7.9 mmol/L (4.00-12.00); Calcium 7.9 mg/dL (8.7-10.3); Carbon Dioxide 20.1 mmol/L (21.6-31.8); Magnesium 1.7 mg/dL (1.5-2.4); Non-African American GFR(CKD) 98.2 (60.0-200.0); Phosphorus 2.9 mg/dL (2.4-5.1); Potassium 5.4 mmol/L (3.5-5.5)
[2020-12-21] MEDS ORDERED: MAGNESIUM SULFATE-D5W PMX 1 GM in DEXTROSE/WATER 1 100ML.BAG IVPB ONE (11:00)
--- NOTE | 2020-12-21 11:40 | FL ---
EXAMINATION TYPE: FL UGI DATE OF EXAM: 12/21/2020 COMPARISON: NONE HISTORY: Status post gastric sleeve TECHNIQUE: A limited upper GI with attention directed to the gastroesophageal junction FINDINGS: Patient is post gastric sleeve. There is no evident obstruction to flow. No evident leak. 1.18 minutes fluoroscopy, 7 images obtained documenting the procedure IMPRESSION: No evident complication status post gastric sleeve.
[2020-12-21 11:46] VITALS: BMI 42.7
[2020-12-21] MEDS ORDERED: ACETAMINOPHEN IV (For NPO) 1,000 MG in EMPTY BAG 1 BAG IVPB SCH (12:00)
[2020-12-21] MEDS: ENOXAPARIN 40 MG/0.4 ML SYRINGE SQ SCH ×2 (12:02→23:27)
[2020-12-21] MEDS: METOCLOPRAMIDE 5 MG/ML 2 ML VIAL IVP SCH ×3 (12:02→23:27)
[2020-12-21] MEDS: LORazepam 2 MG/ML INJ IV PRN (12:09)
[2020-12-21] MEDS: SIMETHICONE 40 MG/0.6 ML DROPS 2,000 MG/30 ML BOTTLE PO PRN ×2 (12:12→17:16)
--- NOTE | 2020-12-21 12:25 | P.PN ---
<Shiela Jauregui - Last Filed: 12/21/20 12:16> Subjective Progress Note Date: 12/21/20 CHIEF COMPLAINT: Morbid obesity HISTORY OF PRESENT ILLNESS: Patient is postop day #1 status post laparoscopic sleeve gastrectomy. Patient is complaining of pain and nausea. She reports that the Zofran is not helping with the nausea. Upper GI shows no evident complications status post gastric sleeve. No evidence of obstruction or leak noted. She'll be started on a bariatric clear liquid diet. She denies any flatus or BM. She did have issues with urinary retention and Armstrong catheter had to be reinserted. Afebrile. WBC 9.36 hemoglobin 12.2 sodium 138 potassium is 5.4 creatinine 0.7 magnesium 1.7 PHYSICAL EXAM: VITAL SIGNS: Reviewed. GENERAL: Well-developed in no acute distress. HEENT: No sclera icterus. Extraocular movements grossly intact. Moist buccal mucosa. Head is atraumatic, normocephalic. ABDOMEN: Soft. Nondistended. Incision sites clean dry and intact. Abdominal binder in place. NEUROLOGIC: Alert and oriented. Cranial nerves II through XII grossly intact. ASSESSMENT: 1. Morbid obesity status post laparoscopic sleeve gastrectomy 2. Hypertension 3. GERD 4. Asthma 5. Hypercholesterolemia 6. Chronic back pain 7. Mild hypomagnesemia PLAN: -Start patient on bariatric clear liquid diet -Add Reglan for nausea -Replace magnesium -Continue IV fluids -IV Tylenol added earlier today for pain -Encourage patient to ambulate -Encourage patient to use incentive spirometer -Continue Lovenox for DVT prophylaxis and Protonix for GI prophylaxis Physician Field Service Manager note has been reviewed by physician. Signing provider agrees with the documented findings, assessment, and plan of care. Objective - Vital Signs Vital signs: Vital Signs Temp 98.9 F 12/21/20 07:09 Pulse 77 12/21/20 09:00 Resp 16 12/21/20 09:00 BP 116/75 12/21/20 07:09 Pulse Ox 95 12/21/20 11:08 Intake & Output 12/20/20 12/21/20 12/21/20 18:59 06:59 18:59 Intake Total 2650 1200 Output Total 10 1475 Balance 2640 -275 Weight 120.1 kg 120.1 kg Intake: IV 2650 Intake, IV Titration 1200 Amount 0.9% NaCl with KCl 20 Meq 1200 /l 1,000 ml @ 100 mls/hr IV .BY DURATION [facility] Rx#: [id number] Output: Urine 1475 Estimated Blood Loss 10 Other: Voiding Method Indwelling Catheter Indwelling Catheter - Labs CBC & Chem 7: 12/21/20 06:29 12/21/20 06:29 Labs: Abnormal Lab Results - Last 24 Hours (Table) 12/21/20 12/21/20 Range/Units 06:29 06:29 RBC 3.97 L (4.10-5.20) X 10*6/uL MCV 98.2 H (80.0-97.0) fL MCHC 31.3 L (32.0-37.0) g/dL Eosinophils # 0 L (0.04-0.35) X 10*3/uL Chloride 110 H (96-109) mmol/L Carbon Dioxide 20.1 L (21.6-31.8) mmol/L Calcium 7.9 L (8.7-10.3) mg/dL <Miguel Espino - Last Filed: 12/21/20 15:03> Subjective As above. Patient doing well today. Upper GI shows no evidence of leak or obstruction. Tolerating liquids so far. Objective - Vital Signs Vital signs: Vital Signs Temp 98.9 F 12/21/20 07:09 Pulse 105 H 12/21/20 14:00 Resp 20 12/21/20 14:00 BP 132/77 12/21/20 14:00 Pulse Ox 91 L 12/21/20 14:00 Intake & Output 12/20/20 12/21/20 12/21/20 18:59 06:59 18:59 Intake Total 2650 1200 Output Total 10 1475 700 Balance 2640 -275 -700 Weight 120.1 kg 120.1 kg Intake: IV 2650 Intake, IV Titration 1200 Amount 0.9% NaCl with KCl 20 Meq 1200 /l 1,000 ml @ 100 mls/hr IV .BY DURATION [facility] Rx#: [id number] Output: Urine 1475 700 Uretheral (Armstrong) 700 Estimated Blood Loss 10 Other: Voiding Method Indwelling Catheter Indwelling Catheter - Labs CBC & Chem 7: 12/21/20 06:29 12/21/20 06:29 Labs: Abnormal Lab Results - Last 24 Hours (Table) 12/21/20 12/21/20 Range/Units 06:29 06:29 RBC 3.97 L (4.10-5.20) X 10*6/uL MCV 98.2 H (80.0-97.0) fL MCHC 31.3 L (32.0-37.0) g/dL Eosinophils # 0 L (0.04-0.35) X 10*3/uL Chloride 110 H (96-109) mmol/L Carbon Dioxide 20.1 L (21.6-31.8) mmol/L Calcium 7.9 L (8.7-10.3) mg/dL Assessment and Plan (1) Morbid obesity Current Visit: No Status: Acute Code(s): E66.01 - MORBID (SEVERE) OBESITY DUE TO EXCESS CALORIES SNOMED Code(s): 096475037
[2020-12-21] MEDS: HYDROcodone/APAP 10-325MG 1 EACH TAB PO PRN ×2 (17:16→23:26)
[2020-12-22] MEDS: SIMETHICONE 40 MG/0.6 ML DROPS 2,000 MG/30 ML BOTTLE PO PRN (01:46)
[2020-12-22] MEDS: LORazepam 2 MG/ML INJ IV PRN ×2 (02:08→14:41)
[2020-12-22] MEDS: HYDROmorphone 1 MG/ML 1 ML SYRINGE IVP PRN ×6 (02:53→21:18)
[2020-12-22] MEDS: ONDANSETRON 4 MG/2 ML VIAL IVP PRN ×4 (03:00→19:43)
[2020-12-22] MEDS: 1: MVI, ADULT NO.4 WITH VIT K 10 ML, THIAMINE 100 MG, FOLIC ACID 1 MG, POTASSIUM CHLORID IV SCH ×12 (05:12→14:31)
[2020-12-22] MEDS: METOCLOPRAMIDE 5 MG/ML 2 ML VIAL IVP SCH ×4 (05:13→23:56)
[2020-12-22] MEDS: PANTOPRAZOLE 40 MG/10 ML VIAL IV SCH (07:55)
[2020-12-22] MEDS ORDERED: bisacodyL 5 MG TABLET.DR PO PRN (08:00)
[2020-12-22] MEDS: ALBUTEROL NEBULIZED 2.5 MG/3 ML INHALATION SCH ×4 (08:49→19:45)
[2020-12-22 09:46] LABS: Basophils # (A) 0.02 X 10*3/uL (0.00-0.10); Basophils % (A) 0.2 %; Eosinophils # (A) 0.07 X 10*3/uL (0.04-0.35); Eosinophils % (A) 0.8 %; HCT 37.3 % (37.2-46.3); HGB 11.9 g/dL (12.0-15.0); Lymphocytes # (A) 3.34 X 10*3/uL (0.90-5.00); MCH 31.4 pg (27.0-32.0); MCHC 31.9 g/dL (32.0-37.0); MCV 98.4 fL (80.0-97.0); Mean Platelet Volume 12.2 fL (9.5-12.2); Monocytes # (A) 1.02 X 10*3/uL (0.20-1.00); Monocytes % (A) 12.2 %; Neutrophils # (A) 3.88 X 10*3/uL (1.80-7.70); Neutrophils % (A) 46.4 %; Platelet Count 231 X 10*3/uL (140-440); RBC 3.79 X 10*6/uL (4.10-5.20); RDW 14.1 % (11.5-14.5); WBC 8.36 X 10*3/uL (4.50-10.00)
[2020-12-22] MEDS: SIMETHICONE 40 MG/0.6 ML DROPS 2,000 MG/30 ML BOTTLE PO SCH ×3 (11:07→23:57)
--- NOTE | 2020-12-22 11:24 | P.PN ---
Subjective Progress Note Date: 12/21/20 Kim Jordan is a 55-year-old female with known history of morbid obesity who was admitted to [facility] by Dr. Espino and underwent laparoscopic sleeve gastrectomy today. Medical consultation was requested for management while hospitalized. Patient has a known history of asthma, hypertension, osteoarthritis, degenerative disc disease with chronic back pain, depression with anxiety disorder, and known history of morbid obesity. On review of systems Patient was seen and examined on the medical floor, she is alert and oriented x 3 in no distress, she denies any complaints there is no fever or chills no headache or dizziness no chest pain no shortness of breath no palpitation no cough no nausea or vomiting no abdominal pain no diarrhea no blood in the stools no burning with urination no frequency or urgency and no hematuria, there is no weakness or numbness in any of the extremities no change in vision speech or gait. On 12/21/2020 patient is alert and oriented 3 currently postop day 1. Patient is currently nothing by mouth. At this time patient denies chest pain or shor tness breath. Patient denies nausea vomiting or diarrhea. Patient denies any urinary burning or frequency. Objective - Vital Signs Vital signs: Vital Signs Temp 98.9 F 12/21/20 07:09 Pulse 105 H 12/21/20 14:00 Resp 20 12/21/20 14:00 BP 132/77 12/21/20 14:00 Pulse Ox 91 L 12/21/20 14:00 Intake & Output 12/20/20 12/21/20 12/21/20 18:59 06:59 18:59 Intake Total 2650 1200 Output Total 10 1475 700 Balance 2640 -275 -700 Weight 120.1 kg 120.1 kg Intake: IV 2650 Intake, IV Titration 1200 Amount 0.9% NaCl with KCl 20 Meq 1200 /l 1,000 ml @ 100 mls/hr IV .BY DURATION [facility] Rx#: [id number] Output: Urine 1475 700 Uretheral (Armstrong) 700 Estimated Blood Loss 10 Other: Voiding Method Indwelling Catheter Indwelling Catheter - Exam In general patient is alert and oriented x 3 in no distress HEENT head normocephalic and atraumatic Neck is supple no JVD no goiter no lymphadenopathy no carotid bruit Chest examination is clear to auscultation no crackles no wheezing Cardiac exam reveals regular heart sounds S1 and S2 no gallops no murmurs Abdomen is soft nontender no organomegaly with normal bowel sounds Extremity exam reveals no edema no cyanosis or clubbing Neurological examination reveals no gross focal deficits - Labs CBC & Chem 7: 12/22/20 06:23 12/21/20 06:29 Labs: Abnormal Lab Results - Last 24 Hours (Table) 12/21/20 12/21/20 Range/Units 06:29 06:29 RBC 3.97 L (4.10-5.20) X 10*6/uL MCV 98.2 H (80.0-97.0) fL MCHC 31.3 L (32.0-37.0) g/dL Eosinophils # 0 L (0.04-0.35) X 10*3/uL Chloride 110 H (96-109) mmol/L Carbon Dioxide 20.1 L (21.6-31.8) mmol/L Calcium 7.9 L (8.7-10.3) mg/dL Assessment and Plan Plan: Status post laparoscopic sleeve gastrectomy Underlying history of asthma stable at this time no evidence of exacerbation Underlying history of hypertension Underlying history of hyperlipidemia Underlying history of degenerative disc disease with chronic back pain Underlying history of depression with anxiety disorder At this time patient is admitted to medical floor she was seen and examined Home medications are on hold patient is nothing by mouth at this time Will give IV medication for pain, anxiety, and hypertension Will follow during this admission
--- NOTE | 2020-12-22 11:26 | P.PN ---
Subjective Progress Note Date: 12/22/20 Kim Jordan is a 55-year-old female with known history of morbid obesity who was admitted to [facility] by Dr. Espino and underwent laparoscopic sleeve gastrectomy today. Medical consultation was requested for management while hospitalized. Patient has a known history of asthma, hypertension, osteoarthritis, degenerative disc disease with chronic back pain, depression with anxiety disorder, and known history of morbid obesity. On review of systems Patient was seen and examined on the medical floor, she is alert and oriented x 3 in no distress, she denies any complaints there is no fever or chills no headache or dizziness no chest pain no shortness of breath no palpitation no cough no nausea or vomiting no abdominal pain no diarrhea no blood in the stools no burning with urination no frequency or urgency and no hematuria, there is no weakness or numbness in any of the extremities no change in vision speech or gait. On 12/21/2020 patient is alert and oriented 3 currently postop day 1. Patient is currently nothing by mouth. At this time patient denies chest pain or shor tness breath. Patient denies nausea vomiting or diarrhea. Patient denies any urinary burning or frequency. On 12/22/2020 patient is alert and oriented 3. Currently postop day 2. Patient currently maintained on bariatric clear liquid diet. Patient reports some nausea throughout the night. Patient denies chest pain or shortness breath. Patient denies any urinary burning or frequency hearing patient reports mild discomfort with abdominal site Objective - Vital Signs Vital signs: Vital Signs Temp 98.5 F 12/22/20 08:00 Pulse 77 12/22/20 08:00 Resp 18 12/22/20 08:00 BP 124/80 12/22/20 08:00 Pulse Ox 95 12/22/20 08:00 Intake & Output 12/21/20 12/22/20 12/22/20 18:59 06:59 18:59 Intake Total 1400 1021.2 Output Total 700 Balance 700 1021.2 Weight 120.1 kg Intake: Intake, IV Titration 1400 1021.2 Amount 0.9% NaCl with KCl 20 Meq 1200 /l 1,000 ml @ 100 mls/hr IV .BY DURATION [facility] Rx#: [id number] ACETAMINOPHEN IV (For NPO 100 ) 1,000 mg In Empty Bag 1 bag @ 400 mls/hr IVPB Q6HR [facility] Rx#:[id number] Magnesium Sulfate-D5w Pmx 100 1 gm In Dextrose/Water 1 100ml.bag @ 100 mls/hr IVPB ONCE ONE Rx#: [id number] Mvi, Adult No.4 with Vit 1021.2 K 10 ml Thiamine 100 mg Folic Acid 1 mg Potassium Chloride 20 meq In Sodium Chloride 0.9% 1, 000 ml @ 100 mls/hr IV . BY DURATION [facility] Rx#: [id number] Output: Urine 700 Uretheral (Armstrong) 700 Other: Voiding Method Indwelling Catheter Toilet # Voids 3 - Exam In general patient is alert and oriented x 3 in no distress HEENT head normocephalic and atraumatic Neck is supple no JVD no goiter no lymphadenopathy no carotid bruit Chest examination is clear to auscultation no crackles no wheezing Cardiac exam reveals regular heart sounds S1 and S2 no gallops no murmurs Abdomen is soft nontender no organomegaly with normal bowel sounds Extremity exam reveals no edema no cyanosis or clubbing Neurological examination reveals no gross focal deficits - Labs CBC & Chem 7: 12/22/20 06:23 07 06:29 Labs: Abnormal Lab Results - Last 24 Hours (Table) 12/22/20 Range/Units 06:23 RBC 3.79 L (4.10-5.20) X 10*6/uL Hgb 11.9 L (12.0-15.0) g/dL MCV 98.4 H (80.0-97.0) fL MCHC 31.9 L (32.0-37.0) g/dL Monocytes # 1.02 H (0.20-1.00) X 10*3/uL Assessment and Plan Plan: Status post laparoscopic sleeve gastrectomy Underlying history of asthma stable at this time no evidence of exacerbation Underlying history of hypertension Underlying history of hyperlipidemia Underlying history of degenerative disc disease with chronic back pain Underlying history of depression with anxiety disorder At this time patient is admitted to medical floor she was seen and examined Home medications are on hold patient is nothing by mouth at this time Will give IV medication for pain, anxiety, and hypertension Will follow during this admission
--- NOTE | 2020-12-22 11:36 | P.PN ---
<Shiela Jauregui - Last Filed: 12/22/20 11:31> Subjective Progress Note Date: 12/22/20 CHIEF COMPLAINT: Morbid obesity HISTORY OF PRESENT ILLNESS: Patient is postop day #2 status post laparoscopic sleeve gastrectomy. Patient is still complaining of pain and nausea. Patient is nauseated and at times has some reflux after taking and her clears. She describes it as a phlegm-like substance. She's only drinking a few ounces of her bariatric clear liquids. Patient reports that she has been ambulating. Still no flatus. Denies any bowel movement. Armstrong cath removed. Patient reports urinating without difficulty. Afebrile. WBC 8.36 hemoglobin 11.9 platelets 231 CMP and magnesium pending PHYSICAL EXAM: VITAL SIGNS: Reviewed. GENERAL: Well-developed in no acute distress. HEENT: No sclera icterus. Extraocular movements grossly intact. Moist buccal mucosa. Head is atraumatic, normocephalic. ABDOMEN: Soft. Nondistended. Incision sites clean dry and intact. Abdominal binder in place. NEUROLOGIC: Alert and oriented. Cranial nerves II through XII grossly intact. ASSESSMENT: 1. Morbid obesity status post laparoscopic sleeve gastrectomy 2. Hypertension 3. GERD 4. Asthma 5. Hypercholesterolemia 6. Chronic back pain 7. Mild hypomagnesemia PLAN: -Continue bariatric clear liquid diet -Encourage patient to increase her oral intake -Continue antiemetics -Change simethicone drops to scheduled -Continue IV fluids -Encourage patient to ambulate -Encourage patient to use incentive spirometer -Continue Lovenox for DVT prophylaxis and Protonix for GI prophylaxis Physician Grinder Machine Knife Setter note has been reviewed by physician. Signing provider agrees with the documented findings, assessment, and plan of care. Objective - Vital Signs Vital signs: Vital Signs Temp 98.5 F 12/22/20 08:00 Pulse 77 12/22/20 08:00 Resp 18 12/22/20 08:00 BP 124/80 12/22/20 08:00 Pulse Ox 95 12/22/20 08:00 Intake & Output 12/21/20 12/22/20 12/22/20 18:59 06:59 18:59 Intake Total 1400 1021.2 Output Total 700 Balance 700 1021.2 Weight 120.1 kg Intake: Intake, IV Titration 1400 1021.2 Amount 0.9% NaCl with KCl 20 Meq 1200 /l 1,000 ml @ 100 mls/hr IV .BY DURATION [facility] Rx#: [id number] ACETAMINOPHEN IV (For NPO 100 ) 1,000 mg In Empty Bag 1 bag @ 400 mls/hr IVPB Q6HR [facility] Rx#:[id number] Magnesium Sulfate-D5w Pmx 100 1 gm In Dextrose/Water 1 100ml.bag @ 100 mls/hr IVPB ONCE ONE Rx#: [id number] Mvi, Adult No.4 with Vit 1021.2 K 10 ml Thiamine 100 mg Folic Acid 1 mg Potassium Chloride 20 meq In Sodium Chloride 0.9% 1, 000 ml @ 100 mls/hr IV . BY DURATION [facility] Rx#: [id number] Output: Urine 700 Uretheral (Armstrong) 700 Other: Voiding Method Indwelling Catheter Toilet # Voids 3 - Labs CBC & Chem 7: 12/22/20 06:23 12/21/20 06:29 Labs: Abnormal Lab Results - Last 24 Hours (Table) 12/22/20 Range/Units 06:23 RBC 3.79 L (4.10-5.20) X 10*6/uL Hgb 11.9 L (12.0-15.0) g/dL MCV 98.4 H (80.0-97.0) fL MCHC 31.9 L (32.0-37.0) g/dL Monocytes # 1.02 H (0.20-1.00) X 10*3/uL <Miguel Espino - Last Filed: 12/22/20 12:42> Subjective As above. Patient not taking in much liquids. Still having mild discomfort and mild nausea when she is drinking. She has had about 6 ounces so far today. Continue IV hydration. Ambulate. Hopefully discharge tomorrow if improved oral intake. Objective - Vital Signs Vital signs: Vital Signs Temp 98.5 F 12/22/20 08:00 Pulse 77 12/22/20 08:00 Resp 18 12/22/20 08:00 BP 124/80 12/22/20 08:00 Pulse Ox 95 12/22/20 08:00 Intake & Output 12/21/20 12/22/20 12/22/20 18:59 06:59 18:59 Intake Total 1400 1021.2 Output Total 700 Balance 700 1021.2 Weight 120.1 kg Intake: Intake, IV Titration 1400 1021.2 Amount 0.9% NaCl with KCl 20 Meq 1200 /l 1,000 ml @ 100 mls/hr IV .BY DURATION [facility] Rx#: [id number] ACETAMINOPHEN IV (For NPO 100 ) 1,000 mg In Empty Bag 1 bag @ 400 mls/hr IVPB Q6HR [facility] Rx#:[id number] Magnesium Sulfate-D5w Pmx 100 1 gm In Dextrose/Water 1 100ml.bag @ 100 mls/hr IVPB ONCE ONE Rx#: [id number] Mvi, Adult No.4 with Vit 1021.2 K 10 ml Thiamine 100 mg Folic Acid 1 mg Potassium Chloride 20 meq In Sodium Chloride 0.9% 1, 000 ml @ 100 mls/hr IV . BY DURATION [facility] Rx#: [id number] Output: Urine 700 Uretheral (Armstrong) 700 Other: Voiding Method Indwelling Catheter Toilet # Voids 3 - Labs CBC & Chem 7: 12/22/20 06:23 12/21/20 06:29 Labs: Abnormal Lab Results - Last 24 Hours (Table) 12/22/20 Range/Units 06:23 RBC 3.79 L (4.10-5.20) X 10*6/uL Hgb 11.9 L (12.0-15.0) g/dL MCV 98.4 H (80.0-97.0) fL MCHC 31.9 L (32.0-37.0) g/dL Monocytes # 1.02 H (0.20-1.00) X 10*3/uL Assessment and Plan (1) Morbid obesity Current Visit: No Status: Acute Code(s): E66.01 - MORBID (SEVERE) OBESITY DUE TO EXCESS CALORIES SNOMED Code(s): 326473510
[2020-12-22] MEDS: ENOXAPARIN 40 MG/0.4 ML SYRINGE SQ SCH ×2 (12:25→23:56)
[2020-12-22 13:15] LABS: African American GFR (CKD) 113.8 (60.0-200.0); Albumin 4.1 g/dL (3.80-4.90); Albumin/Globulin Ratio 1.71 (1.60-3.17); Anion Gap 11.8 mmol/L (4.00-12.00); BUN/Creat Ratio 11.43 Ratio (12.00-20.00); Carbon Dioxide 21.2 mmol/L (21.6-31.8); Globulin 2.4 g/dL (1.6-3.3); Magnesium 2.1 mg/dL (1.5-2.4); Non-African American GFR(CKD) 98.2 (60.0-200.0); Potassium 4.4 mmol/L (3.5-5.5); Total Bilirubin 0.4 mg/dL (0.3-1.2); Total Protein 6.5 g/dL (6.2-8.2)
[2020-12-22] MEDS: LACTATED RINGERS 1,000 ML IV SCH (16:05)
[2020-12-23] MEDS: 1: MVI, ADULT NO.4 WITH VIT K 10 ML, THIAMINE 100 MG, FOLIC ACID 1 MG, POTASSIUM CHLORID IV SCH ×18 (00:54→22:08)
[2020-12-23] MEDS: HYDROmorphone 1 MG/ML 1 ML SYRINGE IVP PRN ×3 (00:58→10:30)
[2020-12-23 02:28] LABS: Glucose,Whole Blood 90 mg/dL (75-99)
[2020-12-23] MEDS: METOCLOPRAMIDE 5 MG/ML 2 ML VIAL IVP SCH (06:13)
[2020-12-23] MEDS: LEVOTHYROXINE 75 MCG TAB PO SCH (06:13)
[2020-12-23] MEDS: SIMETHICONE 40 MG/0.6 ML DROPS 2,000 MG/30 ML BOTTLE PO SCH ×3 (06:14→18:06)
[2020-12-23 07:08] LABS: ALT 20 U/L (4-34); African American GFR (CKD) >90 (>60 ml/min/1.73 sqM); Albumin 3.6 g/dL (3.5-5.0); Albumin/Globulin Ratio 1.3; Anion Gap 8 mmol/L; Blood Urea Nitrogen 7 mg/dL (7-17); Calcium 8.5 mg/dL (8.4-10.2); Carbon Dioxide 23 mmol/L (22-30); Chloride 108 mmol/L (98-107); Globulin 2.8 g/dL; Glucose 80 mg/dL (74-99); Non-African American GFR(CKD) >90 (>60 ml/min/1.73 sqM); Potassium 4.7 mmol/L (3.5-5.1); Sodium 139 mmol/L (137-145); Total Bilirubin 0.7 mg/dL (0.2-1.3); Total Protein 6.4 g/dL (6.3-8.2)
[2020-12-23 07:09] LABS: AST 42 U/L (14-36); Alkaline Phosphatase 61 U/L (38-126)
[2020-12-23] MEDS: ONDANSETRON 4 MG/2 ML VIAL IVP PRN ×3 (07:17→18:05)
[2020-12-23] MEDS: PANTOPRAZOLE 40 MG/10 ML VIAL IV SCH (07:19)
[2020-12-23] MEDS: ALBUTEROL NEBULIZED 2.5 MG/3 ML INHALATION SCH ×4 (07:34→19:56)
[2020-12-23] MEDS: ENOXAPARIN 40 MG/0.4 ML SYRINGE SQ SCH (11:33)
[2020-12-23] MEDS: LORazepam 2 MG/ML INJ IV PRN (12:53)
[2020-12-23] MEDS ORDERED: ALPRAZolam 1 MG TAB PO PRN (13:04)
[2020-12-23] MEDS ORDERED: SCOPOLAMINE 1.5MG/72HR PATCH TRANSDERM SCH (13:15)
--- NOTE | 2020-12-23 13:32 | P.PN ---
<Shiela Jauregui - Last Filed: 12/23/20 13:28> Subjective Progress Note Date: 12/23/20 CHIEF COMPLAINT: Morbid obesity HISTORY OF PRESENT ILLNESS: Patient is postop day #3 status post laparoscopic sleeve gastrectomy. Early this morning patient had reported slight improvement in her nausea. Per nursing staff she did spit up some bile later in the morning. Scopolamine patch has been ordered. Patient also reporting that she does not like to take the [place] it causes a headache for her. And she is still been using the Dilaudid. She did report that her pain is decreased from yesterday. She is passing gas. She did drink about 20 ounces of her liquid diet yesterday. This morning she only had a couple ounces. Afebrile. Sodium 139 potassium 4.7 creatinine 0.54 PHYSICAL EXAM: VITAL SIGNS: Reviewed. GENERAL: Well-developed in no acute distress. HEENT: No sclera icterus. Extraocular movements grossly intact. Moist buccal mucosa. Head is atraumatic, normocephalic. ABDOMEN: Soft. Nondistended. Incision sites clean dry and intact. Abdominal binder in place. NEUROLOGIC: Alert and oriented. Cranial nerves II through XII grossly intact. ASSESSMENT: 1. Morbid obesity status post laparoscopic sleeve gastrectomy 2. Hypertension 3. GERD 4. Asthma 5. Hypercholesterolemia 6. Chronic back pain 7. Mild hypomagnesemia improved PLAN: -Continue bariatric clear liquid diet -Encourage patient to increase her oral intake -Add scopolamine patch for nausea -Resume patient's home medications including her anxiety and depression meds -Change simethicone drops to scheduled -Continue IV fluids -Encourage patient to ambulate -Encourage patient to use incentive spirometer -Continue Lovenox for DVT prophylaxis and Protonix for GI prophylaxis Physician Tube Turner note has been reviewed by physician. Signing provider agrees with the documented findings, assessment, and plan of care. Objective - Vital Signs Vital signs: Vital Signs Temp 97.8 F 12/23/20 07:14 Pulse 79 12/23/20 07:14 Resp 18 12/23/20 07:30 BP 114/71 12/23/20 07:14 Pulse Ox 93 L 12/23/20 07:14 Intake & Output 12/22/20 12/23/20 12/23/20 18:59 06:59 18:59 Intake Total 2101.2 1000 Balance 2101.2 1000 Intake: Intake, IV Titration 1021.2 1000 Amount 0.9% NaCl with KCl 20 Meq 1000 /l 1,000 ml @ 100 mls/hr IV .BY DURATION [facility] Rx#: [id number] Mvi, Adult No.4 with Vit 1021.2 K 10 ml Thiamine 100 mg Folic Acid 1 mg Potassium Chloride 20 meq In Sodium Chloride 0.9% 1, 000 ml @ 100 mls/hr IV . BY DURATION [facility] Rx#: [id number] Oral 1080 Other: Voiding Method Toilet Toilet # Voids 3 2 - Labs CBC & Chem 7: 12/22/20 06:23 12/23/20 06:22 Labs: Abnormal Lab Results - Last 24 Hours (Table) 12/23/20 Range/Units 06:22 Chloride 108 H (98-107) mmol/L AST 42 H (14-36) U/L <Miguel Espino - Last Filed: 12/23/20 14:45> Subjective As above. Patient had some vomiting today. Drinking less today than yesterday. She says she had about 40 ounces of liquids yesterday. Scopolamine patch was ordered. We'll continue IV hydration. Continue antiemetics. Resume home meds. Objective - Vital Signs Vital signs: Vital Signs Temp 98.2 F 12/23/20 14:00 Pulse 75 12/23/20 14:00 Resp 18 12/23/20 14:00 BP 120/69 12/23/20 14:00 Pulse Ox 97 12/23/20 14:00 Intake & Output 12/22/20 12/23/20 12/23/20 18:59 06:59 18:59 Intake Total 2101.2 1000 Balance 2101.2 1000 Intake: Intake, IV Titration 1021.2 1000 Amount 0.9% NaCl with KCl 20 Meq 1000 /l 1,000 ml @ 100 mls/hr IV .BY DURATION [facility] Rx#: [id number] Mvi, Adult No.4 with Vit 1021.2 K 10 ml Thiamine 100 mg Folic Acid 1 mg Potassium Chloride 20 meq In Sodium Chloride 0.9% 1, 000 ml @ 100 mls/hr IV . BY DURATION [facility] Rx#: [id number] Oral 1080 Other: Voiding Method Toilet Toilet # Voids 3 2 - Labs CBC & Chem 7: 12/22/20 06:23 12/23/20 06:22 Labs: Abnormal Lab Results - Last 24 Hours (Table) 12/23/20 Range/Units 06:22 Chloride 108 H (98-107) mmol/L AST 42 H (14-36) U/L Assessment and Plan (1) Morbid obesity Current Visit: No Status: Acute Code(s): E66.01 - MORBID (SEVERE) OBESITY DUE TO EXCESS CALORIES SNOMED Code(s): 816516386
[2020-12-23] MEDS: ARIPiprazole 2 MG TAB PO SCH (13:53)
[2020-12-23] MEDS: traMADol 50 MG TAB PO PRN ×2 (13:53→22:20)
[2020-12-23] MEDS ORDERED: traMADol 50 MG TAB PO SCH (16:00)
[2020-12-23] MEDS: LACTATED RINGERS 1,000 ML IV SCH (18:05)
--- NOTE | 2020-12-23 19:18 | P.PN ---
Subjective Progress Note Date: 12/23/20 Kim Jordan is a 55-year-old female with known history of morbid obesity who was admitted to [facility] by Dr. Espino and underwent laparoscopic sleeve gastrectomy today. Medical consultation was requested for management while hospitalized. Patient has a known history of asthma, hypertension, osteoarthritis, degenerative disc disease with chronic back pain, depression with anxiety disorder, and known history of morbid obesity. On review of systems Patient was seen and examined on the medical floor, she is alert and oriented x 3 in no distress, she denies any complaints there is no fever or chills no headache or dizziness no chest pain no shortness of breath no palpitation no cough no nausea or vomiting no abdominal pain no diarrhea no blood in the stools no burning with urination no frequency or urgency and no hematuria, there is no weakness or numbness in any of the extremities no change in vision speech or gait. On 12/21/2020 patient is alert and oriented 3 currently postop day 1. Patient is currently nothing by mouth. At this time patient denies chest pain or shor tness breath. Patient denies nausea vomiting or diarrhea. Patient denies any urinary burning or frequency. On 12/22/2020 patient is alert and oriented 3. Currently postop day 2. Patient currently maintained on bariatric clear liquid diet. Patient reports some nausea throughout the night. Patient denies chest pain or shortness breath. Patient denies any urinary burning or frequency hearing patient reports mild discomfort with abdominal site On 12/23/2020 patient was seen and examined on the medical floor she is alert and oriented 3 in no distress she is still complaining of abdominal discomfort and nausea otherwise she denies any complaint Objective - Vital Signs Vital signs: Vital Signs Temp 98.2 F 12/23/20 14:00 Pulse 75 12/23/20 14:00 Resp 18 12/23/20 14:00 BP 120/69 12/23/20 14:00 Pulse Ox 97 12/23/20 14:00 Intake & Output 12/23/20 12/23/20 12/24/20 06:59 18:59 06:59 Intake Total 1000 Balance 1000 Intake: Intake, IV Titration 1000 Amount 0.9% NaCl with KCl 20 Meq 1000 /l 1,000 ml @ 100 mls/hr IV .BY DURATION [facility] Rx#: [id number] Other: Voiding Method Toilet Toilet # Voids 2 3 - Exam In general patient is alert and oriented x 3 in no distress HEENT head normocephalic and atraumatic Neck is supple no JVD no goiter no lymphadenopathy no carotid bruit Chest examination is clear to auscultation no crackles no wheezing Cardiac exam reveals regular heart sounds S1 and S2 no gallops no murmurs Abdomen is soft nontender no organomegaly with normal bowel sounds Extremity exam reveals no edema no cyanosis or clubbing Neurological examination reveals no gross focal deficits - Labs CBC & Chem 7: 12/22/20 06:23 12/23/20 06:22 Labs: Abnormal Lab Results - Last 24 Hours (Table) 12/23/20 Range/Units 06:22 Chloride 108 H (98-107) mmol/L AST 42 H (14-36) U/L Assessment and Plan Plan: Status post laparoscopic sleeve gastrectomy Underlying history of asthma stable at this time no evidence of exacerbation Underlying history of hypertension Underlying history of hyperlipidemia Underlying history of degenerative disc disease with chronic back pain Underlying history of depression with anxiety disorder At this time patient is admitted to medical floor she was seen and examined Home medications are on hold patient is nothing by mouth at this time Will give IV medication for pain, anxiety, and hypertension Will follow during this admission
[2020-12-23] MEDS ORDERED: MONTELUKAST 10 MG TAB PO SCH (21:00)
[2020-12-23] MEDS ORDERED: CITALOPRAM HYDROBROMIDE 20 MG TAB PO SCH (21:00)
[2020-12-24] MEDS: ONDANSETRON 4 MG/2 ML VIAL IVP PRN ×2 (01:26→08:40)
[2020-12-24] MEDS: SIMETHICONE 40 MG/0.6 ML DROPS 2,000 MG/30 ML BOTTLE PO SCH ×3 (01:27→12:51)
[2020-12-24] MEDS: ENOXAPARIN 40 MG/0.4 ML SYRINGE SQ SCH ×2 (01:43→12:49)
[2020-12-24] MEDS: LEVOTHYROXINE 75 MCG TAB PO SCH (05:49)
[2020-12-24 08:27] VITALS: RESP 16
[2020-12-24] MEDS: ARIPiprazole 2 MG TAB PO SCH (08:40)
[2020-12-24] MEDS: PANTOPRAZOLE 40 MG/10 ML VIAL IV SCH (08:40)
[2020-12-24] MEDS: ALBUTEROL NEBULIZED 2.5 MG/3 ML INHALATION SCH ×3 (09:12→16:02)
[2020-12-24] MEDS: 1: MVI, ADULT NO.4 WITH VIT K 10 ML, THIAMINE 100 MG, FOLIC ACID 1 MG, POTASSIUM CHLORID IV SCH ×6 (09:22)
--- NOTE | 2020-12-24 10:40 | P.PN ---
Subjective Progress Note Date: 12/24/20 Kim Jordan is a 55-year-old female with known history of morbid obesity who was admitted to [facility] by Dr. Espino and underwent laparoscopic sleeve gastrectomy today. Medical consultation was requested for management while hospitalized. Patient has a known history of asthma, hypertension, osteoarthritis, degenerative disc disease with chronic back pain, depression with anxiety disorder, and known history of morbid obesity. On review of systems Patient was seen and examined on the medical floor, she is alert and oriented x 3 in no distress, she denies any complaints there is no fever or chills no headache or dizziness no chest pain no shortness of breath no palpitation no cough no nausea or vomiting no abdominal pain no diarrhea no blood in the stools no burning with urination no frequency or urgency and no hematuria, there is no weakness or numbness in any of the extremities no change in vision speech or gait. On 12/21/2020 patient is alert and oriented 3 currently postop day 1. Patient is currently nothing by mouth. At this time patient denies chest pain or shor tness breath. Patient denies nausea vomiting or diarrhea. Patient denies any urinary burning or frequency. On 12/22/2020 patient is alert and oriented 3. Currently postop day 2. Patient currently maintained on bariatric clear liquid diet. Patient reports some nausea throughout the night. Patient denies chest pain or shortness breath. Patient denies any urinary burning or frequency hearing patient reports mild discomfort with abdominal site On 12/23/2020 patient was seen and examined on the medical floor she is alert and oriented 3 in no distress she is still complaining of abdominal discomfort and nausea otherwise she denies any complaint On 12/24/2020 patient is alert and oriented 3. Patient reports some improvement with abdominal discomfort and nausea. Patient remains on bariatric clear liquid. Patient expressing that she would like to go home. Will discuss with surgical services. At this time patient denies chest pain or shortness breath. Patient denies nausea vomiting or diarrhea. Patient denies any urinary burning or frequency Objective - Vital Signs Vital signs: Vital Signs Temp 98.1 F 12/24/20 08:00 Pulse 85 12/24/20 08:00 Resp 16 12/24/20 08:00 BP 111/68 12/24/20 08:00 Pulse Ox 95 12/24/20 09:12 Intake & Output 12/23/20 12/24/20 12/24/20 18:59 06:59 18:59 Intake Total 1021.2 2200 Balance 1021.2 2200 Weight 120.1 kg Intake: Intake, IV Titration 1021.2 2200 Amount 0.9% NaCl with KCl 20 Meq 2200 /l 1,000 ml @ 100 mls/hr IV .BY DURATION SIVA Rx#: [id number] Mvi, Adult No.4 with Vit 1021.2 K 10 ml Thiamine 100 mg Folic Acid 1 mg Potassium Chloride 20 meq In Sodium Chloride 0.9% 1, 000 ml @ 100 mls/hr IV . BY DURATION SIVA Rx#: [id number] Other: Voiding Method Toilet # Voids 3 3 - Exam In general patient is alert and oriented x 3 in no distress HEENT head normocephalic and atraumatic Neck is supple no JVD no goiter no lymphadenopathy no carotid bruit Chest examination is clear to auscultation no crackles no wheezing Cardiac exam reveals regular heart sounds S1 and S2 no gallops no murmurs Abdomen is soft nontender no organomegaly with normal bowel sounds Extremity exam reveals no edema no cyanosis or clubbing Neurological examination reveals no gross focal deficits - Labs CBC & Chem 7: 12/22/20 06:23 12/23/20 06:22 Assessment and Plan Plan: Status post laparoscopic sleeve gastrectomy Underlying history of asthma stable at this time no evidence of exacerbation Underlying history of hypertension Underlying history of hyperlipidemia Underlying history of degenerative disc disease with chronic back pain Underlying history of depression with anxiety disorder At this time patient is admitted to medical floor she was seen and examined Hold atenolol at discharge will follow up with PCP State discharge either today or tomorrow
[2020-12-24 11:47] LABS: ALT 23 U/L (4-34); AST 43 U/L (14-36); African American GFR (CKD) >90 (>60 ml/min/1.73 sqM); Albumin 3.4 g/dL (3.5-5.0); Albumin/Globulin Ratio 1.3; Alkaline Phosphatase 57 U/L (38-126); Anion Gap 7 mmol/L; Blood Urea Nitrogen 7 mg/dL (7-17); Calcium 8.6 mg/dL (8.4-10.2); Carbon Dioxide 22 mmol/L (22-30); Chloride 110 mmol/L (98-107); Globulin 2.7 g/dL; Glucose 81 mg/dL (74-99); Non-African American GFR(CKD) >90 (>60 ml/min/1.73 sqM); Sodium 139 mmol/L (137-145); Total Bilirubin 0.8 mg/dL (0.2-1.3); Total Protein 6.1 g/dL (6.3-8.2)
[2020-12-24 12:05] LABS: Potassium 4.7 mmol/L (3.5-5.1)
[2020-12-24] MEDS: LACTATED RINGERS 1,000 ML IV SCH (14:49)
[2020-12-24 15:14] LABS: Basophils % (A) 0 %; Eosinophils # (A) 0.1 k/uL (0-0.7); Eosinophils % (A) 2 %; Lymphocytes # (A) 1.7 k/uL (1.0-4.8); Lymphocytes % (A) 28 %; MCH 32.1 pg (25.0-35.0); MCHC 34.2 g/dL (31.0-37.0); MCV 93.8 fL (80.0-100.0); Mean Platelet Volume 11.2; Monocytes # (A) 0.5 k/uL (0-1.0); Monocytes % (A) 9 %; Neutrophils # (A) 3.6 k/uL (1.3-7.7); Neutrophils % (A) 59 %; Platelet Count 208 k/uL (150-450); RBC 3.73 m/uL (3.80-5.40); RDW 13.7 % (11.5-15.5)
[2020-12-24 15:30] VITALS: BP 128/75; PULSE 57; TEMP 98.3
--- NOTE | 2020-12-24 15:33 | P.DS ---
<Shiela Jauregui - Last Filed: 12/24/20 15:31> Providers Expected date of discharge: 12/24/20 Hospital Course: discharge diagnosis 1. Morbid obesity status post laparoscopic sleeve gastrectomy 2. Hypertension 3. GERD 4. Asthma 5. Hypercholesterolemia 6. Chronic back pain 7. Mild hypomagnesemia improved Hospital course This is a 55-year-old female with a known history of morbid obesity. She is status post laparoscopic sleeve gastrectomy. Patient reports that her pain is controlled. She is tolerating diet. She has been up and ambulating. She is passing gas. She's afebrile. She is stable for discharge. Please refer to chart for any further details. Physician Commercial Housekeeper note has been reviewed by physician. Signing provider agrees with the documented findings, assessment, and plan of care. Patient Condition at Discharge: Stable Plan - Discharge Summary Discharge Rx Participant: Yes New Discharge Prescriptions: New bisacodyL [Dulcolax] 5 mg PO DAILY PRN #10 tablet. PRN Reason: Constipation Simethicone 40 mg/0.6 ml Drops [Mylicon Drops] 40 mg PO PCHS PRN #30 ml PRN Reason: Gas Ondansetron Odt [Zofran Odt] 4 mg PO Q8HR PRN #9 tab PRN Reason: Nausea Continue ALPRAZolam [Xanax] 1 mg PO Q8H PRN PRN Reason: Anxiety Omeprazole 20 mg PO BID HYDROcodone/APAP 10-325MG [[place] 10-325] 1 tab PO Q8H PRN PRN Reason: Pain Dicyclomine [Bentyl] 10 mg PO Q8H PRN PRN Reason: IBS rOPINIRole HCL [Requip] 0.5 mg PO HS Zolpidem [Ambien] 10 mg PO HS Citalopram Hydrobromide [CeleXA] 20 mg PO HS Atorvastatin [Lipitor] 20 mg PO QAM ARIPiprazole [Abilify] 2 mg PO QAM Levothyroxine Sodium [Synthroid] 75 mcg PO QAM Albuterol Sulfate [Ventolin HFA] 1 - 2 puff INHALATION RT-Q6H PRN PRN Reason: Shortness Of Breath Montelukast [Singulair] 10 mg PO HS Fluticasone Nasal [place] [Flonase Nasal [place]] 2 spray EA NOSTRIL HS PRN PRN Reason: Allergy Symptoms EPINEPHrine (Auto Inject) [Epipen] 0.3 mg IM ONCE PRN PRN Reason: Anaphylaxis Ergocalciferol [Vitamin D2 (1250 Mcg = 34324 Iu)] 50,000 unit PO ANG Budesonide (Unknown Dose) 1 dose INHALATION BID valACYclovir HCL [Valtrex] 500 mg PO QAM Discontinued atenoloL [Tenormin] 25 mg PO HS Iron 64 mg PO BID Discharge Medication List ALPRAZolam [Xanax] 1 mg PO Q8H PRN 03/20/14 [History] Dicyclomine [Bentyl] 10 mg PO Q8H PRN 04/07/17 [History] HYDROcodone/APAP 10-325MG [[place] 10-325] 1 tab PO Q8H PRN 04/07/17 [History] Omeprazole 20 mg PO BID 04/07/17 [History] rOPINIRole HCL [Requip] 0.5 mg PO HS 06/02/17 [History] Zolpidem [Ambien] 10 mg PO HS 10/31/17 [History] Citalopram Hydrobromide [CeleXA] 20 mg PO HS 09/12/18 [History] Atorvastatin [Lipitor] 20 mg PO QAM 11/21/18 [History] ARIPiprazole [Abilify] 2 mg PO QAM 04/28/19 [History] Albuterol Sulfate [Ventolin HFA] 1 - 2 puff INHALATION RT-Q6H PRN 01/01/20 [History] Levothyroxine Sodium [Synthroid] 75 mcg PO QAM 01/01/20 [History] EPINEPHrine (Auto Inject) [Epipen] 0.3 mg IM ONCE PRN 04/22/20 [History] Fluticasone Nasal [place] [Flonase Nasal [place]] 2 spray EA NOSTRIL HS PRN 04/22/20 [History] Montelukast [Singulair] 10 mg PO HS 04/22/20 [History] Ergocalciferol [Vitamin D2 (1250 Mcg = 98284 Iu)] 50,000 unit PO ANG 08/25/20 [History] Budesonide (Unknown Dose) 1 dose INHALATION BID 12/16/20 [History] valACYclovir HCL [Valtrex] 500 mg PO QAM 12/16/20 [History] Ondansetron Odt [Zofran Odt] 4 mg PO Q8HR PRN #9 tab 12/24/20 [Rx] Simethicone 40 mg/0.6 ml Drops [Mylicon Drops] 40 mg PO PCHS PRN #30 ml 12/24/20 [Rx] bisacodyL [Dulcolax] 5 mg PO DAILY PRN #10 tablet. 12/24/20 [Rx] [facility]Ref[facility] [facility] [place] [facility] Genia Avalos MD [Primary Care Provider] - 1 Week Patient Instructions/Handouts: Nutrition after Bariatric Surgery (DC), Laparoscopic Sleeve Gastrectomy (DC) Activity/Diet/Wound Care/Special Instructions: No driving while taking [place]. Patient is to continue her [place] prescription that was prescribed by her PCP No lifting over 10 pounds You may shower. No soaking or tub baths for 2 weeks Very light activity until you are reevaluated at your follow up appointment with your surgeon no straws or carbonated beverages Cut or crush all pills to the size smaller than a tic tac Discharge Disposition: HOME SELF-CARE <Miguel Espino - Last Filed: 12/24/20 16:37> Providers Date of admission: 12/20/20 09:55 Attending physician: Miguel Espino Consults: 12/20/20 14:09 Consult Physician Routine Consulting Provider: Genia Avalos Consult Reason/Comments: Medical management Do you want consulting provider notified?: Yes Primary care physician: Genia Avalos - Discharge Diagnosis(es) (1) Morbid obesity Current Visit: No Status: Acute Hospital Course: As above. Patient improved today. Tolerating better liquids. Will discharge. Follow-up next week.
== END 2020-12-24 17:00 | disposition home or self-care (01) | DRG 621 ==
LOC: 2ORMAIN 09:55 → 4SSUR 14:43
PROVIDERS: ADMIT Surgery; ATTEND Surgery
PROC: 0DB64Z3 Excision of Stomach, Percutaneous Endoscopic Approach, Vertical (ICD-10-PCS; principal; 2020-12-20 11:20)
DX: E66.01 Morbid (severe) obesity due to excess calories (principal); Z68.41 Body mass index [BMI] 40.0-44.9, adult; E07.9 Disorder of thyroid, unspecified; K29.70 Gastritis, unspecified, without bleeding; J45.909 Unspecified asthma, uncomplicated; E78.00 Pure hypercholesterolemia, unspecified; G89.29 Other chronic pain; M51.36 Other intervertebral disc degeneration, lumbar region; K21.9 Gastro-esophageal reflux disease without esophagitis; K58.9 Irritable bowel syndrome, unspecified; M79.7 Fibromyalgia; F32.9 Major depressive disorder, single episode, unspecified; F41.0 Panic disorder [episodic paroxysmal anxiety]; E78.5 Hyperlipidemia, unspecified; E83.42 Hypomagnesemia; I10 Essential (primary) hypertension; G47.30 Sleep apnea, unspecified; I83.90 Asymptomatic varicose veins of unspecified lower extremity; M19.90 Unspecified osteoarthritis, unspecified site; Z79.890 Hormone replacement therapy; Z79.899 Other long term (current) drug therapy; Z86.718 Personal history of other venous thrombosis and embolism; Z86.14 Personal history of Methicillin resistant Staphylococcus aureus infection; Z90.49 Acquired absence of other specified parts of digestive tract; Z90.710 Acquired absence of both cervix and uterus; Z87.19 Personal history of other diseases of the digestive system; Z87.42 Personal history of other diseases of the female genital tract; Z87.39 Personal history of other diseases of the musculoskeletal system and connective tissue; Z98.891 History of uterine scar from previous surgery; Z98.890 Other specified postprocedural states; Z71.3 Dietary counseling and surveillance; Z88.6 Allergy status to analgesic agent; Z88.2 Allergy status to sulfonamides; Z88.8 Allergy status to other drugs, medicaments and biological substances; Z80.0 Family history of malignant neoplasm of digestive organs
CPT/HCPCS: 74240; 80051; 80053; 82310; 82565; 83735; 84100; 84520; 85025; 88307; 94640; 94760; 94762

== ENCOUNTER → 2021-01-04 | Outpatient (CLI) | payer MEDICARE, OTHER ==
[2021-01-04 13:30] VITALS: BP 124/85; PULSE 94; RESP 16; TEMP 98.4; BMI 41.9
--- NOTE | 2021-01-04 13:51 | P.BASOAP ---
Subjective Progress Note Date: 01/04/21 Principal diagnosis: Morbid obesity Patient returns for a 2 week postop visit. Had some dysphagia with a scrambled eggs. No significant pain. She has lost 4 pounds in the last 1 week. Vitals are stable. No tachycardia. Denies fevers. Overall gradually feeling better with time. Also having some issues tolerating her protein shakes. Objective - Vital Signs Vital signs: Vital Signs Temp 98.4 F 01/04/21 13:27 Pulse 94 01/04/21 13:27 Resp 16 01/04/21 13:27 BP 124/85 01/04/21 13:27 Pulse Ox Intake & Output 01/03/21 01/04/21 01/04/21 18:59 06:59 18:59 Weight 117.934 kg - Exam Abdomen: Soft, nondistended, incisions clean and dry Assessment/Plan (1) Morbid obesity Narrative/Plan: Patient doing fairly well postoperative. We'll see dietitian today. Continue antiacid therapy. Continue gradually increasing diet. Return visit 2-3 weeks. Plan: Date: 01/04/21 Initial Weight: 128.82 kg Initial BMI: 45.8 Current Weight: 117.934 kg Current BMI: 41.9 Type of Surgery: Total Volume in Band: Previous Volume: Volume Removed: Volume Added: Band Size:
== END | disposition home or self-care (01) ==
LOC: BARWHC3 13:16
PROVIDERS: ATTEND Surgery
DX: E66.01 Morbid (severe) obesity due to excess calories (principal); Z71.3 Dietary counseling and surveillance; Z68.41 Body mass index [BMI] 40.0-44.9, adult
CPT/HCPCS: 97803; G0463; 99211

== ENCOUNTER → 2021-01-07 | Outpatient (CLI) | payer MEDICARE, OTHER ==
[2021-01-07] MEDS: SODIUM CHLORIDE 0.9% 1,000 ML IV SCH ×2 (12:10→13:20)
[2021-01-07 13:25] VITALS: BP 133/83; PULSE 88; RESP 16; TEMP 97.7
== END | disposition home or self-care (01) ==
LOC: PROCWHC3 11:40
PROVIDERS: ATTEND Surgery
DX: E86.0 Dehydration (principal)
CPT/HCPCS: 96360; 96361

== ENCOUNTER → 2021-01-07 | Outpatient (CLI) | payer MEDICARE, OTHER ==
[2021-01-07 15:40] LABS: African American GFR (CKD) >90 (>60 ml/min/1.73 sqM); Blood Urea Nitrogen 12 mg/dL (7-17); Non-African American GFR(CKD) >90 (>60 ml/min/1.73 sqM)
--- NOTE | 2021-01-10 07:48 | CT ---
EXAMINATION TYPE: CT abdomen pelvis w con DATE OF EXAM: 01/07/2021 COMPARISON: 05/29/2020 HISTORY: 55-year-old female R10.32, abdominal pain. Gastric sleeve surgery 2 weeks ago, nausea and pa in TECHNIQUE: Contiguous axial scanning of the abdomen and pelvis following administration of 100 ml Iso shannon 300 IV contrast. Delayed images through the kidneys and coronal/sagittal reconstructions perform ed. Bariatric prep. CT DLP: 2051.8 mGycm Automated exposure control for dose reduction was used. FINDINGS: The heart is upper limits of normal in size trace anterior basilar pericardial fluid. Some strandy at electasis at the left base. No pleural effusion. Overall paucity of ingested oral contrast. Small amount of contrast is noted within the lower esophag us on the first few images. Status post sleeve gastrectomy. No abnormal fluid collection or fat stranding around the sleeve. Scattered hepatic hypodensities, largest measuring 1.1 cm, too small for accurate CT characterization , likely small cysts. Portal venous system is patent. No biliary ductal dilatation. Adrenal glands, kidneys, spleen, and pancreas within normal limits. No dilated small bowel, free fluid, or free air. Scattered nonenlarged mesenteric lymph nodes are unc hanged. Largest measuring 9 mm in the right mid abdomen also unchanged from 05/29/2020 suggesting a c hronic reactive/post inflammatory etiology. Mild overall stool burden. No pericolonic inflammatory change. Minimal perivesicular fat stranding along the anterior margin of the bladder is nonspecific on axial image 76. Uterus surgically absent. Small left ovary is visualized. No abnormal fluid collection in t he pelvis or pelvic lymphadenopathy. Bones: Mild degenerative spurring at the hips. Partially lumbarized S1. Hypertrophic facet arthropath y. Grade 1 anterolisthesis L5-S1. IMPRESSION: 1. NO ABNORMAL FLUID COLLECTION OR INFLAMMATION SEEN ALONG THE PATIENT'S SLEEVE GASTRECTOMY. 2. OTHERWISE, NO ACUTE INFLAMMATORY PROCESS IDENTIFIED IN THE ABDOMEN OR PELVIS.
== END | disposition home or self-care (01) ==
LOC: RADCTMAIN 14:59
PROVIDERS: ATTEND Surgery
DX: K57.92 Diverticulitis of intestine, part unspecified, without perforation or abscess without bleeding (principal)
CPT/HCPCS: 82565; 84520; 74177; 36415; Q9967

== ENCOUNTER → 2021-01-18 | Outpatient (CLI) | payer MEDICARE, OTHER ==
[2021-01-18 13:01] VITALS: BP 125/83; PULSE 84; RESP 16; TEMP 98.3; BMI 40.8
[2021-01-18 14:25] LABS: HCT 43.8 % (34.0-46.0); HGB 14.8 gm/dL (11.4-16.0); MCH 33.1 pg (25.0-35.0); MCHC 33.9 g/dL (31.0-37.0); MCV 97.6 fL (80.0-100.0); Mean Platelet Volume 10.2; Platelet Count 189 k/uL (150-450); RBC 4.49 m/uL (3.80-5.40); RDW 13.6 % (11.5-15.5); WBC 7.2 k/uL (3.8-10.6)
--- NOTE | 2021-01-18 14:47 | P.BASOAP ---
Subjective Progress Note Date: 01/18/21 Principal diagnosis: Morbid obesity Patient returns for reevaluation. Doing well since last visit. She did start complaining of some right lower abdominal pain that began last night. It is intermittent. She is somewhat constipated. Last bowel movement Sunday. She had 1 episode of vomiting after taking magnesium citrate. Otherwise denies vomiting or nausea.Heartburn. She is due for one month labs. Objective - Vital Signs Vital signs: Vital Signs Temp 98.3 F 01/18/21 13:00 Pulse 84 01/18/21 13:00 Resp 16 01/18/21 13:00 BP 125/83 01/18/21 13:00 Pulse Ox Intake & Output 01/17/21 01/18/21 01/18/21 18:59 06:59 18:59 Weight 114.759 kg - Exam Abdomen: Soft, nontender, nondistended - Labs CBC & Chem 7: 01/18/21 13:56 Assessment/Plan (1) Morbid obesity Narrative/Plan: Patient doing well at this time. Continue bariatric liquid diet. Gradually increase activity. We'll try magnesium citrate again for constipation. Patient will contact me if right lower quadrant pain increases or persists. Check one month labs. Plan: Date: 01/18/21 Initial Weight: 128.82 kg Initial BMI: 45.8 Current Weight: 114.759 kg Current BMI: 40.8 Type of Surgery: Total Volume in Band: Previous Volume: Volume Removed: Volume Added: Band Size:
[2021-01-19 04:06] LABS: Albumin 4.7 g/dL (3.80-4.90); Albumin/Globulin Ratio 1.62 (1.60-3.17); Anion Gap 15.4 mmol/L (4.00-12.00); Calcium 9.8 mg/dL (8.7-10.3); Carbon Dioxide 18.6 mmol/L (21.6-31.8); Globulin 2.9 g/dL (1.6-3.3); Non-African American GFR(CKD) 63.8 (60.0-200.0); Potassium 4.1 mmol/L (3.5-5.5); Total Bilirubin 0.6 mg/dL (0.3-1.2); Total Protein 7.6 g/dL (6.2-8.2)
[2021-01-19 05:13] LABS: Folate, Serum 12.8 ng/mL
== END | disposition home or self-care (01) ==
LOC: BARWHC3 12:44
PROVIDERS: ATTEND Surgery
DX: E66.01 Morbid (severe) obesity due to excess calories (principal); K90.89 Other intestinal malabsorption; E55.9 Vitamin D deficiency, unspecified
CPT/HCPCS: 84425; 80053; 82607; 82746; 83540; 85027; 82306; 97803; G0463; 99211

== ENCOUNTER → 2021-02-15 | Outpatient (CLI) | payer MEDICARE, OTHER ==
[2021-02-15 14:30] VITALS: BP 112/78; PULSE 83; RESP 16; TEMP 97.5; BMI 39.4
--- NOTE | 2021-02-15 17:03 | P.BASOAP ---
Subjective Progress Note Date: 02/15/21 Principal diagnosis: Morbid obesity Patient returns for evaluation. Was last seen on 810. Says her abdominal discomforts are improved. She still has nausea but that is improving as well. She has been excising more recently. She has lost 9 pounds since her last visit. She has been taking [id number] nausea medications intermittently. Remains on antiacids. No vomiting. Objective - Vital Signs Vital signs: Vital Signs Temp 97.5 F L 02/15/21 14:28 Pulse 83 02/15/21 14:28 Resp 16 02/15/21 14:28 BP 112/78 02/15/21 14:28 Pulse Ox Intake & Output 02/14/21 02/15/21 02/15/21 18:59 06:59 18:59 Weight 110.677 kg - Exam Abdomen: Soft, nontender, nondistended Assessment/Plan (1) Morbid obesity Narrative/Plan: Patient gradually improving. Continue monitoring protein and liquid intake. Continue increasing activity. Return visit for 6 weeks. Plan: Date: 02/15/21 Initial Weight: 128.82 kg Initial BMI: 45.8 Current Weight: 110.677 kg Current BMI: 39.4 Type of Surgery: Total Volume in Band: Previous Volume: Volume Removed: Volume Added: Band Size:
== END | disposition home or self-care (01) ==
LOC: BARWHC3 13:55
PROVIDERS: ATTEND Surgery
DX: E66.01 Morbid (severe) obesity due to excess calories (principal)
CPT/HCPCS: 99211

== ENCOUNTER → 2021-03-07 | Outpatient (CLI) | payer MEDICARE, OTHER ==
--- NOTE | 2021-03-07 11:30 | MM ---
Reason for exam: clinical finding. Last mammogram was performed 9 months ago. History: Patient is postmenopausal. Benign US biopsy breast VAD LT of the left breast, October 31, 2017. Benign excisional biopsy of the left breast, August 2006. Physical Findings: Nurse Summary: 1cm nodule in the right breast at 9 o'clock (nurse dw). MG 3D Diag Mammo W/Cad RT CC and MLO view(s) were taken of the right breast. Prior study comparison: May 26, 2020, bilateral MG 3d screening mammo w/cad. January 02, 2019, bilateral MG 3d diag mammo w/cad REX. There are scattered fibroglandular densities. Tiny ill defined density with indistinct borders at palpable marker. These results were verbally communicated with the patient and result sheet given to the patient on 03/07/21. ASSESSMENT: Incomplete: need additional imaging evaluation, BI-RAD 0 RECOMMENDATION: Ultrasound of the right breast.
--- NOTE | 2021-03-07 11:32 | USB ---
Reason for exam: additional evaluation requested from abnormal screening. History: Patient is postmenopausal. Benign US biopsy breast VAD LT of the left breast, October 31, 2017. Benign excisional biopsy of the left breast, August 2006. US Breast Limited RT Technologist: Kellie Rice Right limited breast ultrasound including focal area of concern, retroareolar and axilla demonstrates a 0.9 x 0.7 x 0.4cm oval, hyperechoic, superficial lesion at 9 o'clock, palpable correlattion, probable lipoma and a 0.6cm lymph node, short axis at the axilla. These results were verbally communicated with the patient and result sheet given to the patient on 03/07/21. ASSESSMENT: Benign, BI-RAD 2 RECOMMENDATION: Return to routine screening mammogram schedule for both breasts. Manage patient on a clinical basis.
== END | disposition home or self-care (01) ==
LOC: RADMAMWWP 09:27
PROVIDERS: ATTEND Internal Medicine
DX: N63.0 Unspecified lump in unspecified breast (principal); R92.8 Other abnormal and inconclusive findings on diagnostic imaging of breast
CPT/HCPCS: 77065; 76642; G0279; 77061

== ENCOUNTER → 2021-03-22 | Outpatient (CLI) | payer MEDICARE, OTHER ==
[2021-03-22 13:04] VITALS: BP 132/84; PULSE 103; RESP 16; TEMP 98.6; BMI 37.1
--- NOTE | 2021-03-22 13:44 | P.BASOAP ---
Subjective Progress Note Date: 03/22/21 Principal diagnosis: Morbid obesity Patient returns for evaluation. She has done well from a weight loss standpoint. She has lost 14 pounds since last visit. She does have nausea with increasing frequency lately. No vomiting. Mild heartburn at times. Still on antiacids. Says she is not sleeping much because of anxiety. Says she has dizzy episodes particularly with standing. She is no longer taking any antihypertensives. She has an appointment with her primary care doctor later this month. Says she is drinking over 64 ounces of liquids daily. Protein intake appears to be low. Patient cannot quantify calories or protein content. Objective - Vital Signs Vital signs: Vital Signs Temp 98.6 F 03/22/21 13:03 Pulse 103 H 03/22/21 13:03 Resp 16 03/22/21 13:03 BP 132/84 03/22/21 13:03 Pulse Ox Intake & Output 03/21/21 03/22/21 03/22/21 18:59 06:59 18:59 Weight 104.326 kg - Exam Abdomen: Soft, nondistended, nontender Assessment/Plan (1) Morbid obesity Narrative/Plan: 55-year-old female doing well from a weight loss point of view oh sleeve gastrectomy. Unfortunately patient having psychiatric issues and nausea. Patient will see dietary today. We will help patient have an appointment with psychiatry at this point to discuss her anxiety issues. Encouraged patient to monitor her protein and caloric intake. Continue oral hydration. Return visit 6 weeks. Check three-month labs. Plan: Date: 03/22/21 Initial Weight: 128.82 kg Initial BMI: 45.8 Current Weight: 104.326 kg Current BMI: 37.1 Type of Surgery: Total Volume in Band: Previous Volume: Volume Removed: Volume Added: Band Size:
== END | disposition home or self-care (01) ==
LOC: BARWHC3 12:43
PROVIDERS: ATTEND Surgery
DX: E66.01 Morbid (severe) obesity due to excess calories (principal); Z68.37 Body mass index [BMI] 37.0-37.9, adult
CPT/HCPCS: 97803; G0463; 99211

== ENCOUNTER 2021-03-24 15:54 | Observation (INO) | payer MEDICARE, OTHER ==
[2021-03-24] MEDS ORDERED: ASPIRIN 81 MG PO STA (16:43)
[2021-03-24] MEDS ORDERED: SODIUM CHLORIDE 0.9% 500 ML 500 ML IV STA (16:43)
[2021-03-24] MEDS ORDERED: NITROGLYCERIN OINT 1 INCH/GM PACKET TOPICAL STA (16:43)
[2021-03-24] MEDS ORDERED: LORazepam 2 MG/ML INJ IV STA ×2 (16:44→18:10)
--- NOTE | 2021-03-24 16:50 | ED ---
General Adult HPI - General Stated complaint: Chest/Neck Pain Time Seen by Provider: 03/24/21 16:00 Source: patient, RN notes reviewed, old records reviewed - History of Present Illness Initial comments: This is a 55-year-old female with past medical history significant for elevated cholesterol and recent gastric bypass. Patient comes in today because on Sunday she started having near syncopal episodes in the continued and yesterday she went to her primary medical care doctor and he told her that the EKG was abnormal. Patient states this morning she woke up with chest pain short of breath has some diaphoretic episodes that she decided come to the emergency department. Patient states the pain does radiate to her back as well. Patient states she's also extremely anxious She has a brother is dying. Patient states she has had a little bit nauseated but no vomiting. Patient denies abdominal pain patient diarrhea. Patient denies any recent fever chills or cough per patient denies headache patient denies numbness weakness. - Related Data Home Medications Medication Instructions Recorded Confirmed ALPRAZolam [Xanax] 1 mg PO Q8H PRN 03/20/14 03/24/21 HYDROcodone/APAP 10-325MG [[place] 1 tab PO Q8H PRN 04/07/17 03/24/21 10-325] Omeprazole 20 mg PO BID 04/07/17 03/24/21 rOPINIRole HCL [Requip] 0.5 mg PO HS 06/02/17 03/24/21 Zolpidem [Ambien] 10 mg PO HS 10/31/17 03/24/21 Atorvastatin [Lipitor] 20 mg PO DAILY 11/21/18 03/24/21 Albuterol Sulfate [Ventolin HFA] 1 - 2 puff INHALATION RT-Q6H PRN 01/01/20 03/24/21 Levothyroxine Sodium [Synthroid] 75 mcg PO DAILY 01/01/20 03/24/21 Montelukast [Singulair] 10 mg PO HS 04/22/20 03/24/21 Budesonide (Unknown Strength) 1 vial INHALATION RT-BID PRN 03/24/21 03/24/21 Citalopram Hydrobromide [CeleXA] 40 mg PO DAILY 03/24/21 03/24/21 valACYclovir HCL 1,000 mg PO TID PRN 03/24/21 03/24/21 Allergies Allergy/AdvReac Type Severity Reaction Status Date / Time Sulfa (Sulfonamide Allergy Severe Rash/Hives Verified 03/24/21 18:02 Antibiotics) ketorolac tromethamine Allergy Tardive Verified 03/24/21 18:02 [From Toradol] Dyskinesia prochlorperazine maleate Allergy Tardive Verified 03/24/21 18:02 [From Compazine] Dyskinesia prochlorperazine edisylate AdvReac Severe Tardive Verified 03/24/21 18:02 [From Compazine] dyskinesia Review of Systems ROS Statement: Those systems with pertinent positive or pertinent negative responses have been documented in the HPI. ROS Other: All systems not noted in ROS Statement are negative. Past Medical History Past Medical History: Asthma, Deep Vein Thrombosis (DVT), Fibromyalgia, GERD/Reflux, Hyperlipidemia, Hypertension, Musculoskeletal Disorder, Osteoarthritis (OA), Sleep Apnea/CPAP/BIPAP, Thyroid Disorder Additional Past Medical History / Comment(s): Hx DVT in each leg. IBS. Lumbar DDD, chronic back pain. Has not been using CPAP. History of Any Multi-Drug Resistant Organisms: MRSA Date of last positivie culture/infection: 2008 MDRO Source:: abd Past Surgical History: Bariatric Surgery, Section, Cholecystectomy, Hysterectomy, Orthopedic Surgery Additional Past Surgical History / Comment(s): Right knee arthroscopy, left elbow surgery for torn tendon, sinus surgery, PAIN CLINIC PROCEDURE, back procedures, varicose vein surgery. sleeve gastrectomy 12-20-20 Past Anesthesia/Blood Transfusion Reactions: No Reported Reaction Past Psychological History: Anxiety, Depression, Panic Disorder Smoking Status: Never smoker Past Alcohol Use History: None Reported Past Drug Use History: None Reported - Past Family History Father Family Medical History: Cancer Additional Family Medical History / Comment(s): Colon Cancer. Brother(s) Family Medical History: Cancer General Exam - General Exam Comments Initial Comments: GENERAL: Patient is well-developed and well-nourished. Patient is nontoxic and well- hydrated and is in mild distress. ENT: Neck is soft and supple. No significant lymphadenopathy is noted. Oropharynx is clear. Moist mucous membranes. Neck has full range of motion without eliciting any pain. EYES: The sclera were anicteric and conjunctiva were pink and moist. Extraocular movements were intact and pupils were equal round and reactive to light. Eyelids were unremarkable. PULMONARY: Unlabored respirations. Good breath sounds bilaterally. No audible rales rhonchi or wheezing was noted. CARDIOVASCULAR: There is a regular rate and rhythm without any murmurs gallops or rubs. ABDOMEN: Soft and nontender with normal bowel sounds. SKIN: Skin is clear with no lesions or rashes and otherwise unremarkable. NEUROLOGIC: Patient is alert and oriented x3. Cranial nerves II through XII are grossly intact. Motor and sensory are also intact. Normal speech, volume and content. Symmetrical smile. MUSCULOSKELETAL: Normal extremities with adequate strength and full range of motion. No lower extremity swelling or edema. No calf tenderness. LYMPHATICS: No significant lymphadenopathy is noted PSYCHIATRIC: Normal psychiatric evaluation. Course Vital Signs 03/24/21 16:42 Temperature 98.2 F Pulse Rate 98 Respiratory 18 Rate Blood Pressure 123/79 O2 Sat by Pulse 98 Oximetry Medical Decision Making - Medical Decision Making EKG shows normal sinus rhythm at 94 bpm TN interval is 146 QRS 74 QT interval 368 QTC is 460. Patient's EKG shows inverted T waves in all precordial leads. There is slight ST segment depression in inferior leads. Chest x-ray shows no acute normalities. One pack and reevaluate the patient she was having a headache I ordered her some Tylenol. Patient's chest pain had resolved at this time. Patient was also very anxious. - Lab Data Result diagrams: 03/24/21 17:09 03/24/21 17:09 Lab Results 03/24/21 03/24/21 03/24/21 Range/Units 17:09 17:09 17:09 WBC 10.7 H (3.8-10.6) k/uL RBC 4.68 (3.80-5.40) m/uL Hgb 15.1 (11.4-16.0) gm/dL Hct 45.0 (34.0-46.0) % MCV 96.1 (80.0-100.0) fL MCH 32.4 (25.0-35.0) pg MCHC 33.7 (31.0-37.0) g/dL RDW 13.3 (11.5-15.5) % Plt Count 228 (150-450) k/uL MPV 9.5 Neutrophils % 52 % Lymphocytes % 38 % Monocytes % 6 % Eosinophils % 1 % Basophils % 0 % Neutrophils # 5.5 (1.3-7.7) k/uL Lymphocytes # 4.1 (1.0-4.8) k/uL Monocytes # 0.6 (0-1.0) k/uL Eosinophils # 0.1 (0-0.7) k/uL Basophils # 0.1 (0-0.2) k/uL PT 11.0 (9.0-12.0) sec INR 1.0 (<1.2) APTT 22.1 (22.0-30.0) sec Sodium 138 (137-145) mmol/L Potassium 4.6 (3.5-5.1) mmol/L Chloride 107 (98-107) mmol/L Carbon Dioxide 19 L (22-30) mmol/L Anion Gap 12 mmol/L BUN 19 H (7-17) mg/dL Creatinine 0.81 (0.52-1.04) mg/dL Est GFR (CKD-EPI)AfAm >90 (>60 ml/min/1.73 sqM) Est GFR (CKD-EPI)NonAf 83 (>60 ml/min/1.73 sqM) Glucose 116 H (74-99) mg/dL Calcium 10.2 (8.4-10.2) mg/dL Magnesium 2.2 (1.6-2.3) mg/dL Total Bilirubin 0.7 (0.2-1.3) mg/dL AST 24 (14-36) U/L ALT 19 (4-34) U/L Alkaline Phosphatase 94 (38-126) U/L Troponin I (0.000-0.034) ng/mL Total Protein 8.1 (6.3-8.2) g/dL Albumin 4.8 (3.5-5.0) g/dL Urine Color Urine Appearance (Clear) Urine pH (5.0-8.0) Ur Specific [place] (1.001-1.035) Urine Protein (Negative) Urine Glucose (UA) (Negative) Urine Ketones (Negative) Urine Blood (Negative) Urine Nitrite (Negative) Urine Bilirubin (Negative) Urine Urobilinogen (<2.0) mg/dL Ur Leukocyte Esterase (Negative) Coronavirus (PCR) (Not Detectd) 03/24/21 03/24/21 03/24/21 Range/Units 17:09 17:09 17:09 WBC (3.8-10.6) k/uL RBC (3.80-5.40) m/uL Hgb (11.4-16.0) gm/dL Hct (34.0-46.0) % MCV (80.0-100.0) fL MCH (25.0-35.0) pg MCHC (31.0-37.0) g/dL RDW (11.5-15.5) % Plt Count (150-450) k/uL MPV Neutrophils % % Lymphocytes % % Monocytes % % Eosinophils % % Basophils % % Neutrophils # (1.3-7.7) k/uL Lymphocytes # (1.0-4.8) k/uL Monocytes # (0-1.0) k/uL Eosinophils # (0-0.7) k/uL Basophils # (0-0.2) k/uL PT (9.0-12.0) sec INR (<1.2) APTT (22.0-30.0) sec Sodium (137-145) mmol/L Potassium (3.5-5.1) mmol/L Chloride (98-107) mmol/L Carbon Dioxide (22-30) mmol/L Anion Gap mmol/L BUN (7-17) mg/dL Creatinine (0.52-1.04) mg/dL Est GFR (CKD-EPI)AfAm (>60 ml/min/1.73 sqM) Est GFR (CKD-EPI)NonAf (>60 ml/min/1.73 sqM) Glucose (74-99) mg/dL Calcium (8.4-10.2) mg/dL Magnesium (1.6-2.3) mg/dL Total Bilirubin (0.2-1.3) mg/dL AST (14-36) U/L ALT (4-34) U/L Alkaline Phosphatase (38-126) U/L Troponin I <0.012 (0.000-0.034) ng/mL Total Protein (6.3-8.2) g/dL Albumin (3.5-5.0) g/dL Urine Color Yellow Urine Appearance Clear (Clear) Urine pH 6.0 (5.0-8.0) Ur Specific [place] 1.019 (1.001-1.035) Urine Protein Negative (Negative) Urine Glucose (UA) Negative (Negative) Urine Ketones Negative (Negative) Urine Blood Negative (Negative) Urine Nitrite Negative (Negative) Urine Bilirubin Negative (Negative) Urine Urobilinogen <2.0 (<2.0) mg/dL Ur Leukocyte Esterase Negative (Negative) Coronavirus (PCR) Not Detected (Not Detectd) Disposition Clinical Impression: Chest pain, Anxiety Disposition: ADMITTED IP TO THIS HOSP Referrals: Genia Avalos MD [Primary Care Provider] - 1-2 days Time of Disposition: 18:10
[2021-03-24 17:23] LABS: Basophils # (A) 0.1 k/uL (0-0.2); Basophils % (A) 0 %; Eosinophils # (A) 0.1 k/uL (0-0.7); Eosinophils % (A) 1 %; HGB 15.1 gm/dL (11.4-16.0); Lymphocytes # (A) 4.1 k/uL (1.0-4.8); Lymphocytes % (A) 38 %; MCH 32.4 pg (25.0-35.0); MCHC 33.7 g/dL (31.0-37.0); MCV 96.1 fL (80.0-100.0); Mean Platelet Volume 9.5; Monocytes # (A) 0.6 k/uL (0-1.0); Monocytes % (A) 6 %; Neutrophils # (A) 5.5 k/uL (1.3-7.7); Neutrophils % (A) 52 %; Platelet Count 228 k/uL (150-450); RBC 4.68 m/uL (3.80-5.40); RDW 13.3 % (11.5-15.5); WBC 10.7 k/uL (3.8-10.6)
[2021-03-24 17:27] LABS: Appearance,Urine Clear (Clear); Bilirubin,Urine Negative (Negative); Blood,Urine Negative (Negative); Color,Urine Yellow; Glucose,Urine (UA) Negative (Negative); Ketones,Urine Negative (Negative); Leukocyte Esterase,Urine Negative (Negative); Nitrite,Urine Negative (Negative); Protein,Urine Negative (Negative); Specific Gravity,Urine 1.019 (1.001-1.035); Urobilinogen,Urine <2.0 mg/dL (<2.0)
[2021-03-24 17:32] LABS: ALT 19 U/L (4-34); AST 24 U/L (14-36); African American GFR (CKD) >90 (>60 ml/min/1.73 sqM); Albumin 4.8 g/dL (3.5-5.0); Alkaline Phosphatase 94 U/L (38-126); Anion Gap 12 mmol/L; Blood Urea Nitrogen 19 mg/dL (7-17); Calcium 10.2 mg/dL (8.4-10.2); Carbon Dioxide 19 mmol/L (22-30); Chloride 107 mmol/L (98-107); Glucose 116 mg/dL (74-99); Magnesium 2.2 mg/dL (1.6-2.3); Non-African American GFR(CKD) 83 (>60 ml/min/1.73 sqM); Potassium 4.6 mmol/L (3.5-5.1); Sodium 138 mmol/L (137-145); Total Bilirubin 0.7 mg/dL (0.2-1.3); Total Protein 8.1 g/dL (6.3-8.2)
[2021-03-24] MEDS ORDERED: ONDANSETRON 4 MG/2 ML VIAL IVP STA (17:35)
[2021-03-24 17:43] LABS: Partial Thromboplastin Time 22.1 sec (22.0-30.0)
--- NOTE | 2021-03-24 17:50 | XR ---
EXAMINATION TYPE: XR chest 2V DATE RECEIVED ON: 03/24/2021 DATE PERFORMED: 03/24/2021 COMPARISON: 04/22/2020 HISTORY: Chest pain TECHNIQUE: Frontal and lateral views of the chest are obtained. FINDINGS: The heart size is normal. The pulmonary vasculature is normal. The lungs are clear. IMPRESSION: 1. No acute cardiopulmonary process.
[2021-03-24] MEDS ORDERED: ACETAMINOPHEN TAB 500 MG TAB PO STA (18:08)
[2021-03-24] MEDS ORDERED: NITROGLYCERIN SL TABS 0.4 MG TAB SUBLINGUAL PRN (18:10)
[2021-03-24] MEDS ORDERED: HYDROmorphone 0.5 MG/0.5 ML SYRINGE IVP STA (19:13)
[2021-03-25] MEDS: HYDROmorphone 0.5 MG/0.5 ML SYRINGE IVP PRN ×5 (00:44→18:14)
[2021-03-25] MEDS: NITROGLYCERIN OINT 1 INCH/GM PACKET TOPICAL SCH ×2 (00:45→06:08)
[2021-03-25] MEDS: ONDANSETRON 4 MG/2 ML VIAL IVP PRN ×4 (01:17→18:14)
[2021-03-25] MEDS ORDERED: ASPIRIN 325 MG TAB PO SCH (09:00)
[2021-03-25] MEDS ORDERED: valACYclovir HCL 1,000 MG TABLET PO PRN (09:07)
[2021-03-25] MEDS ORDERED: ALBUTEROL NEBULIZED 2.5 MG/3 ML INHALATION PRN (09:07)
[2021-03-25] MEDS ORDERED: BUDESONIDE INHALATION PRN (09:07)
[2021-03-25 09:55] LABS: Basophils % (A) 0 %; Eosinophils # (A) 0.1 k/uL (0-0.7); Eosinophils % (A) 2 %; HCT 39.5 % (34.0-46.0); HGB 13.1 gm/dL (11.4-16.0); Lymphocytes # (A) 1.7 k/uL (1.0-4.8); Lymphocytes % (A) 25 %; MCH 32.4 pg (25.0-35.0); MCHC 33.3 g/dL (31.0-37.0); MCV 97.3 fL (80.0-100.0); Mean Platelet Volume 9.5; Monocytes # (A) 0.4 k/uL (0-1.0); Monocytes % (A) 6 %; Neutrophils # (A) 4.2 k/uL (1.3-7.7); Neutrophils % (A) 65 %; Platelet Count 185 k/uL (150-450); RBC 4.06 m/uL (3.80-5.40); RDW 13.3 % (11.5-15.5); WBC 6.5 k/uL (3.8-10.6)
--- NOTE | 2021-03-25 10:05 | P.HPIM ---
History of Present Illness H&P Date: 03/25/21 Chief Complaint: Chest pain anxiety This is a 55-year-old female patient who presented with concerns of chest pain and abnormal EKG. Patient reports that since Sunday she's been having ongoing symptoms of intermittent chest pain and lightheadedness. Patient presented to PCP in which a 2-D echocardiogram Doppler and EKG were completed. Patient states that she woke up this morning with increasing chest pain and shortness of breath and presented to the emergency room for further evaluation. Patient does have past medical history of gastric bypass surgery approximately 4 months ago. Patient does reports she is quite anxious about her brothers state of health. Additional medical history includes asthma, DVT, fibromyalgia, GERD, hyperlipidemia, hypertension, musculoskeletal disorder, osteoarthritis, sleep apnea And thyroid disorder. Chest x-ray was completed showing no acute cardiopulmonary process Troponins negative 3. Cardiology services consulted. Patient also reports that she's had issues urinating since yesterday. Will order urinary analysis, bladder scan and catheterization if needed. Will also order d-dimer level. Patient denies nausea vomiting or diarrhea. She denies any chest pain or shortness breath at this time Review of Systems Please refer to HPI otherwise unremarkable Past Medical History Past Medical History: Asthma, Deep Vein Thrombosis (DVT), Fibromyalgia, GE RD/Reflux, Hyperlipidemia, Hypertension, Musculoskeletal Disorder, Osteoarthritis (OA), Sleep Apnea/CPAP/BIPAP, Thyroid Disorder Additional Past Medical History / Comment(s): Hx DVT in each leg. IBS. Lumbar DDD, chronic back pain. Has not been using CPAP. Hypothyroid. 2 bulging discs in back and 1 in neck. History of Any Multi-Drug Resistant Organisms: MRSA Date of last positivie culture/infection: 2008 MDRO Source:: abd Past Surgical History: Bariatric Surgery, Section, Cholecystectomy, Hysterectomy, Orthopedic Surgery Additional Past Surgical History / Comment(s): Right knee arthroscopy, left elbow surgery for torn tendon, sinus surgery, PAIN CLINIC PROCEDURE, back injections and nerves burned in back and neck, varicose vein surgery. sleeve gastrectomy 12-20-20 Past Anesthesia/Blood Transfusion Reactions: No Reported Reaction Past Psychological History: Anxiety, Depression, Panic Disorder Smoking Status: Never smoker Past Alcohol Use History: None Reported Past Drug Use History: None Reported - Past Family History Father Family Medical History: Cancer Additional Family Medical History / Comment(s): Colon Cancer. Brother(s) Family Medical History: Cancer Medications and Allergies Home Medications Medication Instructions Recorded Confirmed Type ALPRAZolam [Xanax] 1 mg PO Q8H PRN 03/20/14 03/24/21 History HYDROcodone/APAP 10-325MG [[place] 1 tab PO Q8H PRN 04/07/17 03/24/21 History 10-325] Omeprazole 20 mg PO BID 04/07/17 03/24/21 History rOPINIRole HCL [Requip] 0.5 mg PO HS 06/02/17 03/24/21 History Zolpidem [Ambien] 10 mg PO HS 10/31/17 03/24/21 History Atorvastatin [Lipitor] 20 mg PO DAILY 11/21/18 03/24/21 History Albuterol Sulfate [Ventolin HFA] 1 - 2 puff INHALATION RT-Q6H PRN 01/01/20 03/24/21 History Levothyroxine Sodium [Synthroid] 75 mcg PO DAILY 01/01/20 03/24/21 History Montelukast [Singulair] 10 mg PO HS 04/22/20 03/24/21 History Budesonide (Unknown Strength) 1 vial INHALATION RT-BID PRN 03/24/21 03/24/21 History Citalopram Hydrobromide [CeleXA] 40 mg PO DAILY 03/24/21 03/24/21 History valACYclovir HCL 1,000 mg PO TID PRN 03/24/21 03/24/21 History Allergies Allergy/AdvReac Type Severity Reaction Status Date / Time Sulfa (Sulfonamide Allergy Severe Rash/Hives Verified 03/24/21 18:02 Antibiotics) ketorolac tromethamine Allergy Tardive Verified 03/24/21 18:02 [From Toradol] Dyskinesia prochlorperazine maleate Allergy Tardive Verified 03/24/21 18:02 [From Compazine] Dyskinesia prochlorperazine edisylate AdvReac Severe Tardive Verified 03/24/21 18:02 [From Compazine] dyskinesia Physical Exam Vitals: Vital Signs Temp Pulse Pulse Resp BP BP Pulse Ox 03/25/21 07:00 98.2 F 94 18 119/68 94 L 03/25/21 04:24 84 108/72 03/25/21 02:00 95 16 03/25/21 01:09 98.1 F 95 16 96/58 90 L 03/24/21 23:40 16 03/24/21 23:27 98.1 F 94 16 116/69 93 L 03/24/21 23:12 97.5 F L 99 16 116/73 94 L 03/24/21 21:11 97.4 F L 101 H 16 111/71 94 L 03/24/21 18:48 109 H 18 112/85 93 L 03/24/21 16:42 98.2 F 98 18 123/79 98 Intake and Output 03/24/21 03/25/21 03/25/21 22:59 06:59 14:59 Intake Total 0 Balance 0 Intake: Oral 0 Other: Voiding Method Toilet # Voids 1 Weight 104.78 kg 104.78 kg Head normocephalic Neck supple Lungs clear to auscultation bilaterally no wheezing or crackles Heart regular rate and rhythm S1-S2, no rub or gallop Abdomen is soft nontender nondistended positive bowel sounds no hepatosplen omegaly Extremities no edema Neuro alert and orientated to 3 Results CBC & Chem 7: 03/25/21 09:26 03/24/21 17:09 Labs: Abnormal Lab Results - Last 24 Hours (Table) 03/24/21 03/24/21 Range/Units 17:09 17:09 WBC 10.7 H (3.8-10.6) k/uL Carbon Dioxide 19 L (22-30) mmol/L BUN 19 H (7-17) mg/dL Glucose 116 H (74-99) mg/dL Thrombosis Risk Factor Assmnt - Choose All That Apply Each Factor Represents 1 point: Age 41-60 years, Obesity (BMI >25) Each Risk Factor Represents 3 Points: History of DVT/PE Thrombosis Risk Factor Assessment Total Risk Factor Score: 5 Thrombosis Risk Factor Assessment Level: High Risk Assessment and Plan Assessment: 1. Chest pain. Troponins negative 3. Chest x-ray negative. Cardiology service is consulted 2. Generalized anxiety. Patient is maintained on Xanax. 3. Difficulty with urination. Urinary analysis ordered bladder scan ordered 4. Recent gastric bypass surgery. Patient reports that she had surgery completed approximately 4 months ago 5. History of asthma no exacerbation at this time 6. History of deep vein thrombosis. 7. History of fibromyalgia 8. History of hypothyroidism 9. Essential hypertension 10. History of hyperlipidemia maintained on statin 11. History of sleep apnea maintained with BiPAP machine 12. History of anxiety depression DVT prophylaxis Lovenox. GI prophylaxis Protonix Cardiology consult placed Urinary analysis ordered D-dimer level ordered Repeat labs ordered Time with Patient: Greater than 30 (Greater than 60% of the total time spent in counseling and coordination of care)
[2021-03-25 10:16] LABS: ALT 14 U/L (4-34); AST 22 U/L (14-36); African American GFR (CKD) >90 (>60 ml/min/1.73 sqM); Albumin/Globulin Ratio 1.4; Alkaline Phosphatase 80 U/L (38-126); Anion Gap 8 mmol/L; Blood Urea Nitrogen 19 mg/dL (7-17); Carbon Dioxide 23 mmol/L (22-30); Chloride 104 mmol/L (98-107); Globulin 2.8 g/dL; Glucose 111 mg/dL (74-99); Non-African American GFR(CKD) >90 (>60 ml/min/1.73 sqM); Potassium 4.4 mmol/L (3.5-5.1); Sodium 135 mmol/L (137-145); Total Bilirubin 0.9 mg/dL (0.2-1.3); Total Protein 6.8 g/dL (6.3-8.2)
--- NOTE | 2021-03-25 10:27 | P.CRDCN ---
History of Present Illness History of present illness: HISTORY OF PRESENTING ILLNESS This is a pleasant 55-year-old female past medical history significant for dyslipidemia, recent gastric sleeve surgery, morbid obesity, DVT osteoarthritis, musculoskeletal disorder, asthma, fibromyalgia. She follows in the office with Dr. Ortega. We have been asked to see in consultation for chest pain. Patient is seen and examined at bedside in no acute distress. Patient presents to the emergency room with episode of chest pain or shortness of breath. Patient states her chest pain chest breath woke her up out of sleep. She states it does radiate to the back in the middle of her shoulder blades. It is nonexertional. Her symptoms have resolved. She denies any associated nausea, diaphoresis, lightheadedness, dizziness, shortness of breath. She denies any palpitations, syncope or near-syncope, she denies any TIA or strokelike symptoms, she denies any symptoms of orthopnea or PND. She denies smoking or alcohol use. Denies illicit drug use. She denies history of SD, stroke, diabetes. She denies family history of CAD. DIAGNOSTICS EKG reveals sinus rhythm, heart rate 94, T wave inversions in inferior, anterior lateral leads. These are similar changes from prior EKGs in the past. EKG this morning with similar findings. Telemetry tracings indicate sinus mechanism Recent Lexiscan stress test in the office August 2020 was negative for reversible ischemia. Chest xray no acute cardiopulmonary process. Echocardiogram in 2017 revealed EF of 60-65%, mild tricuspid regurgitation Laboratory reviewed, sodium 135, potassium 4.4, BUN 19, serum creatinine 0.7, magnesium 2.2, troponin negative 3, UA negative, COVID-19 PCR negative, CBC unremarkable. Current home medications include Celexa, valacyclovir, Ambien, omeprazole, Singulair, Synthroid, when necessary [place], atorvastatin 20 mg daily, when necessary Xanax, albuterol, Requip REVIEW OF SYSTEMS At the time of my exam: CONSTITUTIONAL: Denies fever or chills. CARDIOVASCULAR: + chest pain, +shortness of breath, Denies orthopnea, PND or palpitations. RESPIRATORY: Denies cough. GASTROINTESTINAL: Denies abdominal pain, diarrhea, constipation, nausea or vomiting. MUSCULOSKELETAL: Denies myalgias. NEUROLOGIC: Denies numbness, tingling, headacbe or weakness. ENDOCRINE: Denies fatigue, weight change, polydipsia or polyurina. GENITOURINARY: Denies burning, hematuria or urgency with micturation. HEMATOLOGIC: Denies history of anemia or bleeding. PHYSICAL EXAMINATION Blood pressure 119/60, heart rate 94, afebrile, maintaining saturations on room air CONSTITUTIONAL: No apparent distress. HEENT: Head is normocephalic. Pupils are equal, round. Sclerae anicteric. Mucous membranes of the mouth are moist. No JVD. No carotid bruit. CHEST EXAMINATION: Lungs are clear to auscultation. No chest wall tenderness is noted on palpation or with deep breathing. HEART EXAMINATION: Regular rate and rhythm. S1, S2 heard. No murmurs, gallops or rub. ABDOMEN: Soft, nontender. Positive bowel sounds. EXTREMITIES: 2+ peripheral pulses, no lower extremity edema and no calf tenderness. NEUROLOGIC EXAMINATION: Patient is awake, alert and oriented x3. ASSESSMENT Chest pain, atypical, acute coronary syndrome has ruled out Morbid obesity History of anxiety Recent gastric sleeve surgery History of DVT History of asthma History of fibromyalgia History of Obstructive sleep apnea PLAN Patient's chest pain is atypical, acute coronary syndrome has ruled out. No new EKG changes. Patient with recent Lexiscan stress test in the office with Dr. Ortega on 08/27/2020 which was negative. From cardiology perspective no cardiac workup is indicated at this time. Continue patient's atorvastatin. We will follow the patient as needed. Please reach out with further questions or concerns. Patient to follow-up in the office with Dr. Ortega Nurse Practitioner note has been reviewed, I agree with a documented findings and plan of care. Patient was seen and examined. Past Medical History Past Medical History: Asthma, Deep Vein Thrombosis (DVT), Fibromyalgia, GERD/Reflux, Hyperlipidemia, Hypertension, Musculoskeletal Disorder, Osteoarthritis (OA), Sleep Apnea/CPAP/BIPAP, Thyroid Disorder Additional Past Medical History / Comment(s): Hx DVT in each leg. IBS. Lumbar DDD, chronic back pain. Has not been using CPAP. Hypothyroid. 2 bulging discs in back and 1 in neck. History of Any Multi-Drug Resistant Organisms: MRSA Date of last positivie culture/infection: 2008 MDRO Source:: abd Past Surgical History: Bariatric Surgery, Section, Cholecystectomy, Hysterectomy, Orthopedic Surgery Additional Past Surgical History / Comment(s): Right knee arthroscopy, left elbow surgery for torn tendon, sinus surgery, PAIN CLINIC PROCEDURE, back injections and nerves burned in back and neck, varicose vein surgery. sleeve gastrectomy 12-20-20 Past Anesthesia/Blood Transfusion Reactions: No Reported Reaction Past Psychological History: Anxiety, Depression, Panic Disorder Smoking Status: Never smoker Past Alcohol Use History: None Reported Past Drug Use History: None Reported - Past Family History Father Family Medical History: Cancer Additional Family Medical History / Comment(s): Colon Cancer. Brother(s) Family Medical History: Cancer Medications and Allergies Home Medications Medication Instructions Recorded Confirmed Type ALPRAZolam [Xanax] 1 mg PO Q8H PRN 03/20/14 03/24/21 History HYDROcodone/APAP 10-325MG [[place] 1 tab PO Q8H PRN 04/07/17 03/24/21 History 10-325] Omeprazole 20 mg PO BID 04/07/17 03/24/21 History rOPINIRole HCL [Requip] 0.5 mg PO HS 06/02/17 03/24/21 History Zolpidem [Ambien] 10 mg PO HS 10/31/17 03/24/21 History Atorvastatin [Lipitor] 20 mg PO DAILY 11/21/18 03/24/21 History Albuterol Sulfate [Ventolin HFA] 1 - 2 puff INHALATION RT-Q6H PRN 01/01/20 03/24/21 History Levothyroxine Sodium [Synthroid] 75 mcg PO DAILY 01/01/20 03/24/21 History Montelukast [Singulair] 10 mg PO HS 04/22/20 03/24/21 History Budesonide (Unknown Strength) 1 vial INHALATION RT-BID PRN 03/24/21 03/24/21 History Citalopram Hydrobromide [CeleXA] 40 mg PO DAILY 03/24/21 03/24/21 History valACYclovir HCL 1,000 mg PO TID PRN 03/24/21 03/24/21 History Allergies Allergy/AdvReac Type Severity Reaction Status Date / Time Sulfa (Sulfonamide Allergy Severe Rash/Hives Verified 03/24/21 18:02 Antibiotics) ketorolac tromethamine Allergy Tardive Verified 03/24/21 18:02 [From Toradol] Dyskinesia prochlorperazine maleate Allergy Tardive Verified 03/24/21 18:02 [From Compazine] Dyskinesia prochlorperazine edisylate AdvReac Severe Tardive Verified 03/24/21 18:02 [From Compazine] dyskinesia Physical Exam Vitals: Vital Signs Temp Pulse Pulse Resp BP BP Pulse Ox 03/25/21 04:24 84 108/72 03/25/21 02:00 95 16 03/25/21 01:09 98.1 F 95 16 96/58 90 L 03/24/21 23:40 16 03/24/21 23:27 98.1 F 94 16 116/69 93 L 03/24/21 23:12 97.5 F L 99 16 116/73 94 L 03/24/21 21:11 97.4 F L 101 H 16 111/71 94 L 03/24/21 18:48 109 H 18 112/85 93 L 03/24/21 16:42 98.2 F 98 18 123/79 98 Intake and Output 03/24/21 03/25/21 03/25/21 22:59 06:59 14:59 Intake Total 0 Balance 0 Intake: Oral 0 Other: Voiding Method Toilet # Voids 1 Weight 104.78 kg 104.78 kg Results 03/25/21 09:26 03/25/21 09:26 Cardiac Enzymes 03/24/21 03/24/21 03/24/21 Range/Units 17:09 17:09 20:50 AST 24 (14-36) U/L Troponin I <0.012 <0.012 (0.000-0.034) ng/mL 03/25/21 Range/Units 00:02 AST (14-36) U/L Troponin I <0.012 (0.000-0.034) ng/mL Coagulation 03/24/21 Range/Units 17:09 PT 11.0 (9.0-12.0) sec APTT 22.1 (22.0-30.0) sec CBC 03/24/21 Range/Units 17:09 WBC 10.7 H (3.8-10.6) k/uL RBC 4.68 (3.80-5.40) m/uL Hgb 15.1 (11.4-16.0) gm/dL Hct 45.0 (34.0-46.0) % Plt Count 228 (150-450) k/uL Comprehensive Metabolic Panel 03/24/21 Range/Units 17:09 Sodium 138 (137-145) mmol/L Potassium 4.6 (3.5-5.1) mmol/L Chloride 107 (98-107) mmol/L Carbon Dioxide 19 L (22-30) mmol/L BUN 19 H (7-17) mg/dL Creatinine 0.81 (0.52-1.04) mg/dL Glucose 116 H (74-99) mg/dL Calcium 10.2 (8.4-10.2) mg/dL AST 24 (14-36) U/L ALT 19 (4-34) U/L Alkaline Phosphatase 94 (38-126) U/L Total Protein 8.1 (6.3-8.2) g/dL Albumin 4.8 (3.5-5.0) g/dL Current Medications Generic Name Dose Route Start Last Admin Trade Name Freq PRN Reason Stop Dose Admin Aspirin 325 mg 03/25/21 09:00 03/25/21 07:32 Aspirin 325 Mg Tab PO 325 mg DAILY SIVA Administration Hydromorphone HCl 0.5 mg 03/25/21 00:30 03/25/21 07:31 Hydromorphone 0.5 Mg/0.5 Ml Syringe IVP 0.5 mg Q3HR PRN Administration Pain Nitroglycerin 0.4 mg 03/24/21 18:10 Nitroglycerin Sl Tabs 0.4 Mg Tab SUBLINGUAL Q5M PRN Chest Pain Nitroglycerin 1 inch 03/25/21 00:00 03/25/21 06:08 Nitroglycerin Oint 1 Inch/Gm Packet TOPICAL 1 inch Q6HR SIVA Administration Ondansetron HCl 4 mg 03/25/21 01:09 03/25/21 07:32 Ondansetron 4 Mg/2 Ml Vial IVP 4 mg Q4HR PRN Administration Nausea And Vomiting Intake and Output 03/24/21 03/25/21 03/25/21 22:59 06:59 14:59 Intake Total 0 Balance 0 Intake: Oral 0 Other: Voiding Method Toilet # Voids 1 Weight 104.78 kg 104.78 kg 03/24/21 17:09 03/24/21 17:09
[2021-03-25] MEDS: CITALOPRAM HYDROBROMIDE 20 MG TAB PO SCH (10:29)
[2021-03-25] MEDS: PANTOPRAZOLE 40 MG TABLET PO SCH (10:29)
[2021-03-25 10:43] LABS: Chol/HDL Ratio 3.56 Ratio; HDL Cholesterol 47.5 mg/dL (40.00-60.00); LDL Cholesterol,Calculated 101.1 mg/dL (0.0-131.0); VLDL Calculation 20.4 mg/dL (5.00-40.00)
[2021-03-25] MEDS: ALPRAZolam 1 MG TAB PO PRN ×2 (11:34→20:34)
[2021-03-25] MEDS: SODIUM CHLORIDE 0.9% 1,000 ML IV SCH (13:27)
[2021-03-25 14:30] LABS: Appearance,Urine Clear (Clear); Bilirubin,Urine Negative (Negative); Blood,Urine Negative (Negative); Color,Urine Yellow; Glucose,Urine (UA) Negative (Negative); Ketones,Urine Negative (Negative); Leukocyte Esterase,Urine Negative (Negative); Nitrite,Urine Negative (Negative); PH, Urine 5.5 (5.0-8.0); Protein,Urine Negative (Negative); Specific Gravity,Urine 1.025 (1.001-1.035); Urobilinogen,Urine <2.0 mg/dL (<2.0)
[2021-03-25] MEDS ORDERED: ZOLPIDEM 10 MG TAB PO SCH (21:00)
[2021-03-25] MEDS ORDERED: MONTELUKAST 10 MG TAB PO SCH (21:00)
[2021-03-26] MEDS: HYDROmorphone 0.5 MG/0.5 ML SYRINGE IVP PRN ×2 (00:29→08:24)
[2021-03-26] MEDS: ONDANSETRON 4 MG/2 ML VIAL IVP PRN ×3 (00:29→13:42)
[2021-03-26] MEDS: SODIUM CHLORIDE 0.9% 1,000 ML IV SCH (00:31)
[2021-03-26] MEDS: HYDROcodone/APAP 10-325MG 1 EACH TAB PO PRN ×2 (05:46→13:23)
[2021-03-26] MEDS ORDERED: LEVOTHYROXINE 75 MCG TAB PO SCH (06:30)
[2021-03-26] MEDS: PANTOPRAZOLE 40 MG TABLET PO SCH (08:14)
[2021-03-26] MEDS: CITALOPRAM HYDROBROMIDE 20 MG TAB PO SCH (08:14)
[2021-03-26 08:26] VITALS: RESP 16; TEMP 97.7
[2021-03-26] MEDS ORDERED: ASPIRIN 81 MG PO SCH (09:00)
[2021-03-26] MEDS ORDERED: ENOXAPARIN 40 MG/0.4 ML SYRINGE SQ SCH (09:00)
[2021-03-26] MEDS ORDERED: ATORVASTATIN 20 MG TAB PO SCH (09:00)
[2021-03-26 09:09] LABS: Basophils # (A) 0.02 X 10*3/uL (0.00-0.10); Basophils % (A) 0.4 %; Eosinophils # (A) 0.11 X 10*3/uL (0.04-0.35); Eosinophils % (A) 2.1 %; HCT 39.2 % (37.2-46.3); HGB 12.8 g/dL (12.0-15.0); Lymphocytes # (A) 2.91 X 10*3/uL (0.90-5.00); Lymphocytes % (A) 56.1 %; MCH 32.2 pg (27.0-32.0); MCHC 32.7 g/dL (32.0-37.0); MCV 98.5 fL (80.0-97.0); Mean Platelet Volume 11.8 fL (9.5-12.2); Monocytes # (A) 0.67 X 10*3/uL (0.20-1.00); Monocytes % (A) 12.9 %; Neutrophils # (A) 1.47 X 10*3/uL (1.80-7.70); Neutrophils % (A) 28.3 %; Platelet Count 192 X 10*3/uL (140-440); RBC 3.98 X 10*6/uL (4.10-5.20); RDW 13.5 % (11.5-14.5); WBC 5.19 X 10*3/uL (4.50-10.00)
[2021-03-26 10:53] LABS: African American GFR (CKD) 96.9 (60.0-200.0); Albumin/Globulin Ratio 1.74 (1.60-3.17); Anion Gap 14.4 mmol/L (4.00-12.00); BUN/Creat Ratio 13.63 Ratio (12.00-20.00); Blood Urea Nitrogen 10.9 mg/dL (9.0-27.0); Calcium 8.7 mg/dL (8.7-10.3); Carbon Dioxide 19.6 mmol/L (21.6-31.8); Globulin 2.3 g/dL (1.6-3.3); Non-African American GFR(CKD) 83.6 (60.0-200.0); Potassium 4.2 mmol/L (3.5-5.5); Total Bilirubin 0.4 mg/dL (0.30-1.20); Total Protein 6.3 g/dL (6.2-8.2)
[2021-03-26] MEDS: ALPRAZolam 1 MG TAB PO PRN (13:24)
[2021-03-26 15:09] VITALS: BP 108/65; PULSE 79
== END 2021-03-26 15:15 | disposition home or self-care (01) ==
LOC: EC 15:54 → 6NMEDSUR 18:12
PROVIDERS: ADMIT Internal Medicine; ATTEND Internal Medicine
DX: R07.89 Other chest pain (principal); F41.1 Generalized anxiety disorder; R94.31 Abnormal electrocardiogram [ECG] [EKG]; I10 Essential (primary) hypertension; E03.9 Hypothyroidism, unspecified; J45.909 Unspecified asthma, uncomplicated; M79.7 Fibromyalgia; E78.5 Hyperlipidemia, unspecified; E78.00 Pure hypercholesterolemia, unspecified; M19.90 Unspecified osteoarthritis, unspecified site; G47.33 Obstructive sleep apnea (adult) (pediatric); I07.1 Rheumatic tricuspid insufficiency; K58.9 Irritable bowel syndrome, unspecified; G89.29 Other chronic pain; M51.36 Other intervertebral disc degeneration, lumbar region; F32.9 Major depressive disorder, single episode, unspecified; F41.0 Panic disorder [episodic paroxysmal anxiety]; R51.9 Headache, unspecified; E66.01 Morbid (severe) obesity due to excess calories; Z68.37 Body mass index [BMI] 37.0-37.9, adult; Z20.822 Contact with and (suspected) exposure to COVID-19; Z79.51 Long term (current) use of inhaled steroids; Z79.890 Hormone replacement therapy; Z79.899 Other long term (current) drug therapy; Z88.2 Allergy status to sulfonamides; Z88.5 Allergy status to narcotic agent; Z88.8 Allergy status to other drugs, medicaments and biological substances; Z86.14 Personal history of Methicillin resistant Staphylococcus aureus infection; Z98.84 Bariatric surgery status; Z86.718 Personal history of other venous thrombosis and embolism; Z90.49 Acquired absence of other specified parts of digestive tract; Z90.710 Acquired absence of both cervix and uterus; Z98.891 History of uterine scar from previous surgery; Z98.890 Other specified postprocedural states; Z80.0 Family history of malignant neoplasm of digestive organs
CPT/HCPCS: 96376 ×3; 96361 ×2; 96372; 96374; 96375; 99285; 36415; 93005; 85379; 80061; 80053 ×3; 84443; 83735; 84484 ×2; 85025 ×3; 85610; 85730; 81003 ×2; 87635; 71046; G0378 ×2; J2060; J2405 ×3; J1650; J1170 ×3

== ENCOUNTER → 2021-03-24 | Outpatient (CLI) | payer MEDICARE, OTHER ==
[2021-03-24 14:56] VITALS: BP 107/67; PULSE 102; RESP 12; TEMP 98.6
--- NOTE | 2021-03-24 15:40 | P.GSHP ---
History of Present Illness H&P Date: 03/24/21 Chief Complaint: right breast nodule Kim is a 55 year old white female seen in consultation for Dr. Avalos with a complaint of a nodule in her right breast. She noted two nodule in the lateral aspect of the breast. They are not tender, they are pea size. They have not changed since she found them. She had a bilateral mammogram approximately 05-26-20 which was benign BIRADS 2. After she noted the palpable change in her breast she had a right breast mammogram and right breast ultrasound. The right breast mammogram revealed a tiny ill-defined density with indistinct Borders in a palpable marker. The ultrasound revealed a 0.9 x 0.7 cm oval hyperechoic superficial lesion at 9:00 this is felt to be a probable lipoma and is 0.6 cm lymph node this was felt to be benign BIRADS 2. The patient is due for left breast mammogram in the near future. caffeine: none nicotine: none chocolate; none BCP: 10 years, stopped 25 years ago hormones: none Family History: father: colon cancer brother: lip cancer, metastatic maternal uncle: lung cancer maternal grandmother: lung cancer Hormonal History: menarche: 14 M1, breast fed: no, age at first : 19 menopause: 51; hysterectomy at 41 for pre cancer in uterus Surgical History: hysterectomy left ovaries gallbladder appy two C-sections tonsillectomy gastric sleeve 3 months ago Medical History: light headed when stands up/ EKG abnormal as per DR. Avalos hypothyroid Social History: nicotine: none alcohol: none drugs: none - Constitutional Constitutional: Reports sweats, Denies chills, Denies fever - EENT Eyes: denies blurred vision, denies pain Ears: deny: decreased hearing, tinnitus Ears, nose, mouth and throat: Reports headache, Denies sore throat - Breasts Breasts: bilateral: as per HPI - Cardiovascular Cardiovascular: Reports chest pain, Denies shortness of breath - Respiratory Respiratory: Denies cough, Denies 7 - Gastrointestinal Gastrointestinal: Reports constipation, Denies abdominal pain, Denies diarrhea, Denies nausea, Denies vomiting - Genitourinary (Female) Genitourinary: Denies dysuria, Denies hematuria - Menstruation Menstruation: Reports post hysterectomy - Musculoskeletal Comment: hips and back hurt Musculoskeletal: Denies myalgias - Integumentary Integumentary: Denies pruritus, Denies rash - Neurological Neurological: Denies numbness, Denies weakness - Psychiatric Psychiatric: Reports anxiety, Reports depression - Endocrine Endocrine: Reports fatigue, Denies weight change - Hematologic/Lymphatic Comment: none - Allergic/Immunologic Allergic/Immunologic: Reports as per HPI Past Medical History Past Medical History: Asthma, Deep Vein Thrombosis (DVT), Fibromyalgia, GERD/Reflux, Hyperlipidemia, Hypertension, Musculoskeletal Disorder, Osteoart hritis (OA), Sleep Apnea/CPAP/BIPAP, Thyroid Disorder Additional Past Medical History / Comment(s): Hx DVT in each leg. IBS. Lumbar DDD, chronic back pain. Has not been using CPAP. History of Any Multi-Drug Resistant Organisms: MRSA Date of last positivie culture/infection: 2008 MDRO Source:: abd Past Surgical History: Bariatric Surgery, Section, Cholecystectomy, Hysterectomy, Orthopedic Surgery Additional Past Surgical History / Comment(s): Right knee arthroscopy, left elbow surgery for torn tendon, sinus surgery, PAIN CLINIC PROCEDURE, back procedures, varicose vein surgery. sleeve gastrectomy 12-20-20 Past Anesthesia/Blood Transfusion Reactions: No Reported Reaction Past Psychological History: Anxiety, Depression, Panic Disorder Smoking Status: Never smoker Past Alcohol Use History: None Reported Past Drug Use History: None Reported - Past Family History Father Family Medical History: Cancer Additional Family Medical History / Comment(s): Colon Cancer. Brother(s) Family Medical History: Cancer Medications and Allergies Home Medications Medication Instructions Recorded Confirmed Type ALPRAZolam [Xanax] 1 mg PO Q8H PRN 03/20/14 02/17/21 History Dicyclomine [Bentyl] 10 mg PO Q8H PRN 04/07/17 02/17/21 History HYDROcodone/APAP 10-325MG [[place] 1 tab PO Q8H PRN 04/07/17 02/17/21 History 10-325] Omeprazole 20 mg PO BID 04/07/17 02/17/21 History rOPINIRole HCL [Requip] 0.5 mg PO HS 06/02/17 02/17/21 History Zolpidem [Ambien] 10 mg PO HS 10/31/17 02/17/21 History Citalopram Hydrobromide [CeleXA] 20 mg PO HS 09/12/18 02/17/21 History Atorvastatin [Lipitor] 20 mg PO QAM 11/21/18 02/17/21 History ARIPiprazole [Abilify] 2 mg PO QAM 04/28/19 02/17/21 History Albuterol Sulfate [Ventolin HFA] 1 - 2 puff INHALATION RT-Q6H PRN 01/01/20 02/17/21 History Levothyroxine Sodium [Synthroid] 75 mcg PO QAM 01/01/20 02/17/21 History EPINEPHrine (Auto Inject) [Epipen] 0.3 mg IM ONCE PRN 04/22/20 02/17/21 History Fluticasone Nasal [place] [Flonase 2 spray EA NOSTRIL HS PRN 04/22/20 02/17/21 History Nasal [place]] Montelukast [Singulair] 10 mg PO HS 04/22/20 02/17/21 History Ergocalciferol [Vitamin D2 (1250 50,000 unit PO ANG 08/25/20 02/17/21 History Mcg = 55415 Iu)] Budesonide (Unknown Dose) 1 dose INHALATION BID 12/16/20 02/17/21 History valACYclovir HCL [Valtrex] 500 mg PO QAM 12/16/20 02/17/21 History Ondansetron Odt [Zofran Odt] 4 mg PO Q8HR PRN #9 tab 12/24/20 02/17/21 Rx Simethicone 40 mg/0.6 ml Drops 40 mg PO PCHS PRN #30 ml 12/24/20 02/17/21 Rx [Mylicon Drops] bisacodyL [Dulcolax] 5 mg PO DAILY PRN #10 tablet. 12/24/20 02/17/21 Rx Allergies Allergy/AdvReac Type Severity Reaction Status Date / Time Sulfa (Sulfonamide Allergy Severe Rash/Hives Verified 03/24/21 14:44 Antibiotics) ketorolac tromethamine Allergy Tardive Verified 03/24/21 14:44 [From Toradol] Dyskinesia prochlorperazine maleate Allergy Tardive Verified 03/24/21 14:44 [From Compazine] Dyskinesia prochlorperazine edisylate AdvReac Severe Tardive Verified 03/24/21 14:44 [From Compazine] dyskinesia Surgical - Exam Vital Signs Temp Pulse Resp BP Pulse Ox 98.6 F 102 H 12 107/67 95 03/24/21 14:45 03/24/21 14:45 03/24/21 14:45 03/24/21 14:45 03/24/21 14:45 BMI 37.1 - General no distress - Eyes normal ocular movement - ENT normal nares - Neck trachea midline - Respiratory normal respiratory effort, clear to auscultation - Cardiovascular Rhythm: regular Heart Sounds: normal: S1, S2 - Abdomen Abdomen: soft - Integumentary normal turgor - Neurologic no disoriented, no combative - Musculoskeletal normal gait - Psychiatric oriented to time, oriented to person, oriented to place, speech is normal, memory intact Breast Exam: BRA: 44D inspection: Bilateral grade 3 ptosis Palpation: Right breast: Multi-positional exam fibrocystic changes, at the 9 o'clock position. Is a approximately once centimeter area of nodularity which most li yusra corresponds to what was seen on ultrasound. The second area in the right breast could not be ascertained on today's exam Right axilla: No adenopathy of concern Left breast: Multi-positional exam fibrocystic changes, no dominant masses or nodules of concern Left axilla: No adenopathy of concern Results Mammogram and ultrasound results reviewed Assessment and Plan Assessment: Impression: light headed when stands up/ EKG abnormal as per DR. Avalos hypothyroid Fibrocystic breast changes Palpable nodularity 9 o'clock position right breast Plan: FNA in the office of the palpable change in the 9 o'clock position right breast Patient wishes this to be excised most likely will excise it after FNA to assure that this is not a malignancy We will contact Dr. Avalos's office secondary to the patient feeling lightheaded and he may direct her to go to his officer toward the emergency room CC: Dr. Avalos
== END | disposition home or self-care (01) ==
LOC: WWCWWP 14:40
PROVIDERS: ATTEND Surgery
DX: Z53.9 Procedure and treatment not carried out, unspecified reason (principal)

== ENCOUNTER → 2021-05-03 | Outpatient (CLI) | payer MEDICARE, OTHER ==
--- NOTE | 2021-05-03 14:13 | P.BASOAP ---
Subjective Progress Note Date: 05/03/21 Principal diagnosis: Morbid obesity patient returns for evaluation. Last seen 03/22. Still having issues with her anxiety but seems to be improved. She was recently hospitalized for chest pain. Cardiac workup was normal. The chest pain resolved after about a week. She then was having some upper abdominal pain that lasted for a little less than a week. With that she had a few days of black colored stools that have gone away. She has taken her antiacids throughout. Never sought rectal bleeding. She has lost 9 pounds since her last visit. Thinks she is ingesting about 500 jessie per day. She does not know her protein intake. States she is not taking her protein drinks. Objective - Exam Abdomen: Soft, nontender, nondistended Assessment/Plan (1) Morbid obesity Narrative/Plan: Patient seems to be doing somewhat better. Anxiety is improved. No further abdominal pain. No heartburn. No nausea or vomiting. Continue monitoring caloric and protein intake. Follow-up 4-6 weeks. Plan: Date: Initial Weight: 128.82 kg Initial BMI: Current Weight: Current BMI: Type of Surgery: Total Volume in Band: Previous Volume: Volume Removed: Volume Added: Band Size:
[2021-05-03 14:21] VITALS: BP 118/82; PULSE 79; TEMP 98.2; BMI 35.6
== END | disposition home or self-care (01) ==
LOC: BARWHC3 13:05
PROVIDERS: ATTEND Surgery
DX: E66.01 Morbid (severe) obesity due to excess calories (principal)
CPT/HCPCS: 99211

== ENCOUNTER → 2021-05-19 | Outpatient (CLI) | payer MEDICARE, OTHER ==
[2021-05-19 08:53] VITALS: BP 103/72; PULSE 108; RESP 18; TEMP 98.3
--- NOTE | 2021-05-19 09:36 | P.PN ---
Subjective Progress Note Date: 05/19/21 Principal diagnosis: nodule right breast Kim is a 55 year old white female seen in consultation for Dr. Avalos with a complaint of a nodule in her right breast. She noted two nodule in the lateral aspect of the breast. They are not tender, they are pea size. They have not ch anged since she found them. She had a bilateral mammogram approximately 05-26-20 which was benign BIRADS 2. After she noted the palpable change in her breast she had a right breast mammogram and right breast ultrasound. The right breast mammogram revealed a tiny ill-defined density with indistinct Borders at a palpable marker. The ultrasound revealed a 0.9 x 0.7 cm oval hyperechoic superficial lesion at 9:00 this is felt to be a probable lipoma and is 0.6 cm lymph node this was felt to be benign BIRADS 2. The patient is due for left breast mammogram in the near future. At the patiests last examination she was having some lightheadedness and chest pain and was sent to the emergency room. She was admitted to the hospital for 2 days was thoroughly worked up and ruled out a cardiac event. At this time she is feeling better. caffeine: none nicotine: none chocolate; none BCP: 10 years, stopped 25 years ago hormones: none Family History: father: colon cancer brother: lip cancer, metastatic maternal uncle: lung cancer maternal grandmother: lung cancer Hormonal History: menarche: 14 M1, breast fed: no, age at first : 19 menopause: 51; hysterectomy at 41 for pre cancer in uterus Surgical History: hysterectomy left ovaries gallbladder appy two C-sections tonsillectomy gastric sleeve 3 months ago Medical History: light headed when stands up/ EKG abnormal as per DR. Avalos hypothyroid Social History: nicotine: none alcohol: none drugs: none - Constitutional Constitutional: Reports sweats, Denies chills, Denies fever - EENT Eyes: denies blurred vision, denies pain Ears: deny: decreased hearing, tinnitus Ears, nose, mouth and throat: Reports headache, Denies sore throat - Breasts Breasts: bilateral: as per HPI - Cardiovascular Cardiovascular: Reports chest pain, Denies shortness of breath - Respiratory Respiratory: Denies cough - Gastrointestinal Gastrointestinal: Reports constipation, Denies abdominal pain, Denies diarrhea, Denies nausea, Denies vomiting - Genitourinary (Female) Genitourinary: Denies dysuria, Denies hematuria - Menstruation Menstruation: Reports post hysterectomy - Musculoskeletal Comment: hips and back hurt Musculoskeletal: Denies myalgias - Integumentary Integumentary: Denies pruritus, Denies rash - Neurological Neurological: Denies numbness, Denies weakness - Psychiatric Psychiatric: Reports anxiety, Reports depression - Endocrine Endocrine: Reports fatigue, Denies weight change - Hematologic/Lymphatic Comment: none - Allergic/Immunologic Allergic/Immunologic: Reports as per HPI Objective - Vital Signs Vital signs: Vital Signs Temp 98.3 F 05/19/21 08:50 Pulse 108 H 05/19/21 08:50 Resp 18 05/19/21 08:50 BP 103/72 05/19/21 08:50 Pulse Ox 97 05/19/21 08:50 Intake & Output 05/18/21 05/19/21 05/19/21 18:59 06:59 18:59 Weight 97.069 kg - Constitutional General appearance: Present: cooperative - EENT Eyes: Present: EOMI ENT: Present: hearing grossly normal - Neck Neck: Present: normal ROM - Respiratory Respiratory: bilateral: CTA - Cardiovascular Rhythm: regular Heart sounds: normal: S1, S2 - Gastrointestinal General gastrointestinal: Present: soft - Integumentary Integumentary: Present: normal turgor - Musculoskeletal Musculoskeletal: Present: gait normal - Psychiatric Psychiatric: Present: A&O x's 3, appropriate affect, intact judgment & insight - Additional findings Additional findings: Breast Exam: BRA: 42D inspection: bilateral grade 3 ptosis palpation: right breast: Multi-positional exam fibrocystic changes, at the 9 o'clock position approximately 4 cm from the nipple areolar complex as a area of nodularity Right axilla: No adenopathy of concern Left breast: Multi-positional exam fibrocystic changes, no dominant masses or nodules of concern Left axilla: No adenopathy of concern Assessment and Plan Assessment: Mammogram and ultrasound results reviewed Assessment and plan: Impression: Palpable nodularity approximately 9 o'clock position right breast Plan: Recommended FNA of the area of concern in the right breast Patient wishes the area to be excised most likely excision in the near future Mammogram of the left breast prior to surgical resection clearance from Dr. Avalos CC: Dr. Avalos
--- NOTE | 2021-05-19 09:57 | P.PCN ---
Date of Procedure: 05/19/21 Preoperative Diagnosis: Nodule right breast Postoperative Diagnosis: Same Procedure(s) Performed: Fine-needle aspiration Anesthesia: none Surgeon: Floridalma Razo Pathology: other (Fine-needle aspiration tissue) Condition: stable Disposition: same day Indications for Procedure: Nodule right breast Description of Procedure: The area of concern in the right breast was prepped using alcohol. A 22-gauge needle on a 10 mL syringe was inserted into the area of concern. Multiple passes were made and tissue was obtained. The needle was withdrawn. Specimen was sent to pathology. Patient tolerated procedure in stable condition. The area of nodularity remains persistent.
== END | disposition home or self-care (01) ==
LOC: WWCWWP 08:35
PROVIDERS: ATTEND Surgery
DX: N63.0 Unspecified lump in unspecified breast (principal)
CPT/HCPCS: 88173; 88305

== ENCOUNTER → 2021-05-23 | Outpatient (CLI) | payer MEDICARE, OTHER ==
--- NOTE | 2021-05-23 09:38 | MM ---
Reason for exam: follow-up at short interval from prior study. Last mammogram was performed 3 months ago. History: Patient is postmenopausal. Benign cyst aspiration of the right breast, May 19, 2021. Benign US biopsy breast VAD LT of the left breast, October 31, 2017. Benign excisional biopsy of the left breast, August 2006. Physical Findings: Nurse Summary: 0.5cm nodule in the right breast at 9 o'clock (nurse mj). MG 3D Diag Mammo W/Cad LT CC and MLO view(s) were taken of the left breast. Prior study comparison: March 07, 2021, right breast MG 3d diag mammo w/cad RT. May 26, 2020, bilateral MG 3d screening mammo w/cad. There are scattered fibroglandular densities. Finding: There are typically benign skin calcifications in the left breast. Previous mammotome biopsy in the left breast. No significant changes in finding since March 07, 2021 and May 26, 2020. These results were verbally communicated with the patient and result sheet given to the patient on 05/23/21. ASSESSMENT: Benign, BI-RAD 2 RECOMMENDATION: Return to routine screening mammogram schedule for both breasts. Back on schedule.
== END | disposition home or self-care (01) ==
LOC: RADMAMWWP 07:28
PROVIDERS: ATTEND Surgery
DX: R92.8 Other abnormal and inconclusive findings on diagnostic imaging of breast (principal)
CPT/HCPCS: 77065; G0279; 77061

== ENCOUNTER 2021-05-31 06:44 | Day surgery (SDC) | payer MEDICARE, OTHER ==
[2021-05-27 12:33] VITALS: BMI 34.5
[~2021-05-31 06:44] MED LIST changes: -DEXAMETHASONE SOD PHOSPHATE 4 MG/ML 1 ML VIAL IV ONE; -ENOXAPARIN 40 MG/0.4 ML SYRINGE SQ PRN; +HEPARIN SODIUM,PORCINE/PF 5,000 UNIT/0.5 ML SYRINGE SQ PRN; -HYDROmorphone 0.5 MG/0.5 ML SYRINGE IVP PRN; -ONDANSETRON 4 MG/2 ML VIAL IVP ONE
[2021-05-31] MEDS ORDERED: LACTATED RINGERS 1,000 ML IV SCH (07:15)
[2021-05-31] MEDS ORDERED: SCOPOLAMINE 1.5MG/72HR PATCH TRANSDERM ONE (07:15)
[2021-05-31] MEDS ORDERED: HYDROmorphone 0.5 MG/0.5 ML SYRINGE IVP PRN (07:15)
[2021-05-31] MEDS ORDERED: ONDANSETRON 4 MG/2 ML VIAL IVP ONE (07:15)
[2021-05-31] MEDS ORDERED: DEXAMETHASONE SOD PHOSPHATE 4 MG/ML 1 ML VIAL IV ONE (07:15)
[2021-05-31] MEDS ORDERED: LIDOCAINE 1% (10MG/ML) FOR IV START INTRADERMA PRN (07:15)
[2021-05-31 07:33] VITALS: TEMP 97.7
[2021-05-31] MEDS ORDERED: LACTATED RINGERS 1,000 ML IV ONE (07:45)
[2021-05-31] MEDS ORDERED: diphenhydrAMINE 50 MG/ML 1 ML VIAL ONE (07:49)
[2021-05-31] MEDS ORDERED: diphenhydrAMINE 50 MG/ML 1 ML VIAL IVP ONE (07:52)
[2021-05-31] MEDS ORDERED: fentaNYL (PF) 50 MCG/ML 2 ML AMP ONE (08:25)
[2021-05-31] MEDS ORDERED: KETAMINE 10 MG/ML 20 ML VIAL ONE (08:25)
[2021-05-31] MEDS ORDERED: MIDAZOLAM 2 MG/2 ML VIAL ONE (08:25)
[2021-05-31] MEDS ORDERED: PROPOFOL 10 MG/ML 20 ML VIAL IV ONE (08:25)
[2021-05-31] MEDS ORDERED: LIDOCAINE 1% INJ 10MG/ML (20 ML MDV) SQ ONE ×2 (08:51→09:37)
--- NOTE | 2021-05-31 09:44 | P.OP ---
Date of Procedure: 05/31/21 Preoperative Diagnosis: Palpable mass right breast/FNA benign Postoperative Diagnosis: Same Procedure(s) Performed: Excision palpable right breast mass Anesthesia: MAC, local Surgeon: Floridalma Razo Estimated Blood Loss (ml): 5 IV fluids (ml): 600 Pathology: other (Breast tissue) Condition: stable Disposition: same day Indications for Procedure: Palpable mass/symptomatic for patient causing anxiety Operative Findings: Small palpable nodule right breast Description of Procedure: The patient is a 55-year-old white female who noted a palpable nodule in her right breast. An FNA was done which was benign however the nodule is persistent and causing anxiety for the patient. We therefore agreed for excision. She was seen preoperatively and the area was marked. She is brought to the operating room and the breast was prepped and draped in a sterile fashion following sedation. An incision was made around the palpable abnormality. This was excised. The wound was irrigated. Titanium clips were placed to red the cavity. The deep tissues were closed using 3-0 Vicryl suture. The skin was closed using 4-0 Monocryl and a 4-0 nylon suture. 10 mL of local anesthetic were injected into the area. The lesion was painted for orientation. The patient tolerated the procedure in stable condition.
--- NOTE | 2021-05-31 09:46 | P.DS ---
Providers Attending physician: Floridalma Razo Primary care physician: Genia Avalos Plan - Discharge Summary Discharge Rx Participant: No New Discharge Prescriptions: No Action ALPRAZolam [Xanax] 1 mg PO Q8H PRN PRN Reason: Anxiety Omeprazole 20 mg PO BID HYDROcodone/APAP 10-325MG [[place] 10-325] 1 tab PO Q8H PRN PRN Reason: Pain rOPINIRole HCL [Requip] 0.5 mg PO HS Zolpidem [Ambien] 10 mg PO HS Atorvastatin [Lipitor] 20 mg PO DAILY Levothyroxine Sodium [Synthroid] 75 mcg PO DAILY valACYclovir HCL 1,000 mg PO TID PRN PRN Reason: Cold Sores Citalopram Hydrobromide [CeleXA] 40 mg PO DAILY Discharge Medication List ALPRAZolam [Xanax] 1 mg PO Q8H PRN 03/20/14 [History] HYDROcodone/APAP 10-325MG [[place] 10-325] 1 tab PO Q8H PRN 04/07/17 [History] Omeprazole 20 mg PO BID 04/07/17 [History] rOPINIRole HCL [Requip] 0.5 mg PO HS 06/02/17 [History] Zolpidem [Ambien] 10 mg PO HS 10/31/17 [History] Atorvastatin [Lipitor] 20 mg PO DAILY 11/21/18 [History] Levothyroxine Sodium [Synthroid] 75 mcg PO DAILY 01/01/20 [History] Citalopram Hydrobromide [CeleXA] 40 mg PO DAILY 03/24/21 [History] valACYclovir HCL 1,000 mg PO TID PRN 03/24/21 [History] Follow up Appointment(s)/Referral(s): Floridalma Razo MD [STAFF PHYSICIAN] - 10 Days Activity/Diet/Wound Care/Special Instructions: Do not drive if taking narcotic pain medication, do not drive for 24 hours from discharge Wear bra at all times May shower after 48 hours Discharge Disposition: HOME SELF-CARE
[2021-05-31 09:54] VITALS: RESP 16
[2021-05-31] MEDS ORDERED: HYDROcodone/APAP 10-325MG 1 EACH TAB ONE (10:08)
[2021-05-31] MEDS ORDERED: HYDROcodone/APAP 10-325MG 1 EACH TAB PO ONE (10:10)
[2021-05-31 10:51] VITALS: BP 116/79; PULSE 79
== END 2021-05-31 10:57 | disposition home or self-care (01) ==
LOC: OR 06:44
PROVIDERS: ATTEND Surgery
DX: N63.10 Unspecified lump in the right breast, unspecified quadrant (principal)
CPT/HCPCS: 10021; 81025; J2250; J1200; J1100; J0690; J2405; J2001; J3010; J2704; J1644

== ENCOUNTER → 2021-06-17 | Outpatient (CLI) | payer MEDICARE, OTHER ==
[2021-06-17 13:36] VITALS: BP 113/80; PULSE 107; RESP 18; TEMP 98.4
--- NOTE | 2021-06-17 14:06 | P.PN ---
Progress Note - Text Progress Note Date: 06/17/21 Kim is a 55-year-old white female status post resection of lipoma from her right breast on [id number]. Pathology revealed a lipoma. Patient tolerated the procedure without difficulty. Physical exam: Incision clean and dry Plan: Remove sutures Repeat right breast mammogram in 6 months with physician exam at that time CC: DR. Avalos
== END | disposition home or self-care (01) ==
LOC: WWCWWP 13:25
PROVIDERS: ATTEND Surgery
DX: Z53.9 Procedure and treatment not carried out, unspecified reason (principal)

== ENCOUNTER → 2021-07-05 | Outpatient (CLI) | payer MEDICARE, OTHER ==
[2021-07-05 13:24] VITALS: BP 127/73; PULSE 126; RESP 16; TEMP 98; BMI 33.5
--- NOTE | 2021-07-05 13:43 | P.BASOAP ---
Subjective Progress Note Date: 07/05/21 Principal diagnosis: Morbid obesity Patient returns for reevaluation. She was last seen in April. Patient's brother from cancer a few weeks ago. She has been depressed about that. Noticed a decrease in appetite. Has had a few episodes of dysphagia since then. He had vomiting twice. Still taking antiacids twice daily. Some heartburn at times even with that. Adequate weight loss since last visit. Patient is due for lab work at this time. Objective - Vital Signs Vital signs: Vital Signs Temp 98 F 07/05/21 13:22 Pulse 126 H 07/05/21 13:22 Resp 16 07/05/21 13:22 BP 127/73 07/05/21 13:22 Pulse Ox Intake & Output 07/04/21 07/05/21 07/05/21 18:59 06:59 18:59 Weight 94.347 kg - Exam Abdomen: Soft, nontender, nondistended Assessment/Plan (1) Morbid obesity Narrative/Plan: Overall patient doing fairly well. Continue exercise and dietary regimen. Continue twice daily antiacids for now. We'll check 6 month labs at this time. Follow-up 6 weeks. Plan: Date: 07/05/21 Initial Weight: 128.82 kg Initial BMI: 45.8 Current Weight: 94.347 kg Current BMI: 33.5 Type of Surgery: Vertical Sleeve Gastrectomy Total Volume in Band: Previous Volume: Volume Removed: Volume Added: Band Size:
[2021-07-05 17:57] LABS: HCT 40.8 % (37.2-46.3); HGB 13.4 g/dL (12.0-15.0); MCH 32.4 pg (27.0-32.0); MCHC 32.8 g/dL (32.0-37.0); MCV 98.6 fL (80.0-97.0); Mean Platelet Volume 11.6 fL (9.5-12.2); Platelet Count 302 X 10*3/uL (140-440); RBC 4.14 X 10*6/uL (4.10-5.20); RDW 13.2 % (11.5-14.5); WBC 6.86 X 10*3/uL (4.50-10.00)
[2021-07-05 18:27] LABS: ALT 15 U/L (8-44); AST 16 U/L (13-35); Albumin 4.5 g/dL (3.8-4.9); Albumin/Globulin Ratio 1.55 (1.60-3.17); Alkaline Phosphatase 63 U/L (41-126); BUN/Creat Ratio 18.44 Ratio (12.00-20.00); Blood Urea Nitrogen 16.6 mg/dL (9.0-27.0); Calcium 9.5 mg/dL (8.7-10.3); Carbon Dioxide 17.6 mmol/L (20.0-27.5); Chloride 107 mmol/L (96-109); Globulin 2.9 g/dL (1.6-3.3); Glucose 98 mg/dL (70-110); Iron 76 ug/dL (50-170); Non-African American GFR(CKD) 72.5 (60.0-200.0); Potassium 4.4 mmol/L (3.5-5.5); Sodium 138 mmol/L (135-145); Total Protein 7.4 g/dL (6.2-8.2)
[2021-07-06 04:29] LABS: Folate, Serum >20.00 ng/mL (4.40-31.00)
== END | disposition home or self-care (01) ==
LOC: BARWHC3 13:05
PROVIDERS: ATTEND Surgery
DX: E66.01 Morbid (severe) obesity due to excess calories (principal); K90.89 Other intestinal malabsorption; E55.9 Vitamin D deficiency, unspecified; Z68.33 Body mass index [BMI] 33.0-33.9, adult
CPT/HCPCS: 84425; 80053; 82607; 82746; 83540; 85027; 82306; 97803; G0463; 99211

== ENCOUNTER → 2021-08-16 | Outpatient (CLI) | payer MEDICARE, OTHER ==
[2021-08-16 13:00] VITALS: BP 110/76; PULSE 111; TEMP 98.2; BMI 32.8
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
== END | disposition home or self-care (01) ==
LOC: BARWHC3 12:47
PROVIDERS: ATTEND Surgery
DX: E66.01 Morbid (severe) obesity due to excess calories (principal); Z68.32 Body mass index [BMI] 32.0-32.9, adult
CPT/HCPCS: 99211

== ENCOUNTER 2021-09-20 08:26 | Day surgery (SDC) | payer MEDICARE, OTHER ==
[2021-09-16 08:25] VITALS: BMI 32.4
[~2021-09-20 08:26] MED LIST changes: -HEPARIN SODIUM,PORCINE/PF 5,000 UNIT/0.5 ML SYRINGE SQ PRN; +LACTATED RINGERS 1,000 ML IV SCH
[2021-09-20 08:50] VITALS: TEMP 97.8
[2021-09-20] MEDS ORDERED: LIDOCAINE 1% (10MG/ML) FOR IV START SQ ONE (08:50)
[2021-09-20] MEDS ORDERED: MIDAZOLAM 2 MG/2 ML VIAL IVP ONE (09:05)
[2021-09-20] MEDS ORDERED: PROPOFOL 10 MG/ML 20 ML VIAL IV ONE (09:26)
[2021-09-20] MEDS ORDERED: LIDOCAINE 1% INJ 10MG/ML (20 ML MDV) ONE (09:26)
--- NOTE | 2021-09-20 09:29 | P.GSHP ---
History of Present Illness H&P Date: 09/20/21 Chief Complaint: GERD, hematemesis 56-year-old female here today for upper endoscopy. Patient has had recent episodes of hematemesis and reflux. Patient with history of previous sleeve gastrectomy. Had been taking increased levels of NSAIDs recently however. Symptoms seem to improve after stopping the Motrin. Past Medical History Past Medical History: Asthma, Deep Vein Thrombosis (DVT), Fibromyalgia, GERD/Reflux, Hyperlipidemia, Hypertension, Musculoskeletal Disorder, Osteoarthritis (OA), Sleep Apnea/CPAP/BIPAP, Thyroid Disorder Additional Past Medical History / Comment(s): Hx DVT in each leg. IBS. Lumbar DDD, chronic back pain. Has not been using CPAP. Hypothyroid. 2 bulging discs in back and 1 in neck. History of Any Multi-Drug Resistant Organisms: MRSA Date of last positivie culture/infection: 2008 MDRO Source:: abd Past Surgical History: Bariatric Surgery, Section, Cholecystectomy, Hysterectomy, Orthopedic Surgery Additional Past Surgical History / Comment(s): Right knee arthroscopy, left elbow surgery for torn tendon, sinus surgery, PAIN CLINIC PROCEDURE, back injections and nerves burned in back and neck, varicose vein surgery. sleeve gastrectomy 12-20-20 Past Anesthesia/Blood Transfusion Reactions: No Reported Reaction Smoking Status: Never smoker - Past Family History Father Family Medical History: Cancer Additional Family Medical History / Comment(s): Colon Cancer. Brother(s) Family Medical History: Cancer Medications and Allergies Home Medications Medication Instructions Recorded Confirmed Type ALPRAZolam [Xanax] 1 mg PO Q8H PRN 03/20/14 09/16/21 History HYDROcodone/APAP 10-325MG [[place] 1 tab PO Q8H PRN 04/07/17 09/16/21 History 10-325] Omeprazole 20 mg PO BID 04/07/17 09/16/21 History rOPINIRole HCL [Requip] 0.5 mg PO HS 06/02/17 09/16/21 History Zolpidem [Ambien] 10 mg PO HS 10/31/17 09/16/21 History Atorvastatin [Lipitor] 20 mg PO DAILY 11/21/18 09/16/21 History Levothyroxine Sodium [Synthroid] 75 mcg PO DAILY 01/01/20 09/16/21 History Citalopram Hydrobromide [CeleXA] 40 mg PO DAILY 03/24/21 09/16/21 History valACYclovir HCL 1,000 mg PO TID PRN 03/24/21 09/16/21 History Butalb/Acetaminophen/Caffeine 1 - 2 cap PO BID PRN 09/13/21 09/16/21 History [Fioricet 50-300-40 mg Capsule] Dicyclomine [Bentyl] 10 mg PO TID PRN #120 capsule 09/13/21 09/16/21 Rx Allergies Allergy/AdvReac Type Severity Reaction Status Date / Time Sulfa (Sulfonamide Allergy Severe Rash/Hives Verified 09/20/21 08:44 Antibiotics) ketorolac tromethamine Allergy Tardive Verified 09/20/21 08:44 [From Toradol] Dyskinesia prochlorperazine maleate Allergy Tardive Verified 09/20/21 08:44 [From Compazine] Dyskinesia prochlorperazine edisylate AdvReac Severe Tardive Verified 09/20/21 08:44 [From Compazine] dyskinesia Surgical - Exam Vital Signs Temp Pulse Resp BP Pulse Ox 97.8 F 108 H 17 136/87 98 09/20/21 08:49 09/20/21 08:49 09/20/21 08:49 09/20/21 08:49 09/20/21 08:49 Physical exam: General: Well-developed, well-nourished HEENT: Normocephalic, sclerae nonicteric Abdomen: Nontender, nondistended Extremities: No edema Neuro: Alert and oriented Assessment and Plan (1) GERD (gastroesophageal reflux disease) Narrative/Plan: Will proceed with upper endoscopy at this time. Current Visit: No Status: Acute Code(s): K21.9 - GASTRO-ESOPHAGEAL REFLUX DISEASE WITHOUT ESOPHAGITIS SNOMED Code(s): 169584713
--- NOTE | 2021-09-20 09:37 | P.PCN ---
Date of Procedure: 09/20/21 Procedure(s) Performed: Preoperative Dx: GERD, hematemesis Postoperative Dx: Mild gastritis post sleeve gastrectomy Procedure: EGD with Bx Anesthesia: Sedation Endoscopist: Dr. Espino Specimens: Antrum Endoscopic Procedure: The patient was on the endoscopy table in the left decubitus position. The Olympus gastroscope was inserted into the oropharynx and passed under direct visualization to the region of the third portion of the duodenum. From that point the scope was slowly withdrawn inspecting all s urfaces carefully. There were no neoplastic inflammatory or polypoid lesions throughout the duodenum. The pylorus was widely patent. The stomach was carefully inspected. There was mild gastritis present without ulcerations. A biopsy of the antrum took place to rule out H. pylori. Retroflexion was not performed given the previous sleeve gastrectomy. The patient sleeve gastrectomy appeared appropriately sized without stricture formation or tortuosity. There was no definite hiatal hernia identified. The esophagus was then carefully examined. There were no neoplastic inflammatory or polypoid lesions throughout the visualized esophagus. The patient was then taken to the recovery room in stable condition per anesthesia guidelines. Recommendations: Await biopsy results. Hold off on NSAID use. Continue antiacid therapy.
[2021-09-20 09:46] VITALS: BP 100/68
[2021-09-20 10:07] VITALS: PULSE 79; RESP 20
== END 2021-09-20 10:19 ==
LOC: ORWHC2ENDO 08:26
PROVIDERS: ATTEND Surgery
DX: K31.9 Disease of stomach and duodenum, unspecified (principal); K29.50 Unspecified chronic gastritis without bleeding; Z98.84 Bariatric surgery status; J45.909 Unspecified asthma, uncomplicated; Z86.718 Personal history of other venous thrombosis and embolism; M79.7 Fibromyalgia; K21.9 Gastro-esophageal reflux disease without esophagitis; E78.5 Hyperlipidemia, unspecified; I10 Essential (primary) hypertension; M19.90 Unspecified osteoarthritis, unspecified site; G47.30 Sleep apnea, unspecified; E07.9 Disorder of thyroid, unspecified; K58.9 Irritable bowel syndrome, unspecified; M51.36 Other intervertebral disc degeneration, lumbar region; G89.29 Other chronic pain; M54.9 Dorsalgia, unspecified; M50.20 Other cervical disc displacement, unspecified cervical region; Z86.14 Personal history of Methicillin resistant Staphylococcus aureus infection; Z98.891 History of uterine scar from previous surgery; Z90.49 Acquired absence of other specified parts of digestive tract; Z90.710 Acquired absence of both cervix and uterus; Z98.890 Other specified postprocedural states; Z82.61 Family history of arthritis; Z80.0 Family history of malignant neoplasm of digestive organs; Z80.9 Family history of malignant neoplasm, unspecified; Z79.899 Other long term (current) drug therapy; Z88.6 Allergy status to analgesic agent; Z88.2 Allergy status to sulfonamides; Z88.8 Allergy status to other drugs, medicaments and biological substances
CPT/HCPCS: 88305; 43239; J2250; J2001; J2704

== ENCOUNTER → 2021-09-30 | Outpatient (CLI) | payer MEDICARE, OTHER ==
--- NOTE | 2021-09-30 23:29 | MR ---
EXAMINATION TYPE: MR cervical spine wo con DATE OF EXAM: 09/30/2021 COMPARISON: 05/15/2019 HISTORY: Neck pain that causes headaches and right shoulder pain down to fingers. Multiplanar multiecho imaging of the cervical spine without contrast. The cervical vertebra have normal alignment. There is some degenerative disc space narrowing at C5-6 and C6-7. There is posterior disc herniation at C5-6 and C6-7 with endplate spur formation. Spinal ca nal is narrowed to 6.5 mm at C5-6 which is the narrowest point. Canal measures 9 mm at C6-7. Cervical cord shows no edema. The brainstem is intact. No compression fracture. IMPRESSION: Posterior cervical disc herniations at C5-6 and C6-7 without a significant change. No significant spi nal stenosis. No fracture.
== END | disposition home or self-care (01) ==
LOC: RADMRIMAIN 18:11
PROVIDERS: ATTEND Internal Medicine
DX: M50.222 Other cervical disc displacement at C5-C6 level (principal); M50.223 Other cervical disc displacement at C6-C7 level
CPT/HCPCS: 72141

== ENCOUNTER → 2021-10-03 | Outpatient (CLI) | payer MEDICARE, OTHER | END | disposition home or self-care (01) | LOC: PNWHC3 11:12 | PROVIDERS: ATTEND Specialist | DX: M54.12 Radiculopathy, cervical region (principal) | CPT/HCPCS: 99211 ==

== ENCOUNTER 2021-10-25 08:29 | Day surgery (SDC) | payer MEDICARE, OTHER ==
[2021-10-24 11:42] VITALS: BMI 32.4
[2021-10-25 08:55] VITALS: RESP 16; TEMP 97.9
[2021-10-25] MEDS ORDERED: LIDOCAINE 1% (10MG/ML) FOR IV START INTRADERMA ONE (08:55)
[2021-10-25] MEDS ORDERED: fentaNYL (PF) 50 MCG/ML 2 ML AMP ONE (09:54)
[2021-10-25] MEDS ORDERED: DEXAMETHASONE SOD PHOSPHATE 10 MG/ML 1 ML VIAL ONE (09:54)
[2021-10-25] MEDS ORDERED: ROPIVACAINE 5MG/ML 20ML VIAL ONE (09:54)
[2021-10-25] MEDS ORDERED: MIDAZOLAM 2 MG/2 ML VIAL ONE (09:54)
--- NOTE | 2021-10-25 10:13 | P.PCN ---
Date of Procedure: 10/25/21 Surgeon: Italo Sanderson Pathology: none sent Condition: stable Disposition: PACU Description of Procedure: Pre-operative diagnosis: 1- occipital neuralgia Post Operative Diagnosis 1- occipital neuralgia Procedure: 1- B/L greater and lesser occipital nerve block under ultrasound guidance ANESTHESIA: Local with Lidocaine 1 % and moderate conscious sedation with IV fentanyl 100 g and Versed 4 mg EBL: Minimal PROCEDURE INDICATION: The patient with neck pain and headache secondary to occipital neuralgea unresponsive to conservative treatments. PROCEDURE DESCRIPTION / TECHNIQUE: The patient was seen and identified in the preoperative area. Risks, benefits, complications, and alternatives were discussed with the patient, the patient agreed to proceed with the procedure and signed the consent. IV was started. Vital signs remained stable throughout the procedure. Patient was taken to the OR and time out was completed. The patient was placed in the prone position on the procedure table. . The cervical area and right occiptial area were prepped with chloraprep. Critical pause was taken. Vital signs were closely monitored during the procedure. The the occipital exuberance and superior nuchal line were identified on the right side of the occiput. The occipital artery was identified with ultrasound on each side of the occiput and then The greater occipital nerve location was estimated to be medial to the occipital artery . I used 25-gauge 1-1/2 inch needle to go through the skin and infiltrate 1.5 MLS of a solution made up of 2.5 MLS Ropivacaine 0.5% +5 mg of decadron. The procedure was repeated in the same manner on the left side. Patient tolerated procedure well.
[2021-10-25] MEDS ORDERED: IV FLUID CONTINUATION 1,000 ML IV ONE (10:14)
[2021-10-25 10:34] VITALS: BP 103/72; PULSE 71
== END 2021-10-25 10:41 | disposition home or self-care (01) ==
LOC: ORPAIN 08:29
PROVIDERS: ATTEND Anesthesiology
DX: M54.81 Occipital neuralgia (principal)
CPT/HCPCS: 64405; 76942; J2250; J1100; J3010; J2795; 99152

== ENCOUNTER 2021-11-24 06:51 | Day surgery (SDC) | payer MEDICARE, OTHER ==
[2021-11-23 15:07] VITALS: BMI 31.6
[2021-11-24] MEDS ORDERED: LIDOCAINE 1% (10MG/ML) FOR IV START INTRADERMA PRN (07:01)
[2021-11-24] MEDS ORDERED: LACTATED RINGERS 1,000 ML IV SCH (07:01)
[2021-11-24 07:11] VITALS: RESP 16; TEMP 97.3
[2021-11-24] MEDS ORDERED: LIDOCAINE 1% (10MG/ML) FOR IV START INTRADERMA ONE (07:20)
[2021-11-24] MEDS ORDERED: MIDAZOLAM 2 MG/2 ML VIAL ONE (07:43)
[2021-11-24] MEDS ORDERED: fentaNYL (PF) 50 MCG/ML 2 ML AMP ONE (07:43)
[2021-11-24] MEDS ORDERED: DEXAMETHASONE SOD PHOSPHATE 10 MG/ML 1 ML VIAL ONE (07:43)
[2021-11-24] MEDS ORDERED: IOPAMIDOL M200 10 ML VIAL ONE (07:43)
[2021-11-24] MEDS ORDERED: ONDANSETRON 4 MG/2 ML VIAL ONE (07:43)
--- NOTE | 2021-11-24 07:55 | P.PCN ---
Date of Procedure: 11/24/21 Procedure(s) Performed: . PROCEDURE 1. Cervical epidural steroid injection under fluoroscopic guidance, C7-T1 (fluoroscopy images available in the radiology department ) 2. Cervical epidurogram. PREOPERATIVE DIAGNOSIS: 1- Cervical herniated Disc Diseases . POSTOPERATIVE DIAGNOSIS: : 1- Cervical herniated Disc Diseases . ANESTHESIA: Local anesthesia with lidocaine 1 % , and moderate sedation, with Versed 2 mg and Fentanyl 100 mcg. EBL 0 PROCEDURE INDICATION: The patient with neck pain and radiculitis unresponsive to conservative treatment consents for procedure. PROCEDURE DESCRIPTION / TECHNIQUE: The patient was seen and identified in the preoperative area. Risks, benefits, complications, including but not limited to infections ,bleeding , allergic reactions to the medications ,and not complete pain releife, and alternatives were discussed with the patient, the patient agreed to proceed with the procedure and signed the consent. Patient was taken to the OR and time out was completed. The patient was placed in the prone position on the procedure table. A pillow was placed under the patients chest to increase the cervical interlaminar space. The cervical area was prepped and draped in the usual sterile fashion. Vital signs were closely monitored during the procedure. Conscious sedation was used during the procedure to decrease patients anxiety. Using anterior-posterior fluoroscopy, the C7-T1 interlaminar space was identified and the skin over this site was marked and then infiltrated with 1% lidocaine subcutaneously. Subsequently, a 20-gauge 3-1/2-inch Tuohy epidural needle was inserted and advanced toward the epidural space by means of the ``hanging-drop technique and guided by AP and lateral fluoroscopy. The correct needle position in the epidural space was verified with the injection of 2 mL of the water soluble contrast dye Isovue-200 and observing an excellent epidurogram with the epidural spread of the dye, after negative aspiration for blood and CSF and in the absence of paresthesias. then, mixture containing 20 mg Dexamethasone and 2 ml of preservative-free normal saline injected and a washout of epidurogram was seen. Needle was withdrawn intact, skin was cleansed, and bandages were applied. Complications= none. Disposition= patient was placed in supine position and transferred to the recovery room area in stable condition and there was no evidence of upper or lower extremity motor or sensory deficit after the procedure patient was discharged from recovery room after discharge criteria met and home discharge instructions was given by the staff and patient will follow with the pain clinic in 2-4 weeks
[2021-11-24] MEDS ORDERED: IV FLUID CONTINUATION 1,000 ML IV ONE (07:59)
[2021-11-24 08:16] VITALS: BP 98/67; PULSE 77
--- NOTE | 2021-11-24 08:22 | FL ---
Fluoroscopy HISTORY: Pain 4 seconds fluoroscopy time supplied to the referring clinician. 1 intraoperative C-arm images docume nt the procedure. See dictated report from anesthesia.
== END 2021-11-24 08:30 | disposition home or self-care (01) ==
LOC: ORPAIN 06:51
PROVIDERS: ATTEND Specialist
DX: M50.13 Cervical disc disorder with radiculopathy, cervicothoracic region (principal); Z88.2 Allergy status to sulfonamides; Z88.8 Allergy status to other drugs, medicaments and biological substances
CPT/HCPCS: 62321; J2250; J1100; J2405; J3010; Q9966; 99152

== ENCOUNTER → 2021-11-29 | Outpatient (CLI) | payer MEDICARE, OTHER ==
[2021-11-29 14:23] VITALS: BP 102/71; PULSE 109; TEMP 98.2; BMI 32.5
--- NOTE | 2021-11-29 14:59 | P.BASOAP ---
Subjective Progress Note Date: 11/29/21 Principal diagnosis: Morbid obesity Patient returns for recheck. She was last seen in September when she had an EGD showing mild gastritis. Since that time the patient states she has done better. She thinks the Bentyl is helping. Still has occasional vomiting but less than previous. No hematemesis. Remains on omeprazole twice daily. She has gained 1 pound since her last visit. No pain. Objective - Vital Signs Vital signs: Vital Signs Temp 98.2 F 11/29/21 14:21 Pulse 109 H 11/29/21 14:21 Resp BP 102/71 11/29/21 14:21 Pulse Ox FiO2 Intake & Output 11/28/21 11/29/21 11/29/21 18:59 06:59 18:59 Weight 91.626 kg - Exam Abdomen: Soft, nontender, nondistended Assessment/Plan (1) Morbid obesity Narrative/Plan: 56-year-old female doing well at this time. Continue antiacid therapy. Check one year labs at this time. Follow-up 3 months. Plan: Date: 11/29/21 Initial Weight: 128.82 kg Initial BMI: 45.8 Current Weight: 91.626 kg Current BMI: 32.5 Type of Surgery: Total Volume in Band: Previous Volume: Volume Removed: Volume Added: Band Size:
[2021-11-29 22:24] LABS: HCT 39.4 % (37.2-46.3); MCH 32.6 pg (27.0-32.0); MCV 98.7 fL (80.0-97.0); Mean Platelet Volume 11.1 fL (9.5-12.2); NRBC Per 100 WBC 0 /100 WBCS (0.0-0.0); Platelet Count 276 X 10*3/uL (140-440); RBC 3.99 X 10*6/uL (4.10-5.20); RDW 12.3 % (11.5-14.5); WBC 7.61 X 10*3/uL (4.50-10.00)
[2021-11-29 23:09] LABS: African American GFR (CKD) 88.3 (60.0-200.0); Albumin 4.5 g/dL (3.8-4.9); Albumin/Globulin Ratio 1.8 (1.60-3.17); Anion Gap 12.1 mmol/L (10.00-18.00); BUN/Creat Ratio 19.21 Ratio (12.00-20.00); Blood Urea Nitrogen 16.5 mg/dL (9.0-27.0); Calcium 9.5 mg/dL (8.7-10.3); Carbon Dioxide 24.2 mmol/L (20.0-27.5); Globulin 2.5 g/dL (1.6-3.3); Non-African American GFR(CKD) 76.2 (60.0-200.0); Potassium 4.3 mmol/L (3.5-5.5); Total Bilirubin 0.2 mg/dL (0.30-1.20)
== END | disposition home or self-care (01) ==
LOC: BARWHC3 13:50
PROVIDERS: ATTEND Surgery
DX: E66.01 Morbid (severe) obesity due to excess calories (principal); K90.89 Other intestinal malabsorption; E55.9 Vitamin D deficiency, unspecified
CPT/HCPCS: 84425; 80053; 82607; 82746; 83540; 85027; 82306; 97803; G0463; 99211

== ENCOUNTER → 2021-12-02 | Outpatient (CLI) | payer MEDICARE, OTHER ==
--- NOTE | 2021-12-02 16:35 | CT ---
EXAMINATION TYPE: CT cervical spine wo con CT DLP: 623.4 mGycm, Automated exposure control for dose reduction was used. DATE OF EXAM: 12/02/2021 9:44 AM COMPARISON: Spine radiographs of the cervical spine 11/18/2021. CLINICAL INDICATION:Female, 56 years old with history of M48.02 stenosis, Neck pain after injury x2.5 months ago. TECHNIQUE: Axial CT images from the skull base to the inferior aspect of T2 we obtained without intra venous contrast. Coronal and sagittal reformatted images were also reviewed. FINDINGS: Fracture: None. Osseous structures: Multilevel degenerative disc disease changes with endplate spurring and disc oste ophyte complex's. Vertebral alignment: Straightening of the cervical spine alignment. Spinal canal/Neural Foramina: At least mild spinal canal/narrowing at C5-C6 secondary to disc osteoph yte complex. Facet joint uncovertebral joint arthropathy scattered throughout the cervical spine with scattered mild neural foraminal stenosis. Neck soft tissues: Prevertebral soft tissues are within normal limits. Other: The airway is patent. The lung apices are clear. IMPRESSION: 1. No evidence of cervical spine fracture. 2. Mild multilevel degenerative disc disease with at least mild spinal canal stenosis at C5-C6 second laron to disc osteophyte complex. 3. Multilevel facet joint uncovertebral joint arthropathy scattered mild neural foraminal stenosis.
== END | disposition home or self-care (01) ==
LOC: RADCTMAIN 09:18
PROVIDERS: ATTEND Orthopaedic Surgery
DX: M47.22 Other spondylosis with radiculopathy, cervical region (principal); M48.02 Spinal stenosis, cervical region
CPT/HCPCS: 72125

== ENCOUNTER → 2021-12-19 | Outpatient (CLI) | payer MEDICARE, OTHER ==
--- NOTE | 2021-12-19 14:41 | MM ---
Reason for Exam: Clinical finding. Last mammogram was performed 1 year(s) and 7 month(s) ago. Indicated Problems: Skin changes to breast of the right side for 1 Week(s). Patient History: Menarche at age 14. First Full-Term at age 19. Hysterectomy at age 39. Postmenopausal. 05/19/2021, Benign Cyst Aspiration on the right side. 08/2006, Benign Excisional Biopsy on the left side. 10/31/2017, Benign Core Biopsy on the left side. Risk Values: [place] 5 year model risk: 1.3%. NCI Lifetime model risk: 8.9%. Prior Study Comparison: 05/26/2020 Bilateral Screening Mammogram, [facility]. 03/07/2021 Right Diagnostic Mammogram, [facility]. 05/23/2021 Left Diagnostic Mammogram, [facility]. Tissue Density: The breast tissue is heterogeneously dense. This may lower the sensitivity of mammography. Findings: Analyzed By CAD. There are new surgical clips from interval benign excision in the right breast posterior outer aspect. Few scattered benign-appearing round calcifications throughout the bilateral breasts are redemonstrated. Mammotome biopsy clip left breast redemonstrated. No suspicious group of microcalcifications or new mass in either breast. Overall Assessment: Benign, BI-RAD 2 Management: Screening Mammogram of both breasts in 1 year. A clinical breast exam by your physician is recommended on an annual basis and results should be correlated with mammographic findings. This exam should not preclude additional follow-up of suspicious palpable abnormalities. Results were given to the patient verbally at the time of exam. Electronically signed and approved by: Gurinder Reid M.D.
== END | disposition home or self-care (01) ==
LOC: RADMAMWWP 13:49
PROVIDERS: ATTEND Surgery
DX: R92.8 Other abnormal and inconclusive findings on diagnostic imaging of breast (principal)
CPT/HCPCS: 77066; G0279; 77062

== ENCOUNTER 2021-12-29 06:18 | Day surgery (SDC) | payer MEDICARE, OTHER ==
[2021-12-29] MEDS ORDERED: LIDOCAINE 1% (10MG/ML) FOR IV START INTRADERMA PRN (06:49)
[2021-12-29] MEDS ORDERED: LACTATED RINGERS 1,000 ML IV SCH (06:49)
[2021-12-29 07:05] VITALS: TEMP 97.4
[2021-12-29] MEDS ORDERED: IOPAMIDOL M200 10 ML VIAL ONE (07:29)
[2021-12-29] MEDS ORDERED: MIDAZOLAM 2 MG/2 ML VIAL ONE (07:29)
[2021-12-29] MEDS ORDERED: DEXAMETHASONE SOD PHOSPHATE 10 MG/ML 1 ML VIAL ONE (07:29)
[2021-12-29] MEDS ORDERED: fentaNYL (PF) 50 MCG/ML 2 ML AMP ONE (07:29)
--- NOTE | 2021-12-29 07:47 | P.PCN ---
Date of Procedure: 12/29/21 Procedure(s) Performed: . PROCEDURE 1. Cervical epidural steroid injection under fluoroscopic guidance, C6-7 (fluoroscopy images available in the radiology department ) 2. Cervical epidurogram. PREOPERATIVE DIAGNOSIS: 1- Cervical Degenerative Disc Diseases 2-cervical spondylosis with cervical Facet arthropathy without myelopathy POSTOPERATIVE DIAGNOSIS: : 1- Cervical Degenerative Disc Diseases , 2- cervical spondylosis with cervical Facet arthropathy without myelopathy ANESTHESIA: Monitored anesthesia care as per anesthesia department. EBL 0 PROCEDURE INDICATION: The patient with neck pain and radiculitis unresponsive to conservative treatment consents for procedure. PROCEDURE DESCRIPTION / TECHNIQUE: The patient was seen and identified in the preoperative area. Risks, benefits, complications, including but not limited to infections ,bleeding , allergic reactions to the medications ,and not complete pain releife, and alternatives were discussed with the patient, the patient agreed to proceed with the procedure and signed the consent. Patient was taken to the OR and time out was completed. The patient was placed in the prone position on the procedure table. A pillow was placed under the patients chest to increase the cervical interlaminar space. The cervical area was prepped and draped in the usual sterile fashion. Vital signs were closely monitored during the procedure. Conscious sedation was used during the procedure to decrease patients anxiety. Using anterior-posterior fluoroscopy, the C6-7 interlaminar space was identified and the skin over this site was marked and then infiltrated with 1% lidocaine subcutaneously. Subsequently, a 20-gauge 3-1/2-inch Tuohy epidural needle was inserted and advanced toward the epidural space by means of the ``hanging-drop technique and guided by AP and lateral fluoroscopy. The correct needle position in the epidural space was verified with the injection of 2 mL of the water soluble contrast dye Isovue-200 and observing an excellent epidurogram with the epidural spread of the dye, after negative aspiration for blood and CSF and in the absence of paresthesias. then, mixture containing 20 mg Dexamethasone and 2 ml of preservative-free normal saline injected and a washout of epidurogram was seen. Needle was withdrawn intact, skin was cleansed, and bandages were applied. Complications= none. Disposition= patient was placed in supine position and transferred to the recovery room area in stable condition and there was no evidence of upper or lower extremity motor or sensory deficit after the procedure patient was discharged from recovery room after discharge criteria met and home discharge instructions was given by the staff and patient will follow with the pain clinic in 2-4 weeks
[2021-12-29] MEDS ORDERED: IV FLUID CONTINUATION 800 ML IV ONE (07:50)
[2021-12-29] MEDS ORDERED: LACTATED RINGERS 1,000 ML IV ONE (07:50)
[2021-12-29 07:53] VITALS: RESP 16
--- NOTE | 2021-12-29 08:01 | FL ---
EXAMINATION TYPE: FL guided pain mgmt statistic DATE OF EXAM: 12/29/2021 HISTORY: Fluoroscopy time 1 seconds of fluoroscopy provided. IMPRESSION: 1. Fluoroscopy time.
[2021-12-29 08:06] VITALS: BP 94/63; PULSE 73
== END 2021-12-29 08:17 | disposition home or self-care (01) ==
LOC: ORPAIN 06:18
PROVIDERS: ATTEND Specialist
DX: M47.22 Other spondylosis with radiculopathy, cervical region (principal); M50.10 Cervical disc disorder with radiculopathy, unspecified cervical region; I10 Essential (primary) hypertension; E78.5 Hyperlipidemia, unspecified; J45.909 Unspecified asthma, uncomplicated; G47.33 Obstructive sleep apnea (adult) (pediatric); E07.9 Disorder of thyroid, unspecified; M79.7 Fibromyalgia; F41.9 Anxiety disorder, unspecified; K58.9 Irritable bowel syndrome, unspecified; Z79.890 Hormone replacement therapy; Z79.891 Long term (current) use of opiate analgesic; Z79.899 Other long term (current) drug therapy; Z88.5 Allergy status to narcotic agent; Z88.2 Allergy status to sulfonamides; Z88.8 Allergy status to other drugs, medicaments and biological substances
CPT/HCPCS: 62321; J2250; J1100; J3010; Q9966

== ENCOUNTER → 2022-01-12 | Outpatient (CLI) | payer MEDICARE, OTHER ==
[2022-01-12 14:59] VITALS: BP 111/77; PULSE 108; RESP 18; TEMP 98.4
--- NOTE | 2022-01-13 07:26 | P.PN ---
Subjective Progress Note Date: 01/12/22 This is follow-up visit for this 56 years old female with a chronic history of severe neck pain and headache, she is diagnosed with occipital neuralgia, cervical spondylosis with cervical facet arthropathy, cervical degenerative disc disease, recently we have done cervical epidural steroid injections 3 and she continued to have severe neck pain, and headache, the pain and the headache is constant and increases with any neck movement, he denies any motor or sensory deficit she denies any fever or night sweats and there is no change in the bowel movement or urination, she continued to use [place] 10/325 when necessary Objective - Vital Signs Vital signs: Vital Signs Temp 98.4 F 01/12/22 14:30 Pulse 108 H 01/12/22 14:30 Resp 18 01/12/22 14:30 BP 111/77 01/12/22 14:30 Pulse Ox 99 01/12/22 14:30 FiO2 Intake & Output 01/12/22 01/13/22 01/13/22 18:59 06:59 18:59 Weight 90.718 kg - Exam Physical Examinations : -Constitutiona : Cooperative , not in acute distress . -HEENT : nech : supple , no Lymphadenopathy , normal thyroid size . : eyes : no ptosis , no icterus, no photophobia . - neurologic : Cranial nerve II to XII intact , no focal neurological deffecit . -psychatric : alert , oriented X 3 , appropriate affect , intact judgment and insight . -Lymphatic : no Lymphadenopathy . - musculoskeltal : Cervical Spine motor stregnth in the deltoid and biceps, normal right side , normal Left side motor stregnth biceps and the wrist extensors normal right side ,normal left side . motor stregnth in the triceps muscle . normal Right side , normal Left side deep tendon reflexes normal at the biceps , normal at Brachioradialis , normal at triceps. cervical facet loading test: Positive Bilaterally Spurling test= positive Right , positive left. Neck distraction test= positive Right , positive left. Nile sign= positive right, positive left . Lumber spine moter stegnth lower extremities ,thigh and legs 5/5 Right side , 5/5 Left side Assessment and Plan Plan: Assessment and plan=1-cervical spondylosis with cervical facet arthropathy with out myelopathy. 2-cervical degenerative disc disease. 3-cervicogenic headache. Patient continued to have severe neck pain and headache after cervical epidural steroid injections. she had excellent pain relief of her neck pain and headache after we have done RFA of the medial branch cervical area at C2- 3, C3-4 ( done 2018 ) Patient could benefit from repeat RFA medial branch cervical area bilaterally at C2-3 , C3-4 Time with Patient: Less than 30
== END | disposition home or self-care (01) ==
LOC: PNWHC3 12:49
PROVIDERS: ATTEND Specialist
DX: M47.892 Other spondylosis, cervical region (principal); M50.30 Other cervical disc degeneration, unspecified cervical region; G44.86 Cervicogenic headache
CPT/HCPCS: 99211

== ENCOUNTER → 2022-02-16 | Outpatient (CLI) | payer MEDICARE, OTHER ==
--- NOTE | 2022-02-16 11:01 | P.PN ---
Subjective Progress Note Date: 02/16/22 This is a 56-year-old lady with history of neck pain and cervicogenic heada steve. The patient had bilateral cervical medial branch RFA for C2 3 and C3 4 weeks ago which gave her 70% of pain relief on the left side and no pain relief at all on the right side. She denies any pain in the arms except for pain in both shoulders and denies any weakness in the upper or lower extremities. She takes [place] from her primary care physician and we prescribed her Flexeril which has helped her pain at night . Patient denies new-onset weakness, bowel/bladder incontinence, or any other signs or symptoms of cauda equina syndrome. There are no signs of acute intoxication, and no indications of medication diversion or overuse. In addition to above, 13-point review of systems is also negative for chest pain, shortness of breath, changes in vision, changes in hearing, new onset weak ness, abdominal pain, diarrhea, extreme fatigue, malaise, fever, skin changes, homicidal or suicidal ideation, or bowel or bladder incontinence. Vital Signs: Reviewed in EMR Gen: AAOx3, NAD HEENT: PERRLA,hearing grossly normal Pulm: resp unlabored Neck: supple, trachea midline Neuro exam of the upper extremities: Normal muscle strength bilaterally and symmetrically Straight leg raising test: Aquilino's test: Range of motion of the lumbar spine: Facet loading test: Tenderness in the paravertebral musculature: Positive on the right side of the neck and also in the right trapezius muscle Mildly decreased range of motion of the cervical spine especially to right rotation Neuro: CN II-XII grossly intact, Imaging: Reviewed in EMR/chart Assessment: Cervical spondylosis without myelopathy Myofascial pain Plan: 1. Explanation: When patients on opioids, opioid and psychological risk scores were reviewed. Diagnoses, prognoses, and multiple treatment options including but not limited to physical therapy, interventional therapies, adjuvant medical therapies, narcotic medication therapies, and surgery were discussed with the patient and all questions were answered to the patient's satisfaction. 2. Opioid agreement:When patients are prescribed opoids through our clinic, opioid agreement is signed with the patient and the patient is warned not to use opioids while driving or before driving and not to combine opioids with benzodiazepines or alcohol. 3. Counseling: When patient is smoking or obese, the patient was counseled extensively on SMOKING CESSATION, BODY MASS INDEX, EXERCISE. Specifically, the patient was instructed regarding the importance of smoking cessation, obesity, and exercise in the context of both chronic pain and overall health. 4. Procedures: The patient may benefit from trigger point injection on the right paravertebral musculature in the cervical area and also in the right trapezius and supraspinatus muscles however would give her a trial of Flexeril 10 mg twice a day for couple of weeks and that there is no improvement then we'll plan on doing this procedure. 5. Consultations: None 6. Investigations: None 7. Medications: Flexeril 10 mg twice a day #30 pills with no refills 8. Disposition: Will be seen as needed 9. Maps were reviewed and were appropriate.
[2022-02-16 11:12] VITALS: BP 122/83; PULSE 102; RESP 18; TEMP 98.2
== END ==
LOC: PNWHC3 10:33
PROVIDERS: ATTEND Anesthesiology
DX: M47.812 Spondylosis without myelopathy or radiculopathy, cervical region (principal); M79.18 Myalgia, other site; Z88.5 Allergy status to narcotic agent; Z88.2 Allergy status to sulfonamides; Z88.8 Allergy status to other drugs, medicaments and biological substances
CPT/HCPCS: 99211

== ENCOUNTER → 2022-03-07 | Outpatient (CLI) | payer MEDICARE, OTHER ==
[2022-03-07 14:50] VITALS: BP 102/72; PULSE 120; RESP 16; TEMP 98.1; BMI 32.5
--- NOTE | 2022-03-07 15:23 | P.BASOAP ---
Subjective Progress Note Date: 03/07/22 Principal diagnosis: Morbid obesity Patient returns for recheck. Last seen 3 months ago. Patient has had 2 episodes of vomiting since her last visit. She did have an attack of upper abdominal pain that felt like a spasm on Sunday. She ran out of her Bentyl which had been helping with those intermittent complaints. Denies heartburn. Still taking omeprazole twice daily. Feels bloating at times. Some increasing constipation. No rectal bleeding or melena. Patient states she was told by her primary care physician that she is due for a colonoscopy. Objective - Vital Signs Vital signs: Vital Signs Temp 98.1 F 03/07/22 14:48 Pulse 120 H 03/07/22 14:48 Resp 16 03/07/22 14:48 BP 102/72 03/07/22 14:48 Pulse Ox FiO2 Intake & Output 03/06/22 03/07/22 03/07/22 18:59 06:59 18:59 Weight 91.626 kg - Exam Abdomen: Soft, nontender, nondistended Assessment/Plan (1) Morbid obesity Narrative/Plan: 56-year-old female doing fairly well after previous sleeve gastrectomy. Weight has stayed about the same at 202. Patient having some intermittent abdominal pains. Symptoms were relieved with Bentyl. We'll provide a prescription refill. We did discuss proceeding with colonoscopy. Apparently she does not have somebody who can drive her home at this time she will call back to schedule. Follow-up 3 months. Plan: Date: 03/07/22 Initial Weight: 128.82 kg Initial BMI: 45.8 Current Weight: 91.626 kg Current BMI: 32.5 Type of Surgery: Vertical Sleeve Gastrectomy Total Volume in Band: Previous Volume: Volume Removed: Volume Added: Band Size:
== END | disposition home or self-care (01) ==
LOC: BARWHC3 13:59
PROVIDERS: ATTEND Surgery
DX: E66.01 Morbid (severe) obesity due to excess calories (principal); Z68.32 Body mass index [BMI] 32.0-32.9, adult
CPT/HCPCS: 99211

== ENCOUNTER 2022-03-28 10:33 | Day surgery (SDC) | payer MEDICARE, OTHER ==
[2022-03-24 14:06] VITALS: BMI 32.5
[2022-03-28 11:30] VITALS: RESP 16; TEMP 97.3
[2022-03-28] MEDS ORDERED: MIDAZOLAM 2 MG/2 ML VIAL IVP ONE ×2 (11:45→12:01)
[2022-03-28] MEDS ORDERED: PROPOFOL 10 MG/ML 20 ML VIAL IV ONE (12:24)
--- NOTE | 2022-03-28 12:31 | P.GSHP ---
History of Present Illness H&P Date: 03/28/22 Chief Complaint: Change in bowel habits 56-year-old female here today for colonoscopy. Patient with increasing constipation and abdominal bloating. Last colonoscopy 7-10 years ago. No rectal bleeding. Past Medical History Past Medical History: Asthma, Deep Vein Thrombosis (DVT), Fibromyalgia, GERD/Reflux, Hyperlipidemia, Hypertension, Musculoskeletal Disorder, Osteoarthritis (OA), Sleep Apnea/CPAP/BIPAP, Thyroid Disorder Additional Past Medical History / Comment(s): Hx DVT in each leg. IBS. Lumbar DDD, chronic back pain. Has not been using CPAP. Hypothyroid. 2 bulging discs in back and 1 in neck. History of Any Multi-Drug Resistant Organisms: MRSA Date of last positivie culture/infection: 2008 MDRO Source:: abd Past Surgical History: Bariatric Surgery, Section, Cholecystectomy, Hysterectomy, Orthopedic Surgery Additional Past Surgical History / Comment(s): Right knee arthroscopy, left elbow surgery for torn tendon, sinus surgery, PAIN CLINIC PROCEDURE, back injections and nerves burned in back and neck, varicose vein surgery, sleeve gastrectomy 12-20-20. Past Anesthesia/Blood Transfusion Reactions: No Reported Reaction Past Psychological History: Anxiety, Depression, Panic Disorder Smoking Status: Never smoker Past Alcohol Use History: None Reported Past Drug Use History: None Reported - Past Family History Father Family Medical History: Cancer Additional Family Medical History / Comment(s): Colon Cancer. Brother(s) Family Medical History: Cancer Medications and Allergies Home Medications Medication Instructions Recorded Confirmed Type ALPRAZolam [Xanax] 1 mg PO Q8H PRN 03/20/14 03/24/22 History HYDROcodone/APAP 10-325MG [[place] 1 tab PO Q8H PRN 04/07/17 03/24/22 History 10-325] Omeprazole 20 mg PO BID 04/07/17 03/24/22 History rOPINIRole HCL [Requip] 0.5 mg PO HS 06/02/17 03/24/22 History Atorvastatin [Lipitor] 20 mg PO DAILY 11/21/18 03/24/22 History Levothyroxine Sodium [Synthroid] 75 mcg PO DAILY 01/01/20 03/28/22 History Citalopram Hydrobromide [CeleXA] 40 mg PO HS 03/24/21 03/24/22 History valACYclovir HCL [Valacyclovir] 500 mg PO DAILY 03/24/21 03/24/22 History Butalb/Acetaminophen/Caffeine 1 - 2 cap PO BID PRN 09/13/21 03/24/22 History [Fioricet 50-300-40 mg Capsule] Dicyclomine [Bentyl] 10 mg PO TID #90 capsule 03/07/22 03/24/22 Rx traZODone HCL [Desyrel] 50 mg PO HS 03/24/22 03/24/22 History Allergies Allergy/AdvReac Type Severity Reaction Status Date / Time Sulfa (Sulfonamide Allergy Severe Rash/Hives Verified 03/28/22 11:21 Antibiotics) ketorolac tromethamine Allergy Tardive Verified 03/28/22 11:21 [From Toradol] Dyskinesia prochlorperazine maleate Allergy Tardive Verified 03/28/22 11:21 [From Compazine] Dyskinesia prochlorperazine edisylate AdvReac Severe Tardive Verified 03/28/22 11:21 [From Compazine] dyskinesia Surgical - Exam Vital Signs Temp Pulse Resp BP Pulse Ox 97.3 F L 95 16 121/68 99 03/28/22 11:29 03/28/22 11:29 03/28/22 11:29 03/28/22 11:29 03/28/22 11:29 Physical exam: General: Well-developed, well-nourished HEENT: Normocephalic, sclerae nonicteric Abdomen: Nontender, nondistended Extremities: No edema Neuro: Alert and oriented Assessment and Plan (1) Change in bowel habits Narrative/Plan: Will proceed with colonoscopy at this time Current Visit: Yes Status: Acute Code(s): R19.4 - CHANGE IN BOWEL HABIT SNOMED Code(s): 185097662
--- NOTE | 2022-03-28 12:47 | P.PCN ---
Date of Procedure: 03/28/22 Procedure(s) Performed: PREOPERATIVE DIAGNOSIS: Change in bowel habits POSTOPERATIVE DIAGNOSIS: Normal exam PROCEDURE: Colonoscopy ANESTHESIA: MAC SURGEON: Miguel Espino M.D. SPECIMENS: None ENDOSCOPIC PROCEDURE: The patient was placed on the endoscopy table in the left decubitus position. The Olympus colonoscope was inserted into the anus and passed under direct visualization to the base of the cecum. The appendiceal orifice was visualized. From that point the scope was slowly withdrawn inspecti ng all surfaces carefully. There were no neoplastic inflammatory or polypoid lesions throughout the cecum, ascending, transverse, descending, sigmoid and rectum. There was no visible diverticulosis noted. Digital rectal examination was normal. The patient was taken to the recovery room in stable condition per anesthesia guidelines. RECOMMENDATIONS: Resume diet. Follow colonoscopy 7-10 years.
[2022-03-28 13:08] VITALS: BP 107/71; PULSE 75
== END 2022-03-28 13:38 | disposition home or self-care (01) ==
LOC: ORWHC2ENDO 10:33
PROVIDERS: ATTEND Surgery
DX: K21.9 Gastro-esophageal reflux disease without esophagitis (principal); K59.00 Constipation, unspecified; K58.9 Irritable bowel syndrome, unspecified; J45.909 Unspecified asthma, uncomplicated; M79.7 Fibromyalgia; E78.5 Hyperlipidemia, unspecified; I10 Essential (primary) hypertension; F41.0 Panic disorder [episodic paroxysmal anxiety]; F32.A Depression, unspecified; M19.90 Unspecified osteoarthritis, unspecified site; E07.9 Disorder of thyroid, unspecified; Z86.14 Personal history of Methicillin resistant Staphylococcus aureus infection; Z90.49 Acquired absence of other specified parts of digestive tract; Z90.710 Acquired absence of both cervix and uterus; Z98.84 Bariatric surgery status; Z98.891 History of uterine scar from previous surgery; Z80.0 Family history of malignant neoplasm of digestive organs; Z79.891 Long term (current) use of opiate analgesic; Z79.83 Long term (current) use of bisphosphonates; Z79.02 Long term (current) use of antithrombotics/antiplatelets; Z79.890 Hormone replacement therapy; Z79.899 Other long term (current) drug therapy; Z88.2 Allergy status to sulfonamides; Z88.8 Allergy status to other drugs, medicaments and biological substances; Z86.718 Personal history of other venous thrombosis and embolism
CPT/HCPCS: 45378; J2250; J2704

== ENCOUNTER → 2022-04-03 | Outpatient (CLI) | payer MEDICARE, OTHER ==
--- NOTE | 2022-04-03 12:41 | XR ---
EXAMINATION TYPE: XR chest 2V DATE OF EXAM: 04/03/2022 12:26 PM COMPARISON: 03/24/2021 TECHNIQUE: XR chest 2V Frontal and lateral views of the chest. CLINICAL INDICATION:Female, 56 years old with history of L74.9 ECCRINE SWEAT DISORDER, UNSPECIFIED; FINDINGS: Lungs/Pleura: There is no evidence of pleural effusion, focal consolidation, or pneumothorax. Pulmonary vascularity: Unremarkable. Heart/mediastinum: Cardiomediastinal silhouette is unremarkable. Musculoskeletal: No acute osseous pathology. IMPRESSION: No acute cardiopulmonary disease/process.
== END | disposition home or self-care (01) ==
LOC: RADXRMAIN 12:16
PROVIDERS: ATTEND Internal Medicine
DX: R61 Generalized hyperhidrosis (principal)
CPT/HCPCS: 71046

== ENCOUNTER → 2022-06-20 | Outpatient (CLI) | payer MEDICARE, OTHER ==
[2022-06-20 13:13] VITALS: BP 123/84; PULSE 116; RESP 16; TEMP 98.3; BMI 33.7
--- NOTE | 2022-06-20 15:08 | P.BASOAP ---
Subjective Progress Note Date: 06/20/22 Principal diagnosis: Morbid obesity 56-year-old female returns for recheck. He was last seen in February. Patient was having constipation and abdominal discomforts. He underwent upper and lower endoscopy in February and March. Patient says she had an infected tooth which led to a sinus infection and bronchitis. She has been on 5 separate courses of antibiotics. Patient describes chronic fatigue as a result of these recent issues. Patient had an episode of emesis last week after eating a banana. No GERD symptoms while taking antiacids. Still has occasional episodes of constipation. She has gained 7 pounds but states she has very inactive lately. She has an eye surgery next week. Objective - Vital Signs Vital signs: Vital Signs Temp 98.3 F 06/20/22 13:11 Pulse 116 H 06/20/22 13:11 Resp 16 06/20/22 13:11 BP 123/84 06/20/22 13:11 Pulse Ox FiO2 Intake & Output 06/19/22 06/20/22 06/20/22 18:59 06:59 18:59 Weight 94.801 kg - Exam Abdomen: Soft, nontender, nondistended Assessment/Plan (1) GERD (gastroesophageal reflux disease) Narrative/Plan: 56-year-old female with some recent weight gain and worsening fatigue. Patient has had multiple other health issues recently. Patient states she is working through these issues with her primary care physician. Continue antiacids. Continue stool softeners. Plan clinical recheck in 6 months. Plan: Date: 06/20/22 Initial Weight: 128.82 kg Initial BMI: 45.8 Current Weight: 94.801 kg Current BMI: 33.7 Type of Surgery: Vertical Sleeve Gastrectomy Total Volume in Band: Previous Volume: Volume Removed: Volume Added: Band Size:
== END ==
LOC: BARWHC3 12:47
PROVIDERS: ATTEND Surgery
DX: K21.9 Gastro-esophageal reflux disease without esophagitis (principal); Z88.2 Allergy status to sulfonamides; E66.01 Morbid (severe) obesity due to excess calories; Z68.33 Body mass index [BMI] 33.0-33.9, adult; Z88.6 Allergy status to analgesic agent; Z88.8 Allergy status to other drugs, medicaments and biological substances
CPT/HCPCS: 99211

== ENCOUNTER → 2022-06-23 | Outpatient (CLI) | payer MEDICARE, OTHER ==
--- NOTE | 2022-06-23 13:05 | XR ---
EXAMINATION TYPE: XR chest 2V DATE OF EXAM: 06/23/2022 COMPARISON: NONE TECHNIQUE: PA and lateral views submitted. HISTORY: Cough FINDINGS: The lungs are clear and there is no pneumothorax, pleural effusion, or focal pneumonia. Heart size normal and no overt failure. Osseous structures demonstrate hypertrophic and degenerative changes of the spine. Hyperinflation suggests COPD. Arthropathy at the shoulders. IMPRESSION: 1. No acute process.
== END | disposition home or self-care (01) ==
LOC: RADXRMAIN 12:38
PROVIDERS: ATTEND Internal Medicine
DX: R05.9 Cough, unspecified (principal)
CPT/HCPCS: 71046

== ENCOUNTER 2022-09-05 06:51 | Day surgery (SDC) | payer MEDICARE, OTHER ==
[~2022-09-05 06:51] MED LIST changes: +LIDOCAINE 1% (10MG/ML) FOR IV START INTRADERMA PRN
[2022-09-05 07:47] VITALS: TEMP 97.9
[2022-09-05] MEDS ORDERED: DEXAMETHASONE SOD PHOSPHATE 10 MG/ML 1 ML VIAL ONE (08:19)
[2022-09-05] MEDS ORDERED: IOPAMIDOL M200 10 ML VIAL ONE (08:19)
[2022-09-05] MEDS ORDERED: MIDAZOLAM 2 MG/2 ML VIAL ONE (08:19)
[2022-09-05] MEDS ORDERED: fentaNYL (PF) 50 MCG/ML 2 ML AMP ONE (08:19)
--- NOTE | 2022-09-05 08:32 | P.PCN ---
Date of Procedure: 09/05/22 Procedure(s) Performed: . PROCEDURE 1. Cervical epidural steroid injection under fluoroscopic guidance, C6-7 (fluoroscopy images available in the radiology department ) 2. Cervical epidurogram. PREOPERATIVE DIAGNOSIS: 1- Cervical Degenerative Disc Diseases 2- Cervical radiculopathy., 3-cervicogenic headach POSTOPERATIVE DIAGNOSIS: : 1- Cervical Degenerative Disc Diseases , 2- Cervical radiculopathy. 3-cervicogenic headache ANESTHESIA: moderate sedation, with Versed 2 mg and Fentanyl 100 mcg. Sedation start time :822 Sedation end time :828 EBL 0 PROCEDURE INDICATION: The patient with neck pain and radiculitis unresponsive to conservative treatment consents for procedure. PROCEDURE DESCRIPTION / TECHNIQUE: The patient was seen and identified in the preoperative area. Risks, benefits, complications, including but not limited to infections ,bleeding , allergic reactions to the medications ,and not complete pain releife, and alternatives were discussed with the patient, the patient agreed to proceed with the procedure and signed the consent. Patient was taken to the OR and time out was completed. The patient was placed in the prone position on the procedure table. A pillow was placed under the patients chest to increase the cervical interlaminar space. The cervical area was prepped and draped in the usual sterile fashion. Vital signs were closely monitored during the procedure. Conscious sedation was used during the procedure to decrease patients anxiety. Using anterior-posterior fluoroscopy, the C6-7 interlaminar space was identified and the skin over this site was marked and then infiltrated with 1% lidocaine subcutaneously. Subsequently, a 20-gauge 3-1/2-inch Tuohy epidural needle was inserted and advanced toward the epidural space ( left paramedial ) by means of the ``hanging-drop technique and guided by AP and lateral fluoroscopy. The correct needle position in the epidural space was verified with the injection of 2 mL of the water soluble contrast dye Isovue-200 and observing an excellent epidurogram with the epidural spread of the dye, after negative aspiration for blood and CSF and in the absence of paresthesias. then, mixture containing 20 mg Dexamethasone and 2 ml of preservative-free normal saline injected and a washout of epidurogram was seen. Needle was withdrawn intact, skin was cleansed, and bandages were applied. Complications= none. Disposition= patient was placed in supine position and transferred to the recovery room area in stable condition and there was no evidence of upper or lower extremity motor or sensory deficit after the procedure patient was discharged from recovery room after discharge criteria met and home discharge instructions was given by the staff and patient will follow with the pain clinic in 2-4 weeks
[2022-09-05] MEDS ORDERED: IV FLUID CONTINUATION 950 ML IV ONE (08:41)
[2022-09-05 08:57] VITALS: BP 100/69; PULSE 68; RESP 20
--- NOTE | 2022-09-05 09:30 | FL ---
EXAMINATION TYPE: FL guided pain mgmt statistic DATE OF EXAM: 09/05/2022 HISTORY: Fluoroscopy time DAP .29207 of fluoroscopy provided. IMPRESSION: 1. Fluoroscopy time.
== END 2022-09-05 09:09 | disposition home or self-care (01) ==
LOC: ORPAIN 06:51
PROVIDERS: ATTEND Specialist
DX: M50.123 Cervical disc disorder at C6-C7 level with radiculopathy (principal); M47.22 Other spondylosis with radiculopathy, cervical region; G44.86 Cervicogenic headache; Z88.2 Allergy status to sulfonamides
CPT/HCPCS: 62321; J2250; J1100; J3010; Q9966

== ENCOUNTER → 2022-09-25 | Outpatient (CLI) | payer MEDICARE, OTHER ==
[2022-09-25 10:45] VITALS: BP 118/79; PULSE 62; RESP 18; TEMP 98
--- NOTE | 2022-09-25 12:29 | P.PAINPG ---
PQRS Measure Charge Sheet Comment: A 57 yr old female with a history of severe and chronic neck pain secondary to cervical DDD and spondylosis with facet arthropathy without myelopathy presents today for evaluation s/p COURTNEY L paramedian C6-C7. Pt states she experienced 40% pain relief s/p procedure. Pain level is provoked at 6 /10 in intensity, constant, localized in the cervical spine, dull/ achy/ sharp/ in character w shooting towards the L shoulder and LUE. Pain is provoked by rotation, hyperextension and UE lifting. Pain is alleviated with PT which she started 1 wk ago, heat, ice, meds, topical, repositioning and rest. Interventional pain procedures completed include COURTNEY C6-C7 Patient is currently on Lotus, Flexeril Patient denies any side effects of the medication(s), denies excessive drowsiness or sleepiness, denies suicidal ideation and reports that the current pain medication is helping to control the pain and improve activities of daily living. Patient denies any motor or sensory deficits. Patient denies any fever or night sweats, denies any change in the bowel movements or urination. Physical Examination: -Constitutional: Cooperative. Not in acute distress . - Neurologic: Cranial nerve II to XII intact. No focal neurological deficits. - Psychatric: Alert & oriented x 3. Matching mood & appropriate affect. [place] gment and insight intact. - Musculoskeletal: Cervical spine: Muscle bulk/ tone/ strength in the bilateral upper extremities normal Vertebral body tenderness to palpation over [place] test positive Distraction test positive Facet loading test positive TTP over BL C4-C5, C5-C6 facets, L>R Thoracic spine Muscle bulk / tone/ strength in the bilateral paraspinal muscles normal Vertebral body tender to palpation over Facet loading test positive TTP Lumbar spine: Motor bulk/ tone/ strength lower extremities , thigh and legs : 5/5 Deep tendon reflexes : Normal Knee Jerk. Normal Ankle Jerk . Vertebral body tenderness to palpation over Lumbar Facet Loading Test positive Straight Leg Raise: positive at 30 degrees right side/ left side Gaenslen's Test positive Sacral spine : Severe tenderness over the Sacroiliac joint: right side / left side Range of motion: Flexion of the lumbar spine <60 degrees Range of motion: Extension of the lumbar spine <20 degrees Gaenslen's Test positive R / L Arlet test: positive right side / left side Thigh Thrust Test positive R / L Sacral Thrust Test positive R/ L Assessment and plan: Chronic neck pain secondary to cervical DDD, spondylosis with facet arthropathy without myelopathy Recommendation of BL C4-C5, C5-C6 facet block of the medial branches #1. May need a series of injections, up until RFA, for optimal pain relief. Risks, benefits of procedure discussed and pt verbalized understanding. Admits to anticoagulant use or medical history of diabetes. Protocol for discontinuation/ continuation of medications melvin procedure discussed. All questions answered. Prescription refill for Flexeril w 1 RF. I have spent less than 30 minutes on patient care today. Dr Benjamin was available by phone for the evaluation of this patient. The time was used to review the medical records including relevant urine studies and Prescription history (MAPs), review of the available imaging, evaluation and examination of the patient, coordination of care with the medical staff and if applicable referring physicians, as well as creation of the medical record PQRS Narrative: Smoking Status Never smoker Hx Alcohol Use (MH) No Home Medications: Ambulatory Orders ALPRAZolam [Xanax] 1 mg PO Q8H PRN 03/20/14 HYDROcodone/APAP 10-325MG [[place] 10-325] 1 tab PO Q8H PRN 04/07/17 Omeprazole 20 mg PO BID 04/07/17 rOPINIRole HCL [Requip] 0.5 mg PO HS 06/02/17 Atorvastatin [Lipitor] 20 mg PO QAM 11/21/18 Levothyroxine Sodium [Synthroid] 75 mcg PO QAM 01/01/20 Citalopram Hydrobromide [CeleXA] 40 mg PO HS 03/24/21 valACYclovir HCL [Valacyclovir] 500 mg PO QAM 03/24/21 Butalb/Acetaminophen/Caffeine [Fioricet 50-300-40 mg Capsule] 1 - 2 cap PO BID PRN 09/13/21 Dicyclomine [Bentyl] 10 mg PO TID #90 capsule 03/07/22 traZODone HCL [Desyrel] 100 mg PO HS 03/24/22 Controlled Substance Measures - Controlled Substance Measures Is patient prescribed a controlled substance at discharge?: No
== END ==
LOC: PNWHC3 09:29
PROVIDERS: ATTEND Specialist
DX: M50.321 Other cervical disc degeneration at C4-C5 level (principal); M47.812 Spondylosis without myelopathy or radiculopathy, cervical region; G89.29 Other chronic pain; Z88.2 Allergy status to sulfonamides; Z88.8 Allergy status to other drugs, medicaments and biological substances; M50.322 Other cervical disc degeneration at C5-C6 level
CPT/HCPCS: 99211

== ENCOUNTER 2022-10-24 07:19 | Day surgery (SDC) | payer MEDICARE, OTHER ==
[2022-10-23 08:40] VITALS: BMI 34.0
[2022-10-24 07:47] VITALS: TEMP 98.2
[2022-10-24] MEDS ORDERED: LIDOCAINE 1% (10MG/ML) FOR IV START INTRADERMA PRN (07:51)
[2022-10-24] MEDS ORDERED: LACTATED RINGERS 1,000 ML IV SCH (07:51)
[2022-10-24] MEDS ORDERED: methylPREDNISolone ACETATE 40 MG/ML 1 ML VIAL ONE (08:16)
[2022-10-24] MEDS ORDERED: ROPIVACAINE 5 MG/ML 20 ML AMPULE ONE (08:16)
[2022-10-24] MEDS ORDERED: MIDAZOLAM 2 MG/2 ML VIAL ONE (08:16)
[2022-10-24] MEDS ORDERED: fentaNYL (PF) 50 MCG/ML 2 ML AMP ONE (08:16)
--- NOTE | 2022-10-24 08:42 | P.PCN ---
Date of Procedure: 10/24/22 Procedure(s) Performed: PREOPERATIVE DIAGNOSIS: 1-Cervical Spondylosis with Facet Arthropathy.without myelopathy. 2-cervical degenerative disc disease POSTOPERATIVE DIAGNOSIS:1-cervical spondylosis with facet arthropathy without myelopathy. 2-cervical degenerative disc disease PROCEDURES: Diagnostic bilateral C4 , C5 , and C6 medial branch blocks, with fluoroscopic guidance (fluoroscopy images available in radiology department ) ( to target the facet joint at bilateral C4- 5 , C5- 6 )# 1st ANESTHESIA: ,moderate sedation with Versed 2 mg , and fentanyl 100 micrograms, sedation and started at 0821, end at 0838 EBL: Minimal PROCEDURE INDICATION: The patient with neck pain secondary to cervical arthropathy unresponsive to more conservative treatments. PROCEDURE DESCRIPTION / TECHNIQUE: The patient was seen and identified in the preoperative area. Risks, benefits, complications, and alternatives were discussed with the patient, the patient agreed to proceed with the procedure and signed the consent. IV was started. Vital signs remained stable throughout the procedure. Patient was taken to the OR and time out was completed. The patient was placed in the prone position on the procedure table. A pillow was placed under the patients chest to increase the cervical interlaminar space. The cervical area was prepped and draped in the usual sterile fashion. Critical pause was taken. Vital signs were closely monitored during the procedure. Conscious sedation was used during the procedure to decrease patients anxiety. Using cross-table lateral fluoroscopy, the centroid of the trapezoid of right C4 , C5 and C6, was identified, marked, and localized with 1% lidocaine 1 ml at each level for skin and Sub Q infiltrations . Subsequently, a 22 G 3 spinal needle was advanced guided by fluoroscopy to the centroid of the trapezoid of Right C4 , C5, C6 . [place] tip position was confirmed at the centroid of the trapezoids of Right C4 , C5 ,C6 with anteroposterior fluoroscopy. Subsequently, 1.5 ml of preservative-free Ropivacaine 0.5% mixed with Depo- Medrol 20 mg and half ml of the mixture was injected after negative aspiration for blood and CSF. [place] was then removed intact the same procedure was r epeated at the left C4 , C5 , and C6 levels. COMPLICATIONS: No acute complications. DISPOSITION / PLANS: The patient was placed in a supine position and transferred to the recovery area in a stable condition for observation and was discharged from the recovery room after meeting discharge criteria. Home discharge instructions given to the patient by the staff. The patient was reexamined prior to discharge. The patient will schedule a follow up in the clinic in 2-4 weeks.
[2022-10-24] MEDS ORDERED: IV FLUID CONTINUATION 1,000 ML IV ONE (08:44)
[2022-10-24 08:47] VITALS: RESP 16
--- NOTE | 2022-10-24 08:55 | FL ---
EXAMINATION TYPE: FL guided pain mgmt statistic DATE OF EXAM: 10/24/2022 HISTORY: Fluoroscopy time Total dose area product (DAP) in mGy*m? (or similar): 0.0108 IMPRESSION: 1. Fluoroscopy time.
[2022-10-24 08:56] VITALS: BP 110/73; PULSE 75
== END 2022-10-24 09:13 ==
LOC: ORPAIN 07:19
PROVIDERS: ATTEND Specialist
DX: M50.322 Other cervical disc degeneration at C5-C6 level (principal); M47.812 Spondylosis without myelopathy or radiculopathy, cervical region; Z88.8 Allergy status to other drugs, medicaments and biological substances; Z88.2 Allergy status to sulfonamides
CPT/HCPCS: 64490; 64491 ×2; 99152; J2250; J1030; J3010; J2795

== ENCOUNTER → 2022-10-26 | Outpatient (CLI) | payer MEDICARE, OTHER ==
[2022-10-26 09:04] VITALS: BP 106/74; PULSE 90; RESP 16; TEMP 97.5
--- NOTE | 2022-10-26 09:27 | P.PN ---
Subjective Progress Note Date: 10/26/22 Principal diagnosis: lipoma right breast fibrocystic breast changes. lipoma resected right breast Kim is a 57 year old white female seen in consultation for Dr. Avalos with a complaint of a nodule in her right breast in 2020. . She noted two nodule in the lateral aspect of the breast. They were not tender, they were pea size. They had not changed since she found them. She had resection of a lipoma from her right breast on 05-31-21. She tolerated this without difficulty. She had a bilateral mammogram on 12-19-21 which was BIRAD 2. She is complaining of some dimpling near her right areolar for approximately 2 months. She has lost 100 pounds after gastric sleeve surgery. She is not complaining of any new lumps masses or nodules of concern in either breast. She has not had any recent trauma or infection in the breast. Her last mammogram was in December 2021. caffeine: none nicotine: none chocolate; none BCP: 10 years, stopped 27 years ago hormones: none Family History: father: colon cancer brother: lip cancer, metastatic maternal uncle: lung cancer maternal grandmother: lung cancer Hormonal History: menarche: 14 M1, breast fed: no, age at first : 19 menopause: 51; hysterectomy at 41 for pre cancer in uterus Surgical History: hysterectomy left ovaries gallbladder appy two C-sections tonsillectomy gastric sleeve right breast resectioin of lipoma facet injections in her neck Medical History: light headed when stands up follow with Dr. Avalos hypothyroid torn rotator cuff Social History: nicotine: none alcohol: none drugs: none - Constitutional Constitutional: Reports sweats, Denies chills, Denies fever - EENT Eyes: denies blurred vision, denies pain Ears: deny: decreased hearing, tinnitus Ears, nose, mouth and throat: Reports headache, Denies sore throat - Breasts Breasts: bilateral: as per HPI - Cardiovascular Cardiovascular: Reports chest pain, Denies shortness of breath - Respiratory Respiratory: Denies cough - Gastrointestinal Gastrointestinal: Reports constipation, Denies abdominal pain, Denies diarrhea, Denies nausea, Denies vomiting - Genitourinary (Female) Genitourinary: Denies dysuria, Denies hematuria - Menstruation Menstruation: Reports post hysterectomy - Musculoskeletal Comment: hips and back hurt Musculoskeletal: Denies myalgias - Integumentary Integumentary: Denies pruritus, Denies rash - Neurological Neurological: Denies numbness, Denies weakness - Psychiatric Psychiatric: Reports anxiety, Reports depression - Endocrine Endocrine: Reports fatigue, Denies weight change - Hematologic/Lymphatic Comment: none - Allergic/Immunologic Allergic/Immunologic: Reports as per HPI Objective - Vital Signs Vital signs: Vital Signs Temp 97.5 F L 10/26/22 09:01 Pulse 90 10/26/22 09:01 Resp 16 10/26/22 09:01 BP 106/74 10/26/22 09:01 Pulse Ox 99 10/26/22 09:01 FiO2 Intake & Output 10/25/22 10/26/22 10/26/22 18:59 06:59 18:59 Weight 95.708 kg - Constitutional General appearance: Present: cooperative - EENT Eyes: Present: EOMI ENT: Present: hearing grossly normal - Neck Neck: Present: normal ROM - Respiratory Respiratory: bilateral: CTA - Cardiovascular Rhythm: regular Heart sounds: normal: S1, S2 - Integumentary Integumentary: Present: normal turgor - Musculoskeletal Musculoskeletal: Present: gait normal - Psychiatric Psychiatric: Present: A&O x's 3, appropriate affect, intact judgment & insight - Additional findings Additional findings: Breast Exam: BRA: 42D inspection: bilateral grade 3 ptosis; evaluation for dimpling is performed and no dimpling on either side is noted, she does have a prominent vein in the upper inner aspect of the right periareolar region but there is no dimpling of concern palpation: right breast: Multi-positional exam fibrocystic changes no dominate masses or nodules of concern Right axilla: No adenopathy of concern Left breast: Multi-positional exam fibrocystic changes, no dominant masses or nodules of concern Left axilla: No adenopathy of concern Assessment and Plan Assessment: Impression: light headed when stands up follow with Dr. Avalos hypothyroid torn rotator cuff Fibrocystic breast changes Patient complaining of some questionable changes in the right breast periareolar region which was not demonstrated on today's examination Plan: Patient is due for a bilateral mammogram in December 2022, will try to get this sooner secondary to patients concern of dimpling follow up after mammogram CC: Dr. Avalos
== END ==
LOC: WWCWWP 08:49
PROVIDERS: ATTEND Surgery
DX: N60.12 Diffuse cystic mastopathy of left breast (principal); N60.11 Diffuse cystic mastopathy of right breast; E03.9 Hypothyroidism, unspecified; Z88.2 Allergy status to sulfonamides; Z88.1 Allergy status to other antibiotic agents; Z88.8 Allergy status to other drugs, medicaments and biological substances

== ENCOUNTER → 2022-12-19 | Outpatient (CLI) | payer MEDICARE, OTHER ==
[2022-12-19 13:31] VITALS: BP 132/92; PULSE 82; RESP 16; TEMP 99.2; BMI 32.1
--- NOTE | 2022-12-19 16:54 | P.BASOAP ---
Subjective Progress Note Date: 12/19/22 Principal diagnosis: Morbid obesity Patient returns for recheck. She was last seen in June. Patient remained on antiacids. Appetite is minimal. Some nausea. Some dry heaves in the mornings. She has lost 10 pounds since her last visit. She has had some easy bruising and is seen hematology. Apparently she is scheduled for shoulder surgery in the near future. Objective - Vital Signs Vital signs: Vital Signs Temp 99.2 F 12/19/22 13:29 Pulse 82 12/19/22 13:29 Resp 16 12/19/22 13:29 BP 132/92 12/19/22 13:29 Pulse Ox FiO2 Intake & Output 12/18/22 12/19/22 12/19/22 18:59 06:59 18:59 Weight 90.265 kg - Exam Abdomen: Soft, nontender, nondistended Assessment/Plan (1) Morbid obesity Narrative/Plan: Patient doing relatively well 2 years out from her sleeve gastrectomy. Check annual labs. Await hematology evaluation. Continue antiacid therapy. Increase exercise as tolerated. Follow-up 1 year. Plan: Date: 12/19/22 Initial Weight: 128.82 kg Initial BMI: 45.8 Current Weight: 90.265 kg Current BMI: 32.1 Type of Surgery: Vertical Sleeve Gastrectomy Total Volume in Band: Previous Volume: Volume Removed: Volume Added: Band Size:
== END ==
LOC: BARWHC3 12:58
PROVIDERS: ATTEND Surgery
DX: E66.01 Morbid (severe) obesity due to excess calories (principal); Z98.84 Bariatric surgery status; Z68.32 Body mass index [BMI] 32.0-32.9, adult; Z88.2 Allergy status to sulfonamides; Z88.8 Allergy status to other drugs, medicaments and biological substances
CPT/HCPCS: 99211

== ENCOUNTER → 2022-12-21 | Outpatient (CLI) | payer MEDICARE, OTHER ==
--- NOTE | 2022-12-22 16:10 | MM ---
Reason for Exam: Screening (asymptomatic). Last screening mammogram was performed 12 month(s) ago. Patient History: Menarche at age 14. First Full-Term at age 19. Hysterectomy at age 39. Postmenopausal. 06/01/2021, Excisional Biopsy on the Right side. 05/19/2021, Benign Cyst Aspiration on the right side. 08/2006, Benign Excisional Biopsy on the left side. 10/31/2017, Benign Core Biopsy on the left side. Risk Values: [place] 5 year model risk: 1.3%. NCI Lifetime model risk: 8.7%. Prior Study Comparison: 03/07/2021 Right Diagnostic Mammogram, [facility]. 05/23/2021 Left Diagnostic Mammogram, [facility]. 12/19/2021 Bilateral MG 3D diag mammo w/cad REX, [facility]. Tissue Density: There are scattered fibroglandular densities. Findings: Analyzed By CAD. Pattern appears symmetrical and stable. No significant interval change is evident. Scattered benign calcifications are present. Surgical clips and coronary markers are present bilaterally. No suspicious groups of microcalcifications, spiculated or lobular masses, architectural distortion or other secondary signs of malignancy are mammographically apparent. Overall Assessment: Benign, BI-RAD 2 Management: Screening Mammogram of both breasts in 1 year. A negative mammogram report should not preclude additional follow up of suspicious palpable abnormalities. Patient should continue monthly self breast exam. A clinical breast exam by your physician is recommended on an annual basis and results should be correlated with mammographic findings. Electronically signed and approved by: Lalo Jordan D.O. Radiologis
== END | disposition home or self-care (01) ==
LOC: RADMAMWWP 08:44
PROVIDERS: ATTEND Surgery
DX: Z12.31 Encounter for screening mammogram for malignant neoplasm of breast (principal); Z78.0 Asymptomatic menopausal state
CPT/HCPCS: 77063; 77067

== ENCOUNTER → 2022-12-28 | Outpatient (CLI) | payer MEDICARE, OTHER ==
[2022-12-28 13:19] VITALS: BP 106/74; PULSE 97; RESP 17; TEMP 97.9
--- NOTE | 2022-12-28 13:45 | P.PN ---
Subjective Progress Note Date: 12/28/22 lipoma right breast fibrocystic breast changes. lipoma resected right breast Kim is a 57 year old white female seen in consultation for Dr. Avalos with a complaint of a nodule in her right breast in 2020. . She noted two nodule in the lateral aspect of the breast. They were not tender, they were pea size. They had not changed since she found them. She had resection of a lipoma from her right breast on 05-31-21. She tolerated this without difficulty. She had a bilateral mammogram on 12-21-22 which was BIRAD 2. On her appointment of 10-26-22 she was complaining of some dimpling near her right areolar for approximately 2 months. She has lost 100 pounds after gastric sleeve surgery. She was not complaining of any new lumps masses or nodules of concern in either breast. She has not had any recent trauma or infection in the breast. She is not complaining of any new lumps masses or nodules of concern in either breast. She has not noticing the dimpling which she did on her last exam. caffeine: none nicotine: none chocolate; none BCP: 10 years, stopped 27 years ago hormones: none Family History: father: colon cancer brother: lip cancer, metastatic maternal uncle: lung cancer maternal grandmother: lung cancer Hormonal History: menarche: 14 M1, breast fed: no, age at first : 19 menopause: 51; hysterectomy at 41 for pre cancer in uterus Surgical History: hysterectomy left ovaries gallbladder appy two C-sections tonsillectomy gastric sleeve right breast resectioin of lipoma facet injections in her neck Medical History: light headed when stands up follow with Dr. Avalos hypothyroid torn rotator cuff Social History: nicotine: none alcohol: none drugs: none - Constitutional Constitutional: Reports sweats, Denies chills, Denies fever - EENT Eyes: denies blurred vision, denies pain Ears: deny: decreased hearing, tinnitus Ears, nose, mouth and throat: Reports headache, Denies sore throat - Breasts Breasts: bilateral: as per HPI - Cardiovascular Cardiovascular: Reports chest pain, Denies shortness of breath - Respiratory Respiratory: Denies cough - Gastrointestinal Gastrointestinal: Reports constipation, Denies abdominal pain, Denies diarrhea, Denies nausea, Denies vomiting - Genitourinary (Female) Genitourinary: Denies dysuria, Denies hematuria - Menstruation Menstruation: Reports post hysterectomy - Musculoskeletal Comment: hips and back hurt Musculoskeletal: Denies myalgias - Integumentary Integumentary: Denies pruritus, Denies rash - Neurological Neurological: Denies numbness, Denies weakness - Psychiatric Psychiatric: Reports anxiety, Reports depression - Endocrine Endocrine: Reports fatigue, Denies weight change - Hematologic/Lymphatic Comment: none - Allergic/Immunologic Allergic/Immunologic: Reports as per HPI Objective - Vital Signs Vital signs: Vital Signs Temp 97.9 F 12/28/22 13:17 Pulse 97 12/28/22 13:17 Resp 17 12/28/22 13:17 BP 106/74 12/28/22 13:17 Pulse Ox 98 12/28/22 13:17 FiO2 Intake & Output 12/27/22 12/28/22 12/28/22 18:59 06:59 18:59 Weight 88.904 kg - Constitutional General appearance: Present: cooperative - EENT Eyes: Present: EOMI ENT: Present: hearing grossly normal - Neck Neck: Present: normal ROM - Respiratory Respiratory: bilateral: CTA - Cardiovascular Rhythm: regular Heart sounds: normal: S1, S2 - Gastrointestinal General gastrointestinal: Present: soft - Integumentary Integumentary: Present: normal turgor - Musculoskeletal Musculoskeletal: Present: gait normal - Psychiatric Psychiatric: Present: A&O x's 3, appropriate affect, intact judgment & insight - Additional findings Additional findings: Breast Exam: BRA: 42D inspection: bilateral grade 3 ptosis; evaluation for dimpling is performed and no dimpling on either side is noted, she does have a prominent vein in the upper inner aspect of the right periareolar region but there is no dimpling of concern palpation: right breast: Multi-positional exam fibrocystic changes no dominate masses or nodules of concern Right axilla: No adenopathy of concern Left breast: Multi-positional exam fibrocystic changes, no dominant masses or nodules of concern Left axilla: No adenopathy of concern Assessment and Plan Assessment: Impression: light headed when stands up follow with Dr. Avalos hypothyroid torn rotator cuff Fibrocystic breast changes Patient on her last visit was complaining of some questionable changes in the right breast periareolar region which was not demonstrated on today's examination; patient is not complaining of this at this time Plan: follow up bilateral mammogram in 1 year with examination at that time Patient to follow up sooner any questions or concerns CC: Dr. Avalos
== END ==
LOC: WWCWWP 12:52
PROVIDERS: ATTEND Surgery
DX: Z71.2 Person consulting for explanation of examination or test findings (principal); N60.11 Diffuse cystic mastopathy of right breast; E03.9 Hypothyroidism, unspecified; Z88.2 Allergy status to sulfonamides; Z88.8 Allergy status to other drugs, medicaments and biological substances; Z88.1 Allergy status to other antibiotic agents

== ENCOUNTER 2023-01-29 16:37 | Inpatient (IN) | payer MEDICARE, OTHER ==
[2023-01-29 18:06] LABS: Appearance,Urine Clear (Clear); Bacteria,Urine Few /hpf; Bilirubin,Urine Negative (Negative); Blood,Urine Negative (Negative); Color,Urine Light Yellow; Glucose,Urine (UA) Negative (Negative); Ketones,Urine Negative (Negative); Leukocyte Esterase,Urine Small (Negative); Mucus,Urine Rare /hpf; Nitrite,Urine Negative (Negative); PH, Urine 6.5 (5.0-8.0); Protein,Urine Negative (Negative); RBC,Urine 3 /hpf (0-5); Specific Gravity,Urine 1.006 (1.001-1.035); Squamous Epithelial Cell,Urine 6 /hpf (0-4); Transitional Epi Cells,Urine <1 /hpf (0-1); Urobilinogen,Urine <2.0 mg/dL (<2.0); WBC,Urine 1 /hpf (0-5)
--- NOTE | 2023-01-29 19:06 | ED ---
Female Urogenital HPI - General Chief complaint: Urogenital Stated complaint: uti Time Seen by Provider: 01/29/23 19:02 Source: patient, RN notes reviewed, old records reviewed Mode of arrival: ambulatory Limitations: no limitations - History of Present Illness Initial comments: This is a 57-year-old female to the emergency department today for evaluation. Patient presents today for evaluation regards to persistent urinary tract infection going on a month now with pain back pain and abdominal pain. She does feel fever, has had a fever for couple days now it is concern for sepsis which she has history of. Patient had back pain 2 days ago. And again she is on her second antibiotic for urinary tract infection as an outpatient. Patient does admit to some difficulty with urination MD Complaint: dysuria, pelvic pain -: week(s) Location: suprapubic Radiation: non-radiating Severity: moderate Severity scale (1-10): 4 Quality: cramping Consistency: constant Improves with: none Worsens with: none Patient : No Associated Symptoms: denies other symptoms - Related Data Sexually active: No Home Medications Medication Instructions Recorded Confirmed ALPRAZolam [Xanax] 1 mg PO Q8H PRN 03/20/14 01/29/23 HYDROcodone/APAP 10-325MG [[place] 1 tab PO Q8H PRN 04/07/17 01/29/23 10-325] Omeprazole 20 mg PO BID 04/07/17 01/29/23 rOPINIRole HCL [Requip] 0.5 mg PO HS 06/02/17 01/29/23 Atorvastatin [Lipitor] 20 mg PO DAILY 11/21/18 01/29/23 Levothyroxine Sodium [Synthroid] 75 mcg PO DAILY 01/01/20 01/29/23 Citalopram Hydrobromide [CeleXA] 40 mg PO HS 03/24/21 01/29/23 valACYclovir HCL [Valacyclovir] 1,000 mg PO DAILY 03/24/21 01/29/23 Amoxic-Pot Clav 500-125 mg 1 tab PO Q12HR 01/29/23 01/29/23 [Augmentin 500-125 mg] Diclofenac Sodium [Voltaren 1 applic TOPICAL QID PRN 01/29/23 01/29/23 Arthritis Pain 1% Gel] Dicyclomine [Bentyl] 10 mg PO TID PRN 01/29/23 01/29/23 Fluconazole 200 mg PO ONCE PRN 01/29/23 01/29/23 Meloxicam [Mobic] 15 mg PO HS 01/29/23 01/29/23 Montelukast [Singulair] 10 mg PO HS 01/29/23 01/29/23 traZODone HCL [Desyrel] 100 mg PO HS 01/29/23 01/29/23 Allergies Allergy/AdvReac Type Severity Reaction Status Date / Time Sulfa (Sulfonamide Allergy Severe Rash/Hives Verified 01/29/23 23:06 Antibiotics) ketorolac tromethamine Allergy Tardive Verified 01/29/23 23:06 [From Toradol] Dyskinesia prochlorperazine maleate Allergy Tardive Verified 01/29/23 23:06 [From Compazine] Dyskinesia prochlorperazine edisylate AdvReac Severe Tardive Verified 01/29/23 23:06 [From Compazine] dyskinesia Review of Systems ROS Statement: Those systems with pertinent positive or pertinent negative responses have been documented in the HPI. ROS Other: All systems not noted in ROS Statement are negative. Past Medical History Past Medical History: Asthma, Cancer, Deep Vein Thrombosis (DVT), Fibromyalgia, GERD/Reflux, Hyperlipidemia, Hypertension, Osteoarthritis (OA), Renal Disease, Sleep Apnea/CPAP/BIPAP, Thyroid Disorder Additional Past Medical History / Comment(s): Hx DVT in each leg. IBS. Lumbar DDD, chronic back pain. Has not been using CPAP. Hypothyroid. 2 bulging discs in back and herniated disc in neck, past htn/none since wt loss, skin cancer on face with removal, kidney infection approximately 2 months and completed abx., kidney stones. History of Any Multi-Drug Resistant Organisms: MRSA Date of last positivie culture/infection: 2008 MDRO Source:: abd Past Surgical History: Appendectomy, Bariatric Surgery, Section, Cholecystectomy, Hysterectomy, Orthopedic Surgery, Tonsillectomy Additional Past Surgical History / Comment(s): Right knee arthroscopy x2, left elbow surgery for torn tendon, sinus surgery x3, PAIN CLINIC PROCEDURE, back injections and nerves burned in back and neck, varicose vein surgery, sleeve gastrectomy 12-20-20, skin cancer removed from face. Past Anesthesia/Blood Transfusion Reactions: No Reported Reaction Additional Past Anesthesia/Blood Transfusion Reaction / Comment(s): Never had blood transfusion. Pt states versed does not work for her-I didn't feel anything. Past Psychological History: Anxiety, Depression, Panic Disorder Smoking Status: Never smoker Past Alcohol Use History: None Reported Past Drug Use History: None Reported - Past Family History Father Family Medical History: Cancer Additional Family Medical History / Comment(s): Colon Cancer. Brother(s) Family Medical History: Cancer General Exam Limitations: no limitations General appearance: alert, in no apparent distress, anxious Head exam: Present: atraumatic, normocephalic, normal inspection Eye exam: Present: normal appearance, PERRL, EOMI. Absent: scleral icterus, conjunctival injection, periorbital swelling ENT exam: Present: normal exam, mucous membranes moist Neck exam: Present: normal inspection. Absent: tenderness, meningismus, lymphadenopathy Respiratory exam: Present: normal lung sounds bilaterally. Absent: respiratory distress, wheezes, rales, rhonchi, stridor Cardiovascular Exam: Present: normal rhythm, tachycardia, normal heart sounds. Absent: systolic murmur, diastolic murmur, rubs, gallop, clicks GI/Abdominal exam: Present: soft, normal bowel sounds. Absent: distended, tenderness, guarding, rebound, rigid Extremities exam: Present: normal inspection, full ROM, normal capillary refill. Absent: tenderness, pedal edema, joint swelling, calf tenderness Back exam: Present: normal inspection Neurological exam: Present: alert, oriented X3, CN II-XII intact Psychiatric exam: Present: normal affect, normal mood Skin exam: Present: warm, dry, intact, normal color. Absent: rash Course Vital Signs 01/29/23 01/29/23 01/29/23 17:25 21:26 23:30 Temperature 98.0 F Pulse Rate 102 H 66 Respiratory 18 16 Rate Blood Pressure 124/81 98/68 93/75 O2 Sat by Pulse 97 99 96 Oximetry 01/30/23 01/30/23 01/30/23 00:40 01:00 02:00 Temperature Pulse Rate 85 78 84 Respiratory 26 H 22 Rate Blood Pressure 107/64 107/64 96/57 O2 Sat by Pulse 93 L 99 99 Oximetry 01/30/23 01/30/23 01/30/23 04:00 04:10 04:20 Temperature Pulse Rate 74 Respiratory 17 Rate Blood Pressure 116/86 O2 Sat by Pulse 98 98 97 Oximetry 01/30/23 01/30/23 01/30/23 04:30 09:05 10:00 Temperature Pulse Rate 77 59 L Respiratory 17 20 16 Rate Blood Pressure 122/79 96/60 O2 Sat by Pulse 95 98 96 Oximetry 01/30/23 10:52 Temperature Pulse Rate 60 Respiratory 16 Rate Blood Pressure 116/77 O2 Sat by Pulse 94 L Oximetry - Reevaluation(s) Reevaluation #1: 01/29/23 19:53 Medical record is reviewed Reevaluation #2: 01/29/23 22:27 Patient is unable to urinate here in the emergency department, does have significant urinary retention greater than thousand mL in the bladder Patient is requiring repeated doses of pain medication Patient has no significant neurological deficits found on exam and repeat exam Reevaluation #3: Patient informed of results and questions answered Reevaluation #4: 01/29/23 19:50 Was pt. sent in by a medical professional or institution (, PA, STRAPPING MACHINE OPERATOR, urgent care, hospital, or halfway...) When possible be specific @ -no Did you speak to anyone other than the patient for history (EMS, parent, family, police, friend...)? What history was obtained from this source @ -no Did you review nursing and triage notes (agree or disagree)? Why? @ -agree Are old charts reviewed (outside hosp., previous admission, EMS record, old EKG, old radiological studies, urgent care reports/EKG's, halfway records)? Report findings @ -yes Differential Diagnosis (chest pain, altered mental status, abdominal pain women, abdominal pain men, vaginal bleeding, weakness, fever, dyspnea, syncope, headache, dizziness, GI bleed, back pain, seizure, CVA, palpatations, mental health, musculoskeletal)? @ -prior EKG interpreted by me (3pts min.). @ -yes X-rays interpreted by me (1pt min.). @ -yes CT interpreted by me (1pt min.). @ -no U/S interpreted by me (1pt. min.). @ -no What testing was considered but not performed or refused? (CT, X-rays, U/S, labs)? Why? @ -none What meds were considered but not given or refused? Why? @ -none Did you discuss the management of the patient with other professionals (professionals i.e. , PA, STRAPPING MACHINE OPERATOR, lab, RT, psych nurse, elementary school social worker, head of maintenance, teacher, control officer manager, caser)? Give summary @ -no Was smoking cessation discussed for >3mins.? @ -no Was critical care preformed (if so, how long)? @ -no Were there social determinants of health that impacted care today? How? (Homelessness, low income, unemployed, alcoholism, drug addiction, transportation, low edu. Level, literacy, decrease access to med. care, prison, rehab)? @ -none Was there de-escalation of care discussed even if they declined (Discuss DNR or withdrawal of care, Hospice)? DNR status @ -no What co-morbidities impacted this encounter? (DM, HTN, Smoking, COPD, CAD, Cancer, CVA, ARF, Chemo, Hep., AIDS, mental health diagnosis, sleep apnea, morbid obesity)? @ -none Was patient admitted / discharged? Hospital course, mention meds given and route, prescriptions, significant lab abnormalities, going to OR and other p ertinent info. @ - Undiagnosed new problem with uncertain prognosis? @ -no Drug Therapy requiring intensive monitoring for toxicity (Heparin, Nitro, Insulin, Cardizem)? @ -no Were any procedures done? @ -no Diagnosis/symptom? @ - Acute, or Chronic, or Acute on Chronic? @ -Acute Uncomplicated (without systemic symptoms) or Complicated (systemic symptoms)? @ -Complicated Side effects of treatment? @ -no Exacerbation, Progression, or Severe Exacerbation? @ -exacerbation Poses a threat to life or bodily function? How? (Chest pain, USA, ME, pneumonia, PE, COPD, DKA, ARF, appy, cholecystitis, CVA, Diverticulitis, Homicidal, Suicidal, threat to staff... and all critical care pts) @ -yes Reevaluation #5: Differential Abdominal Pain Women: Appendicitis, Cholecystitis, diverticulosis, ischemic bowel, pancreatitis, hepatitis, UTI, gastroenteritis, AAA, incarcerated hernia, bowel obstruction, constipation, inflammatory bowel, hepatitis, peptic ulcer disease, splenic infarction, perforated viscus, vulvitis, ovarian torsion, PID, kidney stone, placenta abruption, this is not meant to be an all-inclusive list - Consultations Consultation #1: Spoke with Dr. Avalos who agrees to admit this patient Consultation #2: spoke w Dr Baig will see the patient regards to urinary retention Medical Decision Making - Medical Decision Making 57 female to the emergency department for evaluation of severe abdominal pain concern for kidney stones or other cause of untreated urinary tract infection. Patient is found to be in significant urinary retention here in the emergency department likely as cause of pain. Unknown cause of reason to have urinary retention patient will be admitted for further evaluation of possible causes including cauda equina syndrome or outlet obstruction. Patient denies any back pain or other neurological complaint - Lab Data Result diagrams: 02/01/23 06:16 02/01/23 06:16 Lab Results 01/29/23 01/29/23 01/29/23 Range/Units 17:44 19:44 19:44 WBC 8.0 (3.8-10.6) k/uL RBC 3.83 (3.80-5.40) m/uL Hgb 12.9 (11.4-16.0) gm/dL Hct 38.1 (34.0-46.0) % MCV 99.6 (80.0-100.0) fL MCH 33.7 (25.0-35.0) pg MCHC 33.8 (31.0-37.0) g/dL RDW 13.0 (11.5-15.5) % Plt Count 236 (150-450) k/uL MPV 8.8 Neutrophils % 35 % Lymphocytes % 55 % Monocytes % 6 % Eosinophils % 2 % Basophils % 0 % Neutrophils # 2.8 (1.3-7.7) k/uL Lymphocytes # 4.4 (1.0-4.8) k/uL Monocytes # 0.5 (0-1.0) k/uL Eosinophils # 0.1 (0-0.7) k/uL Basophils # 0.0 (0-0.2) k/uL Sodium 134 L (137-145) mmol/L Potassium 3.9 (3.5-5.1) mmol/L Chloride 101 (98-107) mmol/L Carbon Dioxide 25 (22-30) mmol/L Anion Gap 8 mmol/L BUN 14 (7-17) mg/dL Creatinine 0.88 (0.52-1.04) mg/dL Est GFR (CKD-EPI)AfAm 86 (>60 ml/min/1.73 sqM) Est GFR (CKD-EPI)NonAf 74 (>60 ml/min/1.73 sqM) Glucose 87 (74-99) mg/dL Calcium 9.2 (8.4-10.2) mg/dL Phosphorus 3.8 (2.5-4.5) mg/dL Magnesium 2.0 (1.6-2.3) mg/dL Total Bilirubin 0.4 (0.2-1.3) mg/dL AST 24 (14-36) U/L ALT 16 (4-34) U/L Alkaline Phosphatase 42 (38-126) U/L Total Protein 7.4 (6.3-8.2) g/dL Albumin 4.2 (3.5-5.0) g/dL Urine Color Light Yellow Urine Appearance Clear (Clear) Urine pH 6.5 (5.0-8.0) Ur Specific [place] 1.006 (1.001-1.035) Urine Protein Negative (Negative) Urine Glucose (UA) Negative (Negative) Urine Ketones Negative (Negative) Urine Blood Negative (Negative) Urine Nitrite Negative (Negative) Urine Bilirubin Negative (Negative) Urine Urobilinogen <2.0 (<2.0) mg/dL Ur Leukocyte Esterase Small H (Negative) Urine RBC 3 (0-5) /hpf Urine WBC 1 (0-5) /hpf Ur Squamous Epith Cells 6 H (0-4) /hpf Ur Transition Epith Cell <1 (0-1) /hpf Urine Bacteria Few H (None) /hpf Urine Mucus Rare H (None) /hpf Disposition Clinical Impression: Abdominal pain, Urinary retention, Back pain, Anxiety Disposition: ADMITTED IP TO THIS [facility] Condition: Serious Is patient prescribed a controlled substance at d/c from ED?: No Time of Disposition: 22:30
[2023-01-29] MEDS ORDERED: SODIUM CHLORIDE 0.9% 1,000 ML IV STA (19:39)
[2023-01-29] MEDS ORDERED: ACETAMINOPHEN TAB 500 MG TAB PO STA (19:39)
[2023-01-29] MEDS ORDERED: MORPHINE SULFATE 4 MG/ML SYRINGE IV STA (19:39)
[2023-01-29 20:23] LABS: Basophils % (A) 0 %; Eosinophils # (A) 0.1 k/uL (0-0.7); Eosinophils % (A) 2 %; HCT 38.1 % (34.0-46.0); HGB 12.9 gm/dL (11.4-16.0); Lymphocytes # (A) 4.4 k/uL (1.0-4.8); Lymphocytes % (A) 55 %; MCH 33.7 pg (25.0-35.0); MCHC 33.8 g/dL (31.0-37.0); MCV 99.6 fL (80.0-100.0); Mean Platelet Volume 8.8; Monocytes # (A) 0.5 k/uL (0-1.0); Monocytes % (A) 6 %; Neutrophils # (A) 2.8 k/uL (1.3-7.7); Neutrophils % (A) 35 %; Platelet Count 236 k/uL (150-450); RBC 3.83 m/uL (3.80-5.40)
[2023-01-29 20:35] LABS: ALT 16 U/L (4-34); AST 24 U/L (14-36); African American GFR (CKD) 86 (>60 ml/min/1.73 sqM); Albumin 4.2 g/dL (3.5-5.0); Alkaline Phosphatase 42 U/L (38-126); Anion Gap 8 mmol/L; Blood Urea Nitrogen 14 mg/dL (7-17); Calcium 9.2 mg/dL (8.4-10.2); Carbon Dioxide 25 mmol/L (22-30); Chloride 101 mmol/L (98-107); Glucose 87 mg/dL (74-99); Non-African American GFR(CKD) 74 (>60 ml/min/1.73 sqM); Phosphorus 3.8 mg/dL (2.5-4.5); Potassium 3.9 mmol/L (3.5-5.1); Sodium 134 mmol/L (137-145); Total Bilirubin 0.4 mg/dL (0.2-1.3); Total Protein 7.4 g/dL (6.3-8.2)
--- NOTE | 2023-01-29 21:34 | CT ---
EXAMINATION TYPE: CT abdomen pelvis wo con CT DLP: 848.5 mGycm, Automated exposure control for dose reduction was used. DATE OF EXAM: 01/29/2023 8:51 PM COMPARISON: CT abdomen pelvis most recent from 01/07/2021 CLINICAL INDICATION:Female, 57 years old with history of pain; UTI x1mo. TECHNIQUE: Axial CT of the abdomen and pelvis. Sagittal and coronal reformats were created on a [employer] workstation. Contrast used: mL of , (none if empty) Oral contrast used: without Oral Contrast (none if empty) FINDINGS: LOWER CHEST: Unremarkable ABDOMEN LIVER: Diffusely scattered hepatic cysts. GALLBLADDER AND BILE DUCTS: Gallbladder surgically absent. PANCREAS: Unremarkable. SPLEEN: Unremarkable. ADRENAL GLANDS: Unremarkable. KIDNEYS AND URETERS: There are nonobstructing punctate calculi bilaterally. PELVIS BLADDER: Distended without wall irregularity. REPRODUCTIVE: The uterus is surgically absent. ABDOMEN & PELVIS STOMACH AND BOWEL: No evidence of bowel obstruction. Postsurgical changes to the gastric lumen. PERITONEUM/RETROPERITONEUM: No evidence of pneumoperitoneum or free fluid. VASCULATURE: No evidence of aortic aneurysm. MUSCULOSKELETAL: No acute osseous abnormalities. Mild disc degeneration changes are present throughou t the thoracolumbar spine. Grade 1 retrolisthesis of L5 on S1. Transitional S1 vertebrae. LYMPH NODES: No gross evidence for lymphadenopathy. SOFT TISSUE/ABDOMINAL WALL: Unremarkable IMPRESSION: 1. Distended urinary bladder without evidence for acute abdominal process. 2. Nonobstructing bilateral renal calculi.
[2023-01-29] MEDS ORDERED: HYDROmorphone 1 MG/ML 1 ML SYRINGE IVP STA (22:19)
[2023-01-29] MEDS ORDERED: NALOXONE 0.4 MG/ML 1 ML VIAL IV PRN (22:33)
[2023-01-29] MEDS: SODIUM CHLORIDE 0.9% 1,000 ML IV SCH (23:01)
[2023-01-30] MEDS ORDERED: ALPRAZolam 1 MG TAB PO PRN (01:27)
[2023-01-30] MEDS: ALPRAZolam 1 MG TAB PO PRN (01:40)
[2023-01-30] MEDS ORDERED: traZODone HCL 100 MG TAB PO SCH ×2 (02:18→21:00)
[2023-01-30] MEDS ORDERED: MONTELUKAST 10 MG TAB PO SCH ×2 (02:21→21:00)
[2023-01-30 07:02] LABS: Basophils % (A) 0 %; Eosinophils # (A) 0.1 k/uL (0-0.7); Eosinophils % (A) 2 %; HCT 38.3 % (34.0-46.0); HGB 12.9 gm/dL (11.4-16.0); Lymphocytes # (A) 3.8 k/uL (1.0-4.8); Lymphocytes % (A) 58 %; MCH 34.3 pg (25.0-35.0); MCHC 33.7 g/dL (31.0-37.0); MCV 101.7 fL (80.0-100.0); Macrocytosis Slight; Mean Platelet Volume 8.8; Monocytes # (A) 0.5 k/uL (0-1.0); Monocytes % (A) 7 %; Neutrophils % (A) 30 %; Platelet Count 198 k/uL (150-450); RBC 3.77 m/uL (3.80-5.40); WBC 6.6 k/uL (3.8-10.6)
[2023-01-30 07:26] LABS: ALT 16 U/L (4-34); AST 23 U/L (14-36); African American GFR (CKD) >90 (>60 ml/min/1.73 sqM); Albumin 3.9 g/dL (3.5-5.0); Alkaline Phosphatase 43 U/L (38-126); Anion Gap 9 mmol/L; Blood Urea Nitrogen 9 mg/dL (7-17); Calcium 8.5 mg/dL (8.4-10.2); Carbon Dioxide 24 mmol/L (22-30); Chloride 107 mmol/L (98-107); Glucose 93 mg/dL (74-99); Magnesium 2.1 mg/dL (1.6-2.3); Non-African American GFR(CKD) >90 (>60 ml/min/1.73 sqM); Phosphorus 3.9 mg/dL (2.5-4.5); Potassium 3.8 mmol/L (3.5-5.1); Sodium 140 mmol/L (137-145); Total Bilirubin 0.5 mg/dL (0.2-1.3); Total Protein 6.7 g/dL (6.3-8.2)
[2023-01-30] MEDS: SODIUM CHLORIDE 0.9% 1,000 ML IV SCH ×2 (07:59→14:32)
[2023-01-30] MEDS: HYDROmorphone 1 MG/ML 1 ML SYRINGE IVP PRN ×4 (08:57→22:31)
[2023-01-30] MEDS: ONDANSETRON 4 MG/2 ML VIAL IVP PRN ×2 (08:57→19:24)
--- NOTE | 2023-01-30 09:07 | P.GSCN ---
History of Present Illness Consult date: 01/30/23 Reason for Consult: Urinary retention Requesting physician: Genia Avalos History of present illness: The patient is a 57-year-old white female treated for UTIs as an outpatient for 1 month. She was found to have an Enterococcus UTI on 01/08/2023. 2 urine cultures since that time have been negative. She presented to the ER yesterday and was found to be in urinary retention. A Armstrong catheter was placed, with return of 1 L of urine. The patient has recently experienced dysuria and urinary frequency, as well as a need to strain in order to void. She denies hematuria and urinary incontinence. She has experienced occasional lower extremity weakness, though she is vague regarding this. The patient has been treated for UTIs in the past, and states that 2 years ago she required hospitalization for sepsis. She has a history of urolithiasis, for which she underwent an endoscopic procedure in 2008. Review of Systems - Constitutional Reports fever - Gastrointestinal Reports abdominal pain - Genitourinary Genitourinary: Reports as per HPI Past Medical History Past Medical History: Asthma, Cancer, Deep Vein Thrombosis (DVT), Fibromyalgia, GERD/Reflux, Hyperlipidemia, Hypertension, Osteoarthritis (OA), Renal Disease, Sleep Apnea/CPAP/BIPAP, Thyroid Disorder Additional Past Medical History / Comment(s): Hx DVT in each leg. IBS. Lumbar DDD, chronic back pain. Has not been using CPAP. Hypothyroid. 2 bulging discs in back and herniated disc in neck, past htn/none since wt loss, skin cancer on face with removal, kidney infection approximately 2 months and completed abx., kidney stones. History of Any Multi-Drug Resistant Organisms: MRSA Year Discovered:: 2008 MDRO Source:: abd Past Surgical History: Appendectomy, Bariatric Surgery, Section, Cholecystectomy, Hysterectomy (TVH), Orthopedic Surgery, Tonsillectomy Additional Past Surgical History / Comment(s): Right knee arthroscopy x2, left elbow surgery for torn tendon, sinus surgery x3, PAIN CLINIC PROCEDURE, back injections and nerves burned in back and neck, varicose vein surgery, sleeve gastrectomy 12-20-20, skin cancer removed from face. Past Anesthesia/Blood Transfusion Reactions: No Reported Reaction Additional Past Anesthesia/Blood Transfusion Reaction / Comm: Never had blood transfusion. Pt states versed does not work for her-I didn't feel anything. Past Psychological History: Anxiety, Depression, Panic Disorder Smoking Status: Never smoker Past Alcohol Use History: None Reported Past Drug Use History: None Reported - Past Family History Father Family Medical History: Cancer Additional Family Medical History / Comment(s): Colon Cancer. Brother(s) Family Medical History: Cancer Medications and Allergies Home Medications Medication Instructions Recorded Confirmed Type ALPRAZolam [Xanax] 1 mg PO Q8H PRN 03/20/14 01/29/23 History HYDROcodone/APAP 10-325MG [[place] 1 tab PO Q8H PRN 04/07/17 01/29/23 History 10-325] Omeprazole 20 mg PO BID 04/07/17 01/29/23 History rOPINIRole HCL [Requip] 0.5 mg PO HS 06/02/17 01/29/23 History Atorvastatin [Lipitor] 20 mg PO DAILY 11/21/18 01/29/23 History Levothyroxine Sodium [Synthroid] 75 mcg PO DAILY 01/01/20 01/29/23 History Citalopram Hydrobromide [CeleXA] 40 mg PO HS 03/24/21 01/29/23 History valACYclovir HCL [Valacyclovir] 1,000 mg PO DAILY 03/24/21 01/29/23 History Amoxic-Pot Clav 500-125 mg 1 tab PO Q12HR 01/29/23 01/29/23 History [Augmentin 500-125 mg] Diclofenac Sodium [Voltaren 1 applic TOPICAL QID PRN 01/29/23 01/29/23 History Arthritis Pain 1% Gel] Dicyclomine [Bentyl] 10 mg PO TID PRN 01/29/23 01/29/23 History Fluconazole 200 mg PO ONCE PRN 01/29/23 01/29/23 History Meloxicam [Mobic] 15 mg PO HS 01/29/23 01/29/23 History Montelukast [Singulair] 10 mg PO HS 01/29/23 01/29/23 History traZODone HCL [Desyrel] 100 mg PO HS 01/29/23 01/29/23 History Allergies Allergy/AdvReac Type Severity Reaction Status Date / Time Sulfa (Sulfonamide Allergy Severe Rash/Hives Verified 01/29/23 23:06 Antibiotics) ketorolac tromethamine Allergy Tardive Verified 01/29/23 23:06 [From Toradol] Dyskinesia prochlorperazine maleate Allergy Tardive Verified 01/29/23 23:06 [From Compazine] Dyskinesia prochlorperazine edisylate AdvReac Severe Tardive Verified 01/29/23 23:06 [From Compazine] dyskinesia Surgical - Exam Vital Signs Temp Pulse Resp BP Pulse Ox 98.0 F 102 H 18 124/81 97 01/29/23 17:25 01/29/23 17:25 01/29/23 17:25 01/29/23 17:25 01/29/23 17:25 - General well developed, well nourished, no distress - Respiratory normal respiratory effort - Abdomen Soft, non-distended, no mass. Mild right lower quadrant and suprapubic tenderness to palpation. No guarding or rebound. Results - Labs 01/30/23 06:44 01/30/23 06:44 Abnormal Lab Results - Last 24 Hours (Table) 01/29/23 01/29/23 Range/Units 17:44 19:44 Sodium 134 L (137-145) mmol/L Ur Leukocyte Esterase Small H (Negative) Ur Squamous Epith Cells 6 H (0-4) /hpf Urine Bacteria Few H (None) /hpf Urine Mucus Rare H (None) /hpf Diabetes panel 01/29/23 Range/Units 19:44 Sodium 134 L (137-145) mmol/L Potassium 3.9 (3.5-5.1) mmol/L Chloride 101 (98-107) mmol/L Carbon Dioxide 25 (22-30) mmol/L BUN 14 (7-17) mg/dL Creatinine 0.88 (0.52-1.04) mg/dL Glucose 87 (74-99) mg/dL Calcium 9.2 (8.4-10.2) mg/dL AST 24 (14-36) U/L ALT 16 (4-34) U/L Alkaline Phosphatase 42 (38-126) U/L Total Protein 7.4 (6.3-8.2) g/dL Albumin 4.2 (3.5-5.0) g/dL Calcium panel 01/29/23 Range/Units 19:44 Calcium 9.2 (8.4-10.2) mg/dL Phosphorus 3.8 (2.5-4.5) mg/dL Albumin 4.2 (3.5-5.0) g/dL Pituitary panel 01/29/23 Range/Units 19:44 Sodium 134 L (137-145) mmol/L Potassium 3.9 (3.5-5.1) mmol/L Chloride 101 (98-107) mmol/L Carbon Dioxide 25 (22-30) mmol/L BUN 14 (7-17) mg/dL Creatinine 0.88 (0.52-1.04) mg/dL Glucose 87 (74-99) mg/dL Calcium 9.2 (8.4-10.2) mg/dL Adrenal panel 01/29/23 Range/Units 19:44 Sodium 134 L (137-145) mmol/L Potassium 3.9 (3.5-5.1) mmol/L Chloride 101 (98-107) mmol/L Carbon Dioxide 25 (22-30) mmol/L BUN 14 (7-17) mg/dL Creatinine 0.88 (0.52-1.04) mg/dL Glucose 87 (74-99) mg/dL Calcium 9.2 (8.4-10.2) mg/dL Total Bilirubin 0.4 (0.2-1.3) mg/dL AST 24 (14-36) U/L ALT 16 (4-34) U/L Alkaline Phosphatase 42 (38-126) U/L Total Protein 7.4 (6.3-8.2) g/dL Albumin 4.2 (3.5-5.0) g/dL - Imaging CT scan - abdomen: report reviewed, image reviewed Assessment and Plan (1) Urinary retention Current Visit: Yes Status: Acute Code(s): R33.9 - RETENTION OF URINE, UNSPECIFIED SNOMED Code(s): 510688860 (2) Calculus of kidney Current Visit: Yes Status: Acute Code(s): N20.0 - CALCULUS OF KIDNEY SNOMED Code(s): 14528188 Plan: Although the patient was treated for a UTI earlier this month, I believe that the primary cause of her recent symptoms has been urinary retention. A Armstrong catheter is now in place, draining clear yellow urine. A cause of the urinary retention has not been identified. I would suggest continued Armstrong catheter drainage at this time. Time with Patient: Greater than 30
[2023-01-30] MEDS ORDERED: HYDROcodone/APAP 10-325MG 1 EACH TAB PO PRN (14:09)
[2023-01-30] MEDS ORDERED: PANTOPRAZOLE 40 MG/10 ML VIAL IVP SCH (14:15)
[2023-01-30] MEDS ORDERED: polyethylene glycoL 3350 17 GM POWD.PACK PO STA (14:45)
[2023-01-30] MEDS: valACYclovir HCL 1,000 MG TABLET PO SCH (15:15)
--- NOTE | 2023-01-30 15:43 | MR ---
EXAMINATION TYPE: MR lumbar spine wo/w con DATE OF EXAM: 01/30/2023 COMPARISON: MRI lumbar spine 03/13/2017, CT abdomen pelvis 01/29/2023 HISTORY: UTI x 1 month, unable to urinate TECHNIQUE: Multiplanar, multisequence images of the lumbar spine were acquired without and with 9 mL intravenous Gadavist gadolinium contrast. FINDINGS: Motion degraded examination. Lumbar segments are intact. No paraspinal masses are identified. Conus medullaris has a normal appe arance. Grade 1 anterolisthesis of L5 and S1. No pars defects. No abnormal contrast enhancement. T12-L1: No significant central canal stenosis. No disc herniation. No significant neural foraminal st enosis. L1-L2: No significant central canal stenosis. No disc herniation. No significant neural foraminal chao nosis. L2-L3: No significant central canal stenosis. No disc herniation. Bilateral facet arthropathy. Mild b ilateral neural foraminal stenosis. L3-L4: Broad-based disc bulge with mild effacement of anterior thecal sac. Ligamentum flavum buckling and facet arthropathy demonstrated. Mild bilateral neural foraminal stenosis. L4-L5: Broad-based disc bulge with mild effacement of the anterior thecal sac. Bilateral facet arthro annette and ligamentum flavum buckling demonstrated. The left and mild right neural foraminal stenosis. L5-S1: Grade 1 anterolisthesis with uncovering of the disc. No significant central canal stenosis. No significant neural foraminal stenosis. IMPRESSION: 1. No disc herniation. No abnormal contrast enhancement. 2. Mild multilevel degenerative disc disease and facet arthropathy as described above. There is mild central canal stenosis at L3-L4 and L4-L5 secondary to disc bulges with ligamentum flavum buckling an d facet arthropathy. 3. Grade 1 anterolisthesis of L5 and S1 without evidence of pars defects.
[2023-01-30 15:58] LABS: Amylase 43 U/L (30-110); Lipase 83 U/L (23-300)
[2023-01-30] MEDS: MONTELUKAST 10 MG TAB PO SCH (20:37)
[2023-01-30] MEDS: PANTOPRAZOLE 40 MG TABLET PO SCH (20:37)
[2023-01-30] MEDS: traZODone HCL 100 MG TAB PO SCH (20:37)
[2023-01-30] MEDS: CITALOPRAM HYDROBROMIDE 20 MG TAB PO SCH (20:37)
[2023-01-30] MEDS ORDERED: NON FORMULARY DRUG (Ropinirole Hcl [Requip] 0.5 MG Tablet) PO SCH (21:00)
[2023-01-31] MEDS: SODIUM CHLORIDE 0.9% 1,000 ML IV SCH ×5 (04:22→23:33)
[2023-01-31] MEDS: ONDANSETRON 4 MG/2 ML VIAL IVP PRN ×3 (05:44→23:38)
[2023-01-31] MEDS: LEVOTHYROXINE 75 MCG TAB PO SCH (05:44)
[2023-01-31] MEDS: HYDROmorphone 1 MG/ML 1 ML SYRINGE IVP PRN (05:44)
[2023-01-31] MEDS: PANTOPRAZOLE 40 MG TABLET PO SCH ×2 (08:46→19:39)
[2023-01-31] MEDS: DICYCLOMINE 10 MG CAP PO PRN (08:46)
[2023-01-31] MEDS: ATORVASTATIN 20 MG TAB PO SCH (08:46)
[2023-01-31] MEDS: valACYclovir HCL 1,000 MG TABLET PO SCH (08:47)
[2023-01-31] MEDS: polyethylene glycoL 3350 17 GM POWD.PACK PO SCH (08:47)
[2023-01-31] MEDS: ALPRAZolam 1 MG TAB PO PRN ×2 (08:51→16:39)
[2023-01-31] MEDS: MORPHINE SULFATE 4 MG/ML SYRINGE IVP PRN ×4 (09:35→23:32)
--- NOTE | 2023-01-31 10:45 | P.HPIM ---
History of Present Illness H&P Date: 01/30/23 This is a 57-year-old female patient who presented with concerns of urinary retention. Patient has been getting treated for persistent urinary tract infection going on one month now with back pain and abdominal pain patient reports that she's had increasing migraines in nausea associated with pain that has been progressively worse over the past 2 days. Patient reports that she's had some difficulty with urination. Patient has a past medical history of asthma, cancer, DVT, fibromyalgia, GERD, hyperlipidemia, hypertension, osteoarthritis, renal disease, sleep apnea and thyroid disorder. Patient also has past medical history of DVT, anxiety depression and panic disorder. Abdominal pelvic CT completed showing distended urinary bladder without evidence for acute abdominal process. Nonobstructing bilateral renal calculi. Lab work completed unremarkable. Creatinine 0.71 bun 9 At this time urology services will be consulted. Review of Systems Please refer to HPI otherwise unremarkable Past Medical History Past Medical History: Asthma, Cancer, Deep Vein Thrombosis (DVT), Fibromyalgia, GERD/Reflux, Hyperlipidemia, Hypertension, Osteoarthritis (OA), Renal Disease, Sleep Apnea/CPAP/BIPAP, Thyroid Disorder Additional Past Medical History / Comment(s): Hx DVT in each leg. IBS. Lumbar DDD, chronic back pain. Has not been using CPAP. Hypothyroid. 2 bulging discs in back and herniated disc in neck, past htn/none since wt loss, skin cancer on face with removal, kidney infection approximately 2 months and completed abx., kidney stones. History of Any Multi-Drug Resistant Organisms: MRSA Date of last positivie culture/infection: 2008 MDRO Source:: abd Past Surgical History: Appendectomy, Bariatric Surgery, Section, Cholecystectomy, Hysterectomy (TVH), Orthopedic Surgery, Tonsillectomy Additional Past Surgical History / Comment(s): Right knee arthroscopy x2, left elbow surgery for torn tendon, sinus surgery x3, PAIN CLINIC PROCEDURE, back injections and nerves burned in back and neck, varicose vein surgery, sleeve gastrectomy 12-20-20, skin cancer removed from face. Past Anesthesia/Blood Transfusion Reactions: No Reported Reaction Additional Past Anesthesia/Blood Transfusion Reaction / Comment(s): Never had blood transfusion. Pt states versed does not work for her-I didn't feel anything. Past Psychological History: Anxiety, Depression, Panic Disorder Smoking Status: Never smoker Past Alcohol Use History: None Reported Past Drug Use History: None Reported - Past Family History Father Family Medical History: Cancer Additional Family Medical History / Comment(s): Colon Cancer. Brother(s) Family Medical History: Cancer Medications and Allergies Home Medications Medication Instructions Recorded Confirmed Type ALPRAZolam [Xanax] 1 mg PO Q8H PRN 03/20/14 01/29/23 History HYDROcodone/APAP 10-325MG [[place] 1 tab PO Q8H PRN 04/07/17 01/29/23 History 10-325] Omeprazole 20 mg PO BID 04/07/17 01/29/23 History rOPINIRole HCL [Requip] 0.5 mg PO HS 06/02/17 01/29/23 History Atorvastatin [Lipitor] 20 mg PO DAILY 11/21/18 01/29/23 History Levothyroxine Sodium [Synthroid] 75 mcg PO DAILY 01/01/20 01/29/23 History Citalopram Hydrobromide [CeleXA] 40 mg PO HS 03/24/21 01/29/23 History valACYclovir HCL [Valacyclovir] 1,000 mg PO DAILY 03/24/21 01/29/23 History Amoxic-Pot Clav 500-125 mg 1 tab PO Q12HR 01/29/23 01/29/23 History [Augmentin 500-125 mg] Diclofenac Sodium [Voltaren 1 applic TOPICAL QID PRN 01/29/23 01/29/23 History Arthritis Pain 1% Gel] Dicyclomine [Bentyl] 10 mg PO TID PRN 01/29/23 01/29/23 History Fluconazole 200 mg PO ONCE PRN 01/29/23 01/29/23 History Meloxicam [Mobic] 15 mg PO HS 01/29/23 01/29/23 History Montelukast [Singulair] 10 mg PO HS 01/29/23 01/29/23 History traZODone HCL [Desyrel] 100 mg PO HS 01/29/23 01/29/23 History Allergies Allergy/AdvReac Type Severity Reaction Status Date / Time Sulfa (Sulfonamide Allergy Severe Rash/Hives Verified 01/29/23 23:06 Antibiotics) ketorolac tromethamine Allergy Tardive Verified 01/29/23 23:06 [From Toradol] Dyskinesia prochlorperazine maleate Allergy Tardive Verified 01/29/23 23:06 [From Compazine] Dyskinesia prochlorperazine edisylate AdvReac Severe Tardive Verified 01/29/23 23:06 [From Compazine] dyskinesia Physical Exam Vitals: Vital Signs Temp Pulse Resp BP Pulse Ox 01/30/23 10:52 60 16 116/77 94 L 01/30/23 10:00 59 L 16 96/60 96 01/30/23 09:05 77 20 122/79 98 01/30/23 04:30 17 95 01/30/23 04:20 97 01/30/23 04:10 98 01/30/23 04:00 74 17 116/86 98 01/30/23 02:00 84 22 96/57 99 01/30/23 01:00 78 107/64 99 01/30/23 00:40 85 26 H 107/64 93 L 01/29/23 23:30 93/75 96 01/29/23 21:26 66 16 98/68 99 01/29/23 17:25 98.0 F 102 H 18 124/81 97 Intake and Output 01/29/23 01/30/23 01/30/23 22:59 06:59 14:59 Output Total 1400 Balance -1400 Output: Urine 1400 Other: Voiding Method Toilet Indwelling Catheter Weight 87.543 kg Head normocephalic Neck supple Lungs clear to auscultation bilaterally no wheezing or crackles Heart regular rate and rhythm S1-S2, no rub or gallop Abdomen is soft nontender nondistended positive bowel sounds no hepatosplenomegaly Extremities no edema Neuro alert and orientated to 3 Results CBC & Chem 7: 01/30/23 06:44 01/30/23 06:44 Labs: Abnormal Lab Results - Last 24 Hours (Table) 01/29/23 01/29/23 01/30/23 Range/Units 17:44 19:44 06:44 RBC 3.77 L (3.80-5.40) m/uL MCV 101.7 H (80.0-100.0) fL Sodium 134 L (137-145) mmol/L Ur Leukocyte Esterase Small H (Negative) Ur Squamous Epith Cells 6 H (0-4) /hpf Urine Bacteria Few H (None) /hpf Urine Mucus Rare H (None) /hpf Assessment and Plan Assessment: 1. Urinary retention 2. Recent urinary tract infection 3. History of migraines 4. History of asthma 5. History of hyperlipidemia 6. History of essential hypertension 7. History of fibromyalgia 8. History of DVT 9. History of thyroid disorder 10. History of anxiety depression and panic disorder DVT prophylaxis Lovenox. GI prophylaxis Protonix At this time urology service is consulted Repeat labs ordered Armstrong catheter placed Time with Patient: Greater than 30 (Greater than 60% of the total time spent in counseling and coordination of care)
--- NOTE | 2023-01-31 10:47 | P.PN ---
Subjective Progress Note Date: 01/31/23 This is a 57-year-old female patient who presented with concerns of urinary retention. Patient has been getting treated for persistent urinary tract infection going on one month now with back pain and abdominal pain patient reports that she's had increasing migraines in nausea associated with pain that has been progressively worse over the past 2 days. Patient reports that she's had some difficulty with urination. Patient has a past medical history of asthma, cancer, DVT, fibromyalgia, GERD, hyperlipidemia, hypertension, osteoarthritis, renal disease, sleep apnea and thyroid disorder. Patient also has past medical history of DVT, anxiety depression and panic disorder. Abdominal pelvic CT completed showing distended urinary bladder without evidence for acute abdominal process. Nonobstructing bilateral renal calculi. Lab work completed unremarkable. Creatinine 0.71 bun 9 At this time urology services will be consulted. On 01/31/2023 patient is alert and oriented 3. Patient having some increased nausea and pain patient reports headache from migraine. Zofran ordered along with multiple pain medication options. Urology services are following. Indwelling catheter ordered urine appears clear. Current vital signs temp 98.4, heart rate 68, respiratory rate 16, blood pressure 97/64 with a pulse ox of 95% on room air Objective - Vital Signs Vital signs: Vital Signs Temp 98.4 F 01/31/23 07:47 Pulse 87 01/31/23 08:40 Resp 16 01/31/23 08:40 BP 97/64 01/31/23 07:47 Pulse Ox 95 01/31/23 08:38 FiO2 Intake & Output 01/30/23 01/31/23 01/31/23 18:59 06:59 18:59 Intake Total 1999 1260 Output Total 1200 1275 800 Balance 800 -15 -800 Weight 87.543 kg Intake: Intake, IV Titration 2000 900 Amount Sodium Chloride 0.9% 1, 1000 900 000 ml @ 130 mls/hr IV . Q7H42M SIVA Rx#:[id number] Sodium Chloride 0.9% 1, 1000 000 ml @ 999 mls/hr IV . Q1H1M STA Rx#:[id number] Oral 360 Output: Urine 1200 1275 800 Other: Voiding Method Indwelling Catheter Indwelling Catheter Indwelling Catheter - Exam Head normocephalic Neck supple Lungs clear to auscultation bilaterally no wheezing or crackles Heart regular rate and rhythm S1-S2, no rub or gallop Abdomen is soft nontender nondistended positive bowel sounds no hepatosplenomegaly Extremities no edema Neuro alert and orientated to 3 - Labs CBC & Chem 7: 01/30/23 06:44 01/30/23 06:44 Assessment and Plan Assessment: 1. Urinary retention 2. Recent urinary tract infection 3. History of migraines 4. History of asthma 5. History of hyperlipidemia 6. History of essential hypertension 7. History of fibromyalgia 8. History of DVT 9. History of thyroid disorder 10. History of anxiety depression and panic disorder DVT prophylaxis Lovenox. GI prophylaxis Protonix At this time urology service is consulted Repeat labs ordered Armstrong catheter placed
[2023-01-31] MEDS: MONTELUKAST 10 MG TAB PO SCH (19:39)
[2023-01-31] MEDS: traZODone HCL 100 MG TAB PO SCH (19:39)
[2023-01-31] MEDS: CITALOPRAM HYDROBROMIDE 20 MG TAB PO SCH (19:39)
--- NOTE | 2023-01-31 20:01 | CT ---
EXAMINATION TYPE: CT brain wo con DATE OF EXAM: 06/01/2017 COMPARISON: None INDICATION: severe headache DLP: 995.50 mGycm, Automated exposure control for dose reduction was used. CONTRAST: None CT of the brain is performed utilizing 3 mm thick sections through the posterior fossa and 3 mm thick sections through the remaining calvarium. Study is performed within 24 hours of arrival to the hosp [facility]. No abnormal hyperdensity is present to suggest an acute intracranial hemorrhage. No mass lesion is evident. No acute infarcts are evident. Ventricles and sulci are appropriate for the patient age. Small retention cyst within the posterior left maxillary sinus. There is been prior thyroidectomy. IMPRESSIONS: 1. No acute intracranial process. Follow-up MRI can be performed as clinically indicated.
[2023-02-01] MEDS: LEVOTHYROXINE 75 MCG TAB PO SCH (05:34)
[2023-02-01] MEDS: MORPHINE SULFATE 4 MG/ML SYRINGE IVP PRN ×4 (05:59→19:53)
[2023-02-01] MEDS: ONDANSETRON 4 MG/2 ML VIAL IVP PRN ×2 (06:06→12:57)
[2023-02-01] MEDS: ALPRAZolam 1 MG TAB PO PRN ×2 (09:21→18:20)
[2023-02-01] MEDS: valACYclovir HCL 1,000 MG TABLET PO SCH (09:21)
[2023-02-01] MEDS: PANTOPRAZOLE 40 MG TABLET PO SCH ×2 (09:21→19:53)
[2023-02-01] MEDS: ENOXAPARIN 40 MG/0.4 ML SYRINGE SQ SCH (09:21)
[2023-02-01] MEDS: ATORVASTATIN 20 MG TAB PO SCH (09:21)
[2023-02-01] MEDS: polyethylene glycoL 3350 17 GM POWD.PACK PO SCH (09:23)
[2023-02-01] MEDS: SODIUM CHLORIDE 0.9% 1,000 ML IV SCH (13:17)
[2023-02-01 14:37] LABS: Basophils # (A) 0.01 X 10*3/uL (0.00-0.10); Basophils % (A) 0.2 %; Eosinophils # (A) 0.12 X 10*3/uL (0.04-0.35); Eosinophils % (A) 2.2 %; HGB 11.4 d/dL (12.0-15.0); MCH 33.5 pg (27.0-32.0); MCHC 33.5 d/dL (32.0-37.0); Mean Platelet Volume 11.6 FL (9.5-12.2); Monocytes # (A) 0.52 X 10*3/uL (0.20-1.00); Monocytes % (A) 9.5 %; NRBC Per 100 WBC 0 X 10*3/uL (0.00-0.01); Neutrophils # (A) 1.31 X 10*3/uL (1.80-7.70); Neutrophils % (A) 23.9 %; Platelet Count 199 X 10*3/uL (140-440); RDW 13.2 % (11.5-14.5); WBC 5.47 X 10*3/uL (4.50-10.00)
--- NOTE | 2023-02-01 15:38 | P.PN ---
Subjective Progress Note Date: 02/01/23 This is a 57-year-old female patient who presented with concerns of urinary retention. Patient has been getting treated for persistent urinary tract infection going on one month now with back pain and abdominal pain patient reports that she's had increasing migraines in nausea associated with pain that has been progressively worse over the past 2 days. Patient reports that she's had some difficulty with urination. Patient has a past medical history of asthma, cancer, DVT, fibromyalgia, GERD, hyperlipidemia, hypertension, osteoarthritis, renal disease, sleep apnea and thyroid disorder. Patient also has past medical history of DVT, anxiety depression and panic disorder. Abdominal pelvic CT completed showing distended urinary bladder without evidence for acute abdominal process. Nonobstructing bilateral renal calculi. Lab work completed unremarkable. Creatinine 0.71 bun 9 At this time urology services will be consulted. On 01/31/2023 patient is alert and oriented 3. Patient having some increased nausea and pain patient reports headache from migraine. Zofran ordered along with multiple pain medication options. Urology services are following. Indwelling catheter ordered urine appears clear. Current vital signs temp 98.4, heart rate 68, respiratory rate 16, blood pressure 97/64 with a pulse ox of 95% on room air On 02/01/2023 patient was seen and examined on to medical floor she is alert and oriented 3 in no apparent distress, she is still complaining of severe headac he, and complaining of vaginal itching, otherwise she denies any complaints, computed tomography scan of the brain results reviewed with patient, MRI of the lumbar spine reviewed with patient, at this time urine culture is negative, will attempt to remove Armstrong catheter and check post void residual. I am still awaiting for neurology consultation. Possible discharge to home tomorrow if stable. Objective - Vital Signs Vital signs: Vital Signs Temp 98.2 F 02/01/23 08:03 Pulse 65 02/01/23 08:03 Resp 16 02/01/23 08:03 BP 97/63 02/01/23 08:03 Pulse Ox 97 02/01/23 08:03 FiO2 Intake & Output 01/31/23 02/01/23 02/01/23 18:59 06:59 18:59 Intake Total 500 Output Total 1600 1200 Balance -1600 -700 Intake: Oral 500 Output: Urine 1600 1200 Other: Voiding Method Indwelling Catheter Indwelling Catheter Indwelling Catheter - Exam Head normocephalic Neck supple Lungs clear to auscultation bilaterally no wheezing or crackles Heart regular rate and rhythm S1-S2, no rub or gallop Abdomen is soft nontender nondistended positive bowel sounds no hepatosplenomegaly Extremities no edema Neuro alert and orientated to 3 - Labs CBC & Chem 7: 02/01/23 06:16 01/30/23 06:44 Assessment and Plan Assessment: 1. Urinary retention 2. Recent urinary tract infection 3. History of migraines 4. History of asthma 5. History of hyperlipidemia 6. History of essential hypertension 7. History of fibromyalgia 8. History of DVT 9. History of thyroid disorder 10. History of anxiety depression and panic disorder DVT prophylaxis Lovenox. GI prophylaxis Protonix At this time urology service is consulted Repeat labs ordered Armstrong catheter placed
[2023-02-01] MEDS: FLUCONAZOLE 150 MG TAB PO SCH (15:45)
[2023-02-01] MEDS: BUTALB/APAP/CAFF 50-325-40MG TAB PO PRN (18:15)
[2023-02-01] MEDS: traZODone HCL 100 MG TAB PO SCH (19:52)
[2023-02-01] MEDS: CITALOPRAM HYDROBROMIDE 20 MG TAB PO SCH (19:53)
[2023-02-01] MEDS: MONTELUKAST 10 MG TAB PO SCH (19:53)
[2023-02-02] MEDS: SODIUM CHLORIDE 0.9% 1,000 ML IV SCH ×4 (00:17→18:24)
[2023-02-02] MEDS: BUTALB/APAP/CAFF 50-325-40MG TAB PO PRN ×3 (01:59→18:22)
[2023-02-02] MEDS: ONDANSETRON 4 MG/2 ML VIAL IVP PRN ×2 (02:02→09:35)
[2023-02-02] MEDS: MORPHINE SULFATE 4 MG/ML SYRINGE IVP PRN ×3 (03:10→18:23)
[2023-02-02] MEDS: LEVOTHYROXINE 75 MCG TAB PO SCH (05:22)
--- NOTE | 2023-02-02 08:42 | P.CNNES ---
History of Present Illness Consult date: 02/01/23 Requesting physician: Genia Avalos Reason for Consult: severe headache, urinary retention History of Present Illness: Patient is a 57-year-old female with history of migraines came to the hospital on 01/29/2023 for recurrence of headaches. Patient states that she has history of migraines that started at age 24 and continued for several years. She tried several medications over years. She used to vomit all the time for "several years". She saw a neurologist, underwent multiple medical treatment, shots. In 2004 at his 36 she was hospitalized for 3 days for treatment of migraines. Subsequently the migraines went away. Patient states that she was doing well for a number of years. She may have 1 or 2 headaches a week but resolves with OTC medication. They were not severe, not lasting as long. In December 2022 she required medical clearance for shoulder surgery. She was found to have UTI and underwent 3 rounds of treatment with antibiotics. Around 01/08/2023, the headache started again. It has been every day since then. She wakes up and feels her head will explode. She dates her headache 03/20. As the day goes on, the headache gets worse and she just lays in bed. Every morning she is waking up with the headaches. It involves from front of the head to the side. She has photophobia, phonophobia, nausea, vomiting occasionally. Sometimes she dry heaves. She is not able to eat. Her primary physician has tried Fioricet, and has tried Imitrex in the past, which did not work. She does not remember name of any other medications that she has tried. Patient states that last Sunday her grandson came over for the weekend. The headache was so bad, that she was seeing spots in front of her eyes. Her eyes got blurred vision. In the same time she has developed urinary retention, not able to urinate unless she forces the urine out. Vital signs on arrival blood pressure 124/81, pulse rate 102, temperature 98.0. Blood test shows normal CBC, CMP, UA with small amount of leukocyte esterase and few bacteria. CT head showed no acute intracranial process. I personally reviewed CT head, agree with the findings. There is evidence of subdural hygroma on the top bilaterally. Cannot rule out Chiari I malformation. Patient had an MRI of the lumbar spine, which revealed no disc herniation or abnormal contrast enhancement. Mild multilevel degenerative disc disease and facet arthropathy. There is mild central canal stenosis at L3-L4 and L4-L5 secondary to disc bulges with ligamentum flavum buckling and facet arthropathy. CT of abdomen and pelvis revealed distended urinary bladder without evidence for acute abdominal process. Nonobstructing bilateral renal calculi. Patient's previous MRI of the cervical spine from 09/30/2021 revealed posterior cervical disc herniation at C5 6 and C6 7 without significant change. No significant spinal stenosis. MRI of the brain 02/05/2018 revealed moderate bifrontal atrophy. No acute intracranial abnormality seen. A few punctate foci of bright white matter changes in the anterior subcortical frontal lobes with minimal overall burden. Findings are nonspecific but can be seen in the setting of chronic migraines. Mild chronic ethmoid sinus disease. I personally reviewed MRI agree with the findings. Patient states she has history of viral meningitis in 2007. She denies any tobacco, alcohol use, blood pressure diabetes. She denies excessive caffeine intake. Patient says that she has 2 herniated disks in her neck and also has torn rotator cuff. At present she rates her headache 7/10, just because she got her pain medic ation. Review of Systems Constitutional: Reports chills, Reports night sweats, Denies fever Eyes: bilateral blurred vision, denies diplopia, denies pain Ears: deny: decreased hearing, ear discharge Ears, nose, mouth and throat: Reports headache, Reports vertigo (When stands up), Denies sore throat Cardiovascular: Reports chest pain (once left ribcage), Denies shortness of breath Respiratory: Reports cough, Denies excessive sputum Gastrointestinal: Reports constipation, Reports nausea, Reports vomiting, Denies abdominal pain, Denies diarrhea Genitourinary: Reports difficulty voiding, Reports urinary frequency, Denies stress incontinence, Denies urge incontinence, Denies urgency Musculoskeletal: Reports low back pain, Reports neck pain, Denies myalgias Integumentary: Denies pruritus, Denies rash Neurological: Reports as per HPI, Reports visual changes, Denies double vision Psychiatric: Reports anxiety, Reports depression Endocrine: Reports fatigue, Reports weight change Past Medical History Past Medical History: Asthma, Cancer, Deep Vein Thrombosis (DVT), Fibromyalgia, GERD/Reflux, Hyperlipidemia, Hypertension, Osteoarthritis (OA), Renal Disease, Sleep Apnea/CPAP/BIPAP, Thyroid Disorder Additional Past Medical History / Comment(s): Hx DVT in each leg. IBS. Lumbar DDD, chronic back pain. Has not been using CPAP. Hypothyroid. 2 bulging discs in back and herniated disc in neck, past htn/none since wt loss, skin cancer on face with removal, kidney infection approximately 2 months and completed abx., kidney stones. History of Any Multi-Drug Resistant Organisms: MRSA Date of last positivie culture/infection: 2008 MDRO Source:: abd Past Surgical History: Appendectomy, Bariatric Surgery, Section, Cholecystectomy, Hysterectomy (TVH), Orthopedic Surgery, Tonsillectomy Additional Past Surgical History / Comment(s): Right knee arthroscopy x2, left elbow surgery for torn tendon, sinus surgery x3, PAIN CLINIC PROCEDURE, back injections and nerves burned in back and neck, varicose vein surgery, sleeve gastrectomy 12-20-20, skin cancer removed from face. Past Anesthesia/Blood Transfusion Reactions: No Reported Reaction Additional Past Anesthesia/Blood Transfusion Reaction / Comment(s): Never had blood transfusion. Pt states versed does not work for her-I didn't feel anything. Past Psychological History: Anxiety, Depression, Panic Disorder Smoking Status: Never smoker Past Alcohol Use History: None Reported Past Drug Use History: None Reported - Past Family History Father Family Medical History: Cancer Additional Family Medical History / Comment(s): Colon Cancer. Brother(s) Family Medical History: Cancer Medications and Allergies Home Medications Medication Instructions Recorded Confirmed Type ALPRAZolam [Xanax] 1 mg PO Q8H PRN 03/20/14 01/29/23 History HYDROcodone/APAP 10-325MG [[place] 1 tab PO Q8H PRN 04/07/17 01/29/23 History 10-325] Omeprazole 20 mg PO BID 04/07/17 01/29/23 History rOPINIRole HCL [Requip] 0.5 mg PO HS 06/02/17 01/29/23 History Atorvastatin [Lipitor] 20 mg PO DAILY 11/21/18 01/29/23 History Levothyroxine Sodium [Synthroid] 75 mcg PO DAILY 01/01/20 01/29/23 History Citalopram Hydrobromide [CeleXA] 40 mg PO HS 03/24/21 01/29/23 History valACYclovir HCL [Valacyclovir] 1,000 mg PO DAILY 03/24/21 01/29/23 History Amoxic-Pot Clav 500-125 mg 1 tab PO Q12HR 01/29/23 01/29/23 History [Augmentin 500-125 mg] Diclofenac Sodium [Voltaren 1 applic TOPICAL QID PRN 01/29/23 01/29/23 History Arthritis Pain 1% Gel] Dicyclomine [Bentyl] 10 mg PO TID PRN 01/29/23 01/29/23 History Fluconazole 200 mg PO ONCE PRN 01/29/23 01/29/23 History Meloxicam [Mobic] 15 mg PO HS 01/29/23 01/29/23 History Montelukast [Singulair] 10 mg PO HS 01/29/23 01/29/23 History traZODone HCL [Desyrel] 100 mg PO HS 01/29/23 01/29/23 History Allergies Allergy/AdvReac Type Severity Reaction Status Date / Time Sulfa (Sulfonamide Allergy Severe Rash/Hives Verified 01/29/23 23:06 Antibiotics) ketorolac tromethamine Allergy Tardive Verified 01/29/23 23:06 [From Toradol] Dyskinesia prochlorperazine maleate Allergy Tardive Verified 01/29/23 23:06 [From Compazine] Dyskinesia prochlorperazine edisylate AdvReac Severe Tardive Verified 01/29/23 23:06 [From Compazine] dyskinesia Physical Examination - Vital Signs Vital Signs: Vital Signs Temp Pulse Resp BP Pulse Ox 02/01/23 12:43 98.2 F 65 14 95/59 95 02/01/23 08:03 98.2 F 65 16 97/63 97 02/01/23 01:42 98.5 F 71 18 99/60 93 L 01/31/23 18:56 98.4 F 66 18 102/68 96 01/31/23 16:45 98.8 F Intake and Output 01/31/23 02/01/23 02/01/23 22:59 06:59 14:59 Intake Total 500 Output Total 800 1200 Balance -800 -700 Intake: Oral 500 Output: Urine 800 1200 Other: Voiding Method Indwelling Catheter Indwelling Catheter Patient is a middle aged female, in no acute distress. Patient is alert awake oriented to time place and person. Speech and language functions are normal. Patient can name and repeat very well. No aphasia or dysarthria. Attention, concentration and fund of knowledge is adequate. On cranial nerve examination, pupils are equal, round and reacting to light, visual driscoll are full on confrontation, with no neglect on double simultaneous stimulation. Extraocular muscles are intact with no nystagmus. Face is symmetric, tongue protrudes to the midline. Palatal elevation and sensation normal, hearing and shoulder shrug normal, facial sensation normal. On muscle strength testing, there is no pronator drift and the strength is normal in arms and legs distally and proximally. Deep tendon reflexes are symmetric 2 at the biceps, 2 brachioradialis, 3 at the knees, 1 ankles and plantars are downgoing bilaterally. Sensory to touch is equal with no neglect on double simultaneous stimulation. Cerebellar function showed no ataxia for [id number] testing. No dysdiadochokinesia. No ataxia for iads-nx-mlmj testing on either side. Tone and bulk of muscles normal. Gait deferred.. On general examination, there is no carotid bruit or murmur, S1-S2 audible. Chest is clear on consultation. Abdomen is soft nontender. No organomegaly, bowel sounds present. Peripheral pulses are present. No edema. Her neck is not particularly stiff. Results - Laboratory Findings CBC and BMP: 02/01/23 06:16 01/30/23 06:44 Abnormal Lab Findings: Abnormal Labs 01/29/23 01/29/23 01/30/23 17:44 19:44 06:44 RBC 3.77 L MCV 101.7 H Sodium 134 L Ur Leukocyte Esterase Small H Ur Squamous Epith Cells 6 H Urine Bacteria Few H Urine Mucus Rare H Assessment and Plan Assessment: * Recurrence of chronic daily vascular headaches since 01/08/2023. Denies any headache free days since then. * History of migraine headaches from age 24 until went in remission around age 36. * History of viral meningitis in 2007 * History of recent UTIs, difficult to treat (required 3 rounds of antibiotics). * New onset urinary retention, unclear etiology * History of cervical disc herniation * Rotator cuff tear, pending surgery Plan: * Trial of Fioricet to see if the headache resolves. * May try Imitrex. * Check ESR, CRP. * If the headache persists, would recommend lumbar puncture to check for opening pressure, to rule out pseudotumor cerebri, rule out viral meningitis. * Urinary retention is of unclear etiology. She does have some degenerative and bulging discs in the neck and lower back. Uncertain if related to that, or central issue. Urology on board. * Neurology will follow. Thank you for the consult. Time with Patient: Greater than 30
[2023-02-02] MEDS: ALPRAZolam 1 MG TAB PO PRN (09:35)
[2023-02-02] MEDS: FLUCONAZOLE 150 MG TAB PO SCH (09:37)
[2023-02-02] MEDS: PANTOPRAZOLE 40 MG TABLET PO SCH ×2 (09:37→20:45)
[2023-02-02] MEDS: ATORVASTATIN 20 MG TAB PO SCH (09:37)
[2023-02-02] MEDS: ENOXAPARIN 40 MG/0.4 ML SYRINGE SQ SCH (09:38)
[2023-02-02] MEDS: polyethylene glycoL 3350 17 GM POWD.PACK PO SCH (09:39)
[2023-02-02] MEDS: valACYclovir HCL 1,000 MG TABLET PO SCH (09:53)
--- NOTE | 2023-02-02 10:24 | P.PN ---
Subjective Progress Note Date: 02/02/23 This is a 57-year-old female patient who presented with concerns of urinary retention. Patient has been getting treated for persistent urinary tract infection going on one month now with back pain and abdominal pain patient reports that she's had increasing migraines in nausea associated with pain that has been progressively worse over the past 2 days. Patient reports that she's had some difficulty with urination. Patient has a past medical history of asthma, cancer, DVT, fibromyalgia, GERD, hyperlipidemia, hypertension, osteoarthritis, renal disease, sleep apnea and thyroid disorder. Patient also has past medical history of DVT, anxiety depression and panic disorder. Abdominal pelvic CT completed showing distended urinary bladder without evidence for acute abdominal process. Nonobstructing bilateral renal calculi. Lab work completed unremarkable. Creatinine 0.71 bun 9 At this time urology services will be consulted. On 01/31/2023 patient is alert and oriented 3. Patient having some increased nausea and pain patient reports headache from migraine. Zofran ordered along with multiple pain medication options. Urology services are following. Indwelling catheter ordered urine appears clear. Current vital signs temp 98.4, heart rate 68, respiratory rate 16, blood pressure 97/64 with a pulse ox of 95% on room air On 02/01/2023 patient was seen and examined on to medical floor she is alert and oriented 3 in no apparent distress, she is still complaining of severe headac he, and complaining of vaginal itching, otherwise she denies any complaints, computed tomography scan of the brain results reviewed with patient, MRI of the lumbar spine reviewed with patient, at this time urine culture is negative, will attempt to remove Armstrong catheter and check post void residual. I am still awaiting for neurology consultation. Possible discharge to home tomorrow if stable. On 02/02/2023 patient is alert and oriented 3. He should still complaining of headache. foricept was added per neurology. Possible lumbar puncture per neurology awaiting further input. Armstrong catheter has been removed. Patient voiding without difficulty. Current vital signs temp 97.8, heart rate 62, respiratory rate 18, blood pressure 111/73 with pulse is 99% on room air Objective - Vital Signs Vital signs: Vital Signs Temp 97.8 F 02/02/23 07:38 Pulse 62 02/02/23 07:38 Resp 18 02/02/23 07:38 BP 111/73 02/02/23 07:38 Pulse Ox 99 02/02/23 07:38 FiO2 21 02/02/23 06:49 Intake & Output 02/01/23 02/02/23 02/02/23 18:59 06:59 18:59 Output Total 600 1497 Balance -600 -1497 Output: Urine 600 Post Void Residual 1497 Other: Voiding Method Indwelling Catheter Indwelling Catheter - Exam Head normocephalic Neck supple Lungs clear to auscultation bilaterally no wheezing or crackles Heart regular rate and rhythm S1-S2, no rub or gallop Abdomen is soft nontender nondistended positive bowel sounds no hepatosplenomegaly Extremities no edema Neuro alert and orientated to 3 - Labs CBC & Chem 7: 02/01/23 06:16 01/30/23 06:44 Labs: Abnormal Lab Results - Last 24 Hours (Table) 02/01/23 Range/Units 06:16 RBC 3.40 L (4.10-5.20) X 10*6/uL Hgb 11.4 L (12.0-15.0) d/dL Hct 34.0 L (37.2-46.3) % MCV 100.0 H (80.0-97.0) FL MCH 33.5 H (27.0-32.0) pg Neutrophils # 1.31 L (1.80-7.70) X 10*3/uL Microbiology - Last 24 Hours (Table) 01/31/23 12:52 Urine Culture - Final Urine,Catheterized Assessment and Plan Assessment: 1. Urinary retention 2. Recent urinary tract infection 3. History of migraines 4. History of asthma 5. History of hyperlipidemia 6. History of essential hypertension 7. History of fibromyalgia 8. History of DVT 9. History of thyroid disorder 10. History of anxiety depression and panic disorder DVT prophylaxis Lovenox. GI prophylaxis Protonix At this time urology service is consulted Repeat labs ordered Armstrong catheter removed Neurology services following
[2023-02-02] MEDS ORDERED: LORazepam 2 MG/ML INJ IV STA (12:42)
[2023-02-02] MEDS: DICYCLOMINE 10 MG CAP PO PRN (13:37)
[2023-02-02] MEDS ORDERED: NA PHOS,M-B/NA PHOS,DI-BA 133 ML ENEMA RECTAL ONE (14:00)
--- NOTE | 2023-02-02 14:21 | P.CN ---
Psychiatric Consult - . Consult date: 02/02/23 Consult:: 02/02/23 14:13 IDENTIFYING DATA: This patient is a 57-year-old female who currently is , lives in a house, has 3 kids, collects Social Security disability. REASON FOR REFERRAL: Psychiatry was consulted for anxiety and panic attacks HISTORY OF PRESENT ILLNESS: The patient presented to the hospital on 01/29 for persistent UTI symptoms back abdominal and headaches. Neurology is following. Patient had a computed tomography scan of her brain which showed no acute changes. Patient was seen today and agreeable to speak to fha underwriter. She claims that she has been having a persistent UTI for the past month or so. Claims her blanket her bladder has significantly extended. She is also been experiencing bad headaches. Claims that the Ativan has been helping her stay calm. She claims she took earlier today. Claims that she has a long history of anxiety and depression as well. Claims that the anxiety sometimes she has panic attacks for 1-2 times a week or certain triggers. Claims that this is going on for carlitos ral years. States that she has depression and mood swings. States that she has sleep problems about 45 hours a night, poor appetite. At this time patient denies any current suicidal or homical ideations, intent or plan. Patient denies any auditory, visual hallucinations and denies any paranoia or delusions. Patients admits to using now recreational drugs or substances. PAST PSYCHIATRIC HISTORY: Patient has a a history of anxiety and depression/panic attacks. Patient is currently on trazodone, Celexa, Xanax when necessary. Patient denies any previous psychiatric hospitalizations. She clai ms that she is to follow-up with different providers including [facility] social staff worker and her psychiatrist in the past Dr Angel. Patient denies any history of suicide attempts in the past. Past Medical History: Asthma, Cancer, Deep Vein Thrombosis (DVT), Fibromyalgia, GERD/Reflux, Hyperlipidemia, Hypertension, Osteoarthritis (OA), Renal Disease, Sleep Apnea/CPAP/BIPAP, Thyroid Disorder Additional Past Medical History / Comment(s): Hx DVT in each leg. IBS. Lumbar DDD, chronic back pain. Has not been using CPAP. Hypothyroid. 2 bulging discs in back and herniated disc in neck, past htn/none since wt loss, skin cancer on face with removal, kidney infection approximately 2 months and completed abx., kidney stones. History of Any Multi-Drug Resistant Organisms: MRSA Date of last positivie culture/infection: 2008 MDRO Source:: abd Past Surgical History: Appendectomy, Bariatric Surgery, Section, Cholecystectomy, Hysterectomy (TVH), Orthopedic Surgery, Tonsillectomy Additional Past Surgical History / Comment(s): Right knee arthroscopy x2, left elbow surgery for torn tendon, sinus surgery x3, PAIN CLINIC PROCEDURE, back injections and nerves burned in back and neck, varicose vein surgery, sleeve gastrectomy 12-20-20, skin cancer removed from face. Past Anesthesia/Blood Transfusion Reactions: No Reported Reaction Additional Past Anesthesia/Blood Transfusion Reaction / Comment(s): Never had blood transfusion. Pt states versed does not work for her-I didn't feel anything. Past Psychological History: Anxiety, Depression, Panic Disorder Smoking Status: Never smoker Past Alcohol Use History: None Reported Past Drug Use History: None Reported ALLERGIES: as per EMR. CHEMICAL DEPENDENCY HISTORY: as per HPI. FAMILY PSYCHIATRIC/SUBSTANCE USE HISTORY: Claims that her sister has a history of depression and anxiety SOCIAL HISTORY: Patient was born and raised in [place] and in [place]. 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 States that she has no legal history. She has 3 kids, she collects Social Security disability at this time. She is currently and lives in a house with her . MENTAL STATUS EXAM: General Appearance: Patient appears to be laying in her bed turned to the side, stated age is alert, directable, and cooperative. Patient appears to have fair hygiene and grooming wearing hospital gown with fair eye contact. Behavior: Patient is calmly lying in bed without any agitated behavior. [place]. Cooperative. Speech: Patient's speech is fluent and nonpressured. Mood/Affect: Patient reports their mood is "mainly anxious and depressed about", affect is congruent and constricted Suicidality/Homicidality: Patient denies having any suicidal or homicidal ideation intent or plan. Perceptions: Patient denies any visual hallucinations and denies any auditory hallucinations Though content/process: There is no evidence of any delusional thought content and thought process is linear and goal-directed. Focused on her symptoms Memory and concentration: AOX3, grossly intact for the purposes of this session. Can spell "WORLD" backwards Judgment and insight: Fair IMPRESSIONS: Generalized anxiety with panic attacks History of depressive disorder PLAN: -At this time patient DOES NOT meet criteria for inpatient psychiatric admission. -Would recommend the following medication changes/additions: Would recommend to try and limit the use of benzodiazepines including Xanax as this can lead to tolerance and abuse. Increase trazodone to 150 mg daily at bedtime for insomnia/mood, replaced Celexa with Cymbalta 30 mg twice a day for anxiety/mood. Start Vistaril 25 mg scheduled daily with 25 mg every 8 hours when necessary for anxiety. -salvage worker to provide patient with outpatient mental health/psychiatry resources for appropriate follow up upon discharge -Communicated plan to patient's nurse and Dr Yañez -Psychiatry will sign off at this time unless any new issues arise over the weekend. -Please contact with any questions. 02/02/23 14:19
[2023-02-02] MEDS: DULoxetine HCL 30 MG CAPSULE.DR PO SCH ×2 (14:42→20:45)
[2023-02-02] MEDS: hydrOXYzine pamoate 25 MG CAP PO SCH (14:42)
[2023-02-02] MEDS: MAGNESIUM HYDROXIDE 2,400 MG/30 ML CUP PO PRN (14:43)
[2023-02-02 15:59] LABS: Prothrombin Time 10.4 sec (9.0-12.0)
[2023-02-02] MEDS: traZODone HCL 50 MG TAB PO SCH (20:45)
[2023-02-02] MEDS: MONTELUKAST 10 MG TAB PO SCH (20:45)
[2023-02-03] MEDS: BUTALB/APAP/CAFF 50-325-40MG TAB PO PRN ×2 (00:04→09:06)
[2023-02-03] MEDS: MORPHINE SULFATE 4 MG/ML SYRINGE IVP PRN ×4 (01:31→18:51)
[2023-02-03] MEDS: LEVOTHYROXINE 75 MCG TAB PO SCH (05:46)
[2023-02-03] MEDS: SODIUM CHLORIDE 0.9% 1,000 ML IV SCH ×3 (05:46→20:06)
[2023-02-03] MEDS: polyethylene glycoL 3350 17 GM POWD.PACK PO SCH (08:47)
[2023-02-03] MEDS: ATORVASTATIN 20 MG TAB PO SCH (08:47)
[2023-02-03] MEDS: valACYclovir HCL 1,000 MG TABLET PO SCH (08:48)
[2023-02-03] MEDS: hydrOXYzine pamoate 25 MG CAP PO SCH ×2 (08:48→13:34)
[2023-02-03] MEDS: PANTOPRAZOLE 40 MG TABLET PO SCH ×2 (08:48→20:03)
[2023-02-03] MEDS: DULoxetine HCL 30 MG CAPSULE.DR PO SCH ×2 (08:48→20:03)
[2023-02-03] MEDS: FLUCONAZOLE 150 MG TAB PO SCH (08:48)
--- NOTE | 2023-02-03 09:17 | P.PN ---
Subjective Progress Note Date: 02/03/23 Principal diagnosis: Urinary retention Patient was admitted with urinary retention. The causes idiopathic. The Armstrong catheter was removed yesterday, but needed to be replaced with return of 800 mL of urine. The Armstrong catheter is currently draining clear yellow urine. Objective - Vital Signs Vital signs: Vital Signs Temp 98.0 F 02/03/23 07:37 Pulse 70 02/03/23 07:37 Resp 16 02/03/23 07:37 BP 95/62 02/03/23 07:37 Pulse Ox 97 02/03/23 07:37 FiO2 21 02/02/23 06:49 Intake & Output 02/02/23 02/03/23 02/03/23 18:59 06:59 18:59 Output Total 3754 1000 Balance -3754 -1000 Output: Urine 2900 1000 Post Void Residual 854 Other: Voiding Method Indwelling Catheter - Constitutional General appearance: Present: average body habitus, no acute distress - Psychiatric Psychiatric: Present: A&O x's 3 - Labs CBC & Chem 7: 02/01/23 06:16 01/30/23 06:44 Assessment and Plan Assessment: The patient has urinary retention of idiopathic etiology. She was seen by psychiatry yesterday, who recommended that she be placed on antidepressants and anti-anxiolytic medications. Unfortunately, these have the effect of potentiating urinary retention. (1) Urinary retention Current Visit: Yes Status: Acute Code(s): R33.9 - RETENTION OF URINE, UNSPECIFIED SNOMED Code(s): 299962985 (2) Calculus of kidney Current Visit: Yes Status: Acute Code(s): N20.0 - CALCULUS OF KIDNEY SNOMED Code(s): 83202516 Plan: I reassured the patient that the urine culture obtained at the time of admission was negative. However, I also cautioned her that an indwelling Armstrong catheter may cause a nosocomial UTI. I have suggested that the catheter be removed and that she be taught to perform intermittent self-catheterization. She wishes to leave the Armstrong catheter in at this time, but is willing to be taught to self catheterize prior to discharge. She will need to contact my office to order supplies. If the urinary retention is ongoing, she will be advised to undergo formal urodynamic testing in our office.
[2023-02-03] MEDS: ONDANSETRON 4 MG/2 ML VIAL IVP PRN ×2 (13:35→20:03)
[2023-02-03 16:05] LABS: ALT 11 U/L (8-44); AST 15 U/L (13-35); Albumin 3.6 d/dL (3.8-4.9); Alkaline Phosphatase 35 U/L (41-126); Blood Urea Nitrogen 5.6 mg/dL (9.0-27.0); Calcium 8.8 mg/dL (8.7-10.3); Carbon Dioxide 25.1 mmol/L (21.6-31.8); Chloride 109 mmol/L (96-109); Globulin 1.8 d/dL (1.6-3.3); Glucose 92 mg/dL (70-110); Potassium 4.3 mmol/L (3.5-5.5); Sodium 141 mmol/L (135-145); Total Bilirubin 0.3 mg/dL (0.3-1.2); Total Protein 5.4 d/dL (6.2-8.2)
[2023-02-03] MEDS: MONTELUKAST 10 MG TAB PO SCH (20:02)
[2023-02-03] MEDS: traZODone HCL 50 MG TAB PO SCH (20:02)
[2023-02-04] MEDS: MORPHINE SULFATE 4 MG/ML SYRINGE IVP PRN ×6 (00:41→22:36)
[2023-02-04] MEDS: hydrOXYzine pamoate 25 MG CAP PO PRN ×2 (00:56→21:53)
[2023-02-04] MEDS: LEVOTHYROXINE 75 MCG TAB PO SCH (05:53)
[2023-02-04] MEDS: ONDANSETRON 4 MG/2 ML VIAL IVP PRN ×3 (05:53→21:52)
[2023-02-04] MEDS: SODIUM CHLORIDE 0.9% 1,000 ML IV SCH ×4 (06:05→22:02)
[2023-02-04] MEDS: ALPRAZolam 1 MG TAB PO PRN (09:20)
[2023-02-04] MEDS: polyethylene glycoL 3350 17 GM POWD.PACK PO SCH (09:31)
[2023-02-04] MEDS: ATORVASTATIN 20 MG TAB PO SCH (09:32)
[2023-02-04] MEDS: PANTOPRAZOLE 40 MG TABLET PO SCH ×2 (09:32→21:51)
[2023-02-04] MEDS: valACYclovir HCL 1,000 MG TABLET PO SCH (09:32)
[2023-02-04] MEDS: DULoxetine HCL 30 MG CAPSULE.DR PO SCH ×2 (09:33→21:51)
[2023-02-04] MEDS: FLUCONAZOLE 150 MG TAB PO SCH (09:33)
--- NOTE | 2023-02-04 09:53 | P.PN ---
Subjective Progress Note Date: 02/04/23 This is a 57-year-old female patient who presented with concerns of urinary retention. Patient has been getting treated for persistent urinary tract infection going on one month now with back pain and abdominal pain patient reports that she's had increasing migraines in nausea associated with pain that has been progressively worse over the past 2 days. Patient reports that she's had some difficulty with urination. Patient has a past medical history of asthma, cancer, DVT, fibromyalgia, GERD, hyperlipidemia, hypertension, osteoarthritis, renal disease, sleep apnea and thyroid disorder. Patient also has past medical history of DVT, anxiety depression and panic disorder. Abdominal pelvic CT completed showing distended urinary bladder without evidence for acute abdominal process. Nonobstructing bilateral renal calculi. Lab work completed unremarkable. Creatinine 0.71 bun 9 At this time urology services will be consulted. On 01/31/2023 patient is alert and oriented 3. Patient having some increased nausea and pain patient reports headache from migraine. Zofran ordered along with multiple pain medication options. Urology services are following. Indwelling catheter ordered urine appears clear. Current vital signs temp 98.4, heart rate 68, respiratory rate 16, blood pressure 97/64 with a pulse ox of 95% on room air On 02/01/2023 patient was seen and examined on to medical floor she is alert and oriented 3 in no apparent distress, she is still complaining of severe headac he, and complaining of vaginal itching, otherwise she denies any complaints, computed tomography scan of the brain results reviewed with patient, MRI of the lumbar spine reviewed with patient, at this time urine culture is negative, will attempt to remove Armstrong catheter and check post void residual. I am still awaiting for neurology consultation. Possible discharge to home tomorrow if stable. On 02/02/2023 patient is alert and oriented 3. He should still complaining of headache. foricept was added per neurology. Possible lumbar puncture per neurology awaiting further input. Armstrong catheter has been removed. Patient voiding without difficulty. Current vital signs temp 97.8, heart rate 62, respiratory rate 18, blood pressure 111/73 with pulse is 99% on room air On 02/03/2023 patient is alert and oriented x 3. still complaining of headaches. tentative plans for lumbar puncture tomorrow. current vital signs temp 98.3, HR 70, RR 18 BP 101/65 and pulse ox 97% on room air. Objective - Vital Signs Vital signs: Vital Signs Temp 98.3 F 02/04/23 07:15 Pulse 70 02/04/23 07:15 Resp 18 02/04/23 07:15 BP 101/65 02/04/23 07:15 Pulse Ox 96 02/04/23 08:49 FiO2 21 02/04/23 08:49 Intake & Output 02/03/23 02/04/23 02/04/23 18:59 06:59 18:59 Output Total 3125 925 Balance -3125 -925 Output: Urine 3125 925 Other: Voiding Method Indwelling Catheter Indwelling Catheter - Exam Head normocephalic Neck supple Lungs clear to auscultation bilaterally no wheezing or crackles Heart regular rate and rhythm S1-S2, no rub or gallop Abdomen is soft nontender nondistended positive bowel sounds no hepatosplenomegaly Extremities no edema Neuro alert and orientated to 3 - Labs CBC & Chem 7: 02/01/23 06:16 02/01/23 06:16 Labs: Abnormal Lab Results - Last 24 Hours (Table) 02/01/23 Range/Units 06:16 BUN 5.6 L (9.0-27.0) mg/dL BUN/Creatinine Ratio 8.00 L (12.00-20.00) Ratio Alkaline Phosphatase 35 L (41-126) U/L Total Protein 5.4 L (6.2-8.2) d/dL Albumin 3.6 L (3.8-4.9) d/dL Assessment and Plan Assessment: 1. Urinary retention 2. Recent urinary tract infection 3. History of migraines 4. History of asthma 5. History of hyperlipidemia 6. History of essential hypertension 7. History of fibromyalgia 8. History of DVT 9. History of thyroid disorder 10. History of anxiety depression and panic disorder DVT prophylaxis Lovenox. GI prophylaxis Protonix At this time urology service is consulted possible plans for lumbar puncture on 02/05/2023 Repeat labs ordered Armstrong catheter removed Neurology services following
--- NOTE | 2023-02-04 12:30 | P.PN ---
Subjective Progress Note Date: 02/03/23 Patient was seen for a follow-up. Patient still complains of consistent headache. She has received morphine, therefore it is slightly better 5/10. Otherwise it is very high. Patient agrees to undergo lumbar puncture. Patient could not have lumbar puncture today because she had received Lovenox. Now it has been put on hold. Objective - Vital Signs Vital signs: Vital Signs Temp 98.0 F 02/03/23 12:49 Pulse 60 02/03/23 12:49 Resp 18 02/03/23 12:49 BP 103/69 02/03/23 12:49 Pulse Ox 97 02/03/23 12:49 FiO2 21 02/03/23 10:11 Intake & Output 02/02/23 02/03/23 02/03/23 18:59 06:59 18:59 Output Total 3754 1000 2024 Balance -3754 -1000 -2024 Output: Urine 2900 1000 2024 Post Void Residual 854 Other: Voiding Method Indwelling Catheter Indwelling Catheter - Exam Examination nonfocal. Patient is laying comfortably in the bed. - Labs CBC & Chem 7: 02/01/23 06:16 02/01/23 06:16 Assessment and Plan Assessment: * Recurrence of chronic daily vascular headaches since 01/08/2023. Denies any headache free days since then. * History of migraine headaches from age 24 until went in remission around age 36. * History of viral meningitis in 2007 * History of recent UTIs, difficult to treat (required 3 rounds of antibiotics). * New onset urinary retention, unclear etiology * History of cervical disc herniation * Rotator cuff tear, pending surgery Plan: * Trial of Fioricet to see if the headache resolves. * May try Imitrex. * ESR 4, CRP <0.30. * As the headache is not resolving, patient will undergo MRI of the lumbar spine. Patient has significant lumbar disc disease, therefore we will prefer having lumbar puncture performed by IR under fluoroscopic guidance. Recommend checking opening pressure as well, to rule out pseudotumor cerebri. Spinal fluid will be sent for analysis to rule out viral meningitis. * Urinary retention is of unclear etiology. She does have some degenerative and bulging discs in the neck and lower back. Uncertain if related to that, or central issue. Urology on board. * Discussed with primary physician in detail. * Dr. Ziggy Olivo Will resume neurology service from Sunday morning.
[2023-02-04] MEDS: hydrOXYzine pamoate 25 MG CAP PO SCH (13:21)
[2023-02-04] MEDS: MONTELUKAST 10 MG TAB PO SCH (21:51)
[2023-02-04] MEDS: traZODone HCL 50 MG TAB PO SCH (21:52)
[2023-02-04] MEDS: MAGNESIUM HYDROXIDE 2,400 MG/30 ML CUP PO PRN (21:54)
[2023-02-05] MEDS: MORPHINE SULFATE 4 MG/ML SYRINGE IVP PRN ×5 (03:05→20:06)
[2023-02-05] MEDS: ALPRAZolam 1 MG TAB PO PRN ×2 (06:02→13:14)
[2023-02-05] MEDS: LEVOTHYROXINE 75 MCG TAB PO SCH (06:24)
[2023-02-05] MEDS: SODIUM CHLORIDE 0.9% 1,000 ML IV SCH ×2 (06:24→16:09)
[2023-02-05] MEDS: hydrOXYzine pamoate 25 MG CAP PO SCH (08:09)
[2023-02-05] MEDS: DULoxetine HCL 30 MG CAPSULE.DR PO SCH ×2 (08:09→20:05)
[2023-02-05] MEDS: ATORVASTATIN 20 MG TAB PO SCH (08:09)
[2023-02-05] MEDS: PANTOPRAZOLE 40 MG TABLET PO SCH ×2 (08:09→20:05)
[2023-02-05] MEDS: FLUCONAZOLE 150 MG TAB PO SCH (08:10)
[2023-02-05] MEDS: valACYclovir HCL 1,000 MG TABLET PO SCH (08:10)
[2023-02-05 11:04] LABS: Basophils # (A) 0.02 X 10*3/uL (0.00-0.10); Basophils % (A) 0.4 %; Eosinophils # (A) 0.16 X 10*3/uL (0.04-0.35); HCT 36.9 % (37.2-46.3); HGB 12.1 d/dL (12.0-15.0); Lymphocytes # (A) 2.79 X 10*3/uL (0.90-5.00); Lymphocytes % (A) 51.5 %; MCH 33.2 pg (27.0-32.0); MCHC 32.8 d/dL (32.0-37.0); MCV 101.1 FL (80.0-97.0); Mean Platelet Volume 11.4 FL (9.5-12.2); Monocytes # (A) 0.62 X 10*3/uL (0.20-1.00); Monocytes % (A) 11.4 %; NRBC Per 100 WBC 0 X 10*3/uL (0.00-0.01); Neutrophils # (A) 1.82 X 10*3/uL (1.80-7.70); Neutrophils % (A) 33.5 %; Platelet Count 203 X 10*3/uL (140-440); RBC 3.65 X 10*6/uL (4.10-5.20); RDW 13.2 % (11.5-14.5); WBC 5.42 X 10*3/uL (4.50-10.00)
[2023-02-05 11:09] LABS: ALT 14 U/L (8-44); AST 19 U/L (13-35); Albumin 3.6 d/dL (3.8-4.9); Alkaline Phosphatase 39 U/L (41-126); BUN/Creat Ratio 8.43 Ratio (12.00-20.00); Blood Urea Nitrogen 5.9 mg/dL (9.0-27.0); Calcium 8.5 mg/dL (8.7-10.3); Carbon Dioxide 26.6 mmol/L (21.6-31.8); Chloride 107 mmol/L (96-109); Glucose 83 mg/dL (70-110); Potassium 4.1 mmol/L (3.5-5.5); Sodium 141 mmol/L (135-145); Total Bilirubin 0.2 mg/dL (0.3-1.2); Total Protein 5.6 d/dL (6.2-8.2)
[2023-02-05] MEDS: ONDANSETRON 4 MG/2 ML VIAL IVP PRN (13:20)
[2023-02-05 13:51] VITALS: BMI 31.1
[2023-02-05] MEDS ORDERED: LORazepam 2 MG/ML INJ IV STA (14:05)
[2023-02-05] MEDS: polyethylene glycoL 3350 17 GM POWD.PACK PO SCH (15:09)
--- NOTE | 2023-02-05 15:45 | FL ---
EXAMINATION TYPE: FL guided lumbar puncture LP DATE OF EXAM: 02/05/2023 COMPARISON: NONE HISTORY: Chronic headaches TECHNIQUE: Fluoroscopy. FINDINGS: Fluoroscopic guidance was provided during procedure performed by Dr. Matthews. A total of 168 seconds of fluoroscopic time was utilized during the procedure and 2 spot images was acquired. T otal dose area product (DAP) in uGy*m?, mGy*cm? (or similar): . From consent was obtained from the patient's questions were answered. Standard sterile technique was utilized as well as appropriate local anesthesia at the L3-4 level. Spinal needle was introduced into the thecal sac. 9 cc of cerebrospinal fluid was withdrawn and submitted for evaluation. Opening pres sure of 7 mmHg. Patient tolerated the procedure well and left the department in stable condition. IMPRESSION: As Above.
--- NOTE | 2023-02-05 17:22 | P.PN ---
Subjective Progress Note Date: 02/05/23 This is a 57-year-old female patient who presented with concerns of urinary retention. Patient has been getting treated for persistent urinary tract infection going on one month now with back pain and abdominal pain patient reports that she's had increasing migraines in nausea associated with pain that has been progressively worse over the past 2 days. Patient reports that she's had some difficulty with urination. Patient has a past medical history of asthma, cancer, DVT, fibromyalgia, GERD, hyperlipidemia, hypertension, osteoarthritis, renal disease, sleep apnea and thyroid disorder. Patient also has past medical history of DVT, anxiety depression and panic disorder. Abdominal pelvic CT completed showing distended urinary bladder without evidence for acute abdominal process. Nonobstructing bilateral renal calculi. Lab work completed unremarkable. Creatinine 0.71 bun 9 At this time urology services will be consulted. On 01/31/2023 patient is alert and oriented 3. Patient having some increased nausea and pain patient reports headache from migraine. Zofran ordered along with multiple pain medication options. Urology services are following. Indwelling catheter ordered urine appears clear. Current vital signs temp 98.4, heart rate 68, respiratory rate 16, blood pressure 97/64 with a pulse ox of 95% on room air On 02/01/2023 patient was seen and examined on to medical floor she is alert and oriented 3 in no apparent distress, she is still complaining of severe headac he, and complaining of vaginal itching, otherwise she denies any complaints, computed tomography scan of the brain results reviewed with patient, MRI of the lumbar spine reviewed with patient, at this time urine culture is negative, will attempt to remove Armstrong catheter and check post void residual. I am still awaiting for neurology consultation. Possible discharge to home tomorrow if stable. On 02/02/2023 patient is alert and oriented 3. He should still complaining of headache. foricept was added per neurology. Possible lumbar puncture per neurology awaiting further input. Armstrong catheter has been removed. Patient voiding without difficulty. Current vital signs temp 97.8, heart rate 62, respiratory rate 18, blood pressure 111/73 with pulse is 99% on room air. On 02/03/2023 patient is alert and oriented x 3. still complaining of headaches. tentative plans for lumbar puncture tomorrow. current vital signs temp 98.3, HR 70, RR 18 BP 101/65 and pulse ox 97% on room air. On 02/04/2023 patient is alert and oriented 3. He should still complaining of headache. foricept was added per neurology. Plan is for lumbar puncture tomorrow will continue to follow On 02/05 2023 patient was seen and examined on the medical floor she is alert and oriented 3 in no apparent distress. She is still complaining of severe headache otherwise she denies any complaints at this time, she still has a Armstrong catheter due to urinary retention, she underwent lumbar puncture today, she had a panic attack and required 1 mg of IV Ativan iron to lumbar puncture, at this time we are awaiting for results and awaiting for further recommendation from neurology. Objective - Vital Signs Vital signs: Vital Signs Temp 98.8 F 02/05/23 12:36 Pulse 79 02/05/23 14:35 Resp 16 02/05/23 14:48 BP 103/63 02/05/23 14:48 Pulse Ox 96 02/05/23 14:48 FiO2 21 02/04/23 08:49 Intake & Output 02/04/23 02/05/23 02/05/23 18:59 06:59 18:59 Intake Total 0 Output Total 1450 2200 1725 Balance -1450 -2200 -1725 Weight 87.543 kg Intake: Oral 0 Output: Urine 1450 2200 1725 Other: Voiding Method Indwelling Catheter Indwelling Catheter Indwelling Catheter - Exam Head normocephalic Neck supple Lungs clear to auscultation bilaterally no wheezing or crackles Heart regular rate and rhythm S1-S2, no rub or gallop Abdomen is soft nontender nondistended positive bowel sounds no hepatosplenomegaly Extremities no edema Neuro alert and orientated to 3 - Labs CBC & Chem 7: 02/05/23 07:03 02/05/23 07:03 Labs: Abnormal Lab Results - Last 24 Hours (Table) 02/05/23 02/05/23 Range/Units 07:03 07:03 RBC 3.65 L (4.10-5.20) X 10*6/uL Hct 36.9 L (37.2-46.3) % MCV 101.1 H (80.0-97.0) FL MCH 33.2 H (27.0-32.0) pg BUN 5.9 L (9.0-27.0) mg/dL BUN/Creatinine Ratio 8.43 L (12.00-20.00) Ratio Calcium 8.5 L (8.7-10.3) mg/dL Total Bilirubin 0.2 L (0.3-1.2) mg/dL Alkaline Phosphatase 39 L (41-126) U/L Total Protein 5.6 L (6.2-8.2) d/dL Albumin 3.6 L (3.8-4.9) d/dL Assessment and Plan Assessment: 1. Urinary retention 2. Recent urinary tract infection 3. History of migraines 4. History of asthma 5. History of hyperlipidemia 6. History of essential hypertension 7. History of fibromyalgia 8. History of DVT 9. History of thyroid disorder 10. History of anxiety depression and panic disorder DVT prophylaxis Lovenox. GI prophylaxis Protonix At this time urology service is consulted Repeat labs ordered Armstrong catheter removed Neurology services following
[2023-02-05 18:17] LABS: Glucose,CSF 50 mg/dL (40-70); Total Protein,CSF 28 mg/dL (12-60)
[2023-02-05 18:26] LABS: CSF Tube Number 4
[2023-02-05 18:27] LABS: Appearance,CSF Clear; CSF Tube Volume 2.5; Nucleated Cells, CSF 1 u/L (0-5); Red Blood Cell,CSF 1 u/L (0-10)
[2023-02-05] MEDS: traZODone HCL 50 MG TAB PO SCH (20:05)
[2023-02-05] MEDS: MONTELUKAST 10 MG TAB PO SCH (20:05)
[2023-02-05] MEDS ORDERED: SUMAtriptan succinate 50 MG TAB PO PRN (20:06)
--- NOTE | 2023-02-05 20:12 | P.PN ---
Subjective Progress Note Date: 02/05/23 I am seeing the patient for the first time during this admission. Please refer to Dr. Julio's notes for further details. Court the patient the patient has history of migraines and she hasn't had a migraine in years but currently the since the end of December she's been having headache over the middle the frontal region radiating posteriorly. She has been having nausea, photophobia and some phonophobia. Denies any focal weakness or numbness. She feels like she has some visual disturbance seeing floaters. She feels the headache is 8 out of 10 constant throbbing and that goes down to probably a 4 towards the end of the day with pain medication. She said that her back pain has resolved. Today she had a lumbar puncture was was normal Objective - Vital Signs Vital signs: Vital Signs Temp 98.8 F 02/05/23 12:36 Pulse 79 02/05/23 14:35 Resp 16 02/05/23 14:48 BP 103/63 02/05/23 14:48 Pulse Ox 96 02/05/23 14:48 FiO2 21 02/04/23 08:49 Intake & Output 02/05/23 02/05/23 02/06/23 06:59 18:59 06:59 Intake Total 0 Output Total 2200 1725 Balance -2200 -1725 Weight 87.543 kg Intake: Oral 0 Output: Urine 2200 1725 Other: Voiding Method Indwelling Catheter Indwelling Catheter - Exam Neuro Patient is awake alert oriented to self place and time. Patient is following simple commands. No aphasia and no neglect. Pupils are round equal and reactive to light. Visual driscoll are full to consultation. Extraocular movement was intact and no nystagmus. Normal facial sensation touch. No facial weakness. No dysarthria. Motor is the strength is moving all extremities above gravity and no focal deficit. - Labs CBC & Chem 7: 02/05/23 07:03 02/05/23 07:03 Labs: Abnormal Lab Results - Last 24 Hours (Table) 02/05/23 02/05/23 Range/Units 07:03 07:03 RBC 3.65 L (4.10-5.20) X 10*6/uL Hct 36.9 L (37.2-46.3) % MCV 101.1 H (80.0-97.0) FL MCH 33.2 H (27.0-32.0) pg BUN 5.9 L (9.0-27.0) mg/dL BUN/Creatinine Ratio 8.43 L (12.00-20.00) Ratio Calcium 8.5 L (8.7-10.3) mg/dL Total Bilirubin 0.2 L (0.3-1.2) mg/dL Alkaline Phosphatase 39 L (41-126) U/L Total Protein 5.6 L (6.2-8.2) d/dL Albumin 3.6 L (3.8-4.9) d/dL Assessment and Plan Assessment: * Recurrence of chronic daily headaches since 01/08/2023. Denies any headache free days since then. CSF study is normal. I feel her headache is possibly due to her migraine versus cervicogenic. * History of migraine headaches from age 24 until went in remission around age 36. * History of viral meningitis in 2007 * History of recent UTIs, difficult to treat (required 3 rounds of antibiotics). * New onset urinary retention, unclear etiology * History of cervical disc herniation * Rotator cuff tear, pending surgery Plan: * Ordered MRI of the brain with and without as well as MRA of the head and neck to rule out any central cause since she states that she has a history of migraines but has not had it for years. * I start the patient on Topamax 50 mg 1 tablet twice a day for her headache. * With the patient's was tried on. Set but has not had any pain relief. * I start the patient on Imitrex 50mg Q6hour PRN. * ESR 4, CRP <0.30. Patient has been afebrile so far. * CSF study is clear, colorless, 1 red blood cell, 1 nucleated cells, 50 glucose, 28 of protein. Opening pressure is 7 mmHg. 9 cc of CSF study was withdrawn from LP procedure. * MRI of the lumbar spine is reported as no disc herniation. No abnormal contrast enhancement. Shows some mild multilevel degenerative disc disease. Patient states her lower back pain has resolved. * Defer the rest of the medical management to the primary team. The plan was discussed with the patient's nurse. Time with Patient: Less than 30
[2023-02-05] MEDS: TOPIRAMATE 25 MG TAB PO SCH (21:30)
[2023-02-06] MEDS: MORPHINE SULFATE 4 MG/ML SYRINGE IVP PRN ×5 (00:04→16:52)
[2023-02-06] MEDS: SODIUM CHLORIDE 0.9% 1,000 ML IV SCH ×3 (00:05→17:09)
[2023-02-06] MEDS: ONDANSETRON 4 MG/2 ML VIAL IVP PRN (04:18)
[2023-02-06] MEDS: LEVOTHYROXINE 75 MCG TAB PO SCH (04:43)
[2023-02-06] MEDS: PANTOPRAZOLE 40 MG TABLET PO SCH (08:33)
[2023-02-06] MEDS: ATORVASTATIN 20 MG TAB PO SCH (08:33)
[2023-02-06] MEDS: DULoxetine HCL 30 MG CAPSULE.DR PO SCH (08:34)
[2023-02-06] MEDS: FLUCONAZOLE 150 MG TAB PO SCH (08:34)
[2023-02-06] MEDS: valACYclovir HCL 1,000 MG TABLET PO SCH (08:34)
[2023-02-06] MEDS: polyethylene glycoL 3350 17 GM POWD.PACK PO SCH (08:35)
[2023-02-06] MEDS: TOPIRAMATE 25 MG TAB PO SCH (09:05)
[2023-02-06] MEDS: hydrOXYzine pamoate 25 MG CAP PO PRN (11:59)
[2023-02-06] MEDS: ALPRAZolam 1 MG TAB PO PRN (11:59)
[2023-02-06 13:08] VITALS: BP 94/63; PULSE 65; RESP 17; TEMP 98.5
--- NOTE | 2023-02-06 13:33 | MR ---
EXAMINATION TYPE: MR brain wo/w con DATE OF EXAM: 02/06/2023 1:18 PM CLINICAL INDICATION:Female, 57 years old with history of headache of unknown cause Headache, evaluate for dissection. COMPARISON: CT brain 01/31/2023 TECHNIQUE: Multi planar, multi sequence imaging was performed through the brain including: T1, T2, In version recovery, susceptibility weighted imaging and gradient echo imaging and Diffusion weighted im aging. The patient was then given intravenous contrast and multi planar, T1 fat-saturation images wer e obtained. IV Contrast: 8.5 cc Gadavist FINDINGS: The morris-white junctions, ventricular system, basal cisterns appear unremarkable. Diffusion-weighted imaging shows no evidence of restricted diffusion to suggest acute/subacute infarct. Intracranial art erial flow voids are maintained. Midline structures show no abnormality. The susceptibility weighted images do not reveal any evidence for micro-hemorrhage. After administration of gadolinium, no abnorm al enhancement is seen. The bone marrow signal is within normal limits. Paranasal sinuses and mastoid air cells: No significant paranasal sinus disease. Visualized orbits: Orbital contents are intact. IMPRESSION: Motion limited exam. 1. No evidence of intracranial mass, acute/subacute infarct, or abnormal enhancement.
--- NOTE | 2023-02-06 13:38 | MR ---
EXAMINATION TYPE: MR angio head wo/neck wo/w con DATE OF EXAM: 02/06/2023 1:19 PM CLINICAL INDICATION:Female, 57 years old with history of headache. r/o dissection; Headache, evaluat e for dissection. COMPARISON: MRI same day Technical: MRA brain: 2D and 3-D [id number] Axial with MIP and 3-D reconstruction. Performed on a separate w orkstation. MRA neck: Multiplanar, multi-sequence imaging as well as [id number] and phase was performed extra cranial vasculature of the neck. 3-D reformatted images and maximum intensity projection reformatted images were submitted for evaluation, these are performed on a separate workstation. IV Contrast: 8.5 cc Gadavist Findings: Vertebral arteries: The vertebral arteries are patent. Vertebral arteries are: Codominant. Basilar artery: The basilar artery is intact. The basilar artery bifurcation is normal. Internal Carotid arteries: The cervical, petrous, cavernous and supraclinoid segments are normal. THELMA: Patent with no evidence of aneurysm. ACOM: Present without evidence of aneurysm. MCA: Patent with no evidence of aneurysm. LIE DETECTOR OPERATOR: Patent with no evidence of aneurysm. PCOM: Hypoplastic bilaterally. RIGHT CAROTID SYSTEM: The common carotid artery is patent. The carotid bifurcations demonstrates no e vidence for hemodynamically significant stenosis. The internal carotid artery is patent. LEFT CAROTID SYSTEM: The common carotid artery is patent. The carotid bifurcations demonstrates no e vidence for hemodynamically significant stenosis. The internal carotid artery is patent. The origins of the great vessels and vertebral arteries appear unremarkable. Vertebral arteries are codominant. IMPRESSION: 1. No evidence of intracranial aneurysm or significant stenosis. No evidence of dissection. 2. No evidence of significant stenosis at the carotid bifurcations. The carotid and vertebral arteri es are patent. 3. No evidence aneurysm.
--- NOTE | 2023-02-06 17:29 | P.PN ---
Subjective Progress Note Date: 02/06/23 This is a 57-year-old female patient who presented with concerns of urinary retention. Patient has been getting treated for persistent urinary tract infection going on one month now with back pain and abdominal pain patient reports that she's had increasing migraines in nausea associated with pain that has been progressively worse over the past 2 days. Patient reports that she's had some difficulty with urination. Patient has a past medical history of asthma, cancer, DVT, fibromyalgia, GERD, hyperlipidemia, hypertension, osteoarthritis, renal disease, sleep apnea and thyroid disorder. Patient also has past medical history of DVT, anxiety depression and panic disorder. Abdominal pelvic CT completed showing distended urinary bladder without evidence for acute abdominal process. Nonobstructing bilateral renal calculi. Lab work completed unremarkable. Creatinine 0.71 bun 9 At this time urology services will be consulted. On 01/31/2023 patient is alert and oriented 3. Patient having some increased nausea and pain patient reports headache from migraine. Zofran ordered along with multiple pain medication options. Urology services are following. Indwelling catheter ordered urine appears clear. Current vital signs temp 98.4, heart rate 68, respiratory rate 16, blood pressure 97/64 with a pulse ox of 95% on room air On 02/01/2023 patient was seen and examined on to medical floor she is alert and oriented 3 in no apparent distress, she is still complaining of severe headac he, and complaining of vaginal itching, otherwise she denies any complaints, computed tomography scan of the brain results reviewed with patient, MRI of the lumbar spine reviewed with patient, at this time urine culture is negative, will attempt to remove Armstrong catheter and check post void residual. I am still awaiting for neurology consultation. Possible discharge to home tomorrow if stable. On 02/02/2023 patient is alert and oriented 3. He should still complaining of headache. foricept was added per neurology. Possible lumbar puncture per neurology awaiting further input. Armstrong catheter has been removed. Patient voiding without difficulty. Current vital signs temp 97.8, heart rate 62, respiratory rate 18, blood pressure 111/73 with pulse is 99% on room air. On 02/03/2023 patient is alert and oriented x 3. still complaining of headaches. tentative plans for lumbar puncture tomorrow. current vital signs temp 98.3, HR 70, RR 18 BP 101/65 and pulse ox 97% on room air. On 02/04/2023 patient is alert and oriented 3. He should still complaining of headache. foricept was added per neurology. Plan is for lumbar puncture tomorrow will continue to follow On 02/05 2023 patient was seen and examined on the medical floor she is alert and oriented 3 in no apparent distress. She is still complaining of severe headache otherwise she denies any complaints at this time, she still has a Armstrong catheter due to urinary retention, she underwent lumbar puncture today, she had a panic attack and required 1 mg of IV Ativan iron to lumbar puncture, at this time we are awaiting for results and awaiting for further recommendation from neurology. On 02/06/2023 patient was seen and examined on the medical floor she is alert and oriented 3 in no apparent distress, she is still complaining of headache and still has a Armstrong catheter for urinary retention, otherwise she denies any complaints there is no fever or chills no dizziness no chest pain no shortness of breath no cough no nausea or vomiting no abdominal pain no diarrhea and no urinary symptoms. At this time will discontinue Armstrong catheter, if patient is not able to urinate, her nurse will do straight cath, and we'll teach her to do straight cath by herself. At this time old testing including lumbar puncture, MRI of the brain, MRA of the brain and the neck came back within normal limits, will discontinue morphine and Dilaudid, patient can have Imitrex and [place] if having headache. Plan is for discharge to home tomorrow. Objective - Vital Signs Vital signs: Vital Signs Temp 98.5 F 02/06/23 12:09 Pulse 65 02/06/23 12:09 Resp 17 02/06/23 12:09 BP 94/63 02/06/23 12:09 Pulse Ox 98 02/06/23 12:09 FiO2 21 02/06/23 07:50 Intake & Output 02/05/23 02/06/23 02/06/23 18:59 06:59 18:59 Output Total 1724 2049 4200 Balance -1724 Weight 87.543 kg Output: Urine 1724 2049 420 Other: Voiding Method Indwelling Catheter Indwelling Catheter Indwelling Catheter - Exam Head normocephalic Neck supple Lungs clear to auscultation bilaterally no wheezing or crackles Heart regular rate and rhythm S1-S2, no rub or gallop Abdomen is soft nontender nondistended positive bowel sounds no hepatosplenomegaly Extremities no edema Neuro alert and orientated to 3 - Labs CBC & Chem 7: 02/05/23 07:03 02/05/23 07:03 Assessment and Plan Assessment: 1. Urinary retention 2. Recent urinary tract infection 3. History of migraines 4. History of asthma 5. History of hyperlipidemia 6. History of essential hypertension 7. History of fibromyalgia 8. History of DVT 9. History of thyroid disorder 10. History of anxiety depression and panic disorder DVT prophylaxis Lovenox. GI prophylaxis Protonix At this time urology service is consulted Repeat labs ordered Armstrong catheter removed Neurology services following
[2023-02-09 12:34] LABS: VDRL, Qualitative CSF Nonreactive (Nonreactive)
== END 2023-02-06 18:03 | disposition left against medical advice (07) | DRG 103 ==
LOC: EC 16:37 → 5NMEDONC 22:35
PROVIDERS: ADMIT Internal Medicine; ATTEND Internal Medicine
PROC: 009U3ZX Drainage of Spinal Canal, Percutaneous Approach, Diagnostic (ICD-10-PCS; principal; 2023-02-05)
DX: G43.909 Migraine, unspecified, not intractable, without status migrainosus (principal); G96.08 Other cranial cerebrospinal fluid leak; R33.9 Retention of urine, unspecified; Z87.440 Personal history of urinary (tract) infections; E03.9 Hypothyroidism, unspecified; E78.5 Hyperlipidemia, unspecified; F32.A Depression, unspecified; F41.0 Panic disorder [episodic paroxysmal anxiety]; I10 Essential (primary) hypertension; J32.2 Chronic ethmoidal sinusitis; J45.909 Unspecified asthma, uncomplicated; M48.061 Spinal stenosis, lumbar region without neurogenic claudication; R42 Dizziness and giddiness; M19.90 Unspecified osteoarthritis, unspecified site; M51.36 Other intervertebral disc degeneration, lumbar region; N28.9 Disorder of kidney and ureter, unspecified; L29.2 Pruritus vulvae; M50.20 Other cervical disc displacement, unspecified cervical region; M79.7 Fibromyalgia; N20.0 Calculus of kidney; M75.100 Unspecified rotator cuff tear or rupture of unspecified shoulder, not specified as traumatic; Z79.890 Hormone replacement therapy; Z79.899 Other long term (current) drug therapy; Z85.828 Personal history of other malignant neoplasm of skin; Z86.61 Personal history of infections of the central nervous system; Z86.718 Personal history of other venous thrombosis and embolism; Z87.442 Personal history of urinary calculi; K21.9 Gastro-esophageal reflux disease without esophagitis; Z71.3 Dietary counseling and surveillance; Z88.2 Allergy status to sulfonamides; Z88.8 Allergy status to other drugs, medicaments and biological substances; Z28.21 Immunization not carried out because of patient refusal; Z79.891 Long term (current) use of opiate analgesic; Z86.14 Personal history of Methicillin resistant Staphylococcus aureus infection
CPT/HCPCS: 36415; 51798; 62328; 70450; 70544; 70549; 70553; 72158; 74176; 80053; 81001; 82150; 82945; 83690; 83735; 83873; 84100; 84157; 85025; 85610; 85652; 86140; 86592; 87070; 87086; 87205; 87252; 88108; 89050; 93005; 94760; 96361; 96374; 96375; 96376; 99285

== ENCOUNTER 2023-03-19 22:13 | Emergency (ER) | payer MEDICARE, OTHER ==
--- NOTE | 2023-03-19 22:42 | ED ---
General Adult HPI - General Source: patient, RN notes reviewed Mode of arrival: ambulatory Limitations: no limitations <Madelyn Nunez - Last Filed: 03/19/23 22:37> - General Source: patient, RN notes reviewed Mode of arrival: ambulatory Limitations: no limitations <Jose Carlos Hannah - Last Filed: 03/20/23 01:06> - General Chief complaint: Urogenital Stated complaint: UTI, Bladder infection Time Seen by Provider: 03/19/23 22:35 - History of Present Illness Initial comments: 57-year-old female presents emergency department chief complaint of dysuria and bilateral flank pain that started . She states that she is evaluated at urgent care on Sunday and was placed on Macrobid for urinary tract infection. She states that she has been as prescribed. Denies any fever, chills. ( Madelyn Nunez) 57 show female presents emergency Department chief complaint of lower abdominal pain, dysuria. Patient states that she was diagnosed with UTI and Sunday. Patient was placed on Macrobid his taken 4 doses. Patient states she was admitted in the past for similar complaints but states that she had urinary retention that time. Patient denies any significant reason found by urology. Patient states UTIs have been recurrent. (Jose Carlos Hannah) - Related Data Home Medications Medication Instructions Recorded Confirmed ALPRAZolam [Xanax] 1 mg PO Q8H PRN 03/20/14 01/29/23 HYDROcodone/APAP 10-325MG [[place] 1 tab PO Q8H PRN 04/07/17 01/29/23 10-325] Omeprazole 20 mg PO BID 04/07/17 01/29/23 rOPINIRole HCL [Requip] 0.5 mg PO HS 06/02/17 01/29/23 Atorvastatin [Lipitor] 20 mg PO DAILY 11/21/18 01/29/23 Levothyroxine Sodium [Synthroid] 75 mcg PO DAILY 01/01/20 01/29/23 Citalopram Hydrobromide [CeleXA] 40 mg PO HS 03/24/21 01/29/23 valACYclovir HCL [Valacyclovir] 1,000 mg PO DAILY 03/24/21 01/29/23 Amoxic-Pot Clav 500-125 mg 1 tab PO Q12HR 01/29/23 01/29/23 [Augmentin 500-125 mg] Diclofenac Sodium [Voltaren 1 applic TOPICAL QID PRN 01/29/23 01/29/23 Arthritis Pain 1% Gel] Dicyclomine [Bentyl] 10 mg PO TID PRN 01/29/23 01/29/23 Fluconazole 200 mg PO ONCE PRN 01/29/23 01/29/23 Meloxicam [Mobic] 15 mg PO HS 01/29/23 01/29/23 Montelukast [Singulair] 10 mg PO HS 01/29/23 01/29/23 traZODone HCL [Desyrel] 100 mg PO HS 01/29/23 01/29/23 Previous Rx's Medication Instructions Recorded Phenazopyridine [Pyridium] 200 mg PO TID #6 tablet 03/20/23 Allergies Allergy/AdvReac Type Severity Reaction Status Date / Time Sulfa (Sulfonamide Allergy Severe Rash/Hives Verified 03/19/23 22:33 Antibiotics) ketorolac tromethamine Allergy Tardive Verified 03/19/23 22:33 [From Toradol] Dyskinesia prochlorperazine maleate Allergy Tardive Verified 03/19/23 22:33 [From Compazine] Dyskinesia prochlorperazine edisylate AdvReac Severe Tardive Verified 03/19/23 22:33 [From Compazine] dyskinesia Review of Systems ROS Other: All systems not noted in ROS Statement are negative. <Madelyn Nunez - Last Filed: 03/19/23 22:37> ROS Other: All systems not noted in ROS Statement are negative. <Jose Carlos Hannah - Last Filed: 03/20/23 01:06> ROS Statement: Those systems with pertinent positive or pertinent negative responses have been documented in the HPI. Past Medical History Past Medical History: Asthma, Cancer, Deep Vein Thrombosis (DVT), Fibromyalgia, GERD/Reflux, Hyperlipidemia, Hypertension, Osteoarthritis (OA), Renal Disease, Sleep Apnea/CPAP/BIPAP, Thyroid Disorder Additional Past Medical History / Comment(s): Hx DVT in each leg. IBS. Lumbar DDD, chronic back pain. Has not been using CPAP. Hypothyroid. 2 bulging discs in back and herniated disc in neck, past htn/none since wt loss, skin cancer on face with removal, kidney infection approximately 2 months and completed abx., kidney stones. History of Any Multi-Drug Resistant Organisms: MRSA Date of last positivie culture/infection: 2008 MDRO Source:: abd Past Surgical History: Appendectomy, Bariatric Surgery, Section, Cholecystectomy, Hysterectomy, Orthopedic Surgery, Tonsillectomy Additional Past Surgical History / Comment(s): Right knee arthroscopy x2, left elbow surgery for torn tendon, sinus surgery x3, PAIN CLINIC PROCEDURE, back injections and nerves burned in back and neck, varicose vein surgery, sleeve gastrectomy 12-20-20, skin cancer removed from face. Past Anesthesia/Blood Transfusion Reactions: No Reported Reaction Additional Past Anesthesia/Blood Transfusion Reaction / Comment(s): Never had blood transfusion. Pt states versed does not work for her-I didn't feel anything. Past Psychological History: Anxiety, Depression, Panic Disorder Smoking Status: Never smoker Past Alcohol Use History: None Reported Past Drug Use History: None Reported - Past Family History Father Family Medical History: Cancer Additional Family Medical History / Comment(s): Colon Cancer. Brother(s) Family Medical History: Cancer <Madelyn Nunez - Last Filed: 03/19/23 22:37> General Exam Limitations: no limitations <Madelyn Nunez - Last Filed: 03/19/23 22:37> General appearance: alert, in no apparent distress Head exam: Present: atraumatic, normocephalic, normal inspection Respiratory exam: Present: normal lung sounds bilaterally. Absent: respiratory distress, wheezes, rales, rhonchi, stridor Cardiovascular Exam: Present: regular rate, normal rhythm, normal heart sounds. Absent: systolic murmur, diastolic murmur, rubs, gallop, clicks GI/Abdominal exam: Present: soft, tenderness, normal bowel sounds. Absent: distended, guarding, rebound, rigid Back exam: Absent: CVA tenderness (R), CVA tenderness (L) <Jose Carlos Hannah - Last Filed: 03/20/23 01:06> - General Exam Comments Initial Comments: Visual Physical Exam Vital signs reviewed General: Well-appearing, nontoxic, no acute distress. Head: Normocephalic, atraumatic Eyes: PERRLA, EOMI ENT: Airway patent Chest: Nonlabored breathing Skin: No visual rash, normal skin tone Neuro: Alert and oriented 3 Musculoskeletal: No gross abnormalities (Madelyn Nunez) Course Vital Signs 03/19/23 22:33 Temperature 98 F Pulse Rate 96 Respiratory 18 Rate Blood Pressure 127/90 O2 Sat by Pulse 98 Oximetry Medical Decision Making <Madelyn Nunez - Last Filed: 03/19/23 22:37> <AndrewmarshaJose Carlos Ernestina - Last Filed: 03/20/23 01:06> - Medical Decision Making I performed a quick note portion of this chart. Electronic signed by Madelyn Nunez PA-C (Madelyn Nunez) Was pt. sent in by a medical professional or institution ([facility], TYPE SOLDERING MACHINE TENDER, urgent care, hospital, or senior living...) When possible be specific @ -No Did you speak to anyone other than the patient for history (EMS, parent, family, police, friend...)? What history was obtained from this source @ -No Did you review nursing and triage notes (agree or disagree)? Why? @ -I reviewed and agree with nursing and triage notes Were old charts reviewed (outside hosp., previous admission, EMS record, old EKG, old radiological studies, urgent care reports/EKG's, senior living records)? Report findings @ -Reviewed urology evaluation, prior laboratory studies Differential Diagnosis (chest pain, altered mental status, abdominal pain women, abdominal pain men, vaginal bleeding, weakness, fever, dyspnea, syncope, headache, dizziness, GI bleed, back pain, seizure, CVA, palpatations, mental health, musculoskeletal)? @ -Differential Abdominal Pain Women: Appendicitis, Cholecystitis, diverticulosis, ischemic bowel, pancreatitis, hepatitis, UTI, gastroenteritis, AAA, incarcerated hernia, bowel obstruction, constipation, inflammatory bowel, hepatitis, peptic ulcer disease, splenic infarction, perforated viscus, vulvitis, ovarian torsion, PID, kidney stone, placenta abruption, this is not meant to be an all-inclusive list EKG interpreted by me (3pts min.). @ -None X-rays interpreted by me (1pt min.). @ -None done CT interpreted by me (1pt min.). @ -None done U/S interpreted by me (1pt. min.). @ -None done What testing was considered but not performed or refused? (CT, X-rays, U/S, labs)? Why? @ -None What meds were considered but not given or refused? Why? @ -None Did you discuss the management of the patient with other professionals (professionals i.e. , PA, TYPE SOLDERING MACHINE TENDER, lab, RT, psych nurse, social work specialist, word processor operator, teacher, law enforcement officer, disability case manager)? Give summary @ -No Was smoking cessation discussed for >3mins.? @ -No Was critical care preformed (if so, how long)? @ -No Were there social determinants of health that impacted care today? How? (Homelessness, low income, unemployed, alcoholism, drug addiction, transportation, low edu. Level, literacy, decrease access to med. care, fdc, rehab)? @ -No Was there de-escalation of care discussed even if they declined (Discuss DNR or withdrawal of care, Hospice)? DNR status @ -No What co-morbidities impacted this encounter? (DM, HTN, Smoking, COPD, CAD, Cancer, CVA, ARF, Chemo, Hep., AIDS, mental health diagnosis, sleep apnea, morbid obesity)? @ -None Was patient admitted / discharged? Hospital course, mention meds given and route, prescriptions, significant lab abnormalities, going to OR and other pertinent info. @ -Discharge bladder scan showed 43, patient does have evidence UTI patient was given Rocephin patient will follow-up with urgent care, PCP for urine culture patient continue oral antibiotics was given Pyridium. Undiagnosed new problem with uncertain prognosis? @ -No Drug Therapy requiring intensive monitoring for toxicity (Heparin, Nitro, Insulin, Cardizem)? @ -No Were any procedures done? @ -No Diagnosis/symptom? @ -UTI Acute, or Chronic, or Acute on Chronic? @ -[Acute Uncomplicated (without systemic symptoms) or Complicated (systemic symptoms)? @ -Uncomplicated Side effects of treatment? @ -No Exacerbation, Progression, or Severe Exacerbation? @ -No Poses a threat to life or bodily function? How? (Chest pain, [place], [place], pneumonia, PE, COPD, DKA, ARF, appy, cholecystitis, CVA, Diverticulitis, Homicidal, Suicidal, threat to staff... and all critical care pts) @ -No (Jose Carlos Hannah) - Lab Data Lab Results 03/19/23 Range/Units 23:09 Urine Color Dark [place] Urine Appearance Cloudy H (Clear) Urine pH 6.0 (5.0-8.0) Ur Specific [place] 1.005 (1.001-1.035) Urine Protein Negative (Negative) Urine Glucose (UA) Negative (Negative) Urine Ketones Negative (Negative) Urine Blood Negative (Negative) Urine Nitrite Negative (Negative) Urine Bilirubin Negative (Negative) Urine Urobilinogen <2.0 (<2.0) mg/dL Ur Leukocyte Esterase Large H (Negative) Urine RBC 3 (0-5) /hpf Urine WBC 75 H (0-5) /hpf Urine WBC Clumps Occasional H (None) /hpf Ur Squamous Epith Cells 8 H (0-4) /hpf Amorphous Sediment Occasional H (None) /hpf Urine Bacteria Many H (None) /hpf Urine Mucus Occasional H (None) /hpf Disposition <Madelyn Nunez - Last Filed: 03/19/23 22:37> Is patient prescribed a controlled substance at d/c from ED?: No Time of Disposition: 00:45 <Jose Carlos Hannah - Last Filed: 03/20/23 01:06> Clinical Impression: Urinary tract infection, Abdominal pain Disposition: HOME SELF-CARE Condition: Stable Instructions (If sedation given, give patient instructions): Urinary Tract Infection in Women (ED) Additional Instructions: Please return to the Emergency Department if symptoms worsen or any other concerns. Prescriptions: Phenazopyridine [Pyridium] 200 mg PO TID #6 tablet Referrals: Genia Avalos MD [Primary Care Provider] - 1-2 days Darinel Lindsay MD [STAFF PHYSICIAN] - 1-2 days
[2023-03-19 22:45] VITALS: RESP 18; TEMP 98
[2023-03-19 23:34] LABS: Amorphous Sediment,Urine Occasional /hpf; Appearance,Urine Cloudy (Clear); Bacteria,Urine Many /hpf; Bilirubin,Urine Negative (Negative); Blood,Urine Negative (Negative); Color,Urine Dark Orange; Glucose,Urine (UA) Negative (Negative); Ketones,Urine Negative (Negative); Leukocyte Esterase,Urine Large (Negative); Mucus,Urine Occasional /hpf; Nitrite,Urine Negative (Negative); Protein,Urine Negative (Negative); RBC,Urine 3 /hpf (0-5); Specific Gravity,Urine 1.005 (1.001-1.035); Squamous Epithelial Cell,Urine 8 /hpf (0-4); Urobilinogen,Urine <2.0 mg/dL (<2.0); WBC,Urine 75 /hpf (0-5)
[2023-03-20] MEDS ORDERED: cefTRIAXone 1,000 MG VIAL (IM USE) IM STA (00:37)
[2023-03-20] MEDS ORDERED: PHENAZOPYRIDINE 200 MG TAB PO ONE (01:00)
[2023-03-20] MEDS ORDERED: PHENAZOPYRIDINE 100 MG TAB PO ONE (01:00)
[2023-03-20 02:09] VITALS: BP 115/78; PULSE 72
== END 2023-03-20 01:58 | disposition home or self-care (01) ==
LOC: EC 22:13
DX: N39.0 Urinary tract infection, site not specified (principal); I10 Essential (primary) hypertension; J45.909 Unspecified asthma, uncomplicated; K21.9 Gastro-esophageal reflux disease without esophagitis; E78.5 Hyperlipidemia, unspecified; E03.9 Hypothyroidism, unspecified; F32.A Depression, unspecified; F41.9 Anxiety disorder, unspecified; M19.90 Unspecified osteoarthritis, unspecified site; M79.7 Fibromyalgia; Z79.890 Hormone replacement therapy; Z79.899 Other long term (current) drug therapy; Z88.1 Allergy status to other antibiotic agents; Z88.2 Allergy status to sulfonamides; Z88.6 Allergy status to analgesic agent; Z90.49 Acquired absence of other specified parts of digestive tract
CPT/HCPCS: 99284; 96372; 81001; 87086; J0696

== ENCOUNTER → 2023-07-17 | Outpatient (CLI) | payer MEDICARE, OTHER ==
--- NOTE | 2023-07-17 14:31 | P.BASOAP ---
Subjective Progress Note Date: 07/17/23 Principal diagnosis: Morbid obesity Patient here for recheck. Last seen in December. Has had issues with recurrent urinary tract infection. Had a CAT scan showing no obvious colonic fistula. Patient states over the last 1 to 2 months she has had mid abdominal discomfort radiating to the upper abdomen into the retrosternal location that she feels is burning in nature. She has had a few emesis that were bloody or black-colored. She still takes omeprazole daily. She has lost 12 pounds since her last visit. She discussed her abdominal issues with her primary care physician who set her up for cardiology evaluation. Objective - Vital Signs Vital signs: Vital Signs Temp 98.4 F 07/17/23 14:06 Pulse 90 07/17/23 14:06 Resp 16 07/17/23 14:06 BP 126/91 07/17/23 14:06 Pulse Ox FiO2 Intake & Output 07/16/23 07/17/23 07/17/23 18:59 06:59 18:59 Weight 84.822 kg - Exam Abdomen: Soft, nontender, nondistended Assessment/Plan (1) Morbid obesity Narrative/Plan: 57-year-old female with morbid obesity. Recently with upper abdominal pain and some possible hematemesis. Will schedule for EGD at this time. Continue antiacid therapy. Plan: Date: 07/17/23 Initial Weight: 128.82 kg Initial BMI: 45.8 Current Weight: 84.822 kg Current BMI: 30.2 Type of Surgery: Vertical Sleeve Gastrectomy Total Volume in Band: Previous Volume: Volume Removed: Volume Added: Band Size:
[2023-07-17 14:32] VITALS: BP 126/91; PULSE 90; RESP 16; TEMP 98.4; BMI 30.2
== END ==
LOC: BARWHC3 13:55
PROVIDERS: ATTEND Surgery
DX: E66.01 Morbid (severe) obesity due to excess calories (principal); R10.10 Upper abdominal pain, unspecified; N39.0 Urinary tract infection, site not specified; Z68.30 Body mass index [BMI] 30.0-30.9, adult; Z88.2 Allergy status to sulfonamides; Z88.8 Allergy status to other drugs, medicaments and biological substances
CPT/HCPCS: 99211

== ENCOUNTER 2023-07-31 07:46 | Day surgery (SDC) | payer MEDICARE, OTHER ==
[~2023-07-31 07:46] MED LIST changes: -LACTATED RINGERS 1,000 ML IV SCH
[2023-07-31] MEDS: LACTATED RINGERS 1,000 ML IV SCH (08:21)
[2023-07-31 08:33] VITALS: TEMP 97.8
[2023-07-31] MEDS: MIDAZOLAM 2 MG/2 ML VIAL IVP ONE (08:47)
[2023-07-31] MEDS ORDERED: PROPOFOL 10 MG/ML 20 ML VIAL IV ONE (08:54)
--- NOTE | 2023-07-31 08:55 | P.HPADDEND ---
H&P Addendum H&P Addendum Date: 07/31/23 Please refer to recent note from the bariatric center. Patient here today for EGD to evaluate upper abdominal pain. No other changes since the recent office visit.
--- NOTE | 2023-07-31 09:06 | P.PCN ---
Date of Procedure: 07/31/23 Procedure(s) Performed: Preoperative Dx: GERD, abdominal pain Postoperative Dx: Gastritis Procedure: EGD with Bx Anesthesia: Sedation Endoscopist: Dr. Espino Specimens: Antrum, cardia Endoscopic Procedure: The patient was on the endoscopy table in the left decubitus position. The Olympus gastroscope was inserted into the oropharynx and passed under direct visualization to the region of the third portion of the duodenum. From that point the scope was slowly withdrawn inspecting all surfaces carefully. There were no neoplastic inflammatory or polypoid lesions throughout the duodenum. The pylorus was widely patent. The stomach was carefully inspected. There was gastritis present. No retroflexion took place because of the previous sleeve gastrectomy. The shape of the sleeve appeared appropriate. There was no sign of obstruction. At the cardia of the stomach there was slightly increased gastritis present with a small superficial erosion. A biopsy took place. The GE junction appeared normal. No obvious hiatal hernia was seen. The esophagus appeared normal as well. The patient was then taken to the recovery room in stable condition per anesthesia guidelines. Recommendations: Continue antiacid therapy. Await biopsy results.
[2023-07-31 09:53] VITALS: BP 112/72; PULSE 66; RESP 18
== END 2023-07-31 09:40 | disposition home or self-care (01) ==
LOC: ORWHC2ENDO 07:46
PROVIDERS: ATTEND Surgery
DX: K29.50 Unspecified chronic gastritis without bleeding (principal); K31.9 Disease of stomach and duodenum, unspecified; K21.9 Gastro-esophageal reflux disease without esophagitis; I10 Essential (primary) hypertension; E78.5 Hyperlipidemia, unspecified; J45.909 Unspecified asthma, uncomplicated; G47.33 Obstructive sleep apnea (adult) (pediatric); E07.9 Disorder of thyroid, unspecified; Z79.890 Hormone replacement therapy; Z79.899 Other long term (current) drug therapy
CPT/HCPCS: 88305; 43239; J2250; J2704

== ENCOUNTER → 2023-10-02 | Outpatient (CLI) | payer MEDICARE, OTHER ==
--- NOTE | 2023-10-03 21:05 | XR ---
EXAMINATION TYPE: XR chest 2V DATE OF EXAM: 10/02/2023 COMPARISON: 06/23/2022 HISTORY: 58-year-old female R05.9, unspecified cough TECHNIQUE: Frontal and lateral views FINDINGS: Heart normal size. Aorta and pulmonary vasculature within normal limits. Mild hyperinflation. There i s some patchy opacity medial right lower lung. No other consolidation or pleural effusion. Cholecyste ctomy clips. Query additional clips relating to prior right breast lumpectomy. IMPRESSION: Hyperinflation may relate to depth of inspiration or underlying emphysema. Correlate for smoking hist ory. Some patchy medial right lower lung opacity could represent superimposition shadow or early infi ltrate.
== END | disposition home or self-care (01) ==
LOC: RADXRMAIN 11:54
PROVIDERS: ATTEND Internal Medicine
DX: R91.8 Other nonspecific abnormal finding of lung field (principal); R05.9 Cough, unspecified
CPT/HCPCS: 71046

== ENCOUNTER 2023-10-07 16:01 | Emergency (ER) | payer MEDICARE, OTHER ==
--- NOTE | 2023-10-07 16:29 | ED ---
General Adult HPI - General Chief complaint: Extremity Injury, Upper Stated complaint: Cough, congestion Time Seen by Provider: 10/07/23 16:26 Source: patient, family, RN notes reviewed Mode of arrival: ambulatory Limitations: no limitations - History of Present Illness Initial comments: 58-year-old female presenting to the ER with multiple complaints. She states that she has been in bed for the past month as she does not feel well. She reports 1 month ago she was diagnosed with a sinus infection by PCP and received antibiotics. She states she finished those antibiotics and still had a cough and low-grade fever. She has been taking " everything" [id number]. She recently finished up another bout of antibiotics by PCP for which she believes she had pneumonia. She reports this morning she had diarrhea and nausea. She was reporting right-sided abdominal pain. She also is stating she is having difficulty urinating and an increase in frequency. Denies any peripheral edema, chest pain, or shortness of breath. - Related Data Home Medications Medication Instructions Recorded Confirmed ALPRAZolam [Xanax] 1 mg PO Q8H PRN 03/20/14 07/31/23 HYDROcodone/APAP 10-325MG [[place] 1 tab PO Q8H PRN 04/07/17 07/31/23 10-325] Omeprazole 20 mg PO BID 04/07/17 07/31/23 rOPINIRole HCL [Requip] 0.5 mg PO HS 06/02/17 07/31/23 Atorvastatin [Lipitor] 20 mg PO DAILY 11/21/18 07/31/23 Levothyroxine Sodium [Synthroid] 75 mcg PO DAILY 01/01/20 07/31/23 Dicyclomine [Bentyl] 10 mg PO TID PRN 01/29/23 07/31/23 Montelukast [Singulair] 10 mg PO HS 01/29/23 07/31/23 traZODone HCL [Desyrel] 100 mg PO HS 01/29/23 07/31/23 B12 Co Q 10(Unk) 1 tab PO DAILY 07/27/23 07/31/23 Calcium Carbonate/Vitamin D3 1 tab PO DAILY 07/27/23 07/31/23 [Calcium 500 mg-Vit D3 5 mcg (200 Unit)] DULoxetine HCL [Cymbalta] 30 mg PO BID 07/27/23 07/31/23 Fluticasone Nasal [place] [Flonase 1 spray INHALATION DAILY 07/27/23 07/31/23 Nasal [place]] Multivitamins, Thera [Multivitamin 1 tab PO DAILY 07/27/23 07/31/23 (formulary)] Karthik Daily Energy 1 dose PO DAILY 07/27/23 07/31/23 valACYclovir HCL [Valtrex] 500 mg PO DAILY 07/27/23 07/31/23 Previous Rx's Medication Instructions Recorded Sucralfate [Carafate] 1 gm PO ACHS #120 tab 07/31/23 Albuterol Inhaler [Ventolin Hfa 1 - 2 puff INHALATION Q6H PRN #1 10/07/23 Inhaler] each Allergies Allergy/AdvReac Type Severity Reaction Status Date / Time Sulfa (Sulfonamide Allergy Severe Rash/Hives Verified 10/07/23 16:11 Antibiotics) ketorolac tromethamine Allergy Tardive Verified 10/07/23 16:11 [From Toradol] Dyskinesia prochlorperazine maleate Allergy Tardive Verified 10/07/23 16:11 [From Compazine] Dyskinesia prochlorperazine edisylate AdvReac Severe Tardive Verified 10/07/23 16:11 [From Compazine] dyskinesia Review of Systems ROS Statement: Those systems with pertinent positive or pertinent negative responses have been documented in the HPI. ROS Other: All systems not noted in ROS Statement are negative. Past Medical History Past Medical History: Asthma, Cancer, Deep Vein Thrombosis (DVT), Fibromyalgia, GERD/Reflux, Hyperlipidemia, Hypertension, Osteoarthritis (OA), Renal Disease, Sleep Apnea/CPAP/BIPAP, Thyroid Disorder Additional Past Medical History / Comment(s): Hx DVT in each leg. IBS. Lumbar DDD, chronic back pain. Has not been using CPAP. Hypothyroid. 2 bulging discs in back and herniated disc in neck, past htn/none since wt loss, skin cancer on face with removal, kidney infection approximately 2 months and completed abx., kidney stones. chronic uti since december 2022 History of Any Multi-Drug Resistant Organisms: MRSA Date of last positivie culture/infection: 2008 MDRO Source:: abd Past Surgical History: Appendectomy, Bariatric Surgery, Section, Cholecystectomy, Hysterectomy, Orthopedic Surgery, Tonsillectomy Additional Past Surgical History / Comment(s): Right knee arthroscopy x2, left elbow surgery for torn tendon, sinus surgery x3, PAIN CLINIC PROCEDURE, back injections and nerves burned in back and neck, varicose vein surgery, sleeve g astrectomy 12-20-20, skin cancer removed from face. lft shoulder surgery, Past Anesthesia/Blood Transfusion Reactions: No Reported Reaction Additional Past Anesthesia/Blood Transfusion Reaction / Comment(s): Never had blood transfusion. Pt states versed does not work for her-I didn't feel anything. Past Psychological History: Anxiety, Depression, Panic Disorder Smoking Status: Never smoker Past Alcohol Use History: None Reported Past Drug Use History: None Reported - Past Family History Father Family Medical History: Cancer Additional Family Medical History / Comment(s): Colon Cancer. Brother(s) Family Medical History: Cancer General Exam Limitations: no limitations General appearance: alert, in no apparent distress Head exam: Present: atraumatic, normocephalic, normal inspection Eye exam: Present: normal appearance, PERRL, EOMI. Absent: scleral icterus, conjunctival injection, periorbital swelling ENT exam: Present: normal exam, normal oropharynx, mucous membranes moist, TM's normal bilaterally Neck exam: Present: normal inspection. Absent: tenderness, meningismus, lymphadenopathy Respiratory exam: Present: normal lung sounds bilaterally. Absent: respiratory distress, wheezes, rales, rhonchi, stridor Cardiovascular Exam: Present: regular rate, normal rhythm, normal heart sounds. Absent: systolic murmur, diastolic murmur, rubs, gallop, clicks GI/Abdominal exam: Present: soft, normal bowel sounds. Absent: distended, tenderness, guarding, rebound, rigid Neurological exam: Present: alert, oriented X3, CN II-XII intact Skin exam: Present: warm, dry, intact, normal color. Absent: rash Course Vital Signs 10/07/23 10/07/23 16:06 19:37 Temperature 98.2 F Pulse Rate 103 H 89 Respiratory 18 18 Rate Blood Pressure 120/85 127/89 O2 Sat by Pulse 100 100 Oximetry Medical Decision Making - Medical Decision Making Was pt. sent in by a medical professional or institution (, PA, ERP PROGRAMMER, urgent care, hospital, or fpc...) When possible be specific @ -No Did you speak to anyone other than the patient for history (EMS, parent, family, police, friend...)? What history was obtained from this source @ -No Did you review nursing and triage notes (agree or disagree)? Why? @ -I reviewed and agree with nursing and triage notes Were old charts reviewed (outside hosp., previous admission, EMS record, old EKG, old radiological studies, urgent care reports/EKG's, fpc records)? Report findings @ -Yes, I reviewed chest x-ray from 10/03/23. Xray concerning for pneumonia. Differential Diagnosis (chest pain, altered mental status, abdominal pain women, abdominal pain men, vaginal bleeding, weakness, fever, dyspnea, syncope, headache, dizziness, GI bleed, back pain, seizure, CVA, palpatations, mental health, musculoskeletal)? @ -Differential Weakness:Hypoglycemia, shock, sepsis, hyponatremia, anemia, infection, AR, ETOH, adverse medicine reaction, overdose, stroke, this is not meant to be an all-inclusive list. EKG interpreted by me (3pts min.). @ -As above X-rays interpreted by me (1pt min.). @ -Chest x-ray interpreted by me negative for acute cardiopulmonary process. CT interpreted by me (1pt min.). @ -None done U/S interpreted by me (1pt. min.). @ -None done What testing was considered but not performed or refused? (CT, X-rays, U/S, labs)? Why? @ -None What meds were considered but not given or refused? Why? @ -None Did you discuss the management of the patient with other professionals (professionals i.e. , PA, ERP PROGRAMMER, lab, RT, psych nurse, social work specialist, lead java programmer, teacher, chief clinical officer, case operator)? Give summary @ -No Was smoking cessation discussed for >3mins.? @ -No Was critical care preformed (if so, how long)? @ -No Were there social determinants of health that impacted care today? How? (Homelessness, low income, unemployed, alcoholism, drug addiction, transportation, low edu. Level, literacy, decrease access to med. care, longterm, rehab)? @ -No Was there de-escalation of care discussed even if they declined (Discuss DNR or withdrawal of care, Hospice)? DNR status @ -No What co-morbidities impacted this encounter? (DM, HTN, Smoking, COPD, CAD, Cancer, CVA, ARF, Chemo, Hep., AIDS, mental health diagnosis, sleep apnea, morbid obesity)? @ -Thyroid disorder Was patient admitted / discharged? Hospital course, mention meds given and route, prescriptions, significant lab abnormalities, going to OR and other pertinent info. @ -Discharged. 58 year old female presenting to the ER with a chief complaint of cough and fatigue. History and physical exam completed. Vitals stable. Patient in no signs of acute distress and non toxic appearing. No acute findings on exam. Laboratory studies obtained unimpressive. TSH 0.365 free T4 1.62. Urine without signs of infection. COVID, RSV, influenza negative. Chest x-ray interpreted by me negative for acute cardiopulmonary process. Symptomatic treatment achieved in the ER. Upon reevaluation, patient resting comfortably in exam room in no signs of acute distress. Patient eager for discharge. Results discussed with patient, all questions answered. I advised follow-up with PCP. Albuterol inhaler prescribed. Return parameters discussed. Patient discharged in stable condition with follow-up to PCP. Patient verbally expressed understanding and agreement with care plan. Case discussed with ED attending, Dr. Farley. Undiagnosed new problem with uncertain prognosis? @ -No Drug Therapy requiring intensive monitoring for toxicity (Heparin, Nitro, Insulin, Cardizem)? @ -No Were any procedures done? @ -No Diagnosis/symptom? @ -Cough Acute, or Chronic, or Acute on Chronic? @ -Acute Uncomplicated (without systemic symptoms) or Complicated (systemic symptoms)? @ -Uncomplicated Side effects of treatment? @ -No Exacerbation, Progression, or Severe Exacerbation? @ -No Poses a threat to life or bodily function? How? (Chest pain, USA, AR, pneumonia, PE, COPD, DKA, ARF, appy, cholecystitis, CVA, Diverticulitis, Homicidal, Suicidal, threat to staff... and all critical care pts) @ -No - Lab Data Result diagrams: 10/07/23 16:23 10/07/23 16:23 Lab Results 10/07/23 10/07/23 10/07/23 Range/Units 16:23 16:23 16:23 WBC 7.8 (3.8-10.6) k/uL RBC 4.19 (3.80-5.40) m/uL Hgb 13.8 (11.4-16.0) gm/dL Hct 43.0 (34.0-46.0) % MCV 102.6 H (80.0-100.0) fL MCH 33.0 (25.0-35.0) pg MCHC 32.1 (31.0-37.0) g/dL RDW 12.1 (11.5-15.5) % Plt Count 213 (150-450) k/uL MPV 8.7 Neutrophils % 44 % Lymphocytes % 47 % Monocytes % 6 % Eosinophils % 1 % Basophils % 1 % Neutrophils # 3.4 (1.3-7.7) k/uL Lymphocytes # 3.7 (1.0-4.8) k/uL Monocytes # 0.5 (0-1.0) k/uL Eosinophils # 0.1 (0-0.7) k/uL Basophils # 0.0 (0-0.2) k/uL Sodium 137 (137-145) mmol/L Potassium 4.6 (3.5-5.1) mmol/L Chloride 108 H (98-107) mmol/L Carbon Dioxide 19 L (22-30) mmol/L Anion Gap 10 mmol/L BUN 13 (7-17) mg/dL Creatinine 0.66 (0.52-1.04) mg/dL Est GFR (CKD-EPI)AfAm >90 (>60 ml/min/1.73 sqM) Est GFR (CKD-EPI)NonAf >90 (>60 ml/min/1.73 sqM) Glucose 97 (74-99) mg/dL Calcium 9.1 (8.4-10.2) mg/dL Total Bilirubin 0.9 (0.2-1.3) mg/dL AST 28 (14-36) U/L ALT 15 (4-34) U/L Alkaline Phosphatase 45 (38-126) U/L Total Protein 7.2 (6.3-8.2) g/dL Albumin 4.4 (3.5-5.0) g/dL TSH 0.365 L (0.465-4.680) mIU/L Free T4 1.62 (0.78-2.19) ng/dL Urine Color Urine Appearance (Clear) Urine pH (5.0-8.0) Ur Specific [place] (1.001-1.035) Urine Protein (Negative) Urine Glucose (UA) (Negative) Urine Ketones (Negative) Urine Blood (Negative) Urine Nitrite (Negative) Urine Bilirubin (Negative) Urine Urobilinogen (<2.0) mg/dL Ur Leukocyte Esterase (Negative) Influenza Type A (PCR) Not Detected (Not Detectd) Influenza Type B (PCR) Not Detected (Not Detectd) RSV (PCR) Not Detected (Not Detectd) SARS-CoV-2 (PCR) Not Detected (Not Detectd) 10/07/23 Range/Units 16:25 WBC (3.8-10.6) k/uL RBC (3.80-5.40) m/uL Hgb (11.4-16.0) gm/dL Hct (34.0-46.0) % MCV (80.0-100.0) fL MCH (25.0-35.0) pg MCHC (31.0-37.0) g/dL RDW (11.5-15.5) % Plt Count (150-450) k/uL MPV Neutrophils % % Lymphocytes % % Monocytes % % Eosinophils % % Basophils % % Neutrophils # (1.3-7.7) k/uL Lymphocytes # (1.0-4.8) k/uL Monocytes # (0-1.0) k/uL Eosinophils # (0-0.7) k/uL Basophils # (0-0.2) k/uL Sodium (137-145) mmol/L Potassium (3.5-5.1) mmol/L Chloride (98-107) mmol/L Carbon Dioxide (22-30) mmol/L Anion Gap mmol/L BUN (7-17) mg/dL Creatinine (0.52-1.04) mg/dL Est GFR (CKD-EPI)AfAm (>60 ml/min/1.73 sqM) Est GFR (CKD-EPI)NonAf (>60 ml/min/1.73 sqM) Glucose (74-99) mg/dL Calcium (8.4-10.2) mg/dL Total Bilirubin (0.2-1.3) mg/dL AST (14-36) U/L ALT (4-34) U/L Alkaline Phosphatase (38-126) U/L Total Protein (6.3-8.2) g/dL Albumin (3.5-5.0) g/dL TSH (0.465-4.680) mIU/L Free T4 (0.78-2.19) ng/dL Urine Color Colorless Urine Appearance Clear (Clear) Urine pH 7.0 (5.0-8.0) Ur Specific [place] 1.004 (1.001-1.035) Urine Protein Negative (Negative) Urine Glucose (UA) Negative (Negative) Urine Ketones Negative (Negative) Urine Blood Negative (Negative) Urine Nitrite Negative (Negative) Urine Bilirubin Negative (Negative) Urine Urobilinogen <2.0 (<2.0) mg/dL Ur Leukocyte Esterase Negative (Negative) Influenza Type A (PCR) (Not Detectd) Influenza Type B (PCR) (Not Detectd) RSV (PCR) (Not Detectd) SARS-CoV-2 (PCR) (Not Detectd) - EKG Data -: EKG Interpreted by Me EKG Comments: EKG taken at 17: 11 showing a sinus rhythm with a right bundle branch block. Inverted T waves in anterior leads. No acute ST segment changes. Ventricular rate 76, OH interval 138, QRS duration 82, QT/QTc 381/411. - Radiology Data Radiology results: report reviewed, image reviewed Disposition Clinical Impression: Cough Disposition: HOME SELF-CARE Condition: Stable Instructions (If sedation given, give patient instructions): Chronic Cough (ED) Additional Instructions: Follow-up with PCP next 1 to 2 days. Return to the ER for any new or worsening concerns. Prescriptions: Albuterol Inhaler [Ventolin Hfa Inhaler] 1 - 2 puff INHALATION Q6H PRN #1 each PRN Reason: Shortness Of Breath Is patient prescribed a controlled substance at d/c from ED?: No Referrals: Genia Avalos MD [Primary Care Provider] - 1-2 days Time of Disposition: 19:24
[2023-10-07] MEDS: SODIUM CHLORIDE 0.9% 1,000 ML IV STA (16:49)
[2023-10-07 17:17] LABS: Appearance,Urine Clear (Clear); Bilirubin,Urine Negative (Negative); Blood,Urine Negative (Negative); Color,Urine Colorless; Glucose,Urine (UA) Negative (Negative); Ketones,Urine Negative (Negative); Leukocyte Esterase,Urine Negative (Negative); Nitrite,Urine Negative (Negative); Protein,Urine Negative (Negative); Specific Gravity,Urine 1.004 (1.001-1.035); Urobilinogen,Urine <2.0 mg/dL (<2.0)
[2023-10-07 17:20] VITALS: RESP 18; TEMP 98.2
[2023-10-07 17:21] LABS: Basophils % (A) 1 %; Eosinophils # (A) 0.1 k/uL (0-0.7); Eosinophils % (A) 1 %; HGB 13.8 gm/dL (11.4-16.0); Lymphocytes # (A) 3.7 k/uL (1.0-4.8); Lymphocytes % (A) 47 %; MCHC 32.1 g/dL (31.0-37.0); MCV 102.6 fL (80.0-100.0); Mean Platelet Volume 8.7; Monocytes # (A) 0.5 k/uL (0-1.0); Monocytes % (A) 6 %; Neutrophils # (A) 3.4 k/uL (1.3-7.7); Neutrophils % (A) 44 %; Platelet Count 213 k/uL (150-450); RBC 4.19 m/uL (3.80-5.40); RDW 12.1 % (11.5-15.5); WBC 7.8 k/uL (3.8-10.6)
[2023-10-07 17:25] LABS: ALT 15 U/L (4-34); AST 28 U/L (14-36); African American GFR (CKD) >90 (>60 ml/min/1.73 sqM); Albumin 4.4 g/dL (3.5-5.0); Alkaline Phosphatase 45 U/L (38-126); Anion Gap 10 mmol/L; Blood Urea Nitrogen 13 mg/dL (7-17); Calcium 9.1 mg/dL (8.4-10.2); Carbon Dioxide 19 mmol/L (22-30); Chloride 108 mmol/L (98-107); Glucose 97 mg/dL (74-99); Non-African American GFR(CKD) >90 (>60 ml/min/1.73 sqM); Sodium 137 mmol/L (137-145); Total Bilirubin 0.9 mg/dL (0.2-1.3); Total Protein 7.2 g/dL (6.3-8.2)
[2023-10-07 17:39] LABS: Potassium 4.6 mmol/L (3.5-5.1)
--- NOTE | 2023-10-07 17:57 | XR ---
EXAMINATION TYPE: XR chest 2V DATE OF EXAM: 10/07/2023 5:07 PM CLINICAL INDICATION:Female, 58 years old with history of cough; COMPARISON: 10/02/2023 TECHNIQUE: XR chest 2V Frontal and lateral views of the chest. FINDINGS: Lungs/Pleura: There is no evidence of pleural effusion, focal consolidation, or pneumothorax. Pulmonary vascularity: Unremarkable. Heart/mediastinum: Cardiomediastinal silhouette is unremarkable. Musculoskeletal: No acute osseous pathology. IMPRESSION: No acute cardiopulmonary disease/process.
[2023-10-07] MEDS: ACETAMINOPHEN TAB 325 MG TAB PO STA (18:27)
[2023-10-07] MEDS: LORazepam 1 MG TAB PO STA (18:28)
[2023-10-07 18:56] LABS: T4, Free (Free Thyroxine) 1.62 ng/dL (0.78-2.19)
[2023-10-07 20:37] VITALS: BP 127/89; PULSE 89
== END 2023-10-07 19:37 | disposition home or self-care (01) ==
LOC: EC 16:01
DX: R05.9 Cough, unspecified (principal); I45.10 Unspecified right bundle-branch block; E03.9 Hypothyroidism, unspecified; Z79.890 Hormone replacement therapy; Z88.2 Allergy status to sulfonamides; Z88.6 Allergy status to analgesic agent; Z88.8 Allergy status to other drugs, medicaments and biological substances
CPT/HCPCS: 36415; 71046; 80053; 81003; 84439; 84443; 85025; 87636; 93005; 96360; 96361; 99284

== ENCOUNTER → 2023-11-08 | Outpatient (CLI) | payer MEDICARE, OTHER ==
--- NOTE | 2023-11-08 18:59 | US ---
EXAMINATION TYPE: US thyroid st tissue head/neck DATE OF EXAM: 11/08/2023 COMPARISON: US 07/24/2022 CLINICAL INDICATION: Female, 58 years old with history of E04.2 Goiter; Goiter. Patient takes thyroid medication. GLAND SIZE: Right Lobe: 3.3 x 1.2 x 1.4 cm Overall Parenchyma: Slightly heterogeneous Left Lobe: 3.9 x 1.2 x 1.0 cm Overall Parenchyma: Slightly heterogeneous Isthmus Thickness: 0.22 cm NODULES RIGHT: # of nodules measured on right: 0 LEFT: # of nodules measured on left: 1 1. 1.4 X 1.2 x 0.6 cm, mid medial, solid or almost completely solid, hypoechoic nodule, which is wi tejinder than tall, with ill-defined margins, without echogenic foci. TR 4 Prior size: 0.8 x 0.5 x 0.7 cm *Nodule goes slightly into the left isthmus. ISTHMUS: # of nodules measured in the isthmus: 0 Bilateral neck scanned, no evidence of lymphadenopathy. IMPRESSION: Moderately suspicious nodule left lobe thyroid. Follow-up in 1 year is recommended. 2017 ACR TI-RADS LEVEL: TR-RADS 4 - Moderately Suspicious: Follow if > 1 cm, FNA if > 1.5 cm *Highest TI-RADS level nodule reported
== END | disposition home or self-care (01) ==
LOC: RADUSWWP 15:48
PROVIDERS: ATTEND Internal Medicine Endocrinology, Diabetes & Metabolism
DX: E04.2 Nontoxic multinodular goiter (principal)
CPT/HCPCS: 76536

== ENCOUNTER → 2023-12-18 | Outpatient (CLI) | payer MEDICARE, OTHER ==
[2023-12-18 14:11] VITALS: BP 118/80; PULSE 105; TEMP 98; BMI 29.2
--- NOTE | 2023-12-18 14:27 | P.BASOAP ---
Subjective Progress Note Date: 12/18/23 Principal diagnosis: Morbid obesity Patient returns for reevaluation. Last seen in July. She had an EGD performed after that. No significant abnormalities noted. Still takes omeprazole twice daily along with Carafate and Bentyl as needed. Has good control of her upper abdominal discomforts and GERD with that regimen. She has lost 6 pounds since her last visit. She is due for annual lab work. Objective - Vital Signs Vital signs: Vital Signs Temp 98 F 12/18/23 13:50 Pulse 105 H 12/18/23 13:50 Resp BP 118/80 12/18/23 13:50 Pulse Ox FiO2 Intake & Output 12/17/23 12/18/23 12/18/23 18:59 06:59 18:59 Weight 82.1 kg - Exam Abdomen: Soft, nontender, nondistended Assessment/Plan (1) Morbid obesity Narrative/Plan: Patient doing well after prior sleeve gastrectomy. Continue dietary and exercise regimen. Continue antiacids Bentyl and Carafate. Check annual labs. Follow-up 1 year. Plan: Date: 12/18/23 Initial Weight: 128.82 kg Initial BMI: 45.8 Current Weight: 82.1 kg Current BMI: 29.2 Type of Surgery: Total Volume in Band: Previous Volume: Volume Removed: Volume Added: Band Size:
== END ==
LOC: BARWHC3 13:37
PROVIDERS: ATTEND Surgery
DX: E66.01 Morbid (severe) obesity due to excess calories (principal); K21.9 Gastro-esophageal reflux disease without esophagitis; R10.10 Upper abdominal pain, unspecified; Z71.3 Dietary counseling and surveillance; Z90.3 Acquired absence of stomach [part of]; Z98.84 Bariatric surgery status; Z88.2 Allergy status to sulfonamides; Z88.8 Allergy status to other drugs, medicaments and biological substances; Z68.29 Body mass index [BMI] 29.0-29.9, adult
CPT/HCPCS: 99211

== ENCOUNTER → 2023-12-27 | Outpatient (CLI) | payer MEDICARE, OTHER ==
--- NOTE | 2024-01-01 07:55 | MM ---
Reason for Exam: Screening (asymptomatic). Last screening mammogram was performed 12 month(s) ago. Patient History: Menarche at age 14. First Full-Term at age 19. Hysterectomy at age 39. Postmenopausal. 06/01/2021, Excisional Biopsy on the Right side. 05/19/2021, Benign Cyst Aspiration on the right side. 08/2006, Benign Excisional Biopsy on the left side. 10/31/2017, Benign Core Biopsy on the left side. Risk Values: Ariadna 5 year model risk: 1.4%. NCI Lifetime model risk: 8.5%. Prior Study Comparison: 05/23/2021 Left Diagnostic Mammogram, [facility]. 12/19/2021 Bilateral MG 3D diag mammo w/cad REX, [facility]. 12/21/2022 Bilateral MG 3D screening mammo w/cad, [facility]. Tissue Density: The breasts are heterogeneously dense, which may obscure small masses. Findings: Analyzed By CAD. There is no suspicious group of microcalcifications or new suspicious mass in either breast. Overall Assessment: Benign, BI-RAD 2 Management: Screening Mammogram of both breasts in 1 year. . Patient should continue monthly self-breast exams. A clinical breast exam by your physician is recommended on an annual basis. This exam should not preclude additional follow-up of suspicious palpable abnormalities. Note on Ariadna scores and lifetime risk: 1. A Ariadna score greater than 3% is considered moderate risk. If this is the case, consider specialist referral to assess eligibility for a risk reducing agent. 2. If overall lifetime risk for the development of breast cancer is 20% or higher, the patient may qualify for future screening with alternating mammogram and breast MRI. Electronically signed and approved by: Johnson Matthews M.D. Radiologis
== END | disposition home or self-care (01) ==
LOC: RADMAMWWP 07:56
PROVIDERS: ATTEND Surgery
DX: Z12.31 Encounter for screening mammogram for malignant neoplasm of breast (principal); R92.333 Mammographic heterogeneous density, bilateral breasts; Z78.0 Asymptomatic menopausal state
CPT/HCPCS: 77063; 77067

== ENCOUNTER → 2023-12-27 | Outpatient (CLI) | payer MEDICARE, OTHER | LOC: WWCWWP 07:53 | PROVIDERS: ATTEND Surgery | DX: Z53.9 Procedure and treatment not carried out, unspecified reason (principal) ==

== ENCOUNTER → 2024-09-22 | Outpatient (CLI) | payer MEDICARE, OTHER ==
--- NOTE | 2024-09-22 08:52 | XR ---
EXAMINATION TYPE: XR KUB DATE OF EXAM: 09/22/2024 8:32 AM COMPARISON: 08/28/2018 CLINICAL INDICATION: Female, 59 years old with history of N20.0 Calculus Kidney; PHH, pain TECHNIQUE: One radiographic view of the abdomen was obtained. FINDINGS: Lung bases are clear. Surgical material along both sides of the upper abdomen. Gassy colon with moder ate stool burden. Suspect some scattered residual oral contrast material within the colon. No dilated small bowel. Bowel content obscures the renal shadows. Generator device projecting over the right iliac wing with lead extending to the right sacrum. IMPRESSION: 1. Bowel content obscures the renal shadows. 2. Moderate stool burden, possible constipation. Clinically correlate. [facility], , 09/22/2024 8:50 AM
== END | disposition home or self-care (01) ==
LOC: RADXRMAIN 08:18
PROVIDERS: ATTEND Urology
DX: N20.0 Calculus of kidney (principal); N28.89 Other specified disorders of kidney and ureter
CPT/HCPCS: 74018

== ENCOUNTER → 2024-11-25 | Outpatient (CLI) | payer MEDICARE, OTHER ==
--- NOTE | 2024-11-26 08:03 | NM ---
EXAMINATION TYPE: NM DatScan Brain SPECT DATE OF EXAM: 11/25/2024 COMPARISON: MRI 07/19/2024 CLINICAL INDICATION: Female, 59 years old with history of G25.0,G25.2; essential tremor and other spe cified forms of tremor. TECHNIQUE: 10 drops of Lugol's solution was administered 1 hour prior to injection as a thyroid bloc doug agent. After the administration of 4.33 mCi I-123 Ioflupane DaTscan. Images obtained 3 hours p ost injection. SPECT images of the brain were acquired with axial and coronal reconstructions. FINDINGS: There is normal, comma-shaped activity within the bilateral corpus striata. No abnormal increased yokasta kground activity. IMPRESSION: The normal appearance is against a diagnosis of Parkinson's disease or a Parkinsonian syndrome. In ca n be seen in normal individuals and also in those with essential tremor. [facility], , 11/26/2024 8:01 AM
== END | disposition home or self-care (01) ==
LOC: RADNMMAIN 10:38
PROVIDERS: ATTEND Psychiatry & Neurology Neurology
DX: G20.C Parkinsonism, unspecified (principal); G25.0 Essential tremor
CPT/HCPCS: 78803; A9584

== ENCOUNTER → 2024-12-16 | Outpatient (CLI) | payer MEDICARE, OTHER ==
[2024-12-16 13:17] VITALS: BMI 28.0
[2024-12-16 13:23] VITALS: BP 118/80; PULSE 102; TEMP 98
--- NOTE | 2024-12-16 14:06 | P.BASOAP ---
Subjective Progress Note Date: 12/16/24 Principal diagnosis: Morbid obesity 59-year-old female returns for recheck. Last seen 1 year ago. Last August patient had EGD for complaints of epigastric pain and vomiting. Patient says intermittently since then she will have 1 to 2 days of nausea and vomiting with pain. This occurred most recently this past week. Better today. Pain is midepigastric. History of previous cholecystectomy. Today's weight down 3 pounds from where she was 1 year ago. Takes omeprazole twice daily as well as Bentyl and Pepto-Bismol. Heart rate mildly elevated at 102. Patient does have constipation intermittently. Does admit to marijuana use. Objective - Vital Signs Vital signs: Vital Signs Temp 98 F 12/16/24 13:11 Pulse 102 H 12/16/24 13:11 Resp BP 118/80 12/16/24 13:11 Pulse Ox FiO2 Intake & Output 12/15/24 12/16/24 12/16/24 18:59 06:59 18:59 Weight 80.739 kg - Exam Abdomen: Soft, minimal epigastric tenderness, nondistended Assessment/Plan (1) Morbid obesity Narrative/Plan: Patient doing relatively well. Weight is stable. Unfortunately still having intermittent episodes of nausea and vomiting. Discussed the correlation between that and her THC use. She says she will cut back on that. Continue antiacid therapy. Check 1 year labs. Follow-up 1 year. Plan: Date: 12/16/24 Initial Weight: 128.82 kg Initial BMI: 45.8 Current Weight: 80.739 kg Current BMI: 28.0 Type of Surgery: Total Volume in Band: Previous Volume: Volume Removed: Volume Added: Band Size:
== END ==
LOC: BARWHC3 12:56
PROVIDERS: ATTEND Surgery
DX: E66.01 Morbid (severe) obesity due to excess calories (principal); Z68.28 Body mass index [BMI] 28.0-28.9, adult; Z88.2 Allergy status to sulfonamides; Z88.6 Allergy status to analgesic agent
CPT/HCPCS: 99211